=== PATIENT | male | born 1940 | race Caucasian/White ===

== ENCOUNTER 2019-10-11 22:56 | Inpatient (IN) | payer OTHER, BC ==
--- NOTE | 2019-10-11 23:15 | PDOC ---
History of Present Illness - General Chief Complaint: Shortness of Breath Stated Complaint: DIFFICULTY BREATHING Time Seen by Provider: 10/11/19 23:14 - History of Present Illness Initial Comments: 10/11/19 23:57 The patient is a 79 year old male with a history of HTN, HLD, Afib, CAD s/p cabg , COPD who presents for evaluation of shortness of breath. The patient reports a 5 day history of productive cough, SOB and intermittent fevers. He noted an acute worsening of shortness of breath with dyspnea on exertion today prompting his presentation to the ED for further evaluation. He otherwise denies headache , chest pain, nausea, vomiting, abdominal pain, or changes with urination or bowel movements. Past History - Past Medical History Allergies/Adverse Reactions: Allergies Allergy/AdvReac Type Severity Reaction Status Date / Time No Known Allergies Allergy Verified 10/11/19 23:54 Home Medications: Ambulatory Orders Amlodipine Besylate [Norvasc] 5 mg PO DAILY 11/07/11 Aspirin Coated [Ecotrin -] 81 mg PO DAILY 11/07/11 Atorvastatin Ca [Lipitor] 40 mg PO HS 11/07/11 Clopidogrel Bisulfate [Plavix -] 75 mg PO DAILY 11/07/11 Multivitamin [Multivitamins] 0.5 each PO BID 08/26/13 Salmeterol/Fluticasone [Advair 250Mcg/50Mcg -] 1 inh PO BID 08/26/13 Sotalol HCl [Sotalol] 40 mg PO BID 08/26/13 Anemia: No Asthma: No Cancer: No Cardiac Disorders: Yes (cabg 06/2005) CVA: No COPD: Yes (EMPHYSEMA) Dementia: No Diabetes: No GI Disorders: No Disorders: No HTN: Yes Hypercholesterolemia: Yes Liver Disease: No Seizures: No Thyroid Disease: No - Surgical History Abdominal Surgery: Yes Appendectomy: No Cardiac Surgery: Yes (cabg X 2004) Cholecystectomy: No Lung Surgery: No Neurologic Surgery: No Orthopedic Surgery: No - Psycho Social/Smoking Cessation Hx Smoking History: Former smoker Have you smoked in the past 12 months: No If you are a former smoker, when did you quit?: 17YRS AGO Hx Alcohol Use: Yes (wine daily) Drug/Substance Use Hx: No Substance Use Type: Alcohol Hx Substance Use Treatment: No Review of Systems - Review of Systems Comments:: 10/12/19 00:02 Constitutional: Fevers. No chills, fatigue, malaise HEENT: No Rhinorrhea, nasal congestion, visual changes Cardiovascular: No chest pain, syncope, palpitations, lightheadedness Respiratory: SOB, productive cough. No Hemoptysis, Gastrointestinal: No Abdominal pain, Nausea, Vomiting, Constipation, Diarrhea, Melena Genitourinary: No Dysuria, Frequency, Urgency, Hesitancy, Hematuria, Flank pain Musculoskeletal: No Myalgia, arthralgia Skin: No rashes, itching, bruising, pallor Neurologic: No Headache, Dizziness, Numbness, Weakness, or Tingling Psychiatric: No Hallucinations. No SI or HI *Physical Exam - Physical Exam 10/12/19 00:03 General Appearance: Nourished. No Apparent Distress HEENT: No Pharyngeal Erythema, Tonsillar Exudate, Tonsillar Erythema Neck: No Cervical Lymphadenopathy Respiratory/Chest: Poor air movement bilaterally with bibasilar rales and end expiratory wheezing. No Crackles, Rhonchi, Cardiovascular: Irregularly irregular rhythm, Tachycardic Rate. No Murmur, Gallops, Rubs Gastrointestinal/Abdominal: Normal Bowel Sounds, Soft. No Guarding, Rebound, Tenderness Musculoskeletal: No CVA Tenderness Extremity: Normal Capillary Refill Integumentary: Normal Color, Dry, Warm Neurologic: Fully Oriented, Alert, Normal Mood/Affect, Normal Response, Heart Score/ECG Review #1 ECG reviewed & interpreted by me at: 00:47 10/12/19 00:47 HR 127 QRS 116 QTc 444 Atrial Fibrillation with RVR No Acute ST changes ED Treatment Course - LABORATORY CBC & Chemistry Diagram: 10/11/19 23:22 10/11/19 23:22 Medical Decision Making - Medical Decision Making 10/12/19 00:05 The patient is a 79 year old male with a history of HTN, HLD, Afib, CAD s/p cabg , COPD who presents for evaluation of shortness of breath. Given the patient's history and physical exam, we will obtain a cbc, cmp, troponin, bnp, influenza swab, chest plain film, ekg to evaluate further. We will treat with iv fluids, duonebs, solumedrol and continue to monitor and reassess while here in the ED. 10/12/19 00:32 CBc, cmp, troponin, bnp were unremarkable. Chest plain film did not demonstrate any acute process. The patient reports some improvement in his symptoms with duonebs and solumedrol, however continues to remain symptomatic with wheezing on exam. He is in afib with RVR on ekg and we will treat with 30 po cardizem. The patient will require admission for further monitoring and management. Discharge - Discharge Information Problems reviewed: Yes Clinical Impression/Diagnosis: COPD exacerbation, Atrial fibrillation with RVR Condition: Guarded - Admission Yes - Follow up/Referral - Patient Discharge Instructions - Post Discharge Activity
[2019-10-11] MEDS ORDERED: ALBUTEROL SO4 2.5/IPRATROPIUM 0.5 INH SOL 3 ML VIAL.NEB. NEB ONE ×2 (23:25→23:35)
[2019-10-11] MEDS ORDERED: methylPREDNISolone NA SUCC 125 MG/2 ML VIAL IVPUSH ONE (23:25)
--- NOTE | 2019-10-11 23:31 | PDOC ---
Attending Attestation - Resident Resident Name: Miguel Sanchez - ED Attending Attestation I have performed the following: I have examined & evaluated the patient, The case was reviewed & discussed with the resident, I agree w/resident's findings & plan - HPI HPI: 10/11/19 23:33 5 days of SOB; cough productive of phlegm - Physicial Exam PE: 10/12/19 20:24 Agree with resident exam. Pt has a cold sweat; otherwise, skin normal color and temp and he has irregularly irreg heart rate. Lings clear bilat abd soft NT ND no flank pain No edema of legs - Medical Decision Making 10/12/19 00:07 COPD exacerbation; CXR looks normal Pt has normal WBC 10/12/19 20:24 Heart Score/ECG Review - ECG Intrepretation Rhythm: Irregularly Irregular Comment:: 10/12/19 00:13 rapid afib
[2019-10-11] MEDS ORDERED: methylPREDNISolone NA SUCC 125 MG/2 ML VIAL ONE (23:36)
[2019-10-11 23:37] LABS: BASO % 0.5 % (0-2.0); EOS % 0.4 % (0-4.5); HEMOGLOBIN 14.9 GM/dL (11.7-16.9); LYMPH % 8.9 % (8-40); MCH 32.1 pg (25.7-33.7); MCHC 33.9 g/dl (32.0-35.9); MEAN CELL VOLUME 94.7 fl (80-96); MEAN PLT VOLUME 8.6 fl (7.5-11.1); MONO % 8.4 % (3.8-10.2); NEUT % 81.8 % (42.8-82.8); PLATELET COUNT 199 K/MM3 (134-434); RBC 4.64 M/mm3 (4.00-5.60); RDW 12.9 % (11.9-15.9); WHITE BLOOD COUNT 11.6 K/mm3 (4.0-10.0)
[2019-10-11] MEDS: SODIUM CHLORIDE 0.9% 500 ML INFUS.BAG IV ONE (23:46)
[2019-10-12 00:06] LABS: ALBUMIN 3.2 g/dl (3.4-5.0); BILIRUBIN,TOTAL 1.6 mg/dL (0.2-1); CALCIUM 8.5 mg/dL (8.5-10.1); CREATININE 1.3 mg/dL (0.55-1.3); POTASSIUM 4.4 mmol/L (3.5-5.1); TOT PROT 7.2 g/dl (6.4-8.2)
[2019-10-12] MEDS ORDERED: dilTIAZem HCL 30 MG TABLET (FP) PO ONE (00:23)
[2019-10-12] MEDS ORDERED: dilTIAZem HCL 30 MG TABLET (FP) ONE (00:27)
[2019-10-12] MEDS ORDERED: SODIUM CHLORIDE 250 ML IV STA (00:29)
[2019-10-12] MEDS: SODIUM CHLORIDE 0.9% 500 ML INFUS.BAG IV ONE (00:34)
[2019-10-12 01:17] LABS: ARTERIAL BLD GAS O2 SATURATION 96.1 % (95-98); ARTERIAL BLOOD GAS BASE EXCESS 1.2 meq/l (-2-2); ARTERIAL BLOOD GAS PCO2 35.5 mmHg (35-45); ARTERIAL BLOOD GAS pH 7.45 (7.35-7.45); CARBOXYHEMOGLOBIN 1.5 % (0-2)
[2019-10-12] MEDS ORDERED: ALBUTEROL SO4 2.5/IPRATROPIUM 0.5 INH SOL 3 ML VIAL.NEB. NEB PRN (01:17)
[2019-10-12] MEDS ORDERED: ALBUTEROL SO4 0.083% IH SOL 2.5 MG/3 ML VIAL.NEB. NEB PRN (01:17)
[2019-10-12 01:19] LABS: ALLENS TEST POSITIVE
[2019-10-12] MEDS ORDERED: methylPREDNISolone NA SUCC 40 MG/1 ML VIAL IVPUSH SCH (01:30)
--- NOTE | 2019-10-12 01:50 | HP ---
CHIEF COMPLAINT: shortness of breath PCP: Dr. Garcia HISTORY OF PRESENT ILLNESS: Eleazar Pathak Jr is a 79 year old male with a past medical history of HTN, HLD, afib (on Xarelto), CAD (s/p CABG), COPD who presents with shortness of breath. Patient noted that 3 days prior he was walking down the stairs in the evening when he began to feel short of breath. He went to sit down in a recliner and did not move from the recliner until the next day. He endorsed a non-productive cough but noted that he felt like he needed to cough up phlegm. He stated that he felt feverish and a measured temperature greater than 101 was found at home. Additionally, endorsed diaphoresis and poor appetite. He stated that after 3 days his breathing was worsening and he was having great difficulty in taking breaths. He stated that his breathing was worse on exertion and endorsed wheezing. Denied recent sick contacts, travel, recent antibiotic use. Denied chest pain, palpitations, abdominal pain, nausea, vomiting, diarrhea, constipation, dysuria, hematuria, headaches, dizziness, lightheadedness, numbness, tingling. Patient is not on home O2, has never required O2 in the past. ER course was notable for: (1) HR 107, RR 22, 98 on 2L NC (2) WBC 11.6, T bili 1.6, BNP 3478 (3) Given Duoneb, NS 1L, Solumedrol 125 Recent Travel: denies PAST MEDICAL HISTORY: as above PAST SURGICAL HISTORY: 4x CABG in 2004 Social History: Smoking: former smoker, quit 25 years prior, previously smoked 2ppd for "many years" Alcohol: daily wine drinker, "several glasses" Drugs: denies Allergies No Known Allergies Allergy (Verified 10/11/19 23:54) HOME MEDICATIONS: Home Medications Medication Instructions Recorded Aspirin Coated [Ecotrin -] 81 mg PO DAILY 11/07/11 Atorvastatin Ca [Lipitor] 80 mg PO HS 11/07/11 Clopidogrel Bisulfate [Plavix -] 75 mg PO DAILY 11/07/11 Multivitamin [Multivitamins] 0.5 each PO BID 08/26/13 Sotalol HCl [Sotalol] 40 mg PO BID 08/26/13 Diltiazem HCl [Diltiazem 24Hr Cd] 180 mg PO DAILY 10/12/19 Fluticasone/Umeclidin/Vilanter 1 each IH DAILY 10/12/19 [Trelegy Ellipta 100-62.5-25] Rivaroxaban [Xarelto -] 20 mg PO HS 10/12/19 REVIEW OF SYSTEMS CONSTITUTIONAL: fever, diaphoresis Absent: chills, generalized weakness, malaise, loss of appetite, HEENT: Absent: rhinorrhea, nasal congestion, throat pain, throat swelling, difficulty swallowing, visual changes CARDIOVASCULAR: Absent: chest pain, syncope, palpitations, irregular heart rate, lightheadedness , peripheral edema RESPIRATORY: cough (dry), shortness of breath, dyspnea with exertion, wheezing Absent: orthopnea, stridor, GASTROINTESTINAL: Absent: abdominal pain, abdominal distension, nausea, vomiting, diarrhea, constipation GENITOURINARY: Absent: dysuria, frequency, urgency, hesitancy, MUSCULOSKELETAL: Absent: myalgia, arthralgia, joint swelling, back pain, neck pain SKIN: Absent: rash, itching, pallor NEUROLOGIC: Absent: headache, focal weakness or paresthesias, dizziness, unsteady gait, seizure, mental status changes, PSYCHIATRIC: Absent: anxiety, depression, suicidal or homicidal ideation, hallucinations. PHYSICAL EXAMINATION Vital Signs - 24 hr 10/11/19 10/12/19 10/12/19 23:46 00:05 00:22 Temperature 98.0 F Pulse Rate 107 H Respiratory 22 H Rate Blood Pressure 147/126 H Blood Pressure 127/74 [Right Arm] O2 Sat by Pulse 96 98 Oximetry (%) GENERAL: Awake, alert, and fully oriented, in no acute distress. HEAD: Normal with no signs of trauma. EYES: Pupils equal, round and reactive to light, extraocular movements intact, sclera anicteric, conjunctiva clear. EARS, NOSE, THROAT: Oropharynx clear without exudates. Dry mucous membranes. NECK: Normal range of motion, supple without lymphadenopathy, JVD. LUNGS: Breath sounds equal, with noted wheezes bilaterally. Scattered coarse breath sounds. HEART: Tachycardic rate and irregular rhythm, normal S1 and S2, unable to appreciate murmurs due to tachycardia. ABDOMEN: Soft, nontender, not distended, normoactive bowel sounds, no guarding, no rebound, no masses. MUSCULOSKELETAL: Normal range of motion at all joints. No bony deformities or tenderness. UPPER EXTREMITIES: 2+ pulses, warm, well-perfused. No cyanosis. No clubbing. No peripheral edema. LOWER EXTREMITIES: 2+ pulses, warm, well-perfused. No calf tenderness. No peripheral edema. NEUROLOGICAL: Cranial nerves II-XII intact. 5/5 muscle strength, bilaterally upper and lower extremities PSYCHIATRIC: Cooperative. Good eye contact. Appropriate mood and affect. SKIN: Warm, dry, normal turgor, no rashes or lesions noted, normal capillary refill. Laboratory Results - last 24 hr 10/11/19 10/11/19 10/11/19 23:22 23:22 23:22 WBC 11.6 H RBC 4.64 Hgb 14.9 Hct 44.0 MCV 94.7 MCH 32.1 MCHC 33.9 RDW 12.9 Plt Count 199 MPV 8.6 Absolute Neuts (auto) 9.5 H Neutrophils % 81.8 Lymphocytes % 8.9 Monocytes % 8.4 Eosinophils % 0.4 Basophils % 0.5 Nucleated RBC % 0 Anticoagulation Therapy Puncture Site ABG pH ABG pCO2 at Pt Temp ABG pO2 at Pt Temp ABG HCO3 ABG O2 Sat (Measured) ABG O2 Content ABG Base Excess Oli Test Carboxyhemoglobin Methemoglobin O2 Delivery Device Oxygen Flow Rate Vent Mode Vent Rate Mechanical Rate Pressure Support Vent Sodium 138 Potassium 4.4 Chloride 102 Carbon Dioxide 28 Anion Gap 7 L BUN 23.0 H Creatinine 1.3 Est GFR (CKD-EPI)AfAm 60.57 Est GFR (CKD-EPI)NonAf 52.26 Random Glucose 134 H Calcium 8.5 Total Bilirubin 1.6 H AST 28 ALT 22 Alkaline Phosphatase 90 Creatine Kinase 250 Creatine Kinase Index 0.7 CK-MB (CK-2) 1.9 Troponin I < 0.02 B-Natriuretic Peptide Total Protein 7.2 Albumin 3.2 L Influenza A (Rapid) Influenza B (Rapid) 10/11/19 10/12/19 10/12/19 23:22 00:02 00:50 WBC RBC Hgb Hct MCV MCH MCHC RDW Plt Count MPV Absolute Neuts (auto) Neutrophils % Lymphocytes % Monocytes % Eosinophils % Basophils % Nucleated RBC % Anticoagulation Therapy No Result Required. Puncture Site Left radial ABG pH 7.45 ABG pCO2 at Pt Temp 35.5 ABG pO2 at Pt Temp 78.0 L ABG HCO3 24.3 ABG O2 Sat (Measured) 96.1 ABG O2 Content 18.4 ABG Base Excess 1.2 Oli Test Positive Carboxyhemoglobin 1.5 Methemoglobin < 1.0 O2 Delivery Device Room air Oxygen Flow Rate 21% Vent Mode No Result Required. Vent Rate No Result Required. Mechanical Rate No Result Required. Pressure Support Vent No Result Required. Sodium Potassium Chloride Carbon Dioxide Anion Gap BUN Creatinine Est GFR (CKD-EPI)AfAm Est GFR (CKD-EPI)NonAf Random Glucose Calcium Total Bilirubin AST ALT Alkaline Phosphatase Creatine Kinase Creatine Kinase Index CK-MB (CK-2) Troponin I B-Natriuretic Peptide 3478.4 H Total Protein Albumin Influenza A (Rapid) Negative Influenza B (Rapid) Negative EKG--> afib with RVR, QTc 444 ASSESSMENT/PLAN: Eleazar Pathak Jr is a 79 year old male with a past medical history of HTN, HLD, afib (on Xarelto), CAD (s/p CABG), COPD admitted for COPD exacerbation. COPD Exacerbation - likely in the setting of an acute bronchitis episode - CXR with likely apparent flattened diaphragms, no noted infiltrates - ABG with no evidence of retention - Duoneb q6h scheduled - albuterol q1h prn - Solumedrol 60mg q8h - azithromycin 500mg daily - continue home Trelegy 1 puff daily - on 2L NC, can wean O2 as tolerated - Physical therapy Afib with RVR - likely in setting of administered Duonebs and missed home medications - given Cardizem in ED - continue home diltiazem 180mg daily - hold home sotalol in setting of COPD exacerbation, can restart once clinically improving and HR requires more control - on Xarelto Elevated Bilirubin - Total 1.6, direct 0.5 - LFTs WNL - can consider RUQ U/S, patient currently asymptomatic HTN - continue home diltiazem - hold home sotalol HLD - continue home atorvastatin Hx of CAD - continue home aspirin and Plavix DVT PPx - on Xarelto FEN - no standing fluids, encourage PO intake - continue to monitor electrolytes and replete as necessary - Sodium/Fat controlled diet Dispo - continue to monitor on telemetry - Medications have been reconciled Family Medical History Family Hx Respiratory Disorders: Mother (asthma) Visit type - Emergency Visit Emergency Visit: Yes ED Registration Date: 10/12/19 Care time: The patient presented to the Emergency Department on the above date and was hospitalized for further evaluation of their emergent condition. - New Patient This patient is new to me today: Yes Date on this admission: 10/12/19 - Critical Care Critical Care patient: No
[2019-10-12] MEDS ORDERED: morphine CARPU-JECT 2 MG/1 ML DISP.SYRIN IVPUSH ONE (03:08)
--- NOTE | 2019-10-12 03:12 | PN ---
Teaching Attending Note Name of Resident: Kalia Martinez ATTENDING PHYSICIAN STATEMENT I saw and evaluated the patient. I reviewed the resident's note and discussed the case with the resident. I agree with the resident's findings and plan as documented. SUBJECTIVE: This is a 79 year old man with a history of HTN, hyperlipidemia, atrial fib, CAD, CABG, COPD who comes to the ED complaining of SOB worsening over the last 3 days. He has had a non-productive cough, fever, diaphoresis, and poor appetite. Today he noted he was wheezing. OBJECTIVE: Vital Signs Period Temp Pulse Resp BP Sys/Michael Pulse Ox Last 24 Hr 98.0 F 107 22 127-147/74-126 96-98 HEART: Irregular, tachycardic LUNGS: Bilateral wheezes ABDOMEN: Soft, non-tender, non-distended, normal BS EXTREMITIES: No edema Laboratory Tests 10/11/19 10/11/19 10/11/19 23:22 23:22 23:22 WBC 11.6 H RBC 4.64 Hgb 14.9 Hct 44.0 MCV 94.7 MCH 32.1 MCHC 33.9 RDW 12.9 Plt Count 199 MPV 8.6 Absolute Neuts (auto) 9.5 H Neutrophils % 81.8 Lymphocytes % 8.9 Monocytes % 8.4 Eosinophils % 0.4 Basophils % 0.5 Nucleated RBC % 0 Anticoagulation Therapy Puncture Site ABG pH ABG pCO2 at Pt Temp ABG pO2 at Pt Temp ABG HCO3 ABG O2 Sat (Measured) ABG O2 Content ABG Base Excess Oli Test Carboxyhemoglobin Methemoglobin O2 Delivery Device Oxygen Flow Rate Vent Mode Vent Rate Mechanical Rate Pressure Support Vent Sodium 138 Potassium 4.4 Chloride 102 Carbon Dioxide 28 Anion Gap 7 L BUN 23.0 H Creatinine 1.3 Est GFR (CKD-EPI)AfAm 60.57 Est GFR (CKD-EPI)NonAf 52.26 Random Glucose 134 H Calcium 8.5 Total Bilirubin 1.6 H AST 28 ALT 22 Alkaline Phosphatase 90 Creatine Kinase 250 Creatine Kinase Index 0.7 CK-MB (CK-2) 1.9 Troponin I < 0.02 B-Natriuretic Peptide Total Protein 7.2 Albumin 3.2 L Influenza A (Rapid) Influenza B (Rapid) 10/11/19 10/12/19 10/12/19 23:22 00:02 00:50 WBC RBC Hgb Hct MCV MCH MCHC RDW Plt Count MPV Absolute Neuts (auto) Neutrophils % Lymphocytes % Monocytes % Eosinophils % Basophils % Nucleated RBC % Anticoagulation Therapy No Result Required. Puncture Site Left radial ABG pH 7.45 ABG pCO2 at Pt Temp 35.5 ABG pO2 at Pt Temp 78.0 L ABG HCO3 24.3 ABG O2 Sat (Measured) 96.1 ABG O2 Content 18.4 ABG Base Excess 1.2 Oli Test Positive Carboxyhemoglobin 1.5 Methemoglobin < 1.0 O2 Delivery Device Room air Oxygen Flow Rate 21% Vent Mode No Result Required. Vent Rate No Result Required. Mechanical Rate No Result Required. Pressure Support Vent No Result Required. Sodium Potassium Chloride Carbon Dioxide Anion Gap BUN Creatinine Est GFR (CKD-EPI)AfAm Est GFR (CKD-EPI)NonAf Random Glucose Calcium Total Bilirubin AST ALT Alkaline Phosphatase Creatine Kinase Creatine Kinase Index CK-MB (CK-2) Troponin I B-Natriuretic Peptide 3478.4 H Total Protein Albumin Influenza A (Rapid) Negative Influenza B (Rapid) Negative Home Medications Medication Instructions Recorded Aspirin Coated [Ecotrin -] 81 mg PO DAILY 11/07/11 Atorvastatin Ca [Lipitor] 80 mg PO HS 11/07/11 Clopidogrel Bisulfate [Plavix -] 75 mg PO DAILY 11/07/11 Multivitamin [Multivitamins] 0.5 each PO BID 08/26/13 Sotalol HCl [Sotalol] 40 mg PO BID 08/26/13 Diltiazem HCl [Diltiazem 24Hr Cd] 180 mg PO DAILY 10/12/19 Fluticasone/Umeclidin/Vilanter 1 each IH DAILY 10/12/19 [Trelegy Ellipta 100-62.5-25] Rivaroxaban [Xarelto -] 20 mg PO HS 10/12/19 ASSESSMENT AND PLAN: This is a 79 year old man with a history of HTN, hyperlipidemia, atrial fib, CAD , CABG, COPD who presented to the ED with a cough, fever, and worsening SOB. 1. Acute exacerbation of COPD secondary to acute bronchitis - SoluMedrol, DuoNeb given in ED with some improvement - SoluMedrol, DuoNeb, azithromycin, oxygen to maintain saturation >90% - Continue Trelegy 2. Atrial fibrillation, permanent, with RVR - Cardizem IV given in ED - Continue home dose of Cardizem CD - Hold Sotalol until COPD exacerbation improves - Continue Xarelto 3. CAD, history of CABG - Continue aspirin, Plavix, Lipitor - Hold Sotalol until COPD exacerbation improves 4. HTN - Continue Cardizem CD - Hold Sotalol until COPD exacerbation improves 5. Hyperlipidemia - Continue Lipitor
[2019-10-12] MEDS ORDERED: SODIUM CHLORIDE 0.9% 500 ML INFUS.BAG IV ONE (03:31)
[2019-10-12 04:52] LABS: BILIRUBIN,DIRECT 0.5 mg/dL (0.0-0.2)
[2019-10-12] MEDS ORDERED: methylPREDNISolone NA SUCC 40 MG/1 ML VIAL ONE (05:47)
[2019-10-12] MEDS: methylPREDNISolone NA SUCC 40 MG/1 ML VIAL IVPUSH SCH ×3 (05:54→21:25)
[2019-10-12 06:09] LABS: HEMOGLOBIN 14.7 GM/dL (11.7-16.9); MCH 32.2 pg (25.7-33.7); MCHC 34.1 g/dl (32.0-35.9); MEAN CELL VOLUME 94.3 fl (80-96); MEAN PLT VOLUME 8.6 fl (7.5-11.1); PLATELET COUNT 179 K/MM3 (134-434); RBC 4.55 M/mm3 (4.00-5.60); WHITE BLOOD COUNT 8.7 K/mm3 (4.0-10.0)
[2019-10-12 06:37] LABS: BILIRUBIN,TOTAL 1.3 mg/dL (0.2-1); BLOOD UREA NITROGEN 27.3 mg/dL (7-18); CALCIUM 8.5 mg/dL (8.5-10.1); CREATININE 1.1 mg/dL (0.55-1.3); MAGNESIUM 2.5 mg/dL (1.8-2.4); POTASSIUM 4.1 mmol/L (3.5-5.1)
[2019-10-12] MEDS ORDERED: dilTIAZem HCL 50 MG/10 ML - 10 ML VIAL IVPUSH ONE (08:22)
[2019-10-12] MEDS ORDERED: PT OWN MED DRAWER 7, Y5N ONE ×3 (08:22→10:54)
[2019-10-12] MEDS ORDERED: dilTIAZem HCL 50 MG/10 ML - 10 ML VIAL ONE (08:27)
[2019-10-12] MEDS: SOTALOL HCL 80 MG TABLET (FP) PO ONE ×2 (08:56→09:28)
[2019-10-12] MEDS: CLOPIDOGREL BISULFATE 75 MG TABLET (FP) PO SCH (09:07)
[2019-10-12] MEDS: MULTIVITAMINS (DAILY MVI) TABLET (FP) PO SCH (09:07)
[2019-10-12] MEDS ORDERED: AZITHROMYCIN IVPB 500 MG in DEXTROSE 5%-WATER - 250 ML IVPB SCH (10:00)
[2019-10-12] MEDS ORDERED: ASPIRIN COATED 81 MG TABLET.EC PO SCH (10:00)
[2019-10-12] MEDS ORDERED: MULTIVITAMIN PO SCH (10:00)
[2019-10-12] MEDS ORDERED: SOTALOL HCL 80 MG TABLET (FP) PO SCH (10:00)
--- NOTE | 2019-10-12 10:41 | PN ---
Physical Exam: SUBJECTIVE: Patient seen and examined, breathing improved, denies any chest pain , or palpitations, feels better. OBJECTIVE: Vital Signs Period Temp Pulse Resp BP Sys/Michael Pulse Ox Last 24 Hr 98.0 F-98.7 F 107-109 - 115-147/74-126 96-98 Intake & Output 10/09/19 10/10/19 10/11/19 10/12/19 23:59 23:59 23:59 23:59 Weight 180 lb GENERAL: sitting in bed, in no acute distress, able to talk in full sentences, no use of accessory muscles of respiration Neck: soft, supple, no JVD noted Chest; decreased air entry all over, no rales or wheezing appreciated Abdomen:Soft, obese, NT Extremities: no edema Psych; pleasant, co-operative Laboratory Results - last 24 hr 10/11/19 10/11/19 10/11/19 23:22 23:22 23:22 WBC 11.6 H RBC 4.64 Hgb 14.9 Hct 44.0 MCV 94.7 MCH 32.1 MCHC 33.9 RDW 12.9 Plt Count 199 MPV 8.6 Absolute Neuts (auto) 9.5 H Neutrophils % 81.8 Lymphocytes % 8.9 Monocytes % 8.4 Eosinophils % 0.4 Basophils % 0.5 Nucleated RBC % 0 Anticoagulation Therapy Puncture Site ABG pH ABG pCO2 at Pt Temp ABG pO2 at Pt Temp ABG HCO3 ABG O2 Sat (Measured) ABG O2 Content ABG Base Excess Oli Test Carboxyhemoglobin Methemoglobin O2 Delivery Device Oxygen Flow Rate Vent Mode Vent Rate Mechanical Rate Pressure Support Vent Sodium 138 Potassium 4.4 Chloride 102 Carbon Dioxide 28 Anion Gap 7 L BUN 23.0 H Creatinine 1.3 Est GFR (CKD-EPI)AfAm 60.57 Est GFR (CKD-EPI)NonAf 52.26 Random Glucose 134 H Calcium 8.5 Magnesium Total Bilirubin 1.6 H Direct Bilirubin 0.5 H AST 28 ALT 22 Alkaline Phosphatase 90 Creatine Kinase 250 Creatine Kinase Index 0.7 CK-MB (CK-2) 1.9 Troponin I < 0.02 B-Natriuretic Peptide Total Protein 7.2 Albumin 3.2 L TSH Influenza A (Rapid) Influenza B (Rapid) 10/11/19 10/12/19 10/12/19 23:22 00:02 00:50 WBC RBC Hgb Hct MCV MCH MCHC RDW Plt Count MPV Absolute Neuts (auto) Neutrophils % Lymphocytes % Monocytes % Eosinophils % Basophils % Nucleated RBC % Anticoagulation Therapy No Result Required. Puncture Site Left radial ABG pH 7.45 ABG pCO2 at Pt Temp 35.5 ABG pO2 at Pt Temp 78.0 L ABG HCO3 24.3 ABG O2 Sat (Measured) 96.1 ABG O2 Content 18.4 ABG Base Excess 1.2 Oli Test Positive Carboxyhemoglobin 1.5 Methemoglobin < 1.0 O2 Delivery Device Room air Oxygen Flow Rate 21% Vent Mode No Result Required. Vent Rate No Result Required. Mechanical Rate No Result Required. Pressure Support Vent No Result Required. Sodium Potassium Chloride Carbon Dioxide Anion Gap BUN Creatinine Est GFR (CKD-EPI)AfAm Est GFR (CKD-EPI)NonAf Random Glucose Calcium Magnesium Total Bilirubin Direct Bilirubin AST ALT Alkaline Phosphatase Creatine Kinase Creatine Kinase Index CK-MB (CK-2) Troponin I B-Natriuretic Peptide 3478.4 H Total Protein Albumin TSH Influenza A (Rapid) Negative Influenza B (Rapid) Negative 10/12/19 10/12/19 05:45 05:45 WBC 8.7 RBC 4.55 Hgb 14.7 Hct 43.0 MCV 94.3 MCH 32.2 MCHC 34.1 RDW 13.0 Plt Count 179 MPV 8.6 Absolute Neuts (auto) Neutrophils % Lymphocytes % Monocytes % Eosinophils % Basophils % Nucleated RBC % Anticoagulation Therapy Puncture Site ABG pH ABG pCO2 at Pt Temp ABG pO2 at Pt Temp ABG HCO3 ABG O2 Sat (Measured) ABG O2 Content ABG Base Excess Oli Test Carboxyhemoglobin Methemoglobin O2 Delivery Device Oxygen Flow Rate Vent Mode Vent Rate Mechanical Rate Pressure Support Vent Sodium 138 Potassium 4.1 Chloride 103 Carbon Dioxide 26 Anion Gap 10 BUN 27.3 H Creatinine 1.1 Est GFR (CKD-EPI)AfAm 74.13 Est GFR (CKD-EPI)NonAf 63.96 Random Glucose 157 H Calcium 8.5 Magnesium 2.5 H Total Bilirubin 1.3 H Direct Bilirubin AST 27 ALT 21 Alkaline Phosphatase 90 Creatine Kinase Creatine Kinase Index CK-MB (CK-2) Troponin I B-Natriuretic Peptide Total Protein 7.0 Albumin 3.0 L TSH 0.30 L Influenza A (Rapid) Influenza B (Rapid) Active Medications Generic Name Dose Route Start Last Admin Trade Name Freq PRN Reason Stop Dose Admin Albuterol/Ipratropium 1 amp 10/12/19 01:17 Duoneb - NEB Q6H PRN SHORTNESS OF BREATH Aspirin 81 mg 10/12/19 10:00 10/12/19 09:07 Ecotrin - PO 81 mg DAILY [facility] Administration Atorvastatin Calcium 80 mg 10/12/19 22:00 Lipitor - PO HS [facility] Budesonide/Formoterol Fumarate 2 puff 10/12/19 10:00 Symbicort 160/4.5mcg - IH BID [facility] Clopidogrel Bisulfate 75 mg 10/12/19 10:00 10/12/19 09:07 Plavix - PO 75 mg DAILY [facility] Administration Diltiazem HCl 180 mg 10/12/19 10:00 10/12/19 09:07 Cardizem Cd - PO 180 mg DAILY [facility] Administration Doxycycline Hyclate 100 mg 10/12/19 10:00 Vibramycin - PO BID@1000,1800 [facility] Levalbuterol HCl 0.63 mg 10/12/19 14:00 Xopenex IH RTID [facility] Methylprednisolone Sodium Succinate 60 mg 10/12/19 06:00 10/12/19 05:54 Solu-Medrol - IVPUSH 60 mg Q8H [facility] Administration Multivitamins/Minerals/Vitamin C 1 tab 10/12/19 10:00 10/12/19 09:07 Tab-A-Vit - PO 1 tab DAILY [facility] Administration Rivaroxaban 20 mg 10/12/19 22:00 Xarelto PO HS [facility] Sotalol HCl 40 mg 10/12/19 22:00 Betapace - PO BID [facility] Tiotropium [place] 2 puff 10/12/19 10:00 Spiriva Respimat IH DAILY [facility] Telemetry: Afib 100s-140s (non sustained) CXR results reviewed ASSESSMENT/PLAN: 79 year old male with a past medical history of HTN, HLD, afib (on Xarelto), CAD (s/p CABG) (Follows with Dr. Becker), COPD not on home oxygen (Follows with ) admitted with dsypnea, cough with thick white sputum, subjective fevers, also found in Afib with RVR -Acute COPD exacerbaton, suspect URI like illnes +/- Acute Bronchitis -Atrial fibrillation with RVR, likely from above/Nebs -CAD s/p CABG -HTN -HLD Plan: Respiratory status improved. Telemetry with HR 100s-140s Non sustained. Resume sotalol. Continue Cardizem/Xarelto. Cardiology input Dr. Becker. Continue ASA/Plavix/statin. Continue current dose of solumedrol today. Change to Xopenex nebs TID. Duoneb prn. Symbicort Change abx to doxycycline day 1 to avoid QTC prolongation (with sotalol) Influenza screen neg. Check RVP/Sputum cx. DVTPPX xarelto as above Will need PT eval and home oxygen needs assessment prior to dc Plan discussed with patient and nursing at bedside in detail, all questions answered. Visit type - Emergency Visit Emergency Visit: Yes ED Registration Date: 10/12/19 Care time: The patient presented to the Emergency Department on the above date and was hospitalized for further evaluation of their emergent condition. - New Patient This patient is new to me today: Yes Date on this admission: 10/12/19 - Critical Care Critical Care patient: No - Discharge Referral Referred to [facility] Med P.C.: No
[2019-10-12] MEDS: TIOTROPIUM BROMIDE 2.5 MCG (SPIRIVA) RESPIMAT INHALER IH SCH (10:42)
[2019-10-12] MEDS: DOXYCYCLINE HYCLATE 100 MG CAPSULE PO SCH ×2 (10:43→17:19)
[2019-10-12] MEDS ORDERED: dilTIAZem HCL 50 MG/10 ML - 10 ML VIAL IVPUSH PRN (12:43)
--- NOTE | 2019-10-12 12:43 | CON.CARD ---
Consult Consult Specialty:: Cardiology Referred by:: Medicine Reason for Consultation:: afib - History of Present Illness Chief Complaint: short of breath History of Present Illness: 79M h/o HTN, HLD, afib, CAD s/p CABG, COPD p/w dyspnea. Sees Dr. Becker for cardio. Symptoms started 3 days ago, felt short of breath after coming down the stairs, starting having productive cough. [place] hot, sweaty, reportedly temp 101 at home. Family member checked vitals, concerned with pulse 120s (usually 60s-90s per patient). Breathing continued to worsen, especially with exertion and felt weak so came to ER. Feels better now, no chest pain, palps, dizziness , sob improving. - Alcohol/Substance Use Hx Alcohol Use: Yes (wine daily) - Smoking History Smoking history: Former smoker Have you smoked in the past 12 months: No If you are a former smoker, when did you quit?: 17YRS AGO Home Medications - Allergies Allergies/Adverse Reactions: Allergies Allergy/AdvReac Type Severity Reaction Status Date / Time No Known Allergies Allergy Verified 10/11/19 23:54 - Home Medications Home Medications: Ambulatory Orders Aspirin Coated [Ecotrin -] 81 mg PO DAILY 11/07/11 Atorvastatin Ca [Lipitor] 80 mg PO HS 11/07/11 Clopidogrel Bisulfate [Plavix -] 75 mg PO DAILY 11/07/11 Multivitamin [Multivitamins] 0.5 each PO BID 08/26/13 Sotalol HCl [Sotalol] 40 mg PO BID 08/26/13 Diltiazem HCl [Diltiazem 24Hr Cd] 180 mg PO DAILY 10/12/19 Fluticasone/Umeclidin/Vilanter [Trelegy Ellipta 100-62.5-25] 1 each IH DAILY Rivaroxaban [Xarelto -] 20 mg PO HS 10/12/19 Family Medical History Family History: Unremarkable Review of Systems - Review of Systems Constitutional: reports: Weakness Eyes: reports: No Symptoms HENT: reports: No Symptoms Neck: reports: No Symptoms Cardiovascular: reports: No Symptoms Respiratory: reports: No Symptoms Gastrointestinal: reports: No Symptoms Musculoskeletal: reports: No Symptoms Integumentary: reports: No Symptoms Neurological: reports: No Symptoms Endocrine: reports: No Symptoms Hematology/Lymphatic: reports: No Symptoms Psychiatric: reports: No Symptoms Vital Signs: Vital Signs Temperature 98.7 F 10/12/19 07:30 Pulse Rate 109 H 10/12/19 07:30 Respiratory Rate 26 H 10/12/19 09:00 Blood Pressure 115/81 10/12/19 07:30 O2 Sat by Pulse Oximetry (%) 98 10/12/19 09:00 Constitutional: Yes: No Distress, Calm Eyes: Yes: Conjunctiva Clear, EOM Intact HENT: Yes: Atraumatic, Normocephalic Neck: Yes: Supple, Trachea Midline Respiratory: Yes: Regular, CTA Bilaterally Gastrointestinal: Yes: Normal Bowel Sounds, Soft Cardiovascular: Yes: Tachycardia, Pulse Irregular JVD: No Heart Sounds: Yes: S1, S2 Extremities: No: Cold Edema: No Integumentary: No: Jaundice Neurological: Yes: Alert, Oriented Psychiatric: No: Agitated - Other Data Labs, Other Data: CBC, BMP 10/12/19 05:45 10/12/19 05:45 Troponin, BNP 10/11/19 10/11/19 23:22 23:22 Troponin I < 0.02 B-Natriuretic Peptide 3478.4 H Troponin, BNP 10/11/19 10/11/19 23:22 23:22 Troponin I < 0.02 B-Natriuretic Peptide 3478.4 H Assessment/Plan EKG: afib with RVR no ischemic changes tele: afib 100s-110s, up to 130s-140s CXR: no congestion shortness of breath, copd exac, acute bronchitis - BNP 3458, however appears euvolemic, no congestion on cxr - less likely CHF - check echo - nebs, steroids per primary, pulm afib - RVR in setting of copd exac, missed home meds - restarted home sotalol, cardizem - cont xarelto - monitor on tele HTN - stable, cont home meds HLD - cont statin CAD s/p CABG - cont plavix, statin - dc aspirin, not taking at home (no recent PCI)
--- NOTE | 2019-10-12 13:32 | EKG ---
Test Reason : Blood Pressure : / mmHG Vent. Rate : 127 BPM Atrial Rate : 156 BPM P-R Int : 000 ms QRS Dur : 116 ms QT Int : 306 ms P-R-T Axes : 000 060 003 degrees QTc Int : 444 ms ATRIAL FIBRILLATION WITH RAPID VENTRICULAR RESPONSE WITH PREMATURE VENTRICULAR OR ABERRANTLY CONDUCTED COMPLEXES CANNOT RULE OUT INFERIOR INFARCT , AGE UNDETERMINED ABNORMAL ECG WHEN COMPARED WITH ECG OF 10-SEP-2010 08:09, ATRIAL FIBRILLATION HAS REPLACED SINUS RHYTHM VENT. RATE HAS INCREASED BY 68 BPM Confirmed by MD STEFANI, MARISELA ([id number]) on 10/12/2019 1:31:50 PM Referred By: Confirmed By:MARISELA KO MD
[2019-10-12] MEDS: BUDESONIDE/FORMETEROL FUMARATE 160/4.5 mcg INHALER IH SCH ×2 (13:40→23:13)
[2019-10-12] MEDS: LEVALBUTEROL HCL 0.63 MG/3 ML VIAL.NEB. IH SCH ×2 (14:14→21:00)
[2019-10-12 16:10] VITALS: BMI 29.8
[2019-10-12] MEDS: ATORVASTATIN CA 80 MG TABLET (FP) PO SCH (21:32)
[2019-10-12] MEDS: SOTALOL HCL 80 MG TABLET (FP) PO SCH (21:32)
[2019-10-13] MEDS: methylPREDNISolone NA SUCC 40 MG/1 ML VIAL IVPUSH SCH ×3 (06:09→17:26)
[2019-10-13 06:22] LABS: BASO % 0.1 % (0-2.0); HEMATOCRIT 41.4 % (35.4-49); LYMPH % 5.1 % (8-40); MCH 31.8 pg (25.7-33.7); MCHC 33.8 g/dl (32.0-35.9); MEAN CELL VOLUME 93.9 fl (80-96); MEAN PLT VOLUME 8.6 fl (7.5-11.1); MONO % 3.4 % (3.8-10.2); NEUT % 91.4 % (42.8-82.8); PLATELET COUNT 196 K/MM3 (134-434); RBC 4.41 M/mm3 (4.00-5.60); WHITE BLOOD COUNT 9.3 K/mm3 (4.0-10.0)
[2019-10-13 06:59] LABS: ALBUMIN 2.8 g/dl (3.4-5.0); BILIRUBIN,TOTAL 0.5 mg/dL (0.2-1); CALCIUM 8.3 mg/dL (8.5-10.1); CREATININE 1.2 mg/dL (0.55-1.3); MAGNESIUM 2.6 mg/dL (1.8-2.4); PHOSPHOROUS 3.5 mg/dL (2.5-4.9); POTASSIUM 4.8 mmol/L (3.5-5.1); TOT PROT 6.6 g/dl (6.4-8.2)
--- NOTE | 2019-10-13 07:47 | PN ---
Teaching Attending Note Name of Resident: Keara Connell ATTENDING PHYSICIAN STATEMENT I saw and evaluated the patient. I reviewed the resident's note and discussed the case with the resident. I agree with the resident's findings and plan as documented with exceptions below. SUBJECTIVE: Patient seen and examined. Breathing improved, no chest pain or palpitations, overall feels better. OBJECTIVE: Vital Signs Period Temp Pulse Resp BP Sys/Michael Pulse Ox Last 24 Hr 97.2 F-98.4 F 89-118 20-26 99-132/57-93 98-98 Intake & Output 10/10/19 10/11/19 10/12/19 10/13/19 23:59 23:59 23:59 23:59 Intake Total 350 Output Total 400 Balance 350 -400 Weight 180 lb 202 lb General: sitting in bed, no acute distress neck: soft, supple Chest: improved air entry, no rales or wheezing Abdomen:Soft, obese, NT CVS:S1s2 irregularly irregular, tachycardic Extremities: no edema Home Medications Medication Instructions Recorded Aspirin Coated [Ecotrin -] 81 mg PO DAILY 11/07/11 Atorvastatin Ca [Lipitor] 80 mg PO HS 11/07/11 Clopidogrel Bisulfate [Plavix -] 75 mg PO DAILY 11/07/11 Multivitamin [Multivitamins] 0.5 each PO BID 08/26/13 Sotalol HCl [Sotalol] 40 mg PO BID 08/26/13 Diltiazem HCl [Diltiazem 24Hr Cd] 180 mg PO DAILY 10/12/19 Fluticasone/Umeclidin/Vilanter 1 each IH DAILY 10/12/19 [Jj Ellipta 100-62.5-25] Rivaroxaban [Xarelto -] 20 mg PO HS 10/12/19 Active Medications Albuterol/Ipratropium (Duoneb -) 1 amp NEB Q6H PRN PRN Reason: SHORTNESS OF BREATH Atorvastatin Calcium (Lipitor -) 80 mg PO [facility] Last Admin: 10/12/19 21:32 Dose: 80 mg Budesonide/Formoterol Fumarate (Symbicort 160/4.5mcg -) 2 puff IH BID [facility] Last Admin: 10/12/19 23:13 Dose: Not Given Clopidogrel Bisulfate (Plavix -) 75 mg PO DAILY [facility] Last Admin: 10/12/19 09:07 Dose: 75 mg Diltiazem HCl (Cardizem Cd -) 180 mg PO DAILY [facility] Last Admin: 10/12/19 09:07 Dose: 180 mg Diltiazem HCl (Cardizem Injection -) 10 mg IVPUSH Q4H PRN PRN Reason: TACHYCARDIA Doxycycline Hyclate (Vibramycin -) 100 mg PO BID@1000,1800 [facility] Last Admin: 10/12/19 17:19 Dose: 100 mg Levalbuterol HCl (Xopenex) 0.63 mg IH RTID [facility] Last Admin: 10/12/19 21:00 Dose: 0.63 mg Methylprednisolone Sodium Succinate (Solu-Medrol -) 60 mg IVPUSH Q8H [facility] Last Admin: 10/13/19 06:09 Dose: 60 mg Multivitamins/Minerals/Vitamin C (Tab-A-Vit -) 1 tab PO DAILY [facility] Last Admin: 10/12/19 09:07 Dose: 1 tab Rivaroxaban (Xarelto) 20 mg PO HS [facility] Sotalol HCl (Betapace -) 40 mg PO BID [facility] Last Admin: 10/12/19 21:32 Dose: 40 mg Tiotropium [place] (Spiriva Respimat) 2 puff IH DAILY [facility] Last Admin: 10/12/19 10:42 Dose: Not Given Laboratory Results - last 24 hr 10/12/19 10/13/19 10/13/19 05:45 06:00 06:00 WBC 9.3 RBC 4.41 Hgb 14.0 Hct 41.4 MCV 93.9 MCH 31.8 MCHC 33.8 RDW 13.0 Plt Count 196 MPV 8.6 Absolute Neuts (auto) 8.5 H Neutrophils % 91.4 H Lymphocytes % 5.1 L D Monocytes % 3.4 L Eosinophils % 0.0 D Basophils % 0.1 Nucleated RBC % 0 Sodium 138 139 Potassium 4.1 4.8 Chloride 103 104 Carbon Dioxide 26 29 Anion Gap 10 5 L BUN 27.3 H 41.0 H Creatinine 1.1 1.2 Est GFR (CKD-EPI)AfAm 74.13 66.73 Est GFR (CKD-EPI)NonAf 63.96 57.57 Random Glucose 157 H 164 H Calcium 8.5 8.3 L Phosphorus 3.5 Magnesium 2.5 H 2.6 H Total Bilirubin 1.3 H 0.5 AST 27 30 ALT 21 30 Alkaline Phosphatase 90 84 Total Protein 7.0 6.6 Albumin 3.0 L 2.8 L TSH 0.30 L Free T4 1.44 H telemetry Afib 80-s90s overnight, noted 110s-130s around 6 AM, currently 100s ASSESSMENT AND PLAN: 79 year old male with a past medical history of HTN, HLD, afib (on Xarelto), CAD (s/p CABG) (Follows with Dr. Becker), COPD not on home oxygen (Follows with ) admitted with dsypnea, cough with thick white sputum, subjective fevers, also found in Afib with RVR -Acute COPD exacerbaton, suspect URI like illnes +/- Acute Bronchitis -Atrial fibrillation with RVR, likely from above/Nebs -Hyperthyroidism -CAD s/p CABG -HTN -HLD Plan: Respiratory status improved. Intermittent tachycardia, overall HR improved Cardiology input noted, Cardizem increased to 240 mg. Continue sotalol/xarelto. ASA dcd. Continue statin. taper steroids, doxycycline day 2 (avoid QTc prolonging agents with sotalol), xopenex TID. duoneb prn, symbicort Thyroid panel noted, Endocrine input noted. Follow repeat thyroid studies/TPO/TSI. Influenza screen neg. Check RVP/Sputum cx as able. DVTPPX xarelto as above Will need PT eval and home oxygen needs assessment prior to dc Dispo anticipate home +/- oxygen when improved. Plan discussed with patient and nursing at bedside in detail, all questions answered.
[2019-10-13] MEDS: LEVALBUTEROL HCL 0.63 MG/3 ML VIAL.NEB. IH SCH ×3 (08:12→21:33)
[2019-10-13] MEDS: DOXYCYCLINE HYCLATE 100 MG CAPSULE PO SCH ×2 (09:00→17:26)
[2019-10-13] MEDS: MULTIVITAMINS (DAILY MVI) TABLET (FP) PO SCH (09:01)
[2019-10-13] MEDS: SOTALOL HCL 80 MG TABLET (FP) PO SCH ×2 (09:01→22:04)
[2019-10-13] MEDS: CLOPIDOGREL BISULFATE 75 MG TABLET (FP) PO SCH (09:01)
--- NOTE | 2019-10-13 09:34 | CONSULT ---
Consult Consult Specialty:: Endocrinology Referred by:: Dr Julien Reason for Consultation:: Abnormal TFT - History of Present Illness Chief Complaint: SOB History of Present Illness: This is a 79 year old male with a past medical history of HTN, HLD, afib (on Xarelto), CAD (s/p CABG), COPD who presents with shortness of breath which started 3 days prior to admission when he was walking down the stairs in the evening . He went to sit down in a recliner and did not move from the recliner until the next day. Also c/o a non-productive cough feeling feverish and a measured temperature greater than 101 was found at home. Additionally, endorsed diaphoresis and poor appetite. Pt was treated with IV steroids, brochodilators with improvement in symptoms. Patient is not on home O2, has never required O2 in the past. Pt found to have low TSH and ?high FT4 and referred for evaluation. Pt denies and personal or family h/o thyroid disorder - History Source History Provided By: Patient, Medical Record - Alcohol/Substance Use Hx Alcohol Use: Yes (wine daily) - Smoking History Smoking history: Former smoker Have you smoked in the past 12 months: No If you are a former smoker, when did you quit?: 17YRS AGO Home Medications - Allergies Allergies/Adverse Reactions: Allergies Allergy/AdvReac Type Severity Reaction Status Date / Time No Known Allergies Allergy Verified 10/11/19 23:54 - Home Medications Home Medications: Ambulatory Orders Aspirin Coated [Ecotrin -] 81 mg PO DAILY 11/07/11 Atorvastatin Ca [Lipitor] 80 mg PO HS 11/07/11 Clopidogrel Bisulfate [Plavix -] 75 mg PO DAILY 11/07/11 Multivitamin [Multivitamins] 0.5 each PO BID 08/26/13 Sotalol HCl [Sotalol] 40 mg PO BID 08/26/13 Diltiazem HCl [Diltiazem 24Hr Cd] 180 mg PO DAILY 10/12/19 Fluticasone/Umeclidin/Vilanter [Trelegy Ellipta 100-62.5-25] 1 each IH DAILY Rivaroxaban [Xarelto -] 20 mg PO HS 10/12/19 Family Medical History Other Family History: No family h/o thyroid disorfer Review of Systems - Review of Systems Constitutional: reports: No Symptoms Eyes: reports: No Symptoms HENT: reports: No Symptoms Neck: reports: No Symptoms Cardiovascular: reports: Shortness of Breath Respiratory: reports: SOB Gastrointestinal: reports: No Symptoms Genitourinary: reports: No Symptoms Musculoskeletal: reports: No Symptoms Integumentary: reports: No Symptoms Neurological: reports: No Symptoms Endocrine: reports: No Symptoms Hematology/Lymphatic: reports: No Symptoms Physical Exam Vital Signs: Vital Signs Temperature 97.4 F L 10/13/19 02:00 Pulse Rate 118 H 10/13/19 06:00 Respiratory Rate 22 H 10/13/19 06:00 Blood Pressure 119/93 10/13/19 06:00 O2 Sat by Pulse Oximetry (%) 98 10/12/19 21:00 Constitutional: Yes: No Distress, Calm Eyes: Yes: Conjunctiva Clear, EOM Intact HENT: Yes: Atraumatic, Normocephalic Neck: Yes: Supple, Trachea Midline Cardiovascular: Yes: Regular Rate and Rhythm Respiratory: Yes: Diminished Gastrointestinal: Yes: Normal Bowel Sounds, Soft Extremities: Yes: WNL Edema: No Neurological: Yes: Alert, Oriented Labs: CBC, BMP 10/13/19 06:00 10/13/19 06:00 Problem List - Problems (1) Atrial fibrillation with RVR Code(s): I48.91 - UNSPECIFIED ATRIAL FIBRILLATION (2) COPD exacerbation Code(s): J44.1 - CHRONIC OBSTRUCTIVE PULMONARY DISEASE W (ACUTE) EXACERBATION Assessment/Plan AP: COPD exacerbation HTN CAD s/p CABG Abnromal TFT: Sick euthyroid vs steroid effect vs subclinical Hyperthyroidism A Fib HLD IV steroids Bronchodilators Monitor electrolytes Rpt TFT with TPO and TSI Will F/u
[2019-10-13 10:22] LABS: PLATELET ESTIMATE ADEQUATE
[2019-10-13] MEDS ORDERED: dilTIAZem HCL 60 MG TABLET (FP) PO ONE (11:23)
--- NOTE | 2019-10-13 11:25 | PN ---
Progress Note (short form) - Note Progress Note: s: no chest pain, palps, dizziness. feels tired, off balance Current Medications Albuterol/Ipratropium (Duoneb -) 1 amp NEB Q6H PRN PRN Reason: SHORTNESS OF BREATH Atorvastatin Calcium (Lipitor -) 80 mg PO HS [facility] Last Admin: 10/12/19 21:32 Dose: 80 mg Budesonide/Formoterol Fumarate (Symbicort 160/4.5mcg -) 2 puff IH BID [facility] Last Admin: 10/12/19 23:13 Dose: Not Given Clopidogrel Bisulfate (Plavix -) 75 mg PO DAILY [facility] Last Admin: 10/13/19 09:01 Dose: 75 mg Diltiazem HCl (Cardizem Injection -) 10 mg IVPUSH Q4H PRN PRN Reason: TACHYCARDIA Diltiazem HCl (Cardizem Cd -) 240 mg PO DAILY [facility] Diltiazem HCl (Cardizem -) 60 mg PO ONCE ONE Stop: 10/13/19 11:24 Doxycycline Hyclate (Vibramycin -) 100 mg PO BID@1000,1800 [facility] Last Admin: 10/13/19 09:00 Dose: 100 mg Levalbuterol HCl (Xopenex) 0.63 mg IH RTID [facility] Last Admin: 10/13/19 08:12 Dose: 0.63 mg Methylprednisolone Sodium Succinate (Solu-Medrol -) 60 mg IVPUSH Q8H [facility] Last Admin: 10/13/19 06:09 Dose: 60 mg Multivitamins/Minerals/Vitamin C (Tab-A-Vit -) 1 tab PO DAILY [facility] Last Admin: 10/13/19 09:01 Dose: 1 tab Rivaroxaban (Xarelto) 20 mg PO HS [facility] Sotalol HCl (Betapace -) 40 mg PO BID [facility] Last Admin: 10/13/19 09:01 Dose: 40 mg Tiotropium [place] (Spiriva Respimat) 2 puff IH DAILY [facility] Last Admin: 10/12/19 10:42 Dose: Not Given Vital Signs Period Temp Pulse Resp BP Sys/Michael Pulse Ox Last 24 Hr 97.2 F-98.4 F 89-118 20-22 99-132/57-93 98-98 Constitutional: Yes: No Distress, Calm Eyes: Yes: Conjunctiva Clear, EOM Intact HENT: Yes: Atraumatic, Normocephalic Neck: Yes: Supple, Trachea Midline Respiratory: Yes: Regular, CTA Bilaterally Gastrointestinal: Yes: Normal Bowel Sounds, Soft Cardiovascular: Yes: Tachycardia, Pulse Irregular JVD: No Heart Sounds: Yes: S1, S2 Extremities: No: Cold Edema: No Integumentary: No: Jaundice Neurological: Yes: Alert, Oriented Psychiatric: No: Agitated Assessment/Plan EKG: afib with RVR no ischemic changes tele: afib 100s-110s, episodes 130s-140s CXR: no congestion shortness of breath, copd exac, acute bronchitis - BNP 3458, however appears euvolemic, no congestion on cxr - less likely CHF - check echo - nebs, steroids per primary, pulm afib - RVR in setting of copd exac, missed home meds - restarted home sotalol, cardizem - inc cardizem to 240 mg daily - cont xarelto - monitor on tele HTN - stable, cont home meds HLD - cont statin CAD s/p CABG - cont plavix, statin - dc aspirin, not taking at home (no recent PCI)
[2019-10-13] MEDS: TIOTROPIUM BROMIDE 2.5 MCG (SPIRIVA) RESPIMAT INHALER IH SCH ×2 (11:26→11:51)
--- NOTE | 2019-10-13 11:38 | PN ---
Physical Exam: SUBJECTIVE: Patient seen and examined this AM. Breathing improved. No acute overngiht events. OBJECTIVE: Vital Signs Period Temp Pulse Resp BP Sys/Michael Pulse Ox Last 24 Hr 97.2 F-98.4 F 89-118 20-22 99-132/57-93 98-98 GENERAL: A&Ox3, NAD HEAD: NCAT EYES: PERRL, EOMI ENT: MMM NECK: No JVD. LUNGS: CTAB, No wheezing HEART: Tachycardic, Irregular, S1 S2 ABDOMEN: Soft, nontender, not distended, + bowel sounds, no guarding EXTREMITIES: No peripheral edema. NEUROLOGICAL: Cranial nerves II-XII intact. SKIN: Warm, dry Laboratory Results - last 24 hr 10/12/19 10/13/19 10/13/19 05:45 06:00 06:00 WBC 9.3 RBC 4.41 Hgb 14.0 Hct 41.4 MCV 93.9 MCH 31.8 MCHC 33.8 RDW 13.0 Plt Count 196 MPV 8.6 Absolute Neuts (auto) 8.5 H Total Counted 100 Neutrophils % 91.4 H Neutrophils % (Manual) 89.0 H Band Neutrophils % 2.0 Lymphocytes % 5.1 L D Lymphocytes % (Manual) 4.0 L Monocytes % 3.4 L Monocytes % (Manual) 5 Eosinophils % 0.0 D Basophils % 0.1 Nucleated RBC % 0 Platelet Estimate Adequate Platelet Comment Large platelets Sodium 138 139 Potassium 4.1 4.8 Chloride 103 104 Carbon Dioxide 26 29 Anion Gap 10 5 L BUN 27.3 H 41.0 H Creatinine 1.1 1.2 Est GFR (CKD-EPI)AfAm 74.13 66.73 Est GFR (CKD-EPI)NonAf 63.96 57.57 Random Glucose 157 H 164 H Calcium 8.5 8.3 L Phosphorus 3.5 Magnesium 2.5 H 2.6 H Total Bilirubin 1.3 H 0.5 AST 27 30 ALT 21 30 Alkaline Phosphatase 90 84 Total Protein 7.0 6.6 Albumin 3.0 L 2.8 L TSH 0.30 L Free T4 1.44 H Active Medications Albuterol/Ipratropium (Duoneb -) 1 amp NEB Q6H PRN PRN Reason: SHORTNESS OF BREATH Atorvastatin Calcium (Lipitor -) 80 mg PO HS [facility] Last Admin: 10/12/19 21:32 Dose: 80 mg Budesonide/Formoterol Fumarate (Symbicort 160/4.5mcg -) 2 puff IH BID [facility] Last Admin: 10/12/19 23:13 Dose: Not Given Clopidogrel Bisulfate (Plavix -) 75 mg PO DAILY [facility] Last Admin: 10/13/19 09:01 Dose: 75 mg Diltiazem HCl (Cardizem Injection -) 10 mg IVPUSH Q4H PRN PRN Reason: TACHYCARDIA Diltiazem HCl (Cardizem Cd -) 240 mg PO DAILY [facility] Diltiazem HCl (Cardizem -) 60 mg PO ONCE ONE Stop: 10/13/19 11:24 Doxycycline Hyclate (Vibramycin -) 100 mg PO BID@1000,1800 [facility] Last Admin: 10/13/19 09:00 Dose: 100 mg Levalbuterol HCl (Xopenex) 0.63 mg IH RTID [facility] Last Admin: 10/13/19 08:12 Dose: 0.63 mg Methylprednisolone Sodium Succinate (Solu-Medrol -) 60 mg IVPUSH Q8H [facility] Last Admin: 10/13/19 06:09 Dose: 60 mg Multivitamins/Minerals/Vitamin C (Tab-A-Vit -) 1 tab PO DAILY [facility] Last Admin: 10/13/19 09:01 Dose: 1 tab Rivaroxaban (Xarelto) 20 mg PO HS [facility] Sotalol HCl (Betapace -) 40 mg PO BID [facility] Last Admin: 10/13/19 09:01 Dose: 40 mg Tiotropium [place] (Spiriva Respimat) 2 puff IH DAILY [facility] Last Admin: 10/12/19 10:42 Dose: Not Given ASSESSMENT/PLAN: 79 y/o M with PMHx of HTN, HLD, afib (on Xarelto), CAD (s/p CABG), COPD admitted for COPD exacerbation. #COPD Exacerbation -Likely in the setting of an acute bronchitis episode -Bronchodilators: Duoneb, Xopenex, Symbicort, Spiriva -Decrease Solumedrol to 40mg q8h -Continue Doxycycline (ABx course started on 10/12) -Supplemental O2 PRN -Physical therapy #Afib with RVR -HR improved but remains above goal in the setting of Beta agonist use -Increase long acting diltiazem to 240mg -IV Diltiazem for Tachycardia -Continue home dose Sotalol, DOAC -Echo -Cardiology consulted, appreciate rec's -Endocrine consulted given Thyroid panel in the setting of AFib, appreciate rec' s #HTN -Continue Diltiazem, Sotalol #Hx of CAD -Clopidogrel, Statin #FEN -no standing fluids -Replete PRN -Sodium/Fat controlled diet #PPx -DVT: DOAC Dispo: Tele, Echo pending Visit type - Emergency Visit Emergency Visit: Yes ED Registration Date: 10/12/19 Care time: The patient presented to the Emergency Department on the above date and was hospitalized for further evaluation of their emergent condition. - New Patient This patient is new to me today: Yes Date on this admission: 10/13/19 - Critical Care Critical Care patient: No - Discharge Referral Referred to [facility] No ATTENDING PHYSICIAN STATEMENT I saw and evaluated the patient. I reviewed the resident's note and discussed the case with the resident. I agree with the resident's findings and plan as documented. SUBJECTIVE: OBJECTIVE: ASSESSMENT AND PLAN:
[2019-10-13] MEDS: BUDESONIDE/FORMETEROL FUMARATE 160/4.5 mcg INHALER IH SCH ×2 (11:48→22:05)
[2019-10-13] MEDS: ATORVASTATIN CA 80 MG TABLET (FP) PO SCH (22:04)
[2019-10-13] MEDS: RIVAROXABAN 20 MG TABLET PO SCH (22:05)
[2019-10-14] MEDS: methylPREDNISolone NA SUCC 40 MG/1 ML VIAL IVPUSH SCH ×5 (01:15→18:24)
[2019-10-14] MEDS: LEVALBUTEROL HCL 0.63 MG/3 ML VIAL.NEB. IH SCH ×3 (08:08→20:23)
[2019-10-14] MEDS: SOTALOL HCL 80 MG TABLET (FP) PO SCH ×2 (10:18→21:26)
[2019-10-14] MEDS: DOXYCYCLINE HYCLATE 100 MG CAPSULE PO SCH ×2 (10:19→18:24)
[2019-10-14] MEDS: BUDESONIDE/FORMETEROL FUMARATE 160/4.5 mcg INHALER IH SCH ×2 (10:19→21:27)
[2019-10-14] MEDS: CLOPIDOGREL BISULFATE 75 MG TABLET (FP) PO SCH (10:19)
[2019-10-14] MEDS: TIOTROPIUM BROMIDE 2.5 MCG (SPIRIVA) RESPIMAT INHALER IH SCH (10:19)
[2019-10-14] MEDS: MULTIVITAMINS (DAILY MVI) TABLET (FP) PO SCH (10:19)
[2019-10-14] MEDS ORDERED: methylPREDNISolone NA SUCC 125 MG/2 ML VIAL ONE (11:10)
--- NOTE | 2019-10-14 13:10 | PN ---
Progress Note (short form) - Note Progress Note: s: no chest pain, palps, dizziness. Current Medications Atorvastatin Calcium (Lipitor -) 80 mg PO HS [facility] Last Admin: 10/13/19 22:04 Dose: 80 mg Budesonide/Formoterol Fumarate (Symbicort 160/4.5mcg -) 2 puff IH BID [facility] Last Admin: 10/14/19 10:19 Dose: 2 inh Clopidogrel Bisulfate (Plavix -) 75 mg PO DAILY [facility] Last Admin: 10/14/19 10:19 Dose: 75 mg Diltiazem HCl (Cardizem Injection -) 10 mg IVPUSH Q4H PRN PRN Reason: TACHYCARDIA Diltiazem HCl (Cardizem Cd -) 240 mg PO DAILY [facility] Last Admin: 10/14/19 10:19 Dose: 240 mg Diltiazem HCl (Cardizem Cd -) 300 mg PO DAILY [facility] Doxycycline Hyclate (Vibramycin -) 100 mg PO BID@1000,1800 [facility] Last Admin: 10/14/19 10:19 Dose: 100 mg Levalbuterol HCl (Xopenex) 0.63 mg IH RTID [facility] Last Admin: 10/14/19 08:08 Dose: 0.63 mg Methylprednisolone Sodium Succinate (Solu-Medrol -) 40 mg IVPUSH Q8H-IV [facility] Last Admin: 10/14/19 12:05 Dose: 40 mg Multivitamins/Minerals/Vitamin C (Tab-A-Vit -) 1 tab PO DAILY [facility] Last Admin: 10/14/19 10:19 Dose: 1 tab Rivaroxaban (Xarelto) 20 mg PO HS [facility] Last Admin: 10/13/19 22:05 Dose: 20 mg Sotalol HCl (Betapace -) 40 mg PO BID [facility] Last Admin: 10/14/19 10:18 Dose: 40 mg Tiotropium [place] (Spiriva Respimat) 2 puff IH DAILY [facility] Last Admin: 10/14/19 10:19 Dose: 2 puff Vital Signs Period Temp Pulse Resp BP Sys/Michael Pulse Ox Last 24 Hr 95.9 F-98.0 F 76-105 20-22 106-150/55-80 97-98 Constitutional: Yes: No Distress, Calm Eyes: Yes: Conjunctiva Clear, EOM Intact HENT: Yes: Atraumatic, Normocephalic Neck: Yes: Supple, Trachea Midline Respiratory: Yes: Regular, CTA Bilaterally Gastrointestinal: Yes: Normal Bowel Sounds, Soft Cardiovascular: Yes: Tachycardia, Pulse Irregular JVD: No Heart Sounds: Yes: S1, S2 Extremities: No: Cold Edema: No Integumentary: No: Jaundice Neurological: Yes: Alert, Oriented Psychiatric: No: Agitated Assessment/Plan EKG: afib with RVR no ischemic changes tele: afib 100s-110s, episodes 130s-140s CXR: no congestion shortness of breath, copd exac, acute bronchitis - BNP 3458, however appears euvolemic, no congestion on cxr - less likely CHF - check echo - nebs, steroids per primary, pulm afib - RVR in setting of copd exac, missed home meds - restarted home sotalol, cardizem - inc cardizem to 300 mg daily - cont xarelto - monitor on tele HTN - stable, cont home meds HLD - cont statin CAD s/p CABG - cont plavix, statin - dc aspirin, not taking at home (no recent PCI)
--- NOTE | 2019-10-14 13:14 | PN ---
Teaching Attending Note Name of Resident: Kalia Martinez ATTENDING PHYSICIAN STATEMENT I saw and evaluated the patient. I reviewed the resident's note and discussed the case with the resident. I agree with the resident's findings and plan as documented with exceptions below. SUBJECTIVE: Patient seen and examined. breathing improved. Still dyspneic/dizzy with exertional. No chest pain or concerns. OBJECTIVE: Vital Signs Period Temp Pulse Resp BP Sys/Michael Pulse Ox Last 24 Hr 95.9 F-98.0 F 76-105 20-22 106-150/55-80 97-98 Intake & Output 10/11/19 10/12/19 10/13/19 10/14/19 23:59 23:59 23:59 23:59 Intake Total 350 350 250 Output Total 400 800 Balance 350 -50 -550 Weight 180 lb 202 lb General: sitting in bed, no use of accessory muscles of respiration Neck: soft, supple CVS:S1s2 irregularly irregular, tachycardic Chest: overall air entry unchanged from yesterday, improved from admission, no rales or wheezing Abdomen:Soft, NT Extremities: 1+ pitting edema Home Medications Medication Instructions Recorded Aspirin Coated [Ecotrin -] 81 mg PO DAILY 11/07/11 Atorvastatin Ca [Lipitor] 80 mg PO HS 11/07/11 Clopidogrel Bisulfate [Plavix -] 75 mg PO DAILY 11/07/11 Multivitamin [Multivitamins] 0.5 each PO BID 08/26/13 Sotalol HCl [Sotalol] 40 mg PO BID 08/26/13 Diltiazem HCl [Diltiazem 24Hr Cd] 180 mg PO DAILY 10/12/19 Fluticasone/Umeclidin/Vilanter 1 each IH DAILY 10/12/19 [Trelegy Ellipta 100-62.5-25] Rivaroxaban [Xarelto -] 20 mg PO HS 10/12/19 Active Medications Atorvastatin Calcium (Lipitor -) 80 mg PO [facility] Last Admin: 10/13/19 22:04 Dose: 80 mg Budesonide/Formoterol Fumarate (Symbicort 160/4.5mcg -) 2 puff IH BID [facility] Last Admin: 10/14/19 10:19 Dose: 2 inh Clopidogrel Bisulfate (Plavix -) 75 mg PO DAILY [facility] Last Admin: 10/14/19 10:19 Dose: 75 mg Diltiazem HCl (Cardizem Injection -) 10 mg IVPUSH Q4H PRN PRN Reason: TACHYCARDIA Diltiazem HCl (Cardizem Cd -) 240 mg PO DAILY [facility] Last Admin: 10/14/19 10:19 Dose: 240 mg Diltiazem HCl (Cardizem Cd -) 300 mg PO DAILY [facility] Doxycycline Hyclate (Vibramycin -) 100 mg PO BID@1000,1800 [facility] Last Admin: 10/14/19 10:19 Dose: 100 mg Levalbuterol HCl (Xopenex) 0.63 mg IH RTID [facility] Last Admin: 10/14/19 08:08 Dose: 0.63 mg Methylprednisolone Sodium Succinate (Solu-Medrol -) 40 mg IVPUSH Q8H-IV [facility] Last Admin: 10/14/19 12:05 Dose: 40 mg Multivitamins/Minerals/Vitamin C (Tab-A-Vit -) 1 tab PO DAILY [facility] Last Admin: 10/14/19 10:19 Dose: 1 tab Rivaroxaban (Xarelto) 20 mg PO HS [facility] Last Admin: 10/13/19 22:05 Dose: 20 mg Sotalol HCl (Betapace -) 40 mg PO BID [facility] Last Admin: 10/14/19 10:18 Dose: 40 mg Tiotropium [place] (Spiriva Respimat) 2 puff IH DAILY [facility] Last Admin: 10/14/19 10:19 Dose: 2 puff Laboratory Results - last 24 hr 10/14/19 06:30 TSH 0.14 L D Free T4 1.39 H telemetry Afib 90s, around 6 AM, HR increased to 110s-130s (suspect with activity) ASSESSMENT AND PLAN: 79 year old male with a past medical history of HTN, HLD, afib (on Xarelto), CAD (s/p CABG) (Follows with Dr. Becker), COPD not on home oxygen (Follows with ) admitted with dsypnea, cough with thick white sputum, subjective fevers, also found in Afib with RVR -Acute COPD exacerbaton, suspect URI like illnes +/- Acute Bronchitis -Atrial fibrillation with RVR, likely from above/Nebs -Hyperthyroidism -CAD s/p CABG -HTN -HLD Plan: Tachycardic with activity. Cardiology input noted, Cardizem increased to 300 mg. Continue sotalol/xarelto. ASA dcd. Continue statin. Breathing improved, current dose of solumedrol today, doxycycline day 3 (avoid QTc prolonging agents with sotalol), xopenex prn, symbicort Thyroid panel noted, Endocrine input noted. Follow up TPO/TSI. Influenza screen neg. Follow up RVP. Sputum cx as able. DVTPPX xarelto as above Will need PT eval and home oxygen needs assessment prior to dc Dispo anticipate home +/- oxygen when improved. Plan discussed with patient in detail, all questions answered.
--- NOTE | 2019-10-14 13:39 | ECHO ---
Name: TERRANCEFADI Nithya, JR Exam:Adult Echocardiogram Study Date: 10/14/2019 09:22 AM Age: 79 yrs Height: 65 in Weight: 180 lb BSA: 1.9 m2 MMode/2D Measurements & Calculations IVSd: 0.96 cm Ao root diam: 2.6 cm LVIDd: 3.7 cm LA dimension: 2.0 cm LVIDs: 2.7 cm LVPWd: 1.2 cm EDV(Teich): 57.0 ml LVOT diam: 1.9 cm ESV(Teich): 26.1 ml RV S Lance: 14.2 cm/sec Doppler Measurements & Calculations MV V2 max: 87.8 cm/sec MV E max lance: 91.2 cm/sec MV max P.1 mmHg MV A max lance: 76.8 cm/sec MV V2 mean: 56.0 cm/sec MV E/A: 1.2 MV mean P.4 mmHg MV dec time: 0.14 sec MV V2 VTI: 16.2 cm Ao V2 max: 156.1 cm/sec LV V1 max P.9 mmHg Ao max P.7 mmHg LV V1 max: 84.5 cm/sec Ao V2 mean: 114.4 cm/sec Ao mean P.0 mmHg Ao V2 VTI: 29.8 cm BEN(V,D): 1.5 cm2 MR max lance: 490.3 cm/sec TR max lance: 219.9 cm/sec MR max P.4 mmHg TR max P.3 mmHg Med Peak E' Lance: 8.4 cm/sec Med E/e': 10.9 Lat Peak E' Lance: 13.5 cm/sec Lat E/e': 6.8 Procedure A complete two-dimensional transthoracic echocardiogram was performed (2D, M-mode, Doppler and color flow Doppler). Technically limited study. Left Ventricle The left ventricle is normal in size. Left ventricular systolic function is normal. Ejection Fraction = 55- 60%. No regional wall motion abnormalities noted. Right Ventricle The right ventricle is normal size. The right ventricular systolic function is normal. Atria The left atrial size is normal. Right atrial size is normal. Mitral Valve The mitral valve is normal in structure and function. There is mild mitral regurgitation. Tricuspid Valve The tricuspid valve is normal in structure and function. There is mild to moderate tricuspid regurgit ation. Right ventricular systolic pressure is normal. Aortic Valve The aortic valve is normal in structure and function. No aortic regurgitation is present. Pulmonic Valve The pulmonic valve is not well visualized. Great Vessels The aortic root is normal size. Pericardium/Pleura There is no pericardial effusion. Interpretation Summary Technically limited study The left ventricle is normal in size. Left ventricular systolic function is normal. No regional wall motion abnormalities noted. Ejection Fraction = 55-60%. The right ventricular systolic function is normal. The left atrial size is normal. Right atrial size is normal. There is mild mitral regurgitation. There is mild to moderate tricuspid regurgitation. Right ventricular systolic pressure is normal. There is no pericardial effusion. Chris Shepard MD 10/14/2019 01:39 PM
--- NOTE | 2019-10-14 13:53 | PN ---
Progress Note (short form) - Note Progress Note: Feels better on O2 +[facility] Vital Signs Period Temp Pulse Resp BP Sys/Michael Pulse Ox Last 24 Hr 95.9 F-98.0 F 76-105 20-22 106-150/55-80 97-98 PE: Aox3 Neck: Supple, No JVD HEENT: EOMI Lungs: CTA CVS: s1S2 Abd: Benign Ext: Trace edema of legs Neuro: No focal deficit CMP Sodium 139 mmol/L (136-145) 10/13/19 06:00 Potassium 4.8 mmol/L (3.5-5.1) 10/13/19 06:00 Chloride 104 mmol/L (98-107) 10/13/19 06:00 Carbon Dioxide 29 mmol/L (21-32) 10/13/19 06:00 Anion Gap 5 MMOL/L (8-16) L 10/13/19 06:00 BUN 41.0 mg/dL (7-18) H 10/13/19 06:00 Creatinine 1.2 mg/dL (0.55-1.3) 10/13/19 06:00 Est GFR (CKD-EPI)AfAm 66.73 10/13/19 06:00 Est GFR (CKD-EPI)NonAf 57.57 10/13/19 06:00 Random Glucose 164 mg/dL (74-106) H 10/13/19 06:00 Calcium 8.3 mg/dL (8.5-10.1) L 10/13/19 06:00 Phosphorus 3.5 mg/dL (2.5-4.9) 10/13/19 06:00 Magnesium 2.6 mg/dL (1.8-2.4) H 10/13/19 06:00 Total Bilirubin 0.5 mg/dL (0.2-1) 10/13/19 06:00 Direct Bilirubin 0.5 mg/dL (0.0-0.2) H 10/11/19 23:22 AST 30 U/L (15-37) 10/13/19 06:00 ALT 30 U/L (13-61) 10/13/19 06:00 Alkaline Phosphatase 84 U/L (45-117) 10/13/19 06:00 Creatine Kinase 250 U/L (26-308) 10/11/19 23:22 Creatine Kinase Index 0.7 % (0.0-5.0) 10/11/19 23:22 CK-MB (CK-2) 1.9 ng/mL (0.5-3.6) 10/11/19 23:22 Troponin I < 0.02 ng/ml (0.00-0.05) 10/11/19 23:22 B-Natriuretic Peptide 3478.4 pg/ml (5-450) H 10/11/19 23:22 Total Protein 6.6 g/dl (6.4-8.2) 10/13/19 06:00 Albumin 2.8 g/dl (3.4-5.0) L 10/13/19 06:00 TSH 0.14 uIU/ml (0.358-3.74) L D 10/14/19 06:30 Free T4 1.39 ng/dl (0.76-1.16) H 10/14/19 06:30 Current Medications Generic Name Dose Route Start Last Admin Trade Name Freq PRN Reason Stop Dose Admin Atorvastatin Calcium 80 mg 10/12/19 22:00 10/13/19 22:04 Lipitor - PO 80 mg HS [facility] Administration Budesonide/Formoterol Fumarate 2 puff 10/12/19 10:00 10/14/19 10:19 Symbicort 160/4.5mcg - IH 2 inh BID [facility] Administration Clopidogrel Bisulfate 75 mg 10/12/19 10:00 10/14/19 10:19 Plavix - PO 75 mg DAILY [facility] Administration Diltiazem HCl 10 mg 10/12/19 12:43 Cardizem Injection - IVPUSH Q4H PRN TACHYCARDIA Diltiazem HCl 240 mg 10/13/19 11:23 10/14/19 10:19 Cardizem Cd - PO 240 mg DAILY [facility] Administration Diltiazem HCl 300 mg 10/15/19 10:00 Cardizem Cd - PO DAILY [facility] Doxycycline Hyclate 100 mg 10/12/19 10:00 10/14/19 10:19 Vibramycin - PO 100 mg BID@1000,1800 [facility] Administration Levalbuterol HCl 0.63 mg 10/12/19 14:00 10/14/19 08:08 Xopenex IH 0.63 mg RTID [facility] Administration Methylprednisolone Sodium Succinate 40 mg 10/14/19 11:15 10/14/19 12:05 Solu-Medrol - IVPUSH 40 mg Q8H-IV [facility] Administration Multivitamins/Minerals/Vitamin C 1 tab 10/12/19 10:00 10/14/19 10:19 Tab-A-Vit - PO 1 tab DAILY [facility] Administration Rivaroxaban 20 mg 10/12/19 22:00 10/13/19 22:05 Xarelto PO 20 mg HS [facility] Administration Sotalol HCl 40 mg 10/12/19 22:00 10/14/19 10:18 Betapace - PO 40 mg BID [facility] Administration Tiotropium [place] 2 puff 10/12/19 10:00 10/14/19 10:19 Spiriva Respimat IH 2 puff DAILY [facility] Administration AP: COPD exacerbation HTN CAD s/p CABG Abnromal TFT: Sick euthyroid vs steroid effect vs subclinical Hyperthyroidism A Fib HLD Rpt TSH 0.14 FT4 1.39 FT3, TSI, TPO pending Start low dose Methmazole in view of abnormal TFT, tachycardia, A Fib Methmazole 2.5mg QD IV steroids Bronchodilators Monitor electrolytes Rpt TFT with TPO and TSI Will F/u Problem List - Problems (1) Atrial fibrillation with RVR Code(s): I48.91 - UNSPECIFIED ATRIAL FIBRILLATION (2) COPD exacerbation Code(s): J44.1 - CHRONIC OBSTRUCTIVE PULMONARY DISEASE W (ACUTE) EXACERBATION
--- NOTE | 2019-10-14 15:02 | PN ---
Physical Exam: SUBJECTIVE: Patient seen and examined at the bedside. Patient states that his breathing has improved and that he feels overall better. Endorses a productive cough of clear to yellowish sputum. Denies cp, abd pain, n/v/c/d, fever, chills , headaches, dizziness, lightheadedness, numbness, tingling. OBJECTIVE: Vital Signs Period Temp Pulse Resp BP Sys/Michael Pulse Ox Last 24 Hr 95.9 F-98.0 F 76-105 20-22 107-150/55-80 97-98 GENERAL: The patient is awake, alert, and fully oriented, in no acute distress. EYES: PERRL, extraocular movements intact, sclera anicteric, conjunctiva clear. ENT: Oropharynx clear without exudates, moist mucous membranes. LUNGS: Breath sounds diminished bilaterally and throughout, no auscultated wheezes, no accessory muscle use. HEART: Tachycardic rate and irregular rhythm, S1, S2 without murmur, rub. ABDOMEN: Soft, nontender, nondistended, normoactive bowel sounds, no guarding, no rebound, no masses. EXTREMITIES: 2+ pulses, warm, well-perfused, 1+ edema. NEUROLOGICAL: Cranial nerves II through XII grossly intact. 5/5 muscle strength , bilaterally upper and lower extremities. PSYCH: Normal mood, normal affect. SKIN: Warm, dry, normal turgor, no rashes or lesions noted. Laboratory Results - last 24 hr 10/14/19 06:30 TSH 0.14 L D Free T4 1.39 H Active Medications Generic Name Dose Route Start Last Admin Trade Name Freq PRN Reason Stop Dose Admin Atorvastatin Calcium 80 mg 10/12/19 22:00 10/13/19 22:04 Lipitor - PO 80 mg HS [facility] Administration Budesonide/Formoterol Fumarate 2 puff 10/12/19 10:00 10/14/19 10:19 Symbicort 160/4.5mcg - IH 2 inh BID [facility] Administration Clopidogrel Bisulfate 75 mg 10/12/19 10:00 10/14/19 10:19 Plavix - PO 75 mg DAILY [facility] Administration Diltiazem HCl 10 mg 10/12/19 12:43 Cardizem Injection - IVPUSH Q4H PRN TACHYCARDIA Diltiazem HCl 240 mg 10/13/19 11:23 10/14/19 10:19 Cardizem Cd - PO 240 mg DAILY [facility] Administration Diltiazem HCl 300 mg 10/15/19 10:00 Cardizem Cd - PO DAILY [facility] Doxycycline Hyclate 100 mg 10/12/19 10:00 10/14/19 10:19 Vibramycin - PO 100 mg BID@1000,1800 [facility] Administration Levalbuterol HCl 0.63 mg 10/12/19 14:00 10/14/19 14:47 Xopenex IH 0.63 mg RTID [facility] Administration Methimazole 2.5 mg 10/14/19 14:00 Tapazole - PO DAILY [facility] Methylprednisolone Sodium Succinate 40 mg 10/14/19 11:15 10/14/19 12:05 Solu-Medrol - IVPUSH 40 mg Q8H-IV [facility] Administration Multivitamins/Minerals/Vitamin C 1 tab 10/12/19 10:00 10/14/19 10:19 Tab-A-Vit - PO 1 tab DAILY [facility] Administration Rivaroxaban 20 mg 10/12/19 22:00 10/13/19 22:05 Xarelto PO 20 mg HS [facility] Administration Sotalol HCl 40 mg 10/12/19 22:00 10/14/19 10:18 Betapace - PO 40 mg BID [facility] Administration Tiotropium [place] 2 puff 10/12/19 10:00 10/14/19 10:19 Spiriva Respimat IH 2 puff DAILY [facility] Administration ASSESSMENT/PLAN: Eleazar Pathak Jr is a 79 year old male with a past medical history of HTN, HLD, afib (on Xarelto), CAD (s/p CABG), COPD admitted for COPD exacerbation. COPD Exacerbation - Likely in the setting of an acute bronchitis episode - Bronchodilators: Xopenex, Symbicort, Spiriva - Solumedrol 40mg q8h, can likely transition to oral tomorrow - Continue Doxycycline, course started on 10/12 - Supplemental O2 PRN, may need O2 at home - Physical therapy - Flu negative, f/u viral studies Afib with RVR - HR improved but with continued elevations into the 130-150 range on monitor - Increase long acting diltiazem to 300mg as per cardiology - IV Diltiazem for Tachycardia - Continue home dose Sotalol and Xarelto - Echo showing normal LV size, function, thickness, EF 55-60%, mild mitral regurg, mild to moderate tricuspid regurg - Cardiology consulted, recs appreciated Low TSH, Elevated T4 - Endocrine consulted, recs appreciated - TSH 0.14, Free T4 1.39 - start methimazole 2.5 daily - f/u thyroid peroxide and thyroid stimulating immunoglobulin HTN - continue home Diltiazem, Sotalol Hx of CAD - continue home clopidogrel, Statin FEN - no standing fluids, encourage oral intake - continue to monitor electrolytes and replete as necessary - Sodium/Fat controlled diet DVT PPx - on Xarelto Dispo - continue to monitor on telemetry Visit type - Emergency Visit Emergency Visit: Yes ED Registration Date: 10/12/19 Care time: The patient presented to the Emergency Department on the above date and was hospitalized for further evaluation of their emergent condition. - New Patient This patient is new to me today: No - Critical Care Critical Care patient: No
[2019-10-14] MEDS: METHIMAZOLE 5 MG TABLET (FP) PO SCH (16:11)
[2019-10-14] MEDS: RIVAROXABAN 20 MG TABLET PO SCH (21:26)
[2019-10-14] MEDS: ATORVASTATIN CA 80 MG TABLET (FP) PO SCH (21:27)
[2019-10-14] MEDS ORDERED: methylPREDNISolone NA SUCC 40 MG/1 ML VIAL IVPUSH SCH (22:00)
[2019-10-15] MEDS: methylPREDNISolone NA SUCC 40 MG/1 ML VIAL IVPUSH SCH ×3 (03:04→22:09)
[2019-10-15 06:41] LABS: BLOOD UREA NITROGEN 31.4 mg/dL (7-18); CREATININE 0.8 mg/dL (0.55-1.3); MAGNESIUM 2.7 mg/dL (1.8-2.4); POTASSIUM 4.7 mmol/L (3.5-5.1)
[2019-10-15 06:45] LABS: BASO % 0.1 % (0-2.0); HEMOGLOBIN 14.5 GM/dL (11.7-16.9); LYMPH % 3.3 % (8-40); MCH 32.3 pg (25.7-33.7); MCHC 34.4 g/dl (32.0-35.9); MEAN CELL VOLUME 93.9 fl (80-96); MEAN PLT VOLUME 8.9 fl (7.5-11.1); MONO % 8.2 % (3.8-10.2); NEUT % 88.4 % (42.8-82.8); PLATELET COUNT 237 K/MM3 (134-434); RBC 4.48 M/mm3 (4.00-5.60); RDW 13.1 % (11.9-15.9); WHITE BLOOD COUNT 9.2 K/mm3 (4.0-10.0)
[2019-10-15] MEDS: LEVALBUTEROL HCL 0.63 MG/3 ML VIAL.NEB. IH SCH ×3 (07:25→20:30)
[2019-10-15] MEDS ORDERED: PT OWN MED DRAWER 7, Y5N ONE (09:12)
[2019-10-15] MEDS: MULTIVITAMINS (DAILY MVI) TABLET (FP) PO SCH (09:19)
[2019-10-15] MEDS: DOXYCYCLINE HYCLATE 100 MG CAPSULE PO SCH ×2 (09:19→17:14)
[2019-10-15] MEDS: CLOPIDOGREL BISULFATE 75 MG TABLET (FP) PO SCH (09:19)
[2019-10-15] MEDS: SOTALOL HCL 80 MG TABLET (FP) PO SCH ×2 (09:20→22:08)
[2019-10-15] MEDS: BUDESONIDE/FORMETEROL FUMARATE 160/4.5 mcg INHALER IH SCH ×2 (09:22→22:08)
[2019-10-15] MEDS: TIOTROPIUM BROMIDE 2.5 MCG (SPIRIVA) RESPIMAT INHALER IH SCH (09:22)
[2019-10-15] MEDS: METHIMAZOLE 5 MG TABLET (FP) PO SCH (10:14)
--- NOTE | 2019-10-15 10:56 | PN ---
Progress Note (short form) - Note Progress Note: s: no chest pain, palps, dizziness. Current Medications Generic Name Dose Route Start Last Admin Trade Name Freq PRN Reason Stop Dose Admin Atorvastatin Calcium 80 mg 10/12/19 22:00 10/14/19 21:27 Lipitor - PO 80 mg HS LEMUEL Administration Budesonide/Formoterol Fumarate 2 puff 10/12/19 10:00 10/15/19 09:22 Symbicort 160/4.5mcg - IH 2 inh BID LEMUEL Administration Clopidogrel Bisulfate 75 mg 10/12/19 10:00 10/15/19 09:19 Plavix - PO 75 mg DAILY LEMUEL Administration Diltiazem HCl 10 mg 10/12/19 12:43 Cardizem Injection - IVPUSH Q4H PRN TACHYCARDIA Diltiazem HCl 300 mg 10/15/19 10:00 Cardizem Cd - PO DAILY LEMUEL Diltiazem HCl 60 mg 10/15/19 10:51 Cardizem - PO 10/15/19 10:52 ONCE ONE Doxycycline Hyclate 100 mg 10/12/19 10:00 10/15/19 09:19 Vibramycin - PO 100 mg BID@1000,1800 LEMUEL Administration Levalbuterol HCl 0.63 mg 10/12/19 14:00 10/15/19 07:25 Xopenex IH 0.63 mg RTID LEMUEL Administration Methimazole 2.5 mg 10/14/19 14:00 10/14/19 16:11 Tapazole - PO 2.5 mg DAILY LEMUEL Administration Methylprednisolone Sodium Succinate 40 mg 10/15/19 22:00 Solu-Medrol - IVPUSH BID LEMUEL Multivitamins/Minerals/Vitamin C 1 tab 10/12/19 10:00 10/15/19 09:19 Tab-A-Vit - PO 1 tab DAILY LEMUEL Administration Rivaroxaban 20 mg 10/12/19 22:00 10/14/19 21:26 Xarelto PO 20 mg HS LEMUEL Administration Sotalol HCl 40 mg 10/12/19 22:00 10/15/19 09:20 Betapace - PO 40 mg BID LEMUEL Administration Tiotropium [place] 2 puff 10/12/19 10:00 10/15/19 09:22 Spiriva Respimat IH 2 puff DAILY LEMUEL Administration Vital Signs Period Temp Pulse Resp BP Sys/Michael Pulse Ox Last 24 Hr 97.5 F-98.2 F 92-110 18-20 116-137/63-88 97-98 Constitutional: Yes: No Distress, Calm Eyes: Yes: Conjunctiva Clear Neck: Yes: Supple, Trachea Midline Respiratory: Yes: Regular, CTA Bilaterally Gastrointestinal: Yes: Normal Bowel Sounds, Soft Cardiovascular: Yes: Tachycardia, Pulse Irregular JVD: No Heart Sounds: Yes: S1, S2 Extremities: No: Cold Edema: No Integumentary: No: Jaundice Neurological: Yes: Alert, Oriented Psychiatric: No: Agitated CBC, BMP 10/15/19 05:25 10/15/19 05:25 Assessment/Plan EKG: afib with RVR no ischemic changes tele: afib 90s, occ rvr episodes CXR: no congestion shortness of breath, copd exac, acute bronchitis - BNP 3458, however appears euvolemic, no congestion on cxr - less likely CHF - echo here unremarkable - nebs, steroids per primary, pulm afib - RVR in setting of copd exac, missed home meds - restarted home sotalol, cardizem - inc cardizem to 300 mg daily (will start today) - cont xarelto - monitor on tele HTN - stable, cont home meds HLD - cont statin CAD s/p CABG - cont plavix, statin, ac
[2019-10-15] MEDS ORDERED: dilTIAZem HCL 60 MG TABLET (FP) PO ONE (11:15)
--- NOTE | 2019-10-15 11:28 | PN ---
Physical Exam: SUBJECTIVE: Patient seen and examined at the bedside. Patient noted that he was feeling better. He endorsed that his breathing was improved and his cough was diminished since yesterday. Endorsed good appetite and working well with physical therapy. Denied cp, palpitations, abd pain, n/v/c/d, fever, chills, dizziness, lightheadedness, headaches, weakness, numbness, tingling. OBJECTIVE: Vital Signs Period Temp Pulse Resp BP Sys/Michael Pulse Ox Last 24 Hr 97.5 F-98.2 F 92-110 18-20 116-137/63-88 98-98 GENERAL: The patient is awake, alert, and fully oriented, in no acute distress. EYES: PERRL, extraocular movements intact, sclera anicteric, conjunctiva clear. ENT: Oropharynx clear without exudates, moist mucous membranes. LUNGS: Breath sounds diminished bilaterally and throughout, no auscultated wheezes, no accessory muscle use. HEART: Tachycardic rate and irregular rhythm, S1, S2 without murmur, rub. ABDOMEN: Soft, nontender, nondistended, normoactive bowel sounds, no guarding, no rebound, no masses. EXTREMITIES: 2+ pulses, warm, well-perfused, 1+ edema. NEUROLOGICAL: Cranial nerves II through XII grossly intact. 5/5 muscle strength , bilaterally upper and lower extremities. PSYCH: Normal mood, normal affect. SKIN: Warm, dry, normal turgor, no rashes or lesions noted. Noted tachycardic events overnight on the monitor in the 130s and one in 160s. Laboratory Results - last 24 hr 10/14/19 10/15/19 10/15/19 06:30 05:25 05:25 WBC 9.2 RBC 4.48 Hgb 14.5 Hct 42.0 MCV 93.9 MCH 32.3 MCHC 34.4 RDW 13.1 Plt Count 237 D MPV 8.9 Absolute Neuts (auto) 8.2 H Neutrophils % 88.4 H Lymphocytes % 3.3 L D Monocytes % 8.2 D Eosinophils % 0.0 Basophils % 0.1 Nucleated RBC % 0 Sodium 141 Potassium 4.7 Chloride 106 Carbon Dioxide 30 Anion Gap 5 L BUN 31.4 H Creatinine 0.8 Est GFR (CKD-EPI)AfAm 99.17 Est GFR (CKD-EPI)NonAf 85.56 Random Glucose 142 H Calcium 8.0 L Magnesium 2.7 H Free T3 1.8 L Thyroid Peroxidase Ab 13 Active Medications Generic Name Dose Route Start Last Admin Trade Name Freq PRN Reason Stop Dose Admin Atorvastatin Calcium 80 mg 10/12/19 22:00 10/14/19 21:27 Lipitor - PO 80 mg HS LEMUEL Administration Budesonide/Formoterol Fumarate 2 puff 10/12/19 10:00 10/15/19 09:22 Symbicort 160/4.5mcg - IH 2 inh BID LEMUEL Administration Clopidogrel Bisulfate 75 mg 10/12/19 10:00 10/15/19 09:19 Plavix - PO 75 mg DAILY LEMUEL Administration Diltiazem HCl 10 mg 10/12/19 12:43 Cardizem Injection - IVPUSH Q4H PRN TACHYCARDIA Diltiazem HCl 300 mg 10/15/19 10:00 Cardizem Cd - PO DAILY LEMUEL Doxycycline Hyclate 100 mg 10/12/19 10:00 10/15/19 09:19 Vibramycin - PO 100 mg BID@1000,1800 LEMUEL Administration Levalbuterol HCl 0.63 mg 10/12/19 14:00 10/15/19 07:25 Xopenex IH 0.63 mg RTID LEMUEL Administration Methimazole 2.5 mg 10/14/19 14:00 10/14/19 16:11 Tapazole - PO 2.5 mg DAILY LEMUEL Administration Methylprednisolone Sodium Succinate 40 mg 10/15/19 22:00 Solu-Medrol - IVPUSH BID LEMUEL Multivitamins/Minerals/Vitamin C 1 tab 10/12/19 10:00 10/15/19 09:19 Tab-A-Vit - PO 1 tab DAILY LEMUEL Administration Rivaroxaban 20 mg 10/12/19 22:00 10/14/19 21:26 Xarelto PO 20 mg HS LEMUEL Administration Sotalol HCl 40 mg 10/12/19 22:00 10/15/19 09:20 Betapace - PO 40 mg BID LEMUEL Administration Tiotropium [place] 2 puff 10/12/19 10:00 10/15/19 09:22 Spiriva Respimat IH 2 puff DAILY LEMUEL Administration ASSESSMENT/PLAN: Eleazar Pathak Jr is a 79 year old male with a past medical history of HTN, HLD, afib (on Xarelto), CAD (s/p CABG), COPD admitted for COPD exacerbation. COPD Exacerbation - Likely in the setting of an acute bronchitis episode - Bronchodilators: Xopenex, Symbicort, Spiriva - Decrease Solumedrol 40mg q12h - Continue Doxycycline, course started on 10/12 - Supplemental O2 PRN, will require O2 at home and has been set up - Physical therapy, walked well without assistive device - Flu negative, f/u viral studies Afib with RVR - HR improved but with continued elevations into the 130-160 range on monitor - long acting diltiazem 300mg as per cardiology - IV Diltiazem for Tachycardia as needed - Continue home dose Sotalol and Xarelto - Echo showing normal LV size, function, thickness, EF 55-60%, mild mitral regurg, mild to moderate tricuspid regurg - Cardiology consulted, recs appreciated Low TSH, Elevated T4 - Endocrine consulted, recs appreciated - TSH 0.14, Free T4 1.39 - start methimazole 2.5 daily - f/u thyroid stimulating immunoglobulin - thyroid peroxide within normal limits - will need to get outpatient thyroid function tests 3-4 days after discharge HTN - continue home Diltiazem, Sotalol Hx of CAD - continue home clopidogrel, Statin FEN - no standing fluids, encourage oral intake - continue to monitor electrolytes and replete as necessary - Sodium/Fat controlled diet DVT PPx - on Xarelto Dispo - continue to monitor on telemetry Visit type - Emergency Visit Emergency Visit: Yes ED Registration Date: 10/12/19 Care time: The patient presented to the Emergency Department on the above date and was hospitalized for further evaluation of their emergent condition. - New Patient This patient is new to me today: No - Critical Care Critical Care patient: No
--- NOTE | 2019-10-15 11:42 | PN ---
Progress Note (short form) - Note Progress Note: Feels better on O2 +HANSON No palpiations or tremors Vital Signs Period Temp Pulse Resp BP Sys/Michael Pulse Ox Last 24 Hr 97.5 F-98.2 F 92-110 18-20 116-137/63-88 98-98 PE: Aox3 Neck: Supple, No JVD HEENT: EOMI Lungs: CTA CVS: s1S2 Abd: Benign Ext: Trace edema of legs Neuro: No focal deficit CMP Sodium 141 mmol/L (136-145) 10/15/19 05:25 Potassium 4.7 mmol/L (3.5-5.1) 10/15/19 05:25 Chloride 106 mmol/L (98-107) 10/15/19 05:25 Carbon Dioxide 30 mmol/L (21-32) 10/15/19 05:25 Anion Gap 5 MMOL/L (8-16) L 10/15/19 05:25 BUN 31.4 mg/dL (7-18) H 10/15/19 05:25 Creatinine 0.8 mg/dL (0.55-1.3) 10/15/19 05:25 Est GFR (CKD-EPI)AfAm 99.17 10/15/19 05:25 Est GFR (CKD-EPI)NonAf 85.56 10/15/19 05:25 Random Glucose 142 mg/dL (74-106) H 10/15/19 05:25 Calcium 8.0 mg/dL (8.5-10.1) L 10/15/19 05:25 Phosphorus 3.5 mg/dL (2.5-4.9) 10/13/19 06:00 Magnesium 2.7 mg/dL (1.8-2.4) H 10/15/19 05:25 Total Bilirubin 0.5 mg/dL (0.2-1) 10/13/19 06:00 Direct Bilirubin 0.5 mg/dL (0.0-0.2) H 10/11/19 23:22 AST 30 U/L (15-37) 10/13/19 06:00 ALT 30 U/L (13-61) 10/13/19 06:00 Alkaline Phosphatase 84 U/L (45-117) 10/13/19 06:00 Creatine Kinase 250 U/L (26-308) 10/11/19 23:22 Creatine Kinase Index 0.7 % (0.0-5.0) 10/11/19 23:22 CK-MB (CK-2) 1.9 ng/mL (0.5-3.6) 10/11/19 23:22 Troponin I < 0.02 ng/ml (0.00-0.05) 10/11/19 23:22 B-Natriuretic Peptide 3478.4 pg/ml (5-450) H 10/11/19 23:22 Total Protein 6.6 g/dl (6.4-8.2) 10/13/19 06:00 Albumin 2.8 g/dl (3.4-5.0) L 10/13/19 06:00 TSH 0.14 uIU/ml (0.358-3.74) L D 10/14/19 06:30 Free T4 1.39 ng/dl (0.76-1.16) H 10/14/19 06:30 Free T3 1.8 pg/ml (2.0-4.4) L 10/14/19 06:30 Current Medications Generic Name Dose Route Start Last Admin Trade Name Freq PRN Reason Stop Dose Admin Atorvastatin Calcium 80 mg 10/12/19 22:00 10/14/19 21:27 Lipitor - PO 80 mg HS LEMUEL Administration Budesonide/Formoterol Fumarate 2 puff 10/12/19 10:00 10/15/19 09:22 Symbicort 160/4.5mcg - IH 2 inh BID LEMUEL Administration Clopidogrel Bisulfate 75 mg 10/12/19 10:00 10/15/19 09:19 Plavix - PO 75 mg DAILY LEMUEL Administration Diltiazem HCl 10 mg 10/12/19 12:43 Cardizem Injection - IVPUSH Q4H PRN TACHYCARDIA Diltiazem HCl 300 mg 10/15/19 10:00 Cardizem Cd - PO DAILY LEMUEL Doxycycline Hyclate 100 mg 10/12/19 10:00 10/15/19 09:19 Vibramycin - PO 100 mg BID@1000,1800 LEMUEL Administration Levalbuterol HCl 0.63 mg 10/12/19 14:00 10/15/19 07:25 Xopenex IH 0.63 mg RTID LEMUEL Administration Methimazole 2.5 mg 10/14/19 14:00 10/14/19 16:11 Tapazole - PO 2.5 mg DAILY LEMUEL Administration Methylprednisolone Sodium Succinate 40 mg 10/15/19 22:00 Solu-Medrol - IVPUSH BID LEMUEL Multivitamins/Minerals/Vitamin C 1 tab 10/12/19 10:00 10/15/19 09:19 Tab-A-Vit - PO 1 tab DAILY LEMUEL Administration Rivaroxaban 20 mg 10/12/19 22:00 10/14/19 21:26 Xarelto PO 20 mg HS LEMUEL Administration Sotalol HCl 40 mg 10/12/19 22:00 10/15/19 09:20 Betapace - PO 40 mg BID LEMUEL Administration Tiotropium [place] 2 puff 10/12/19 10:00 10/15/19 09:22 Spiriva Respimat IH 2 puff DAILY LEMUEL Administration AP: COPD exacerbation HTN CAD s/p CABG Abnromal TFT: Sick euthyroid vs steroid effect vs subclinical Hyperthyroidism A Fib HLD Rpt TSH 0.14 FT4 1.39 FT3, TSI, TPO pending Continue Methmazole in view of abnormal TFT, tachycardia, A Fib Methmazole 2.5mg QD, side effects including hepatitis and Neutropenia discussed with pt. To report any symptoms. To stop medication if he develops high fever, sore throat. IV steroids Bronchodilators Monitor electrolytes Rpt TFT in 3 to 4 days as outpt with PCP or call [phone] for appointment. Will F/u Problem List - Problems (1) Atrial fibrillation with RVR Code(s): I48.91 - UNSPECIFIED ATRIAL FIBRILLATION (2) COPD exacerbation Code(s): J44.1 - CHRONIC OBSTRUCTIVE PULMONARY DISEASE W (ACUTE) EXACERBATION
--- NOTE | 2019-10-15 11:42 | PN ---
Teaching Attending Note Name of Resident: Kalia Martinez ATTENDING PHYSICIAN STATEMENT I saw and evaluated the patient. I reviewed the resident's note and discussed the case with the resident. I agree with the resident's findings and plan as documented. SUBJECTIVE: Patient feels better and wants to go home. OBJECTIVE: Vital Signs Period Temp Pulse Resp BP Sys/Michael Pulse Ox Last 24 Hr 97.5 F-98.2 F 92-110 18-20 116-137/63-88 98-98 HEART: Irregular LUNGS: Clear with decreased BS ABDOMEN: Soft, non-tender, non-distended, normal BS EXTREMITIES: No edema Laboratory Results - last 24 hr 10/14/19 10/15/19 10/15/19 06:30 05:25 05:25 WBC 9.2 RBC 4.48 Hgb 14.5 Hct 42.0 MCV 93.9 MCH 32.3 MCHC 34.4 RDW 13.1 Plt Count 237 D MPV 8.9 Absolute Neuts (auto) 8.2 H Neutrophils % 88.4 H Lymphocytes % 3.3 L D Monocytes % 8.2 D Eosinophils % 0.0 Basophils % 0.1 Nucleated RBC % 0 Sodium 141 Potassium 4.7 Chloride 106 Carbon Dioxide 30 Anion Gap 5 L BUN 31.4 H Creatinine 0.8 Est GFR (CKD-EPI)AfAm 99.17 Est GFR (CKD-EPI)NonAf 85.56 Random Glucose 142 H Calcium 8.0 L Magnesium 2.7 H Free T3 1.8 L Thyroid Peroxidase Ab 13 Current Medications Generic Name Dose Route Start Last Admin Trade Name Freq PRN Reason Stop Dose Admin Atorvastatin Calcium 80 mg 10/12/19 22:00 10/14/19 21:27 Lipitor - PO 80 mg HS LEMUEL Administration Budesonide/Formoterol Fumarate 2 puff 10/12/19 10:00 10/15/19 09:22 Symbicort 160/4.5mcg - IH 2 inh BID LEMUEL Administration Clopidogrel Bisulfate 75 mg 10/12/19 10:00 10/15/19 09:19 Plavix - PO 75 mg DAILY LEMUEL Administration Diltiazem HCl 10 mg 10/12/19 12:43 Cardizem Injection - IVPUSH Q4H PRN TACHYCARDIA Diltiazem HCl 300 mg 10/15/19 10:00 Cardizem Cd - PO DAILY LEMUEL Doxycycline Hyclate 100 mg 10/12/19 10:00 10/15/19 09:19 Vibramycin - PO 100 mg BID@1000,1800 LEMUEL Administration Levalbuterol HCl 0.63 mg 10/12/19 14:00 10/15/19 07:25 Xopenex IH 0.63 mg RTID LEMUEL Administration Methimazole 2.5 mg 10/14/19 14:00 10/14/19 16:11 Tapazole - PO 2.5 mg DAILY LEMUEL Administration Methylprednisolone Sodium Succinate 40 mg 10/15/19 22:00 Solu-Medrol - IVPUSH BID LEMUEL Multivitamins/Minerals/Vitamin C 1 tab 10/12/19 10:00 10/15/19 09:19 Tab-A-Vit - PO 1 tab DAILY LEMUEL Administration Rivaroxaban 20 mg 10/12/19 22:00 10/14/19 21:26 Xarelto PO 20 mg HS LEMUEL Administration Sotalol HCl 40 mg 10/12/19 22:00 10/15/19 09:20 Betapace - PO 40 mg BID LEMUEL Administration Tiotropium [place] 2 puff 10/12/19 10:00 10/15/19 09:22 Spiriva Respimat IH 2 puff DAILY LEMUEL Administration ASSESSMENT AND PLAN: This is a 79 year old man with a history of HTN, hyperlipidemia, atrial fib, CAD , CABG, COPD who presented to the ED with a cough, fever, and worsening SOB. 1. Acute exacerbation of COPD secondary to acute bronchitis - Continue SoluMedrol taper, Symbicort, Spiriva, Xopenex 2. Atrial fibrillation, permanent, with RVR - Cardizem CD increased for better rate control - Continue Sotalol, Xarelto 3. CAD, history of CABG - Continue Sotalol, Plavix, Lipitor 4. HTN - Continue Cardizem CD, Sotalol 5. Hyperlipidemia - Continue Lipitor 6. Possible hyperthyroidism - TSH is low, FT4 high, FT3 low - Thyroid peroxidase Ab normal - Thyroid stimulating immunoglobulin pending - Tapazole started yesterday
[2019-10-15 15:09] LABS: THYROID STIM IMMUNOGLOBULIN <0.10 IU/L (0.00-0.55)
[2019-10-15] MEDS: ATORVASTATIN CA 80 MG TABLET (FP) PO SCH (22:09)
[2019-10-15] MEDS: RIVAROXABAN 20 MG TABLET PO SCH (22:09)
[2019-10-16] MEDS: LEVALBUTEROL HCL 0.63 MG/3 ML VIAL.NEB. IH SCH ×2 (07:38→13:19)
[2019-10-16] MEDS ORDERED: PT OWN MED DRAWER 7, Y5N ONE (09:11)
--- NOTE | 2019-10-16 09:16 | PN ---
Progress Note, Physician Chief Complaint: sob History of Present Illness: sob resolved no cp, palp, presyncope no active cigs - Current Medication List Current Medications: Active Medications Atorvastatin Calcium (Lipitor -) 80 mg PO HS [facility] Last Admin: 10/15/19 22:09 Dose: 80 mg Budesonide/Formoterol Fumarate (Symbicort 160/4.5mcg -) 2 puff IH BID [facility] Last Admin: 10/15/19 22:08 Dose: 2 inh Clopidogrel Bisulfate (Plavix -) 75 mg PO DAILY [facility] Last Admin: 10/15/19 09:19 Dose: 75 mg Diltiazem HCl (Cardizem Injection -) 10 mg IVPUSH Q4H PRN PRN Reason: TACHYCARDIA Diltiazem HCl (Cardizem Cd -) 300 mg PO DAILY [facility] Last Admin: 10/15/19 17:13 Dose: Not Given Doxycycline Hyclate (Vibramycin -) 100 mg PO BID@1000,1800 [facility] Last Admin: 10/15/19 17:14 Dose: 100 mg Levalbuterol HCl (Xopenex) 0.63 mg IH RTID [facility] Last Admin: 10/16/19 07:38 Dose: 0.63 mg Methimazole (Tapazole -) 2.5 mg PO DAILY [facility] Last Admin: 10/15/19 10:14 Dose: 2.5 mg Methylprednisolone Sodium Succinate (Solu-Medrol -) 40 mg IVPUSH BID [facility] Last Admin: 10/15/19 22:09 Dose: 40 mg Multivitamins/Minerals/Vitamin C (Tab-A-Vit -) 1 tab PO DAILY [facility] Last Admin: 10/15/19 09:19 Dose: 1 tab Rivaroxaban (Xarelto) 20 mg PO HS [facility] Last Admin: 10/15/19 22:09 Dose: 20 mg Sotalol HCl (Betapace -) 40 mg PO BID [facility] Last Admin: 10/15/19 22:08 Dose: 40 mg Tiotropium [place] (Spiriva Respimat) 2 puff IH DAILY [facility] Last Admin: 10/15/19 09:22 Dose: 2 puff - Objective Vital Signs: Vital Signs Temperature 97.8 F 10/16/19 05:28 Pulse Rate 88 10/16/19 05:28 Respiratory Rate 20 10/16/19 05:28 Blood Pressure 134/74 10/16/19 05:28 O2 Sat by Pulse Oximetry (%) 100 10/15/19 20:58 Constitutional: Yes: No Distress, Calm Eyes: No: Sclera Icterus HENT: No: Nasal Congestion Cardiovascular: Yes: Regular Rate and Rhythm (decr intensity), Pulse Irregular ( decr intensity), S1, S2, Other (PMI non diplaced). No: Gallop, Murmur Respiratory: Yes: CTA Bilaterally, Wheezes (faint upper). No: Accessory Muscle Use, Rales Gastrointestinal: Yes: Normal Bowel Sounds, Soft. No: Tenderness Musculoskeletal: Yes: Other (No kyphosis) Extremities: No: Cold, Cyanosis Edema: Yes (1+ ankles) Integumentary: No: Jaundice Neurological: Yes: Alert, Oriented (x3) Psychiatric: No: Agitated Labs: CBC, BMP 10/15/19 05:25 10/15/19 05:25 Assessment/Plan EKG: afib with RVR no ischemic changes CXR: no congestion Echo 10/03: nl LV/RV. mild-mod TR tele: AF mostly 80s-110s, at times to 130s a.e. copd, acute bronchitis - BNP 3458, however appears euvolemic, no congestion on cxr - less likely CHF. not diuresing - echo here unremarkable, clinically euvolemic (mild pedal edema sec to steroids ) - nebs, steroids per primary, pulm paroxysmal afib, h/o remote AFL ablation - incidental modestly rapid AF noted at PMD early 10/03--CCB added, sotalol continued - f/u holter pt was in sinus rhythm - here RVR in setting of copd exac, missed home meds - imperfect rate control here, likely sec to hyperthyroid/copd sx's/steroids-- cardizem incr'd to 300 mg daily first dose 10/16 - he tolerated similar degree of tachycardia well as outpt (actually more rapid) , tolerating current tachy burden well with normal LVEF--ok for discharge on current regimen with outpt f/u in office this week for repeat holter. - observe HR once euthyroid--will consider EP eval for ? increase sotalol vs PVI ablation if remains with rapid AF - cont xarelto - monitor on tele HTN - stable, cont home meds HLD - cont statin CAD s/p CABG - cont plavix (was maintained on this long time, since revasc), statin, ac - will review office notes re: rationale for continuing plavix now that he is on NOAC hyperthyroidism: - TSH low - on methimazole - per primary
[2019-10-16] MEDS: CLOPIDOGREL BISULFATE 75 MG TABLET (FP) PO SCH (09:19)
[2019-10-16] MEDS: SOTALOL HCL 80 MG TABLET (FP) PO SCH (09:19)
[2019-10-16] MEDS: methylPREDNISolone NA SUCC 40 MG/1 ML VIAL IVPUSH SCH (09:19)
[2019-10-16] MEDS: DOXYCYCLINE HYCLATE 100 MG CAPSULE PO SCH (09:20)
[2019-10-16] MEDS: MULTIVITAMINS (DAILY MVI) TABLET (FP) PO SCH (09:20)
[2019-10-16] MEDS: METHIMAZOLE 5 MG TABLET (FP) PO SCH (09:20)
[2019-10-16 13:56] VITALS: BP 94/65; PULSE 71; TEMP 98.1
--- NOTE | 2019-10-16 14:03 | PN ---
Physical Exam: SUBJECTIVE: Patient seen and examined. He denies SOB. OBJECTIVE: Vital Signs Period Temp Pulse Resp BP Sys/Michael Pulse Ox Last 24 Hr 97.8 F-98.1 F 71-98 20-20 94-141/65-82 100-100 GENERAL: The patient is awake, alert, and fully oriented, in no acute distress. LUNGS: Breath sounds equal, clear to auscultation bilaterally, decreased breath sounds bilaterally, no wheezes, no crackles, no accessory muscle use. HEART: Irregularly irregular. ABDOMEN: Soft, nontender, nondistended, normoactive bowel sounds, no guarding, no rebound, no hepatosplenomegaly, no masses. EXTREMITIES: 2+ pulses, warm, well-perfused, trace edema. Laboratory Results - last 24 hr 10/13/19 10/14/19 08:30 06:30 Thyroid Stim Immunoglob <0.10 Adenovirus (PCR) Cancelled Human Metapneumovir PCR Cancelled Influenza A (H1) PCR Cancelled Influenza B (RT-PCR) Cancelled Parainfluenza 1 (PCR) Cancelled Parainfluenza 2 (PCR) Cancelled Parainfluenza 3 (PCR) Cancelled RSV Type A (PCR) Cancelled RSV Type B (PCR) Cancelled Rhinovirus (PCR) Cancelled Active Medications Generic Name Dose Route Start Last Admin Trade Name Freq PRN Reason Stop Dose Admin Atorvastatin Calcium 80 mg 10/12/19 22:00 10/15/19 22:09 Lipitor - PO 80 mg HS LEMUEL Administration Budesonide/Formoterol Fumarate 2 puff 10/12/19 10:00 10/15/19 22:08 Symbicort 160/4.5mcg - IH 2 inh BID LEMUEL Administration Clopidogrel Bisulfate 75 mg 10/12/19 10:00 10/16/19 09:19 Plavix - PO 75 mg DAILY LEMUEL Administration Diltiazem HCl 10 mg 10/12/19 12:43 Cardizem Injection - IVPUSH Q4H PRN TACHYCARDIA Diltiazem HCl 300 mg 10/15/19 10:00 10/16/19 09:20 Cardizem Cd - PO 300 mg DAILY LEMUEL Administration Doxycycline Hyclate 100 mg 10/12/19 10:00 10/16/19 09:20 Vibramycin - PO 100 mg BID@1000,1800 LEMUEL Administration Levalbuterol HCl 0.63 mg 10/12/19 14:00 10/16/19 13:19 Xopenex IH 0.63 mg RTID LEMUEL Administration Methimazole 2.5 mg 10/14/19 14:00 10/16/19 09:20 Tapazole - PO 2.5 mg DAILY LEMUEL Administration Methylprednisolone Sodium Succinate 40 mg 10/15/19 22:00 10/16/19 09:19 Solu-Medrol - IVPUSH 40 mg BID LEMUEL Administration Multivitamins/Minerals/Vitamin C 1 tab 10/12/19 10:00 10/16/19 09:20 Tab-A-Vit - PO 1 tab DAILY LEMUEL Administration Rivaroxaban 20 mg 10/12/19 22:00 10/15/19 22:09 Xarelto PO 20 mg HS LEMUEL Administration Sotalol HCl 40 mg 10/12/19 22:00 10/16/19 09:19 Betapace - PO 40 mg BID LEMUEL Administration Tiotropium [place] 2 puff 10/12/19 10:00 10/15/19 09:22 Spiriva Respimat IH 2 puff DAILY LEMUEL Administration ASSESSMENT/PLAN: This is a 79 year old man with a history of HTN, hyperlipidemia, atrial fib, CAD , CABG, COPD who presented to the ED with a cough, fever, and worsening SOB. 1. Acute exacerbation of COPD secondary to acute bronchitis - Change SoluMedrol to Prednisone - Continue Symbicort, Spiriva, Xopenex - resume Trelegy at discharge 2. Atrial fibrillation, permanent, with RVR - Rate better with increased Cardizem - Continue Sotalol, Xarelto 3. CAD, history of CABG - Continue Sotalol, Plavix, Lipitor 4. HTN - Continue Cardizem CD, Sotalol 5. Hyperlipidemia - Continue Lipitor 6. Possible hyperthyroidism - TSH is low, FT4 high, FT3 low - Thyroid peroxidase Ab normal - Thyroid stimulating immunoglobulin normal - Continue Tapazole - Follow up with Dr. Corey as outpatient Visit type - Emergency Visit Emergency Visit: Yes ED Registration Date: 10/12/19 Care time: The patient presented to the Emergency Department on the above date and was hospitalized for further evaluation of their emergent condition. - New Patient This patient is new to me today: No - Critical Care Critical Care patient: No - Discharge Referral Referred to [facility] No
--- NOTE | 2019-10-16 17:43 | EKG ---
Test Reason : Blood Pressure : / mmHG Vent. Rate : 124 BPM Atrial Rate : 136 BPM P-R Int : 000 ms QRS Dur : 116 ms QT Int : 356 ms P-R-T Axes : 000 048 050 degrees QTc Int : 511 ms ATRIAL FIBRILLATION WITH RAPID VENTRICULAR RESPONSE POSSIBLE INFERIOR INFARCT (CITED ON OR BEFORE 11-OCT-2019) ABNORMAL ECG WHEN COMPARED WITH ECG OF 11-OCT-2019 23:39, NO SIGNIFICANT CHANGE WAS FOUND BASELINE ARTIFACT Confirmed by KAMINI CASTELLON, JESSICA ([id number]) on 10/16/2019 5:42:41 PM Referred By: Confirmed By:JESSICA SUÁREZ MD
--- NOTE | 2019-10-17 09:15 | DS ---
Physical Exam: SUBJECTIVE: Patient was discharged yesterday. Subjective exam was not performed. OBJECTIVE: Vital Signs Period Temp Pulse Resp BP Sys/Michael Pulse Ox Last 24 Hr 97.8 F-98.1 F 71-98 20 94-133/65-73 PHYSICAL EXAM Patient was discharged yesterday. Objective exam was not performed. HOSPITAL COURSE: Eleazar Pathak Jr is a 79 year old male with a past medical history of HTN, HLD, afib (on Xarelto), CAD (s/p CABG), COPD admitted for COPD exacerbation. Patient was started on bronchodilators, steroid medications, antibiotics, and oxygen to control acute episode. Steroid medications were tapered and patient will complete outpatient taper. Patient will require home O2 and left the hospital with home oxygen services. Patient to continue taking home inhalers. Flu studies were negative. Patient had episodes of rapid ventricular rate due to his atrial fibrillation. Patient was seen by cardiology and had his Cardizem doses adjusted and was discharged on Cardizem 300mg daily and to continue taking sotalol and to follow up with his outpatient psychology fellow. Echo was performed which showed normal LV size, function, thickness, EF 55-60%, mild mitral regurg, mild to moderate tricuspid regurg. Patient had thyroid studies which showed low TSH and elevated free T4. Was seen by endocrinology and was started on methimazole 2.5mg daily and to have repeat thyroid function tests 3-4 days after discharged and to follow up with endocrinology outpatient. Patient to start taking prednisone on a tapered schedule, cardizem at 300mg, and methimazole and to follow up outpatient with his PCP, psychology fellow, and neurology nurse. Patient was discharged in stable medical condition. Date of Admission:10/12/19 Date of Discharge: 10/16/19 Minutes to complete discharge: 35 Discharge Summary Problems reviewed: Yes Reason For Visit: ACUTE EXACERBATION OF CHRONIC OBSTRUCTIVE Condition: Guarded - Instructions Diet, Activity, Other Instructions: You were admitted for worsening of your COPD. You were given steroid medications , inhalers, and antibiotics in order to improve your breathing status. You are to complete a course of steroid medications at home. You are to start having home oxygen which has been set up for you. You had an elevated heart rate for which you were given medications in order to control your rate. You had an echocardiogram (ultrasound of the heart) which showed normal size, function, and thickness of your heart and some valvular dysfunctions. MEDICATIONS START to take methimazole 2.5 mg (half of 5 mg tablet) every day. Diltiazem CD (Cardizem CD) was changed to 300 mg every day. Prednisone (10 mg tabs) taper: 1/2 and 13 - take 6 tabs /4 and 5 - take 5 tabs 6 and 7 - take 4 tabs 10/23 and 10/24 - take 3 tabs 10/25 and 10/26 - take 2 tabs 10/27 and 10/28 - take 1 tab Prescriptions for Methimazole, Prednisone, and Diltiazem were sent to [facility] on [facility]. Please continue to take all of your other home medications as prescribed. REFERRALS Please follow up with your primary care doctor, Dr. Garcia, within 1 week. Please follow up with the psychology fellow, Dr. eBcker, within 1 week. Please follow up with the neurology nurse, Dr. Imelda Corey, within 1 week. SPECIAL INSTRUCTIONS You will need to get repeat thyroid function tests in 3-4 days. Please go to your primary care physician to obtain that bloodwork. If you have any symptoms of chest pain, palpitations, shortness of breath, fevers, weakness, dizziness, lightheadedness, or any other general feelings of unwellness, please call 911 or go to your nearest emergency room. Referrals: David Garcia MD [Primary Care Provider] - 1 Week Miguel A Becker MD [Staff Physician] - 1 Week Imelda Corey MD [Staff Physician] - 1 Week Disposition: HOME - Home Medications Comprehensive Discharge Medication List: Ambulatory Orders Aspirin Coated [Ecotrin -] 81 mg PO DAILY 11/07/11 Atorvastatin Ca [Lipitor] 80 mg PO HS 11/07/11 Clopidogrel Bisulfate [Plavix -] 75 mg PO DAILY 11/07/11 Multivitamin [Multivitamins] 0.5 each PO BID 08/26/13 Sotalol HCl [Sotalol] 40 mg PO BID 08/26/13 Fluticasone/Umeclidin/Vilanter [Trelegy Ellipta 100-62.5-25] 1 each IH DAILY Rivaroxaban [Xarelto -] 20 mg PO HS 10/12/19 Diltiazem Cd [Cardizem Cd -] 300 mg PO DAILY #30 cap.cd.24h 10/16/19 Methimazole [Tapazole -] 0.5 tab PO DAILY #15 tablet 10/16/19 Prednisone See Taper PO ASDIR #42 tablet 10/16/19 Problem List - Problems (1) Atrial fibrillation with RVR Code(s): I48.91 - UNSPECIFIED ATRIAL FIBRILLATION (2) COPD exacerbation Code(s): J44.1 - CHRONIC OBSTRUCTIVE PULMONARY DISEASE W (ACUTE) EXACERBATION This patient is new to me today: No Emergency Visit: Yes ED Registration Date: 10/12/19 Care time: The patient presented to the Emergency Department on the above date and was hospitalized for further evaluation of their emergent condition. Critical Care patient: No - Discharge Referral Referred to [facility] No
== END 2019-10-16 15:00 | disposition home or self-care (01) | DRG 191 ==
LOC: JER 22:56 → JERBED 10-12 00:30 → J4W 10-12 13:45
PROVIDERS: ADMIT Internal Medicine; ATTEND Internal Medicine
DX: J44.1 Chronic obstructive pulmonary disease with (acute) exacerbation (principal); I48.21 Permanent atrial fibrillation; J44.0 Chronic obstructive pulmonary disease with (acute) lower respiratory infection; I10 Essential (primary) hypertension; E78.5 Hyperlipidemia, unspecified; I25.10 Atherosclerotic heart disease of native coronary artery without angina pectoris; J20.9 Acute bronchitis, unspecified; E05.90 Thyrotoxicosis, unspecified without thyrotoxic crisis or storm; Z95.1 Presence of aortocoronary bypass graft
CPT/HCPCS: 36415; 36600; 71045-TC-FY; 80048; 80053; 82248; 82375; 82550; 82553; 82803; 83050; 83735; 83880; 84100; 84439; 84443; 84445; 84481; 84484; 85025; 85027; 86376; 87804; 93005; 93010; 93306-TC; 94761; 97116-GP; 99283-25

== ENCOUNTER 2019-10-28 12:21 | Inpatient (IN) | payer OTHER, BC ==
[2019-10-28 12:27] VITALS: BMI 29.5
[2019-10-28] MEDS ORDERED: OXYMETAZOLINE 0.05% NASAL SOLUTION 15 ML BOTTLE NS ONE (12:50)
--- NOTE | 2019-10-28 13:12 | PDOC ---
History of Present Illness - General Chief Complaint: Nasal Bleeding Stated Complaint: NOSE BLEED/DIFF BREATHING Time Seen by Provider: 10/28/19 12:49 History Source: Patient Exam Limitations: No Limitations - History of Present Illness Initial Comments: 10/28/19 13:08 79YOM with h/o HTN, HLD, A-Fib (on Xarelto and Cardizem), CAD (s/p CABG), and COPD, who p/w 1 week of worsening SOB, cough, and leg swelling. The patient and his family note his legs have never been this swollen before and he does not normally take Lasix. He was sent by Dr. Garcia for admission to the hospital for COPD exacerbation and leg swelling (patient presents with Rx paper from Dr. Garcia). He denies f/c/n/v/d/c, chest pain, headache, lightheadedness, dizziness , abdominal pain, back pain, LOC, or other symptoms. Was recently discharged from [facility] to home for a COPD exacerbation. He was found to be hyperthyroid at that time and started on methimazole Past History - Past Medical History Allergies/Adverse Reactions: Allergies Allergy/AdvReac Type Severity Reaction Status Date / Time No Known Allergies Allergy Verified 10/28/19 12:27 Home Medications: Ambulatory Orders Aspirin Coated [Ecotrin -] 81 mg PO DAILY 11/07/11 Atorvastatin Ca [Lipitor] 80 mg PO HS 11/07/11 Multivitamin [Multivitamins] 0.5 each PO BID 08/26/13 Sotalol HCl [Sotalol] 40 mg PO BID 08/26/13 Rivaroxaban [Xarelto -] 20 mg PO HS 10/12/19 Methimazole [Tapazole -] 0.5 tab PO DAILY #15 tablet 10/16/19 Bacitracin - [Bacitracin Topical Ointment -] 1 applic TP BID tube 11/02/19 Budesonide/Formeterol Fumarate [SYMBICORT 160/4.5mcg -] 2 puff IH BID #1 inhaler 11/02/19 Diltiazem Cd [Cardizem Cd -] 360 mg PO DAILY #30 cap.cd.24h 11/02/19 Docusate Sodium [Colace -] 100 mg PO TID capsule 11/02/19 Furosemide [Lasix -] 40 mg PO DAILY #30 tablet 11/02/19 Methimazole [Tapazole -] 5 mg PO DAILY tablet 11/02/19 Pantoprazole Sodium [Protonix -] 40 mg PO DAILY #30 tablet.ec 11/02/19 Polyethylene Glycol 3350 [Miralax 119 gm Btl -] 17 gm PO DAILY bottle 11/02/19 Tiotropium [place] [Spiriva Respimat] 2 puff IH DAILY #1 inhaler 11/02/19 predniSONE [Deltasone -] See Taper PO DAILY #58 tablet 11/02/19 Anemia: No Asthma: No Cancer: No Cardiac Disorders: Yes (cabg 06/2005) CVA: No COPD: Yes (EMPHYSEMA) Dementia: No Diabetes: No GI Disorders: No Disorders: No HTN: Yes Hypercholesterolemia: Yes Liver Disease: No Seizures: No Thyroid Disease: No - Surgical History Abdominal Surgery: Yes Appendectomy: No Cardiac Surgery: Yes (cabg X 2004) Cholecystectomy: No Lung Surgery: No Neurologic Surgery: No Orthopedic Surgery: No - Psycho Social/Smoking Cessation Hx Smoking History: Never smoked Have you smoked in the past 12 months: No If you are a former smoker, when did you quit?: 17YRS AGO Hx Alcohol Use: Yes (wine daily) Drug/Substance Use Hx: No Substance Use Type: None Hx Substance Use Treatment: No Review of Systems - Review of Systems Able to Perform ROS?: Yes Comments:: 10/28/19 13:22 GEN: generalized weakness, no fever, chills, malaise, or weight change HEENT: no ear pain, sore throat, vision change, or eye pain CV: edema, no chest pain, palpitations, lightheadedness, or syncope RESP: cough, wheezing, SOB GI: no abdominal pain, nausea, vomiting, diarrhea, constipation, or white/black/ bloody stool : no dysuria, hematuria, incontinence, retention, bleeding, or discharge MSK: no neck/back pain, muscle weakness/pain, or joint swelling/pain NEURO: no headache, seizure, vertigo, numbness, tingling, or focal weakness PSYCH: no substance use, no behavior change SKIN: no jaundice, no rash ROS otherwise negative except as noted in HPI *Physical Exam - Vital Signs Last Vital Signs Temp Pulse Resp BP Pulse Ox 98 F 111 H 18 112/56 L 95 10/28/19 12:23 10/28/19 12:23 10/28/19 12:23 10/28/19 12:23 10/28/19 12:23 - Physical Exam 10/28/19 13:54 GENERAL: well-appearing, A/Ox4, no distress, answers questions appropriately, accompanied by family HEENT: PERRLA, EOMI, moist mucous membranes NECK/BACK: no midline ttp, no spinal stepoff or deformity, no hematoma, full ROM , neck supple CARDIOVASCULAR: irregularly irregular and tachycardic, strong peripheral pulses , capillary refill <2 seconds, extremities wwp, 1+ pitting edema BLE to upper calf LUNGS/RESPIRATORY: tachypneic, pursed lip breathing, decreased breath sounds diffusely, speaking 5 word sentences GI/ABDOMEN: symmetric [id number], normoactive BS, soft, no ttp, no midline pulsatile masses : no CVA tenderness EXTREMITIES: no muscle atrophy, no acute deformity, edema noted SKIN: warm and dry, no pallor, no jaundice, no rash, no bruising, no skin breakdown, no cuts, no lesions NEUROLOGICAL: GCS 15, CN II-XII grossly intact, 5/5 strength proximally and distally, no facial droop Heart Score/ECG Review #1 A-fib with RVR, rate 123, normal axis, no acute ischemic ST-T changes ED Treatment Course - LABORATORY CBC & Chemistry Diagram: 11/02/19 06:50 11/02/19 06:50 - RADIOLOGY Radiology Studies Ordered: Category Date Time Status CHEST X-RAY PORTABLE* [RAD] Stat Radiology 10/28/19 12:58 Ordered Medical Decision Making - Medical Decision Making 10/28/19 13:56 79YOM patient with h/o COPD and A-fib p/w SOB, cough, and BLE pitting edema worsening x1 week. Initial Vital Signs Temp Pulse Resp BP Pulse Ox 98 F 111 H 18 112/56 L 95 10/28/19 12:23 10/28/19 12:23 10/28/19 12:23 10/28/19 12:23 10/28/19 12:23 Exam: As noted in Physical Exam section. DDX IBNLT: most likley COPD exacerbation also with effects of A-fib with RVR, possible ACS likely demand ischemia, less likely bronchitis, asthma, viral URI, influenza, PNA, PTX, PE, pericarditis, pneumonitis, etc. W/U ordered: Labs EKG CXR TX ordered: Cardizem IV push and PO, DuoNebs EKG: Reviewed; results as noted in ECG Review section. CXR: Nothing acute Laboratory Tests 10/28/19 10/28/19 10/28/19 13:49 13:49 13:49 WBC 13.8 H RBC 4.42 Hgb 14.0 Hct 41.5 MCV 93.9 MCH 31.7 MCHC 33.8 RDW 13.9 Plt Count 207 MPV 8.4 Absolute Neuts (auto) 12.5 H Neutrophils % 90.7 H Lymphocytes % 4.5 L D Monocytes % 4.4 Eosinophils % 0.0 Basophils % 0.4 D Nucleated RBC % 0 PT with INR 18.50 H INR 1.56 H VBG pH POC VBG pCO2 POC VBG pO2 VBG HCO3 VBG O2 Sat (Antolin) VBG Base Excess Sodium 135 L Potassium 4.8 Chloride 96 L Carbon Dioxide 33 H Anion Gap 6 L BUN 16.3 Creatinine 1.1 Est GFR (CKD-EPI)AfAm 74.13 Est GFR (CKD-EPI)NonAf 63.96 Random Glucose 101 Calcium 8.8 Phosphorus 4.0 Magnesium 2.1 Total Bilirubin 1.2 H AST 25 ALT 36 Alkaline Phosphatase 90 Creatine Kinase 70 Troponin I 0.02 B-Natriuretic Peptide 1942.7 H Total Protein 6.7 Albumin 3.0 L TSH 0.23 L D Free T4 1.36 H Resin T3 Uptake 37.2 10/28/19 13:49 WBC RBC Hgb Hct MCV MCH MCHC RDW Plt Count MPV Absolute Neuts (auto) Neutrophils % Lymphocytes % Monocytes % Eosinophils % Basophils % Nucleated RBC % PT with INR INR VBG pH 7.38 POC VBG pCO2 58.1 H POC VBG pO2 < 49 H VBG HCO3 33.5 H VBG O2 Sat (Antolin) 13.7 L VBG Base Excess 5.8 H Sodium Potassium Chloride Carbon Dioxide Anion Gap BUN Creatinine Est GFR (CKD-EPI)AfAm Est GFR (CKD-EPI)NonAf Random Glucose Calcium Phosphorus Magnesium Total Bilirubin AST ALT Alkaline Phosphatase Creatine Kinase Troponin I B-Natriuretic Peptide Total Protein Albumin TSH Free T4 Resin T3 Uptake Vital Signs Temperature 98 F 10/28/19 12:23 Pulse Rate 111 H 10/28/19 12:23 Respiratory Rate 18 10/28/19 12:23 Blood Pressure 112/56 L 10/28/19 12:23 O2 Sat by Pulse Oximetry (%) 95 10/28/19 12:23 10/28/19 15:09 The Pts symptoms persist despite ED treatments. They are not safe for discharge from the ED at this time. They require further hospital observation, workup, and treatment. Microblog sent to [facility] for admission. Blank Decision to Admit order is placed per ED protocol. 10/28/19 15:33 Spoke with admitting team environmental marketing representative, in agreement Pt to be admitted. Decision to Admit order corrected with admitting team covering attendings name. Discharge - Discharge Information Problems reviewed: Yes Clinical Impression/Diagnosis: Atrial fibrillation with RVR, COPD exacerbation Condition: Guarded - Admission Yes - Follow up/Referral - Patient Discharge Instructions - Post Discharge Activity
[2019-10-28] MEDS ORDERED: dilTIAZem HCL 50 MG/10 ML - 10 ML VIAL IVPUSH ONE (13:19)
[2019-10-28] MEDS ORDERED: dilTIAZem HCL 50 MG/10 ML - 10 ML VIAL ONE (13:40)
--- NOTE | 2019-10-28 14:00 | PDOC ---
Attending Attestation - Resident Resident Name: MatthewRox - ED Attending Attestation I have performed the following: I have examined & evaluated the patient, The case was reviewed & discussed with the resident, I agree w/resident's findings & plan - HPI HPI: 10/28/19 13:54 79-year-old male with history of COPD and recent admission for COPD exacerbation discharged home on oxygen for the first time, completed his steroid taper this morning, presents now with acutely worsening shortness of breath. Patient never returned to baseline after discharge, felt suddenly more short of breath this morning without chest pain or pressure. Positive cough, no fevers or chills, positive leg swelling bilaterally. - Physicial Exam PE: 10/28/19 13:55 Tachypneic, afebrile, O2 sat within normal limits on room air Alert, conversant and joking, but tachypneic with pursed lip breathing, speaks about 5-6 words at a time No JVD Heart is irregular tachycardia Lungs without audible wheezing on my examination, slightly decreased breath sounds at the right base, otherwise good air entry that is symmetric Abdomen benign 1+ pitting edema bilaterally - Critical Care Time Total Critical Care Time: 30 Critical Care Statement: The care of this patient involved high complexity decision making to prevent further life threatening deterioration of the patient 's condition and/or to evaluate & treat vital organ system(s) failure or risk of failure. - Medical Decision Making 10/28/19 13:56 79-year-old male with history of COPD and recent admission for exacerbation, notably with normal echo during previous admission, presents now with progressively worsening shortness of breath, tachypneic on examination. Question exacerbation of COPD in the setting of steroid taper, rule out superimposed infectious process. Patient does present here in rapid atrial fibrillation, which occurred during the hospitalization as well. Possible/ probable that the rapid ventricular response is another cause of his acute increase in dyspnea today, and that the COPD is otherwise controlled, especially in the absence of wheezing. PE less likely given a/c for afib. Hemodynamically stable otherwise. Rate control with iv diltiazem Nebulizers, chest x-ray, labs Reassess, discussed disposition with primary care team, Dr. Garcia his PCP, Dr. Becker his earth science laboratory technician, Dr. Glass his crew attendant. Heart Score/ECG Review #1 ECG reviewed & interpreted by me at: 12:33 10/28/19 14:00 Atrial fibrillation with rapid ventricular response at rate of 123, no acute ST or T wave changes.
[2019-10-28] MEDS ORDERED: dilTIAZem HCL 30 MG TABLET (FP) PO ONE (14:05)
[2019-10-28] MEDS ORDERED: dilTIAZem HCL 30 MG TABLET (FP) ONE (14:10)
[2019-10-28 14:28] LABS: BASO % 0.4 % (0-2.0); HEMATOCRIT 41.5 % (35.4-49); LYMPH % 4.5 % (8-40); MCH 31.7 pg (25.7-33.7); MCHC 33.8 g/dl (32.0-35.9); MEAN CELL VOLUME 93.9 fl (80-96); MEAN PLT VOLUME 8.4 fl (7.5-11.1); MONO % 4.4 % (3.8-10.2); NEUT % 90.7 % (42.8-82.8); PLATELET COUNT 207 K/MM3 (134-434); RBC 4.42 M/mm3 (4.00-5.60); RDW 13.9 % (11.9-15.9); WHITE BLOOD COUNT 13.8 K/mm3 (4.0-10.0)
[2019-10-28 14:30] LABS: VENOUS PC02 58.1 mmHg (38-52); VENOUS PH 7.38 (7.31-7.41)
[2019-10-28 14:32] LABS: VENOUS PO2 < 49 mmHg (28-48)
[2019-10-28 14:41] LABS: INR 1.56 (0.83-1.09); PROTHROMBIN TIME (PATIENT) 18.5 SEC (9.7-13.0)
[2019-10-28] MEDS ORDERED: ALBUTEROL SO4 2.5/IPRATROPIUM 0.5 INH SOL 3 ML VIAL.NEB. NEB ONE ×5 (14:57→19:54)
[2019-10-28 15:00] LABS: BILIRUBIN,TOTAL 1.2 mg/dL (0.2-1); BLOOD UREA NITROGEN 16.3 mg/dL (7-18); CALCIUM 8.8 mg/dL (8.5-10.1); CREATININE 1.1 mg/dL (0.55-1.3); MAGNESIUM 2.1 mg/dL (1.8-2.4); N-TERMINAL BNP 1942.7 pg/ml (5-450); POTASSIUM 4.8 mmol/L (3.5-5.1); TOT PROT 6.7 g/dl (6.4-8.2)
[2019-10-28] MEDS ORDERED: FUROSEMIDE 40 MG/4 ML INJECTABLE VIAL IVPUSH ONE ×2 (16:50)
--- NOTE | 2019-10-28 16:50 | HP ---
CHIEF COMPLAINT: difficulty breathing despite home oxygen/acute nose bleed today PCP: Dr. Garcia, PCP Dr. Becker, Yard Conductor Dr. Glass, pulmonlogist HISTORY OF PRESENT ILLNESS: Patient is a 79 year old male with a significant past medical history of atril fibrillation (on xarelto), hypertension, hyperlipidemia, CAD (s/pCABG), COPD. Mr Pathak recently admitted to [facility] from 10/12/2019-10/16/19 for acute exacerbation of COPD. He was treated with bronchodilators, steroid taper, antibiotics and oxygen. Patient sent home on 10/16/2019 to complete steriod taper and was also sent home on home oxygen at 2 liters. His afib was controlled with an increase of cardizem and is also on sotalol. He was instructed to follow up with his home electrical integrator but has not yet done so. He went to see his primary care doctor today and was found to have worsening shortness of breath with pursed lipped breathing and leg edema and his PCP sent him to [facility] ED. Echo performed on 10/14/19 shows normal lv, ef 55-60%, mild mitral regurg, mild to moderate tricuspid regurg. He was also started on Methmazole 2.55mg on last admission after he had low tsh/and elevated free t4. Patient reports since discharge he initially felt well and was taking the Prednisone taper as directed. He began to feel short of breath last night and was unable to sleep, spent the entire night awake and went to the bathroom about 5 times to urinate. He also reports he felt uncomfortable laying flat. This morning he began to feel short of breath despite his home medications and oxygen and noticed that his legs were more swollen. He denies chest pain, headache, lightheadedness, dizziness, abdominal pain, back pain. He reports compliance of all his home medications. On exam he was noted to have a mild left lip droop that he has not noticed before, he denies any visual defect, headaches, no arm or leg weakness. ER course was notable for: (1) + expiratory wheezing with pursed lipped breathing. chest xray negative for acute pathology (2) duonebs (3) lower ext edema +2 bilaterally, lasix 20mg iv push x 1 (4) left lip droop, for head ct now (5) wbc 13.8 (6) no acute findings on chest xray, will order chest ct to rule out pneumonia (7) afib with rvr 120s, negative trop x 1 (8) bnp 1900s Recent Travel: denies PAST MEDICAL HISTORY: PAST SURGICAL HISTORY: Social History: Smoking: Alcohol: Drugs: Allergies No Known Allergies Allergy (Verified 10/28/19 12:27) HOME MEDICATIONS: Home Medications Medication Instructions Recorded Aspirin Coated [Ecotrin -] 81 mg PO DAILY 11/07/11 Atorvastatin Ca [Lipitor] 80 mg PO HS 11/07/11 Clopidogrel Bisulfate [Plavix -] 75 mg PO DAILY 11/07/11 Multivitamin [Multivitamins] 0.5 each PO BID 08/26/13 Sotalol HCl [Sotalol] 40 mg PO BID 08/26/13 Fluticasone/Umeclidin/Vilanter 1 each IH DAILY 10/12/19 [Trelegy Ellipta 100-62.5-25] Rivaroxaban [Xarelto -] 20 mg PO HS 10/12/19 Diltiazem Cd [Cardizem Cd -] 300 mg PO DAILY #30 cap.cd.24h 10/16/19 Methimazole [Tapazole -] 0.5 tab PO DAILY #15 tablet 10/16/19 Prednisone See Taper PO ASDIR #42 tablet 10/16/19 CONSTITUTIONAL: Absent: chills, generalized weakness, malaise, loss of appetite, HEENT: Absent: rhinorrhea, nasal congestion, throat pain, throat swelling, difficulty swallowing, visual changes CARDIOVASCULAR: Absent: chest pain, syncope, palpitations, irregular heart rate, lightheadedness , peripheral edema RESPIRATORY: cough (non productive), shortness of breath, dyspnea with exertion , wheezing Absent: orthopnea, stridor, GASTROINTESTINAL: Absent: abdominal pain, abdominal distension, nausea, vomiting, diarrhea, constipation GENITOURINARY: Absent: dysuria, frequency, urgency, hesitancy, MUSCULOSKELETAL: Absent: myalgia, arthralgia, joint swelling, back pain, neck pain SKIN: Absent: rash, itching, pallor NEUROLOGIC: Absent: headache, focal weakness or paresthesias, dizziness, unsteady gait, seizure, mental status changes, PSYCHIATRIC: Absent: anxiety, depression, suicidal or homicidal ideation, hallucinations. PHYSICAL EXAMINATION Vital Signs - 24 hr 10/28/19 10/28/19 12:23 16:00 Temperature 98 F 98.5 F Pulse Rate 111 H Pulse Rate [ 100 H Left Radial] Respiratory 18 19 Rate Blood Pressure 112/56 L Blood Pressure 120/55 L [Right Arm] O2 Sat by Pulse 95 99 Oximetry (%) GENERAL: Awake, alert, and fully oriented, in no acute distress. HEAD: Normal with no signs of trauma. EYES: Pupils equal, round and reactive to light, extraocular movements intact, sclera anicteric, conjunctiva clear. No lid lag. EARS, NOSE, THROAT: Ears normal, nares patent, oropharynx clear without exudates. Moist mucous membranes. NECK: Normal range of motion, supple without lymphadenopathy, JVD, or masses. LUNGS: Breath sounds equal, clear to auscultation bilaterally. No wheezes, and no crackles. No accessory muscle use. HEART: Regular rate and rhythm, normal S1 and S2 without murmur, rub or gallop. ABDOMEN: Soft, nontender, not distended, normoactive bowel sounds, no guarding, no rebound, no masses. No hepatomegaly or splenomegaly. MUSCULOSKELETAL: Normal range of motion at all joints. No bony deformities or tenderness. No CVA tenderness. UPPER EXTREMITIES: 2+ pulses, warm, well-perfused. No cyanosis. No clubbing. No peripheral edema. LOWER EXTREMITIES: 2+ pulses, warm, well-perfused. No calf tenderness. No peripheral edema. NEUROLOGICAL: Cranial nerves II-XII intact. Normal speech. Normal gait. PSYCHIATRIC: Cooperative. Good eye contact. Appropriate mood and affect. SKIN: Warm, dry, normal turgor, no rashes or lesions noted, normal capillary refill. skin breakdown of ears Laboratory Results - last 24 hr 10/28/19 10/28/19 10/28/19 13:49 13:49 13:49 WBC 13.8 H RBC 4.42 Hgb 14.0 Hct 41.5 MCV 93.9 MCH 31.7 MCHC 33.8 RDW 13.9 Plt Count 207 MPV 8.4 Absolute Neuts (auto) 12.5 H Neutrophils % 90.7 H Lymphocytes % 4.5 L D Monocytes % 4.4 Eosinophils % 0.0 Basophils % 0.4 D Nucleated RBC % 0 PT with INR 18.50 H INR 1.56 H VBG pH POC VBG pCO2 POC VBG pO2 VBG HCO3 VBG O2 Sat (Antolin) VBG Base Excess Sodium 135 L Potassium 4.8 Chloride 96 L Carbon Dioxide 33 H Anion Gap 6 L BUN 16.3 Creatinine 1.1 Est GFR (CKD-EPI)AfAm 74.13 Est GFR (CKD-EPI)NonAf 63.96 Random Glucose 101 Calcium 8.8 Phosphorus 4.0 Magnesium 2.1 Total Bilirubin 1.2 H AST 25 ALT 36 Alkaline Phosphatase 90 Creatine Kinase 70 Troponin I 0.02 B-Natriuretic Peptide 1942.7 H Total Protein 6.7 Albumin 3.0 L TSH 0.23 L D Free T4 1.36 H Resin T3 Uptake 37.2 10/28/19 13:49 WBC RBC Hgb Hct MCV MCH MCHC RDW Plt Count MPV Absolute Neuts (auto) Neutrophils % Lymphocytes % Monocytes % Eosinophils % Basophils % Nucleated RBC % PT with INR INR VBG pH 7.38 POC VBG pCO2 58.1 H POC VBG pO2 < 49 H VBG HCO3 33.5 H VBG O2 Sat (Antolin) 13.7 L VBG Base Excess 5.8 H Sodium Potassium Chloride Carbon Dioxide Anion Gap BUN Creatinine Est GFR (CKD-EPI)AfAm Est GFR (CKD-EPI)NonAf Random Glucose Calcium Phosphorus Magnesium Total Bilirubin AST ALT Alkaline Phosphatase Creatine Kinase Troponin I B-Natriuretic Peptide Total Protein Albumin TSH Free T4 Resin T3 Uptake ASSESSMENT/PLAN: Problem List - Problem (1) Shortness of breath Assessment/Plan: Acute shortness of breath likely to uncontrolled copd exacerbation vs cardiac component initially did well with steriod taper, but became short of breath after last dose of prednisone start on short course of solumedrol pending pulmonary recommendations Patient reports compliance with home xarelo for a chest CT to further evaluate chest xray shows no acute process on 2 liters nasal cannula Code(s): R06.02 - SHORTNESS OF BREATH (2) COPD exacerbation Assessment/Plan: Recently treated for acute exacerbation of COPD seconday to acute bronchitis and treated with solumedrol. He reports compliance with prednisone taper and oxygen therapy. will continue Symbicort, Spiriva, Xopenex. on 2 liters of nasal cannula to maintain oxygen sats above 92% Code(s): J44.1 - CHRONIC OBSTRUCTIVE PULMONARY DISEASE W (ACUTE) EXACERBATION (3) Atrial fibrillation with RVR Assessment/Plan: on cardizem, sotalol and xarelto ekg shows afb with rvr 120s Code(s): I48.91 - UNSPECIFIED ATRIAL FIBRILLATION (4) Facial droop Assessment/Plan: very mild left lip droop, for head ct no other neuro deficits noted Code(s): R29.810 - FACIAL WEAKNESS (5) Hypertension Assessment/Plan: monitor BP q 4 continue cardizem, sotalol Code(s): I10 - ESSENTIAL (PRIMARY) HYPERTENSION (6) HLD (hyperlipidemia) Assessment/Plan: on lipitor Code(s): E78.5 - HYPERLIPIDEMIA, UNSPECIFIED (7) Hyperthyroidism Assessment/Plan: continue home medications Code(s): E05.90 - THYROTOXICOSIS, UNSP WITHOUT THYROTOXIC CRISIS OR STORM (8) Increased frequency of urination Assessment/Plan: for a UA/UC to further assess Code(s): R35.0 - FREQUENCY OF MICTURITION (9) Lower leg edema Assessment/Plan: for vascular ultrasound to rule out dvt Code(s): R60.0 - LOCALIZED EDEMA (10) Prophylactic measure Assessment/Plan: fen on xarelto low salt diet Code(s): Z29.9 - ENCOUNTER FOR PROPHYLACTIC MEASURES, UNSPECIFIED Visit type - Emergency Visit Emergency Visit: Yes ED Registration Date: 10/28/19 Care time: The patient presented to the Emergency Department on the above date and was hospitalized for further evaluation of their emergent condition. - New Patient This patient is new to me today: Yes Date on this admission: 10/28/19 - Critical Care Critical Care patient: No
[2019-10-28] MEDS ORDERED: FUROSEMIDE 40 MG/4 ML INJECTABLE VIAL ONE (18:11)
[2019-10-28] MEDS ORDERED: methylPREDNISolone NA SUCC 40 MG/1 ML VIAL ONE (19:54)
[2019-10-28] MEDS: ALBUTEROL SO4 2.5/IPRATROPIUM 0.5 INH SOL 3 ML VIAL.NEB. NEB SCH (20:13)
[2019-10-28] MEDS: methylPREDNISolone NA SUCC 40 MG/1 ML VIAL IVPUSH SCH (20:13)
[2019-10-28] MEDS: RIVAROXABAN 20 MG TABLET PO SCH (20:13)
[2019-10-28] MEDS ORDERED: ATORVASTATIN CA 80 MG TABLET (FP) ONE (23:14)
[2019-10-28] MEDS ORDERED: BACITRACIN 0.9 GM PACKET ONE (23:15)
[2019-10-28] MEDS: BUDESONIDE/FORMETEROL FUMARATE 160/4.5 mcg INHALER IH SCH (23:27)
[2019-10-28] MEDS: ATORVASTATIN CA 80 MG TABLET (FP) PO SCH (23:27)
[2019-10-28] MEDS: BACITRACIN 15 GM TUBE TOPICAL OINTMENT TP SCH (23:27)
[2019-10-28] MEDS: SOTALOL HCL 80 MG TABLET (FP) PO SCH (23:46)
[2019-10-29] MEDS: ALBUTEROL SO4 2.5/IPRATROPIUM 0.5 INH SOL 3 ML VIAL.NEB. NEB SCH ×4 (01:24→19:47)
[2019-10-29] MEDS: methylPREDNISolone NA SUCC 40 MG/1 ML VIAL IVPUSH SCH ×3 (04:02→18:11)
[2019-10-29 07:49] LABS: BASO % 0.1 % (0-2.0); HEMATOCRIT 40.8 % (35.4-49); HEMOGLOBIN 14.2 GM/dL (11.7-16.9); LYMPH % 7.8 % (8-40); MCH 32.2 pg (25.7-33.7); MCHC 34.7 g/dl (32.0-35.9); MEAN CELL VOLUME 92.7 fl (80-96); MEAN PLT VOLUME 8.2 fl (7.5-11.1); MONO % 1.5 % (3.8-10.2); NEUT % 90.6 % (42.8-82.8); PLATELET COUNT 186 K/MM3 (134-434); RDW 13.6 % (11.9-15.9); WHITE BLOOD COUNT 6.8 K/mm3 (4.0-10.0)
[2019-10-29 08:16] LABS: ALBUMIN 2.9 g/dl (3.4-5.0); BILIRUBIN,TOTAL 0.7 mg/dL (0.2-1); CALCIUM 8.4 mg/dL (8.5-10.1); CREATININE 0.9 mg/dL (0.55-1.3); MAGNESIUM 2.4 mg/dL (1.8-2.4); POTASSIUM 4.2 mmol/L (3.5-5.1); TOT PROT 6.7 g/dl (6.4-8.2)
[2019-10-29] MEDS ORDERED: ALBUTEROL SO4 2.5/IPRATROPIUM 0.5 INH SOL 3 ML VIAL.NEB. NEB ONE ×2 (08:21→19:28)
[2019-10-29] MEDS: SOTALOL HCL 80 MG TABLET (FP) PO SCH ×2 (10:00→22:24)
[2019-10-29] MEDS: PANTOPRAZOLE 40 MG TABLET PO SCH (10:00)
[2019-10-29] MEDS: ASPIRIN COATED 81 MG TABLET.EC PO SCH (10:00)
[2019-10-29] MEDS: BUDESONIDE/FORMETEROL FUMARATE 160/4.5 mcg INHALER IH SCH (10:00)
[2019-10-29] MEDS ORDERED: METHIMAZOLE 5 MG TABLET (FP) PO SCH (10:00)
[2019-10-29] MEDS: TIOTROPIUM BROMIDE 2.5 MCG (SPIRIVA) RESPIMAT INHALER IH SCH (10:00)
[2019-10-29] MEDS: BACITRACIN 15 GM TUBE TOPICAL OINTMENT TP SCH ×2 (10:00→22:24)
[2019-10-29] MEDS: CLOPIDOGREL BISULFATE 75 MG TABLET (FP) PO SCH (11:19)
--- NOTE | 2019-10-29 11:19 | CON.CARD ---
Cardiology Consult (text) - Consultation Consultation Note: Consult Specialty:: Cardiology Referred by:: Medicine Reason for Consultation:: short of breath - History of Present Illness Chief Complaint: short of breath History of Present Illness: 79M h/o HTN, HLD, afib, CAD s/p CABG, COPD p/w dyspnea, edema. Sees Dr. Becker for cardio. Recently admitted for COPD exac and afib with RVR, treated with steroids, BDs and cardizem increased, dc'ed 10/16. Now with dyspnea, edema gradually worse over last few days, went to PCP and sent to ER for sob and edema. No chest pain, palps, dizziness. Received two doses of lasix IV in ER, edema improved. - Alcohol/Substance Use Hx Alcohol Use: Yes (wine daily) - Smoking History Smoking history: Former smoker Have you smoked in the past 12 months: No If you are a former smoker, when did you quit?: 17YRS AGO Home Medications - Allergies Allergies/Adverse Reactions: Allergies Allergy/AdvReac Type Severity Reaction Status Date / Time No Known Allergies Allergy Verified 10/28/19 12:27 Home Medications Medication Instructions Recorded Aspirin Coated [Ecotrin -] 81 mg PO DAILY 11/07/11 Atorvastatin Ca [Lipitor] 80 mg PO HS 11/07/11 Clopidogrel Bisulfate [Plavix -] 75 mg PO DAILY 11/07/11 Multivitamin [Multivitamins] 0.5 each PO BID 08/26/13 Sotalol HCl [Sotalol] 40 mg PO BID 08/26/13 Fluticasone/Umeclidin/Vilanter 1 each IH DAILY 10/12/19 [Trelegy Ellipta 100-62.5-25] Rivaroxaban [Xarelto -] 20 mg PO HS 10/12/19 Diltiazem Cd [Cardizem Cd -] 300 mg PO DAILY #30 cap.cd.24h 10/16/19 Methimazole [Tapazole -] 0.5 tab PO DAILY #15 tablet 10/16/19 Prednisone See Taper PO ASDIR #42 tablet 10/16/19 Family Medical History Family History: Unremarkable Review of Systems - Review of Systems Constitutional: reports: Weakness Eyes: reports: No Symptoms HENT: reports: No Symptoms Neck: reports: No Symptoms Cardiovascular: reports: No Symptoms Respiratory: reports: No Symptoms Gastrointestinal: reports: No Symptoms Musculoskeletal: reports: No Symptoms Integumentary: reports: No Symptoms Neurological: reports: No Symptoms Endocrine: reports: No Symptoms Hematology/Lymphatic: reports: No Symptoms Psychiatric: reports: No Symptoms Vital Signs: Vital Signs Period Temp Pulse Resp BP Sys/Michael Pulse Ox Last 24 Hr 97.7 F-98.5 F 87-114 18-22 104-177/55-74 95-99 Constitutional: Yes: No Distress, Calm Eyes: Yes: Conjunctiva Clear, EOM Intact HENT: Yes: Atraumatic, Normocephalic Neck: Yes: Supple, Trachea Midline Respiratory: Yes: Regular, CTA Bilaterally Gastrointestinal: Yes: Normal Bowel Sounds, Soft Cardiovascular: Yes: Tachycardia, Pulse Irregular JVD: No Heart Sounds: Yes: S1, S2 Extremities: No: Cold Edema: 1+ alexander lower ext Integumentary: No: Jaundice Neurological: Yes: Alert, Oriented Psychiatric: No: Agitated Laboratory Last Values WBC 6.8 K/mm3 (4.0-10.0) 10/29/19 07:00 RBC 4.40 M/mm3 (4.00-5.60) 10/29/19 07:00 Hgb 14.2 GM/dL (11.7-16.9) 10/29/19 07:00 Hct 40.8 % (35.4-49) 10/29/19 07:00 MCV 92.7 fl (80-96) 10/29/19 07:00 MCH 32.2 pg (25.7-33.7) 10/29/19 07:00 MCHC 34.7 g/dl (32.0-35.9) 10/29/19 07:00 RDW 13.6 % (11.9-15.9) 10/29/19 07:00 Plt Count 186 K/MM3 (134-434) 10/29/19 07:00 MPV 8.2 fl (7.5-11.1) 10/29/19 07:00 Absolute Neuts (auto) 6.1 K/mm3 (1.5-8.0) 10/29/19 07:00 Neutrophils % 90.6 % (42.8-82.8) H 10/29/19 07:00 Lymphocytes % 7.8 % (8-40) L D 10/29/19 07:00 Monocytes % 1.5 % (3.8-10.2) L 10/29/19 07:00 Eosinophils % 0.0 % (0-4.5) 10/29/19 07:00 Basophils % 0.1 % (0-2.0) 10/29/19 07:00 Nucleated RBC % 0 % (0-0) 10/29/19 07:00 PT with INR 18.50 SEC (9.7-13.0) H 10/28/19 13:49 INR 1.56 (0.83-1.09) H 10/28/19 13:49 VBG pH 7.38 (7.31-7.41) 10/28/19 13:49 POC VBG pCO2 58.1 mmHg (38-52) H 10/28/19 13:49 POC VBG pO2 < 49 mmHg (28-48) H 10/28/19 13:49 VBG HCO3 33.5 mmol/L (23-29) H 10/28/19 13:49 VBG O2 Sat (Antolin) 13.7 % (70-80) L 10/28/19 13:49 VBG Base Excess 5.8 meq/l (-2-2) H 10/28/19 13:49 Sodium 136 mmol/L (136-145) 10/29/19 07:00 Potassium 4.2 mmol/L (3.5-5.1) 10/29/19 07:00 Chloride 98 mmol/L (98-107) 10/29/19 07:00 Carbon Dioxide 33 mmol/L (21-32) H 10/29/19 07:00 Anion Gap 5 MMOL/L (8-16) L 10/29/19 07:00 BUN 20.0 mg/dL (7-18) H 10/29/19 07:00 Creatinine 0.9 mg/dL (0.55-1.3) 10/29/19 07:00 Est GFR (CKD-EPI)AfAm 94.48 10/29/19 07:00 Est GFR (CKD-EPI)NonAf 81.52 10/29/19 07:00 Random Glucose 166 mg/dL (74-106) H 10/29/19 07:00 Hemoglobin A1c % 6.0 % (4.2-6.3) 10/29/19 07:00 Calcium 8.4 mg/dL (8.5-10.1) L 10/29/19 07:00 Phosphorus 4.0 mg/dL (2.5-4.9) 10/28/19 13:49 Magnesium 2.4 mg/dL (1.8-2.4) 10/29/19 07:00 Total Bilirubin 0.7 mg/dL (0.2-1) 10/29/19 07:00 AST 21 U/L (15-37) 10/29/19 07:00 ALT 34 U/L (13-61) 10/29/19 07:00 Alkaline Phosphatase 87 U/L (45-117) 10/29/19 07:00 Creatine Kinase 70 U/L (26-308) 10/28/19 13:49 Troponin I 0.17 ng/ml (0.00-0.05) H 10/29/19 07:00 B-Natriuretic Peptide 1942.7 pg/ml (5-450) H 10/28/19 13:49 Total Protein 6.7 g/dl (6.4-8.2) 10/29/19 07:00 Albumin 2.9 g/dl (3.4-5.0) L 10/29/19 07:00 Triglycerides 57 mg/dL (0-150) 10/29/19 07:00 Cholesterol 147 mg/dL (50-200) 10/29/19 07:00 Total LDL Cholesterol 81 mg/dL (5-100) 10/29/19 07:00 HDL Cholesterol 59 mg/dL (40-60) 10/29/19 07:00 TSH 0.23 uIU/ml (0.358-3.74) L D 10/28/19 13:49 Free T4 1.36 ng/dl (0.76-1.16) H 10/28/19 13:49 Resin T3 Uptake 37.2 % (33-40) 10/28/19 13:49 Influenza A (Rapid) Negative (Negative) 10/28/19 20:03 Influenza B (Rapid) Negative (Negative) 10/28/19 20:03 Blood Type O POSITIVE 10/29/19 07:00 Antibody Screen Negative 10/28/19 20:40 Assessment/Plan EKG: afib with RVR no ischemic changes CT chest: mod COPD changes, atelectasis vs infiltrates in RML, atelectasis in L lung base laterally with 1 cm nodular like density tele: afib RVR initially ->rate controlled Echo 10/03: nl LV/RV. mild-mod TR shortness of breath, copd exac, acute bronchitis, acute diastolic CHF - trop indeterminate range, flat trend with EKG no ischemic changes - unlikely ACS - BNP 1900 (was 3400 at prior admission), edema improved with IV lasix - nl EF on echo 09/2019 - most likely COPD exac with component of pulmonary edema - edema improved after two doses of IV lasix, per pt appears to be at baseline - nebs, steroids per primary, pulm paroxysmal afib, h/o remote AFL ablation - incidental modestly rapid AF noted at PMD early 10/03--CCB added, sotalol continued - f/u holter pt was in sinus rhythm - RVR likely sec to hyperthyroid/copd sx's/steroids - he tolerated similar degree of tachycardia well as outpt (actually more rapid) , tolerating current tachy burden well with normal LVEF--ok for discharge on current regimen with outpt f/u in office this week for repeat holter. - observe HR once euthyroid--will consider outpatient EP eval for ? increase sotalol vs PVI ablation if remains with rapid AF - cont xarelto, cardizem, sotalol - monitor on tele HTN -initially elevated BP, now stable, cont home meds HLD - cont statin CAD s/p CABG - cont plavix, statin hyperthyroidism -manage per primary
[2019-10-29] MEDS: MULTIVITAMINS (DAILY MVI) TABLET (FP) PO SCH (11:21)
--- NOTE | 2019-10-29 11:59 | CON.PULM ---
Consult Consult Specialty:: PULMONARY Referred by:: MANDY Martinez Reason for Consultation:: shortness of breath - History of Present Illness Chief Complaint: shortness of breath History of Present Illness: 79yo male with h/o HTN, hyperlipidemia, COPD on home O2 from last admission, atrial fibrillation, CAD s/p CABG, recent admission for COPD exacerbation discharged on 10/16 who was admitted with worsening shortness of breath x 1 day. He had just completed his steroid taper when he felt more short of breath, chest tightness with cough productive of yellow sputum and wheezing. No fevers, chills or sweats. No sick contacts. - History Source History Provided By: Patient, Medical Record Limitations to Obtaining History: No Limitations - Past Medical History Cardio/Vascular: Yes: AFIB, CAD, HTN, Hyperlipdemia Pulmonary: Yes: COPD - Alcohol/Substance Use Hx Alcohol Use: Yes (wine daily) - Smoking History Smoking history: Never smoked Have you smoked in the past 12 months: No If you are a former smoker, when did you quit?: 17YRS AGO Home Medications - Allergies Allergies/Adverse Reactions: Allergies Allergy/AdvReac Type Severity Reaction Status Date / Time No Known Allergies Allergy Verified 10/28/19 12:27 - Home Medications Home Medications: Ambulatory Orders Aspirin Coated [Ecotrin -] 81 mg PO DAILY 11/07/11 Atorvastatin Ca [Lipitor] 80 mg PO HS 11/07/11 Clopidogrel Bisulfate [Plavix -] 75 mg PO DAILY 11/07/11 Multivitamin [Multivitamins] 0.5 each PO BID 08/26/13 Sotalol HCl [Sotalol] 40 mg PO BID 08/26/13 Fluticasone/Umeclidin/Vilanter [Trelegy Ellipta 100-62.5-25] 1 each IH DAILY Rivaroxaban [Xarelto -] 20 mg PO HS 10/12/19 Diltiazem Cd [Cardizem Cd -] 300 mg PO DAILY #30 cap.cd.24h 10/16/19 Methimazole [Tapazole -] 0.5 tab PO DAILY #15 tablet 10/16/19 Prednisone See Taper PO ASDIR #42 tablet 10/16/19 Review of Systems - Review of Systems Constitutional: reports: Weakness. denies: Chills, Fever Eyes: denies: Recent Change in Vision HENT: denies: Nasal Congestion, Throat Pain Neck: denies: Stiffness, Tenderness Cardiovascular: reports: Edema, Shortness of Breath. denies: Chest Pain, Palpitations Respiratory: reports: Cough, Exercise Intolerance, SOB on Exertion, Wheezing. denies: Hemoptysis Gastrointestinal: denies: Abdominal Pain, Nausea, Vomiting Genitourinary: denies: Dysuria, Hematuria Neurological: denies: Dizziness, Headache Endocrine: denies: Unexplained Weight Loss Physical Exam Vital Sings: Vital Signs Temperature 97.9 F 10/29/19 09:19 Pulse Rate 87 10/29/19 09:19 Respiratory Rate 18 10/29/19 09:19 Blood Pressure 104/62 10/29/19 09:19 O2 Sat by Pulse Oximetry (%) 96 10/29/19 09:19 Constitutional: Yes: Mild Distress Eyes: Yes: Conjunctiva Clear, EOM Intact HENT: Yes: Atraumatic, Normocephalic Neck: Yes: Supple, Trachea Midline Cardiovascular: Yes: Pulse Irregular Respiratory: Yes: Poor Air Entry ...Clubbing: No Gastrointestinal: Yes: Normal Bowel Sounds, Soft. No: Tenderness Edema: Yes Neurological: Yes: Alert, Oriented Labs: CBC, BMP 10/29/19 07:00 10/29/19 07:00 Imaging - Results Chest X-ray: Report Reviewed, Image Reviewed Cat Scan: Report Reviewed, Image Reviewed (scattered areas of atelectasis) Problem List - Problems (1) COPD exacerbation Code(s): J44.1 - CHRONIC OBSTRUCTIVE PULMONARY DISEASE W (ACUTE) EXACERBATION Assessment/Plan Acute COPD Exacerbation Acute Bronchitis Chronic Hypoxic Respiratory Failure Acute on Chronic Diastolic Heart Failure CAD s/p CABG +Troponins likely Demand Ischemia Paroxysmal Atrial Fibrillation with RVR HTN Hyperlipidemia Hyperthyroidism - IV medrol - inhaled bronchodilators standing and PRN - azithromycin, pt was on doxycycline last admission - O2 to keep SpO2 >90% - lasix as needed - monitor urine output, creatinine - rate control - continue anticoagulation - will likely need slower taper as outpt when improved Thank you for this consult Jameel Glass MD
--- NOTE | 2019-10-29 12:44 | EKG ---
Test Reason : Blood Pressure : / mmHG Vent. Rate : 123 BPM Atrial Rate : 089 BPM P-R Int : 000 ms QRS Dur : 114 ms QT Int : 324 ms P-R-T Axes : 000 018 069 degrees QTc Int : 463 ms ATRIAL FIBRILLATION WITH RAPID VENTRICULAR RESPONSE POSSIBLE INFERIOR INFARCT (CITED ON OR BEFORE 11-OCT-2019) ABNORMAL ECG WHEN COMPARED WITH ECG OF 12-OCT-2019 08:12, NO SIGNIFICANT CHANGE WAS FOUND Confirmed by MD Nhan, Miguel ([id number]) on 10/29/2019 12:43:48 PM Referred By: Confirmed By:Migule Justin MD
[2019-10-29] MEDS: AZITHROMYCIN IVPB 500 MG/250 ML BAG IVPB SCH (12:47)
[2019-10-29] MEDS ORDERED: AZITHROMYCIN IVPB 500 MG/250 ML BAG IVPB ONE (12:51)
--- NOTE | 2019-10-29 13:32 | PN ---
Physical Exam: SUBJECTIVE: Patient seen and examined at the bedside. In the ED awaiting bed assignment. OBJECTIVE: Patient is a 79 year old male with a significant past medical history of atril fibrillation (on xarelto), hypertension, hyperlipidemia, CAD (s/pCABG), COPD. Mr Pathak recently admitted to [facility] from 10/12/2019-10/16/19 for acute exacerbation of COPD. He was treated with bronchodilators, steroid taper, antibiotics and oxygen. Patient sent home on 10/16/2019 to complete steriod taper and was also sent home on home oxygen at 2 liters. His afib was controlled with an increase of cardizem and is also on sotalol. 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 He went to see his primary care doctor and was sent to [facility] for alexander leg edema and shortness of breath. imaging: chest ct: moderate copd, infiltrates with nodularity in right mid lobe, 1cm nodular like density o n the axial images that appears elongated. emphysema of upper lobes, nodule 10mm left lung. moderate copd. head ct: negative for acute process vascular study: negative for dvt. moderate atrophy, cortical atrophy and suggestive of encephalomalacia inthe right posterior temporal and frontal lobe. Vital Signs Period Temp Pulse Resp BP Sys/Michael Pulse Ox Last 24 Hr 97.7 F-98.5 F 87-114 18-22 104-177/55-74 96-99 GENERAL: Awake, alert, and fully oriented, in mild respiratory distress, + conversational dyspnea with pursed lipped breathing. HEAD: Normal with no signs of trauma. EYES: Pupils equal, round and reactive to light, extraocular movements intact, sclera anicteric, conjunctiva clear. No lid lag. EARS, NOSE, THROAT: small abrasions of bilateral ears NECK: Normal range of motion, supple without lymphadenopathy, JVD, or masses. LUNGS: accessory muscle use + diminished breath sound bilaterally. HEART: irregular afib ABDOMEN: Soft, nontender, not distended MUSCULOSKELETAL: Normal range of motion at all joints. UPPER EXTREMITIES: No peripheral edema. LOWER EXTREMITIES: 2 edema bilaterally NEUROLOGICAL: . Normal speech. Normal gait. Laboratory Results - last 24 hr 10/28/19 10/28/19 10/28/19 13:49 13:49 13:49 WBC 13.8 H RBC 4.42 Hgb 14.0 Hct 41.5 MCV 93.9 MCH 31.7 MCHC 33.8 RDW 13.9 Plt Count 207 MPV 8.4 Absolute Neuts (auto) 12.5 H Neutrophils % 90.7 H Lymphocytes % 4.5 L D Monocytes % 4.4 Eosinophils % 0.0 Basophils % 0.4 D Nucleated RBC % 0 PT with INR 18.50 H INR 1.56 H VBG pH POC VBG pCO2 POC VBG pO2 VBG HCO3 VBG O2 Sat (Antolin) VBG Base Excess Sodium 135 L Potassium 4.8 Chloride 96 L Carbon Dioxide 33 H Anion Gap 6 L BUN 16.3 Creatinine 1.1 Est GFR (CKD-EPI)AfAm 74.13 Est GFR (CKD-EPI)NonAf 63.96 Random Glucose 101 Hemoglobin A1c % Calcium 8.8 Phosphorus 4.0 Magnesium 2.1 Total Bilirubin 1.2 H AST 25 ALT 36 Alkaline Phosphatase 90 Creatine Kinase 70 Troponin I 0.02 B-Natriuretic Peptide 1942.7 H Total Protein 6.7 Albumin 3.0 L Triglycerides Cholesterol Total LDL Cholesterol HDL Cholesterol TSH 0.23 L D Free T4 1.36 H Resin T3 Uptake 37.2 Influenza A (Rapid) Influenza B (Rapid) Blood Type Antibody Screen 10/28/19 10/28/19 10/28/19 13:49 20:03 20:40 WBC RBC Hgb Hct MCV MCH MCHC RDW Plt Count MPV Absolute Neuts (auto) Neutrophils % Lymphocytes % Monocytes % Eosinophils % Basophils % Nucleated RBC % PT with INR INR VBG pH 7.38 POC VBG pCO2 58.1 H POC VBG pO2 < 49 H VBG HCO3 33.5 H VBG O2 Sat (Antolin) 13.7 L VBG Base Excess 5.8 H Sodium Potassium Chloride Carbon Dioxide Anion Gap BUN Creatinine Est GFR (CKD-EPI)AfAm Est GFR (CKD-EPI)NonAf Random Glucose Hemoglobin A1c % Calcium Phosphorus Magnesium Total Bilirubin AST ALT Alkaline Phosphatase Creatine Kinase Troponin I B-Natriuretic Peptide Total Protein Albumin Triglycerides Cholesterol Total LDL Cholesterol HDL Cholesterol TSH Free T4 Resin T3 Uptake Influenza A (Rapid) Negative Influenza B (Rapid) Negative Blood Type O POSITIVE Antibody Screen Negative 10/28/19 10/29/19 10/29/19 20:47 07:00 07:00 WBC 6.8 RBC 4.40 Hgb 14.2 Hct 40.8 MCV 92.7 MCH 32.2 MCHC 34.7 RDW 13.6 Plt Count 186 MPV 8.2 Absolute Neuts (auto) 6.1 Neutrophils % 90.6 H Lymphocytes % 7.8 L D Monocytes % 1.5 L Eosinophils % 0.0 Basophils % 0.1 Nucleated RBC % 0 PT with INR INR VBG pH POC VBG pCO2 POC VBG pO2 VBG HCO3 VBG O2 Sat (Antolin) VBG Base Excess Sodium Potassium Chloride Carbon Dioxide Anion Gap BUN Creatinine Est GFR (CKD-EPI)AfAm Est GFR (CKD-EPI)NonAf Random Glucose Hemoglobin A1c % Calcium Phosphorus Magnesium Total Bilirubin AST ALT Alkaline Phosphatase Creatine Kinase Troponin I 0.17 H B-Natriuretic Peptide Total Protein Albumin Triglycerides Cholesterol Total LDL Cholesterol HDL Cholesterol TSH Free T4 Resin T3 Uptake Influenza A (Rapid) Influenza B (Rapid) Blood Type O POSITIVE Antibody Screen 10/29/19 10/29/19 07:00 07:00 WBC RBC Hgb Hct MCV MCH MCHC RDW Plt Count MPV Absolute Neuts (auto) Neutrophils % Lymphocytes % Monocytes % Eosinophils % Basophils % Nucleated RBC % PT with INR INR VBG pH POC VBG pCO2 POC VBG pO2 VBG HCO3 VBG O2 Sat (Antolin) VBG Base Excess Sodium 136 Potassium 4.2 Chloride 98 Carbon Dioxide 33 H Anion Gap 5 L BUN 20.0 H Creatinine 0.9 Est GFR (CKD-EPI)AfAm 94.48 Est GFR (CKD-EPI)NonAf 81.52 Random Glucose 166 H Hemoglobin A1c % 6.0 Calcium 8.4 L Phosphorus Magnesium 2.4 Total Bilirubin 0.7 AST 21 ALT 34 Alkaline Phosphatase 87 Creatine Kinase Troponin I 0.17 H B-Natriuretic Peptide Total Protein 6.7 Albumin 2.9 L Triglycerides 57 Cholesterol 147 Total LDL Cholesterol 81 HDL Cholesterol 59 TSH Free T4 Resin T3 Uptake Influenza A (Rapid) Influenza B (Rapid) Blood Type Antibody Screen Active Medications Generic Name Dose Route Start Last Admin Trade Name Freq PRN Reason Stop Dose Admin Albuterol/Ipratropium 1 amp 10/28/19 19:00 10/29/19 13:04 Duoneb - NEB 1 amp Q6H LEMUEL Administration Aspirin 81 mg 10/29/19 10:00 10/29/19 10:00 Ecotrin - PO Not Given DAILY LEMUEL Atorvastatin Calcium 80 mg 10/28/19 22:00 10/28/19 23:27 Lipitor - PO 80 mg HS LEMUEL Administration Bacitracin 1 applic 10/28/19 22:00 10/29/19 10:00 Bacitracin - TP 1 applic BID LEMUEL Administration Budesonide/Formoterol Fumarate 2 puff 10/28/19 22:00 10/29/19 10:00 Symbicort 160/4.5mcg - IH 2 puff BID LEMUEL Administration Clopidogrel Bisulfate 75 mg 10/29/19 10:00 10/29/19 11:19 Plavix - PO Not Given DAILY LEMUEL Diltiazem HCl 300 mg 10/29/19 10:00 10/29/19 10:00 Cardizem Cd - PO 300 mg DAILY LEMUEL Administration Azithromycin 500 mg in 250 mls @ 250 mls/hr 10/29/19 12:45 10/29/19 12:47 Zithromax 500mg Ivpb (Pre-Docked) IVPB 250 mls/hr DAILY LEMUEL Administration Methimazole 2.5 mg 10/29/19 10:00 10/29/19 11:21 Tapazole - PO Not Given DAILY LEMUEL Methylprednisolone Sodium Succinate 40 mg 10/28/19 19:00 10/29/19 11:20 Solu-Medrol - IVPUSH 40 mg Q8H-IV LEMUEL Administration Multivitamins/Minerals/Vitamin C 1 tab 10/29/19 10:00 10/29/19 11:21 Tab-A-Vit - PO 1 tab DAILY LEMUEL Administration Pantoprazole Sodium 40 mg 10/29/19 10:00 10/29/19 10:00 Protonix - PO 40 mg DAILY LEMUEL Administration Rivaroxaban 20 mg 10/28/19 18:00 10/28/19 20:13 Xarelto PO 20 mg DAILY@1800 LEMUEL Administration Sotalol HCl 40 mg 10/28/19 22:00 10/29/19 10:00 Betapace - PO 40 mg BID LEMUEL Administration Tiotropium Al[place] 2 puff 10/29/19 10:00 10/29/19 10:00 Spiriva Respimat IH 2 puff DAILY LEMUEL Administration ASSESSMENT/PLAN: Problem List - Problems (1) Shortness of breath Assessment/Plan: Acute shortness of breath likely to uncontrolled copd exacerbation vs acute diastolic chf on solumedrol taper as tolerated, having less wheezing today. on 2 liters of nasal cannula chest ct: moderate copd, infiltrates with nodularity in right mid lobe, 1cm nodular like density o n the axial images that appears elongated. emphysema of upper lobes, nodule 10mm left lung. moderate copd. Code(s): R06.02 - SHORTNESS OF BREATH (2) COPD exacerbation Assessment/Plan: solumedrol taper will continue Symbicort, Spiriva, Xopenex. on 2 liters of nasal cannula to maintain oxygen sats above 92% Problems reviewed: Yes (3) Atrial fibrillation with RVR Assessment/Plan: on cardizem, sotalol and xarelto ekg shows afb with rvr 120s Code(s): I48.91 - UNSPECIFIED ATRIAL FIBRILLATION (4) Facial droop Assessment/Plan: head ct negative Code(s): R29.810 - FACIAL WEAKNESS (5) Hypertension Assessment/Plan: monitor BP q 4 continue cardizem, sotalol Code(s): I10 - ESSENTIAL (PRIMARY) HYPERTENSION (6) HLD (hyperlipidemia) Assessment/Plan: on lipitor Code(s): E78.5 - HYPERLIPIDEMIA, UNSPECIFIED (7) Hyperthyroidism Assessment/Plan: on tapazole endocrinology consulted Code(s): E05.90 - THYROTOXICOSIS, UNSP WITHOUT THYROTOXIC CRISIS OR STORM (8) Increased frequency of urination Assessment/Plan: for a UA/UC to further assess Code(s): R35.0 - FREQUENCY OF MICTURITION (9) Lower leg edema Assessment/Plan: negative for dvt. leg edema again noted. Code(s): R60.0 - LOCALIZED EDEMA (10) Prophylactic measure Assessment/Plan: fen on xarelto low salt diet full code Code(s): Z29.9 - ENCOUNTER FOR PROPHYLACTIC MEASURES, UNSPECIFIED Visit type - Emergency Visit Emergency Visit: Yes ED Registration Date: 10/28/19 Care time: The patient presented to the Emergency Department on the above date and was hospitalized for further evaluation of their emergent condition. - New Patient This patient is new to me today: No - Critical Care Critical Care patient: No - Discharge Referral Referred to [facility] No
[2019-10-29] MEDS ORDERED: FUROSEMIDE 40 MG/4 ML INJECTABLE VIAL IVPUSH ONE (14:11)
[2019-10-29] MEDS ORDERED: SODIUM CHLORIDE NASAL SPRAY 44 ML BOTTLE NS PRN (14:12)
[2019-10-29] MEDS ORDERED: FUROSEMIDE 40 MG/4 ML INJECTABLE VIAL ONE (15:20)
[2019-10-29] MEDS: RIVAROXABAN 20 MG TABLET PO SCH ×2 (18:11→19:32)
[2019-10-29] MEDS ORDERED: methylPREDNISolone NA SUCC 40 MG/1 ML VIAL ONE ×2 (18:15→18:19)
[2019-10-29] MEDS: ATORVASTATIN CA 80 MG TABLET (FP) PO SCH (22:23)
[2019-10-30] MEDS: ALBUTEROL SO4 2.5/IPRATROPIUM 0.5 INH SOL 3 ML VIAL.NEB. NEB SCH ×3 (01:33→12:46)
[2019-10-30] MEDS: methylPREDNISolone NA SUCC 40 MG/1 ML VIAL IVPUSH SCH ×3 (02:00→17:53)
[2019-10-30] MEDS: BUDESONIDE/FORMETEROL FUMARATE 160/4.5 mcg INHALER IH SCH ×3 (04:42→23:28)
[2019-10-30 07:29] LABS: BASO % 0.1 % (0-2.0); HEMATOCRIT 38.2 % (35.4-49); HEMOGLOBIN 13.1 GM/dL (11.7-16.9); LYMPH % 5.2 % (8-40); MCHC 34.3 g/dl (32.0-35.9); MEAN CELL VOLUME 93.2 fl (80-96); MEAN PLT VOLUME 8.1 fl (7.5-11.1); MONO % 2.6 % (3.8-10.2); NEUT % 92.1 % (42.8-82.8); PLATELET COUNT 182 K/MM3 (134-434); RDW 13.2 % (11.9-15.9); WHITE BLOOD COUNT 11.1 K/mm3 (4.0-10.0)
[2019-10-30 08:05] LABS: ALBUMIN 2.7 g/dl (3.4-5.0); BILIRUBIN,TOTAL 0.6 mg/dL (0.2-1); BLOOD UREA NITROGEN 26.9 mg/dL (7-18); CALCIUM 8.6 mg/dL (8.5-10.1); CREATININE 0.9 mg/dL (0.55-1.3); MAGNESIUM 2.4 mg/dL (1.8-2.4); POTASSIUM 4.3 mmol/L (3.5-5.1); TOT PROT 6.2 g/dl (6.4-8.2)
--- NOTE | 2019-10-30 09:04 | CONSULT ---
Consult Consult Specialty:: Endocrinology Referred by:: Gucci Malagon Reason for Consultation:: Hyperthyroidism - History of Present Illness Chief Complaint: SOB History of Present Illness: This is a 79 y/o male with h/o HTN, hyperlipidemia, COPD, on home O2 from last admission, atrial fibrillation, CAD s/p CABG, hyperthyroidism recent admission for COPD exacerbation discharged on 10/16 who was admitted with worsening shortness of breath x 1 day. He had just completed his steroid taper when he felt more short of breath, chest tightness with cough productive of yellow sputum and wheezing. Pt denies any tremors, anxiety or palpitations. Has been taking Methimazole 5mg half tab daily. No fevers, chills or sweats. No sick contacts. - History Source History Provided By: Patient, Medical Record - Past Medical History Cardio/Vascular: Yes: AFIB, CAD, HTN, Hyperlipdemia Pulmonary: Yes: COPD - Alcohol/Substance Use Hx Alcohol Use: Yes (wine daily) - Smoking History Smoking history: Former smoker Have you smoked in the past 12 months: No If you are a former smoker, when did you quit?: 17YRS AGO Home Medications - Allergies Allergies/Adverse Reactions: Allergies Allergy/AdvReac Type Severity Reaction Status Date / Time No Known Allergies Allergy Verified 10/28/19 12:27 - Home Medications Home Medications: Ambulatory Orders Aspirin Coated [Ecotrin -] 81 mg PO DAILY 11/07/11 Atorvastatin Ca [Lipitor] 80 mg PO HS 11/07/11 Clopidogrel Bisulfate [Plavix -] 75 mg PO DAILY 11/07/11 Multivitamin [Multivitamins] 0.5 each PO BID 08/26/13 Sotalol HCl [Sotalol] 40 mg PO BID 08/26/13 Fluticasone/Umeclidin/Vilanter [Trelegy Ellipta 100-62.5-25] 1 each IH DAILY Rivaroxaban [Xarelto -] 20 mg PO HS 10/12/19 Diltiazem Cd [Cardizem Cd -] 300 mg PO DAILY #30 cap.cd.24h 10/16/19 Methimazole [Tapazole -] 0.5 tab PO DAILY #15 tablet 10/16/19 Prednisone See Taper PO ASDIR #42 tablet 10/16/19 Family Medical History Other Family History: No family h/o thyroid disorder Review of Systems - Review of Systems Constitutional: reports: Weakness Eyes: reports: No Symptoms HENT: reports: No Symptoms Neck: reports: No Symptoms Cardiovascular: reports: Shortness of Breath Respiratory: reports: SOB Gastrointestinal: reports: No Symptoms Genitourinary: reports: No Symptoms Musculoskeletal: reports: No Symptoms Physical Exam Vital Signs: Vital Signs Temperature 97.4 F L 10/30/19 06:00 Pulse Rate 75 10/30/19 06:00 Respiratory Rate 20 10/30/19 06:00 Blood Pressure 116/70 10/30/19 06:00 O2 Sat by Pulse Oximetry (%) 98 10/30/19 05:13 Constitutional: Yes: Mild Distress Eyes: Yes: Conjunctiva Clear, EOM Intact HENT: Yes: Atraumatic, Normocephalic Neck: Yes: Supple, Trachea Midline Cardiovascular: Yes: Pulse Irregular Respiratory: Yes: Regular, CTA Bilaterally Gastrointestinal: Yes: Normal Bowel Sounds, Soft Musculoskeletal: Yes: WNL Extremities: Yes: WNL Edema: No Neurological: Yes: Alert, Oriented Labs: CBC, BMP 10/30/19 06:25 10/30/19 06:25 Assessment/Plan AP COPD Exacerbation A Fib CAD Hyperthyroidism Chemically still hyperthyroid on Methimazole 2.5mg Increase Methimazole to 5mg QD Rpt TFT in 3 to 4 days and adjust dose as necessary On Medrol Bronchodilators O2 as necessary Abx Will f/u
[2019-10-30 09:47] LABS: ANISOCYTOSIS 0; MACROCYTOSIS 0; PLATELET ESTIMATE NORMAL
[2019-10-30] MEDS ORDERED: PT OWN MED DRAWER 7, Y5N ONE ×2 (10:00→12:25)
--- NOTE | 2019-10-30 10:06 | PN ---
Physical Exam: SUBJECTIVE: Patient seen and examined at the bedside with his present. Patient reports that his breathing is improving. OBJECTIVE: Patient is a 79 year old male with a significant past medical history of atril fibrillation (on xarelto), hypertension, hyperlipidemia, CAD (s/pCABG), COPD ( on home oxygen at 2 liters). Mr Pathak recently admitted to [facility] from 10/12-10/16/19 for acute exacerbation of COPD. He was treated with bronchodilators, steroid taper, antibiotics and oxygen. Patient sent home on 10/16/2019 to complete steriod taper and was also sent home on home oxygen at 2 liters. On 10/28/2019 he went to see his primary care doctor and was sent to [facility] for bilateral leg edema and worsening shortness of breath. imaging: chest ct: moderate copd, infiltrates with nodularity in right mid lobe, 1cm nodular like density on the axial images that appears elongated. emphysema of upper lobes, nodule 10mm left lung. moderate copd. head ct: negative for acute process vascular study: negative for dvt. moderate atrophy, cortical atrophy and suggestive of encephalomalacia in the right posterior temporal and frontal lobe. Vital Signs Period Temp Pulse Resp BP Sys/Michael Pulse Ox Last 24 Hr 97.4 F-98.2 F 60-87 18-22 101-133/59-96 95-99 GENERAL: Awake, alert, and fully oriented, in no acute distress, sitting up speaking in full sentences. HEAD: Normal with no signs of trauma. EYES: Pupils equal, round and reactive to light, extraocular movements intact, sclera anicteric, conjunctiva clear. No lid lag. EARS, NOSE, THROAT: small abrasions of bilateral ears, bacitracin applied NECK: Normal range of motion, supple without lymphadenopathy, JVD, or masses. LUNGS: + diminished breath sound bilaterally, no wheezing. HEART: irregular afib ABDOMEN: Soft, nontender, not distended MUSCULOSKELETAL: Normal range of motion at all joints. UPPER EXTREMITIES: No peripheral edema. LOWER EXTREMITIES: +2 edema bilaterally NEUROLOGICAL: . Normal speech. Laboratory Results - last 24 hr 10/28/19 10/30/19 10/30/19 13:49 06:25 06:25 WBC 11.1 H RBC 4.10 Hgb 13.1 Hct 38.2 MCV 93.2 MCH 32.0 MCHC 34.3 RDW 13.2 Plt Count 182 MPV 8.1 Absolute Neuts (auto) 10.2 H Neutrophils % 92.1 H Neutrophils % (Manual) 90.2 H Band Neutrophils % 0.0 Lymphocytes % 5.2 L D Lymphocytes % (Manual) 4.9 L D Monocytes % 2.6 L Monocytes % (Manual) 4 Eosinophils % 0.0 Eosinophils % (Manual) 0.0 Basophils % 0.1 Basophils % (Manual) 0.0 Myelocytes % (Man) 0 Promyelocytes % (Man) 0 Blast Cells % (Manual) 0 Nucleated RBC % 0 Metamyelocytes 0 Hypochromia 0 Platelet Estimate Normal Polychromasia 0 Poikilocytosis 0 Anisocytosis 0 Microcytosis 0 Macrocytosis 0 Sodium 138 Potassium 4.3 Chloride 100 Carbon Dioxide 34 H Anion Gap 4 L BUN 26.9 H Creatinine 0.9 Est GFR (CKD-EPI)AfAm 94.48 Est GFR (CKD-EPI)NonAf 81.52 Random Glucose 157 H Calcium 8.6 Magnesium 2.4 Total Bilirubin 0.6 AST 20 ALT 32 Alkaline Phosphatase 73 Total Protein 6.2 L Albumin 2.7 L Free T3 2.4 Active Medications Generic Name Dose Route Start Last Admin Trade Name Freq PRN Reason Stop Dose Admin Albuterol/Ipratropium 1 amp 10/28/19 19:00 10/30/19 01:33 Duoneb - NEB 1 amp Q6H LEMUEL Administration Aspirin 81 mg 10/29/19 10:00 10/29/19 10:00 Ecotrin - PO Not Given DAILY LEMUEL Atorvastatin Calcium 80 mg 10/28/19 22:00 10/29/19 22:23 Lipitor - PO 80 mg HS LEMUEL Administration Bacitracin 1 applic 10/28/19 22:00 10/29/19 22:24 Bacitracin - TP 1 applic BID LEMUEL Administration Budesonide/Formoterol Fumarate 2 puff 10/28/19 22:00 10/30/19 04:42 Symbicort 160/4.5mcg - IH Not Given BID LEMUEL Clopidogrel Bisulfate 75 mg 10/29/19 10:00 10/29/19 11:19 Plavix - PO Not Given DAILY LEMUEL Diltiazem HCl 300 mg 10/29/19 10:00 10/29/19 10:00 Cardizem Cd - PO 300 mg DAILY LEMUEL Administration Azithromycin 500 mg in 250 mls @ 250 mls/hr 10/29/19 12:45 10/29/19 12:47 Zithromax 500mg Ivpb (Pre-Docked) IVPB 250 mls/hr DAILY LEMUEL Administration Methimazole 5 mg 10/30/19 09:05 Tapazole - PO DAILY LEMUEL Methylprednisolone Sodium Succinate 40 mg 10/28/19 19:00 10/30/19 02:00 Solu-Medrol - IVPUSH 40 mg Q8H-IV LEMUEL Administration Multivitamins/Minerals/Vitamin C 1 tab 10/29/19 10:00 10/29/19 11:21 Tab-A-Vit - PO 1 tab DAILY LEMUEL Administration Pantoprazole Sodium 40 mg 10/29/19 10:00 10/29/19 10:00 Protonix - PO 40 mg DAILY LEMUEL Administration Rivaroxaban 20 mg 10/28/19 18:00 10/29/19 19:32 Xarelto PO 20 mg DAILY@1800 LEMUEL Administration Sodium Chloride 2 spray 10/29/19 14:12 [place] Nasal [place] - NS BID PRN NASAL CONGESTION Sotalol HCl 40 mg 10/28/19 22:00 10/29/19 22:24 Betapace - PO 40 mg BID LEMUEL Administration Tiotropium [place]ows 2 puff 10/29/19 10:00 10/29/19 10:00 Spiriva Respimat IH 2 puff DAILY LEMUEL Administration ASSESSMENT/PLAN: Problem List - Problems (1) Shortness of breath Assessment/Plan: chest ct: moderate copd, infiltrates with nodularity in right mid lobe, 1cm nodular like density on the axial images that appears elongated. emphysema of upper lobes, nodule 10mm left lung. moderate copd. Acute shortness of breath likely to uncontrolled copd exacerbation vs acute diastolic chf on solumedrol taper as tolerated, no further wheezing, lungs are now diminished but improved. taught and encouraged how to use the incentive spirometer. on 2 liters of nasal cannula (home baseline) Code(s): R06.02 - SHORTNESS OF BREATH (2) COPD exacerbation Assessment/Plan: solumedrol taper will continue Symbicort, Spiriva, Xopenex. on 2 liters of nasal cannula to maintain oxygen sats above 92% pulmonary following (3) Acute bronchitis Assessment/Plan: on azithromycin Code(s): J20.9 - ACUTE BRONCHITIS, UNSPECIFIED (4) Atrial fibrillation with RVR Assessment/Plan: on cardizem, sotalol and xarelto Code(s): I48.91 - UNSPECIFIED ATRIAL FIBRILLATION (5) Facial droop Assessment/Plan: mild left lip droop. head ct negative, no other neuro deficits noted Code(s): R29.810 - FACIAL WEAKNESS (6) Hypertension Assessment/Plan: monitor BP q 4 continue cardizem, sotalol Code(s): I10 - ESSENTIAL (PRIMARY) HYPERTENSION (7) HLD (hyperlipidemia) Assessment/Plan: on lipitor Code(s): E78.5 - HYPERLIPIDEMIA, UNSPECIFIED (8) Hyperthyroidism Assessment/Plan: on tapazole. increased today by endocrinology from 2.5 to 5mg. endocrinology consulted Code(s): E05.90 - THYROTOXICOSIS, UNSP WITHOUT THYROTOXIC CRISIS OR STORM (9) Increased frequency of urination Assessment/Plan: for a UA/UC to further assess Code(s): R35.0 - FREQUENCY OF MICTURITION (10) Lower leg edema Assessment/Plan: negative for dvt. leg edema again noted. will give lasix 20mg IV x 1 now encourage elevation of lower extremity above heart level Code(s): R60.0 - LOCALIZED EDEMA (11) Prophylactic measure Assessment/Plan: fen on xarelto low salt diet bowel regimen full code Code(s): Z29.9 - ENCOUNTER FOR PROPHYLACTIC MEASURES, UNSPECIFIED Visit type - Emergency Visit Emergency Visit: Yes ED Registration Date: 10/28/19 Care time: The patient presented to the Emergency Department on the above date and was hospitalized for further evaluation of their emergent condition. - New Patient This patient is new to me today: No - Critical Care Critical Care patient: No - Discharge Referral Referred to [facility] No
[2019-10-30] MEDS: SOTALOL HCL 80 MG TABLET (FP) PO SCH ×2 (10:08→23:28)
[2019-10-30] MEDS: MULTIVITAMINS (DAILY MVI) TABLET (FP) PO SCH (10:08)
[2019-10-30] MEDS: PANTOPRAZOLE 40 MG TABLET PO SCH (10:08)
[2019-10-30 10:09] LABS: EPI CELLS 0.4 /HPF (0-5/HPF); HYALINE CASTS 1 /lpf (0-8); PH,URINE 5.5 (5.0-8.0); URINE APPEARANCE CLEAR; URINE BACTERIA 1.2 /hpf (NEGATIVE); URINE BILIRUBIN NEGATIVE (NEGATIVE); URINE COLOR YELLOW; URINE GLUCOSE (UA) NEGATIVE (NEGATIVE); URINE KETONE NEGATIVE (NEGATIVE); URINE LEUK ESTERASE NEGATIVE (NEGATIVE); URINE NITRITE NEGATIVE (NEGATIVE); URINE PROTEIN 1+ (NEGATIVE); URINE RBC 1 /hpf (0-4); URINE UROBILINOGEN 0.2 mg/dL (0.2-1.0); URINE WBC 0 /hpf (0-5)
[2019-10-30] MEDS: ASPIRIN COATED 81 MG TABLET.EC PO SCH (10:09)
[2019-10-30] MEDS: BACITRACIN 15 GM TUBE TOPICAL OINTMENT TP SCH ×2 (10:09→23:28)
[2019-10-30] MEDS: CLOPIDOGREL BISULFATE 75 MG TABLET (FP) PO SCH (10:09)
[2019-10-30] MEDS: METHIMAZOLE 5 MG TABLET (FP) PO SCH (10:10)
--- NOTE | 2019-10-30 11:49 | PN ---
Progress Note (short form) - Note Progress Note: s: sob improving, no chest pain, palps, dizziness Allergies No Known Allergies Allergy (Verified 10/28/19 12:27) Ambulatory Orders Aspirin Coated [Ecotrin -] 81 mg PO DAILY 11/07/11 Atorvastatin Ca [Lipitor] 80 mg PO HS 11/07/11 Clopidogrel Bisulfate [Plavix -] 75 mg PO DAILY 11/07/11 Multivitamin [Multivitamins] 0.5 each PO BID 08/26/13 Sotalol HCl [Sotalol] 40 mg PO BID 08/26/13 Fluticasone/Umeclidin/Vilanter [Trelegy Ellipta 100-62.5-25] 1 each IH DAILY Rivaroxaban [Xarelto -] 20 mg PO HS 10/12/19 Diltiazem Cd [Cardizem Cd -] 300 mg PO DAILY #30 cap.cd.24h 10/16/19 Methimazole [Tapazole -] 0.5 tab PO DAILY #15 tablet 10/16/19 Prednisone See Taper PO ASDIR #42 tablet 10/16/19 Intake & Output 10/28/19 10/29/19 10/30/19 23:59 23:59 23:59 Intake Total 100 Output Total 400 Balance 100 -400 Weight 200 lb 200 lb Medications Albuterol/Ipratropium (Duoneb -) 1 amp NEB Q6H [facility] Last Admin: 10/30/19 01:33 Dose: 1 amp Aspirin (Ecotrin -) 81 mg PO DAILY [facility] Last Admin: 10/30/19 10:09 Dose: Not Given Atorvastatin Calcium (Lipitor -) 80 mg PO [facility] Last Admin: 10/29/19 22:23 Dose: 80 mg Bacitracin (Bacitracin -) 1 applic TP BID [facility] Last Admin: 10/30/19 10:09 Dose: 1 applic Budesonide/Formoterol Fumarate (Symbicort 160/4.5mcg -) 2 puff IH BID [facility] Last Admin: 10/30/19 04:42 Dose: Not Given Clopidogrel Bisulfate (Plavix -) 75 mg PO DAILY [facility] Last Admin: 10/30/19 10:09 Dose: Not Given Diltiazem HCl (Cardizem Cd -) 300 mg PO DAILY [facility] Last Admin: 10/30/19 10:08 Dose: 300 mg Azithromycin (Zithromax 500mg Ivpb (Pre-Docked)) 500 mg in 250 mls @ 250 mls/ hr IVPB DAILY [facility] Last Admin: 10/29/19 12:47 Dose: 250 mls/hr Methimazole (Tapazole -) 5 mg PO DAILY [facility] Last Admin: 10/30/19 10:10 Dose: 5 mg Methylprednisolone Sodium Succinate (Solu-Medrol -) 40 mg IVPUSH Q8H-IV [facility] Last Admin: 10/30/19 10:09 Dose: 40 mg Multivitamins/Minerals/Vitamin C (Tab-A-Vit -) 1 tab PO DAILY [facility] Last Admin: 10/30/19 10:08 Dose: 1 tab Pantoprazole Sodium (Protonix -) 40 mg PO DAILY [facility] Last Admin: 10/30/19 10:08 Dose: 40 mg Rivaroxaban (Xarelto) 20 mg PO DAILY@1800 [facility] Last Admin: 10/29/19 19:32 Dose: 20 mg Sodium Chloride ([place] Nasal Cody -) 2 spray NS BID PRN PRN Reason: NASAL CONGESTION Sotalol HCl (Betapace -) 40 mg PO BID [facility] Last Admin: 10/30/19 10:08 Dose: 40 mg Tiotropium [place] (Spiriva Respimat) 2 puff IH DAILY [facility] Last Admin: 10/29/19 10:00 Dose: 2 puff Orders 10/30/19 09:05 Methimazole [Tapazole -] 5 mg PO DAILY 10/31/19 06:00 CBC WITH DIFFERENTIAL SERIES COMP METABOLIC PANEL SERIES MAGNESIUM SERIES 11/01/19 06:00 CBC WITH DIFFERENTIAL SERIES COMP METABOLIC PANEL SERIES MAGNESIUM SERIES 11/02/19 06:00 CBC WITH DIFFERENTIAL SERIES COMP METABOLIC PANEL SERIES MAGNESIUM SERIES 11/03/19 06:00 CBC WITH DIFFERENTIAL SERIES COMP METABOLIC PANEL SERIES MAGNESIUM SERIES Problems Atrial fibrillation with RVR (Acute) COPD exacerbation (Acute) Facial droop (Acute) HLD (hyperlipidemia) (Acute) Hypertension (Acute) Hyperthyroidism (Acute) Increased frequency of urination (Acute) Lower leg edema (Acute) Prophylactic measure (Acute) Shortness of breath (Acute) Vital Signs 10/29/19 10/29/19 10/29/19 15:05 16:27 20:02 Temperature 98.2 F 97.5 F L Pulse Rate Pulse Rate [ 64 60 71 Left Radial] Respiratory 18 22 H 18 Rate Blood Pressure Blood Pressure 110/78 101/59 L 126/67 [Right Arm] O2 Sat by Pulse 99 96 95 Oximetry (%) 10/29/19 10/30/19 10/30/19 21:00 00:00 02:00 Temperature 97.8 F Pulse Rate 87 Pulse Rate [ Left Radial] Respiratory 18 18 18 Rate Blood Pressure 133/96 Blood Pressure [Right Arm] O2 Sat by Pulse 98 98 Oximetry (%) 10/30/19 10/30/19 10/30/19 05:13 06:00 09:00 Temperature 97.4 F L Pulse Rate 75 Pulse Rate [ Left Radial] Respiratory 18 20 20 Rate Blood Pressure 116/70 Blood Pressure [Right Arm] O2 Sat by Pulse 98 98 Oximetry (%) Current Medications Albuterol/Ipratropium (Duoneb -) 1 amp NEB Q6H [facility] Last Admin: 10/30/19 01:33 Dose: 1 amp Aspirin (Ecotrin -) 81 mg PO DAILY [facility] Last Admin: 10/30/19 10:09 Dose: Not Given Atorvastatin Calcium (Lipitor -) 80 mg PO HS [facility] Last Admin: 10/29/19 22:23 Dose: 80 mg Bacitracin (Bacitracin -) 1 applic TP BID [facility] Last Admin: 10/30/19 10:09 Dose: 1 applic Budesonide/Formoterol Fumarate (Symbicort 160/4.5mcg -) 2 puff IH BID [facility] Last Admin: 10/30/19 04:42 Dose: Not Given Clopidogrel Bisulfate (Plavix -) 75 mg PO DAILY [facility] Last Admin: 10/30/19 10:09 Dose: Not Given Diltiazem HCl (Cardizem Cd -) 300 mg PO DAILY [facility] Last Admin: 10/30/19 10:08 Dose: 300 mg Azithromycin (Zithromax 500mg Ivpb (Pre-Docked)) 500 mg in 250 mls @ 250 mls/ hr IVPB DAILY [facility] Last Admin: 10/29/19 12:47 Dose: 250 mls/hr Methimazole (Tapazole -) 5 mg PO DAILY [facility] Last Admin: 10/30/19 10:10 Dose: 5 mg Methylprednisolone Sodium Succinate (Solu-Medrol -) 40 mg IVPUSH Q8H-IV [facility] Last Admin: 10/30/19 10:09 Dose: 40 mg Multivitamins/Minerals/Vitamin C (Tab-A-Vit -) 1 tab PO DAILY [facility] Last Admin: 10/30/19 10:08 Dose: 1 tab Pantoprazole Sodium (Protonix -) 40 mg PO DAILY [facility] Last Admin: 10/30/19 10:08 Dose: 40 mg Rivaroxaban (Xarelto) 20 mg PO DAILY@1800 [facility] Last Admin: 10/29/19 19:32 Dose: 20 mg Sodium Chloride ([place] Nasal [place] -) 2 spray NS BID PRN PRN Reason: NASAL CONGESTION Sotalol HCl (Betapace -) 40 mg PO BID [facility] Last Admin: 10/30/19 10:08 Dose: 40 mg Tiotropium [place] (Spiriva Respimat) 2 puff IH DAILY [facility] Last Admin: 10/29/19 10:00 Dose: 2 puff Vital Signs Period Temp Pulse Resp BP Sys/Michael Pulse Ox Last 24 Hr 97.4 F-98.2 F 60-87 18-22 101-133/59-96 95-99 Constitutional: Yes: No Distress, Calm Eyes: Yes: Conjunctiva Clear, EOM Intact HENT: Yes: Atraumatic, Normocephalic Neck: Yes: Supple, Trachea Midline Respiratory: Yes: Regular, CTA Bilaterally Gastrointestinal: Yes: Normal Bowel Sounds, Soft Cardiovascular: Yes: Tachycardia, Pulse Irregular JVD: No Heart Sounds: Yes: S1, S2 Extremities: No: Cold Edema: 1+ alexander lower ext Integumentary: No: Jaundice Neurological: Yes: Alert, Oriented Psychiatric: No: Agitated EKG: afib with RVR no ischemic changes CT chest: mod COPD changes, atelectasis vs infiltrates in RML, atelectasis in L lung base laterally with 1 cm nodular like density tele: afib RVR initially ->rate controlled Echo 10/03: nl LV/RV. mild-mod TR shortness of breath, copd exac, acute bronchitis, acute diastolic CHF - trop indeterminate range, flat trend with EKG no ischemic changes - unlikely ACS - BNP 1900 (was 3400 at prior admission), edema improved with IV lasix - nl EF on echo 09/2019 - most likely COPD exac with component of pulmonary edema - edema improved after two doses of IV lasix, per pt appears to be at baseline - nebs, steroids per primary, pulm paroxysmal afib, h/o remote AFL ablation - incidental modestly rapid AF noted at PMD early 10/03--CCB added, sotalol continued - f/u holter pt was in sinus rhythm - RVR likely sec to hyperthyroid/copd sx's/steroids - he tolerated similar degree of tachycardia well as outpt (actually more rapid) , tolerating current tachy burden well with normal LVEF - observe HR once euthyroid--will consider outpatient EP eval for ? increase sotalol vs PVI ablation if remains with rapid AF - cont xarelto, cardizem, sotalol - monitor on tele HTN -initially elevated BP, now stable, cont home meds HLD - cont statin CAD s/p CABG - cont plavix, statin hyperthyroidism -manage per endocrine - methimazole increased
[2019-10-30] MEDS: AZITHROMYCIN IVPB 500 MG/250 ML BAG IVPB SCH (13:00)
--- NOTE | 2019-10-30 13:03 | PN ---
Progress Note (short form) - Note Progress Note: PULMONARY Breathing better but still with shortness of breath, cough and wheezing. Vital Signs Period Temp Pulse Resp BP Sys/Michael Pulse Ox Last 24 Hr 97.4 F-98.2 F 60-87 18-22 101-133/59-96 95-99 Gen: NAD at rest Heart: RRR Lung: scattered rhonchi, wheezes Abd: soft, nontender Ext: no edema CBC, BMP 10/30/19 06:25 10/30/19 06:25 Active Medications Albuterol/Ipratropium (Duoneb -) 1 amp NEB Q6H [facility] Last Admin: 10/30/19 12:46 Dose: 1 amp Aspirin (Ecotrin -) 81 mg PO DAILY [facility] Last Admin: 10/30/19 10:09 Dose: Not Given Atorvastatin Calcium (Lipitor -) 80 mg PO HS [facility] Last Admin: 10/29/19 22:23 Dose: 80 mg Bacitracin (Bacitracin -) 1 applic TP BID [facility] Last Admin: 10/30/19 10:09 Dose: 1 applic Budesonide/Formoterol Fumarate (Symbicort 160/4.5mcg -) 2 puff IH BID [facility] Last Admin: 10/30/19 04:42 Dose: Not Given Clopidogrel Bisulfate (Plavix -) 75 mg PO DAILY [facility] Last Admin: 10/30/19 10:09 Dose: Not Given Diltiazem HCl (Cardizem Cd -) 300 mg PO DAILY [facility] Last Admin: 10/30/19 10:08 Dose: 300 mg Azithromycin (Zithromax 500mg Ivpb (Pre-Docked)) 500 mg in 250 mls @ 250 mls/ hr IVPB DAILY [facility] Last Admin: 10/29/19 12:47 Dose: 250 mls/hr Methimazole (Tapazole -) 5 mg PO DAILY [facility] Last Admin: 10/30/19 10:10 Dose: 5 mg Methylprednisolone Sodium Succinate (Solu-Medrol -) 40 mg IVPUSH Q8H-IV [facility] Last Admin: 10/30/19 10:09 Dose: 40 mg Multivitamins/Minerals/Vitamin C (Tab-A-Vit -) 1 tab PO DAILY [facility] Last Admin: 10/30/19 10:08 Dose: 1 tab Pantoprazole Sodium (Protonix -) 40 mg PO DAILY [facility] Last Admin: 10/30/19 10:08 Dose: 40 mg Rivaroxaban (Xarelto) 20 mg PO DAILY@1800 [facility] Last Admin: 10/29/19 19:32 Dose: 20 mg Sodium Chloride ([place] Nasal [place] -) 2 spray NS BID PRN PRN Reason: NASAL CONGESTION Sotalol HCl (Betapace -) 40 mg PO BID [facility] Last Admin: 10/30/19 10:08 Dose: 40 mg Tiotropium [place] (Spiriva Respimat) 2 puff IH DAILY [facility] Last Admin: 10/29/19 10:00 Dose: 2 puff A/P Acute COPD Exacerbation Acute Bronchitis Chronic Hypoxic Respiratory Failure Acute on Chronic Diastolic Heart Failure CAD s/p CABG +Troponins likely Demand Ischemia Paroxysmal Atrial Fibrillation with RVR HTN Hyperlipidemia Hyperthyroidism - continue medrol at current dose - inhaled bronchodilators standing and PRN - azithromycin - O2 to keep SpO2 >90% - lasix as needed - monitor urine output, creatinine - rate control - continue anticoagulation - will likely need slower taper as outpt when improved Problem List - Problems (1) COPD exacerbation Code(s): J44.1 - CHRONIC OBSTRUCTIVE PULMONARY DISEASE W (ACUTE) EXACERBATION
[2019-10-30] MEDS ORDERED: FUROSEMIDE 40 MG/4 ML INJECTABLE VIAL IVPUSH ONE (14:41)
[2019-10-30] MEDS: DOCUSATE SODIUM 100 MG CAPSULE (FP) PO SCH ×2 (16:04→23:28)
[2019-10-30] MEDS: TIOTROPIUM BROMIDE 2.5 MCG (SPIRIVA) RESPIMAT INHALER IH SCH (16:04)
[2019-10-30] MEDS: LEVALBUTEROL HCL 0.63 MG/3 ML VIAL.NEB. IH SCH ×2 (17:29→21:05)
[2019-10-30] MEDS ORDERED: ALBUTEROL SO4 2.5/IPRATROPIUM 0.5 INH SOL 3 ML VIAL.NEB. NEB PRN (17:43)
[2019-10-30] MEDS: RIVAROXABAN 20 MG TABLET PO SCH (17:53)
[2019-10-30] MEDS: ATORVASTATIN CA 80 MG TABLET (FP) PO SCH (23:29)
[2019-10-31] MEDS: methylPREDNISolone NA SUCC 40 MG/1 ML VIAL IVPUSH SCH ×3 (03:00→17:53)
[2019-10-31 06:51] LABS: BASO % 0.2 % (0-2.0); HEMATOCRIT 37.5 % (35.4-49); HEMOGLOBIN 12.9 GM/dL (11.7-16.9); LYMPH % 4.9 % (8-40); MCH 32.2 pg (25.7-33.7); MCHC 34.5 g/dl (32.0-35.9); MEAN CELL VOLUME 93.4 fl (80-96); MEAN PLT VOLUME 8.3 fl (7.5-11.1); MONO % 2.8 % (3.8-10.2); NEUT % 92.1 % (42.8-82.8); PLATELET COUNT 162 K/MM3 (134-434); RBC 4.01 M/mm3 (4.00-5.60); RDW 13.4 % (11.9-15.9); WHITE BLOOD COUNT 9.8 K/mm3 (4.0-10.0)
[2019-10-31] MEDS: DOCUSATE SODIUM 100 MG CAPSULE (FP) PO SCH ×3 (06:56→22:07)
[2019-10-31 07:19] LABS: ALBUMIN 2.5 g/dl (3.4-5.0); BILIRUBIN,TOTAL 0.4 mg/dL (0.2-1); BLOOD UREA NITROGEN 27.3 mg/dL (7-18); CALCIUM 8.4 mg/dL (8.5-10.1); CREATININE 0.8 mg/dL (0.55-1.3); MAGNESIUM 2.4 mg/dL (1.8-2.4)
[2019-10-31] MEDS: LEVALBUTEROL HCL 0.63 MG/3 ML VIAL.NEB. IH SCH ×3 (07:25→20:11)
--- NOTE | 2019-10-31 07:46 | PN ---
Progress Note, Physician Chief Complaint: Pt upset that he was in ED for prolonged period awaiting a med surg bed. Cough less and feels breathing is better today History of Present Illness: Patient is a 79 year old male with a significant past medical history of atril fibrillation (on xarelto), hypertension, hyperlipidemia, CAD (s/pCABG), COPD ( on home oxygen at 2 liters). Mr Pathak recently admitted to [facility] from 10/12-10/16/19 for acute exacerbation of COPD. He was treated with bronchodilators, steroid taper, antibiotics and oxygen. Patient sent home on 10/16/2019 to complete steriod taper and was also sent home on home oxygen at 2 liters. On 10/28/2019 he went to see his primary care doctor and was sent to [facility] for bilateral leg edema and worsening shortness of breath. - Current Medication List Current Medications: Active Medications Albuterol/Ipratropium (Duoneb -) 1 amp NEB Q6H PRN PRN Reason: WHEEZING Aspirin (Ecotrin -) 81 mg PO DAILY [facility] Last Admin: 10/30/19 10:09 Dose: Not Given Atorvastatin Calcium (Lipitor -) 80 mg PO HS [facility] Last Admin: 10/30/19 23:29 Dose: 80 mg Bacitracin (Bacitracin -) 1 applic TP BID [facility] Last Admin: 10/30/19 23:28 Dose: 1 applic Budesonide/Formoterol Fumarate (Symbicort 160/4.5mcg -) 2 puff IH BID [facility] Last Admin: 10/30/19 23:28 Dose: 2 puff Clopidogrel Bisulfate (Plavix -) 75 mg PO DAILY [facility] Last Admin: 10/30/19 10:09 Dose: Not Given Diltiazem HCl (Cardizem Cd -) 300 mg PO DAILY [facility] Last Admin: 10/30/19 10:08 Dose: 300 mg Docusate Sodium (Colace -) 100 mg PO TID [facility] Last Admin: 10/31/19 06:56 Dose: 100 mg Azithromycin (Zithromax 500mg Ivpb (Pre-Docked)) 500 mg in 250 mls @ 250 mls/ hr IVPB DAILY [facility] Last Admin: 10/30/19 13:00 Dose: 250 mls/hr Levalbuterol HCl (Xopenex) 0.63 mg IH RTID [facility] Last Admin: 10/30/19 21:05 Dose: 0.63 mg Methimazole (Tapazole -) 5 mg PO DAILY [facility] Last Admin: 10/30/19 10:10 Dose: 5 mg Methylprednisolone Sodium Succinate (Solu-Medrol -) 40 mg IVPUSH Q8H-IV [facility] Last Admin: 10/31/19 03:00 Dose: 40 mg Multivitamins/Minerals/Vitamin C (Tab-A-Vit -) 1 tab PO DAILY [facility] Last Admin: 10/30/19 10:08 Dose: 1 tab Pantoprazole Sodium (Protonix -) 40 mg PO DAILY [facility] Last Admin: 10/30/19 10:08 Dose: 40 mg Polyethylene Glycol (Miralax (For Daily Use) -) 17 gm PO DAILY [facility] Rivaroxaban (Xarelto) 20 mg PO DAILY@1800 [facility] Last Admin: 10/30/19 17:53 Dose: 20 mg Sodium Chloride ([place] Nasal Moran -) 2 spray NS BID PRN PRN Reason: NASAL CONGESTION Sotalol HCl (Betapace -) 40 mg PO BID [facility] Last Admin: 10/30/19 23:28 Dose: 40 mg Tiotropium [place] (Spiriva Respimat) 2 puff IH DAILY [facility] Last Admin: 10/30/19 16:04 Dose: 2 puff - Objective Vital Signs: Vital Signs Temperature 97.8 F 10/31/19 06:00 Pulse Rate 85 10/31/19 06:00 Respiratory Rate 20 10/31/19 06:00 Blood Pressure 117/65 10/31/19 06:00 O2 Sat by Pulse Oximetry (%) 99 10/30/19 21:00 Constitutional: Yes: Well Nourished, No Distress, Calm Eyes: Yes: WNL, Conjunctiva Clear HENT: Yes: Atraumatic, Normocephalic, Other (small abrasions of bilateral ears, bacitracin applied) Neck: Yes: WNL, Supple, Trachea Midline Cardiovascular: Yes: WNL, Pulse Irregular Respiratory: Yes: Regular, CTA Bilaterally, Diminished Gastrointestinal: Yes: WNL, Normal Bowel Sounds ...Rectal Exam: Yes: Deferred Genitourinary: Yes: WNL Breast(s): Yes: WNL Musculoskeletal: Yes: WNL Edema: No Peripheral Pulses WNL: Yes Peripheral Pulses: Left Radial: 2+, Right Radial: 2+, Left Doralis Pedis: 2+, Right Dorsalis Pedis: 2+, Left Femoral: 2+, Right Femoral: 2+ Integumentary: Yes: WNL Neurological: Yes: WNL, Alert, Oriented ...Motor Strength: WNL Psychiatric: Yes: WNL Labs: CBC, BMP 10/31/19 05:52 10/31/19 05:52 INR, PTT INR 1.56 (0.83-1.09) H 10/28/19 13:49 - ....Imaging Cat Scan: Report Reviewed (chest ct: moderate copd, infiltrates with nodularity in right mid lobe, 1cm nodular like density on the axial images that appears elongated. emphysema of upper lobes, nodule 10mm left lung. moderate copd. head ct: negative for acute process) Ultrasound: Report Reviewed (vascular study: negative for dvt. moderate atrophy , cortical atrophy and suggestive of encephalomalacia in the right posterior temporal and frontal lobe.) Problem List - Problems (1) A-fib Assessment/Plan: rate controlled c/w diltiazem, sotolol, xarelto Code(s): I48.91 - UNSPECIFIED ATRIAL FIBRILLATION (2) Facial droop Assessment/Plan: HCT negative mild left facial assymetry cont to monitor Code(s): R29.810 - FACIAL WEAKNESS (3) Hypertension Assessment/Plan: normotensive c/w BB, CCB Code(s): I10 - ESSENTIAL (PRIMARY) HYPERTENSION (4) Hyperthyroidism Assessment/Plan: c/w increased dose of tapazole appreciate endocrin consultation Code(s): E05.90 - THYROTOXICOSIS, UNSP WITHOUT THYROTOXIC CRISIS OR STORM (5) Lower leg edema Assessment/Plan: dopplers negative LE edema improved encourage elevation of lower extremity Code(s): R60.0 - LOCALIZED EDEMA (6) Prophylactic measure Assessment/Plan: FEN Fluids: adequate PO intake Electrolytes: monitor & replete as needed Nutrition: cardiac diet DVT moderate risk c/w xarelto Dispo Maintain as inpatient full code discharge planning Code(s): Z29.9 - ENCOUNTER FOR PROPHYLACTIC MEASURES, UNSPECIFIED (7) Shortness of breath Assessment/Plan: improved on supplemental O2 c/w solumedrol with slow taper appreciate Pulm consultation Code(s): R06.02 - SHORTNESS OF BREATH (8) COPD exacerbation Assessment/Plan: slow solumedrol taper, decreased to q 12H c/w Symbicort, Spiriva, Xopenex. supplemental O2 Pulm following Code(s): J44.1 - CHRONIC OBSTRUCTIVE PULMONARY DISEASE W (ACUTE) EXACERBATION Visit type - Emergency Visit Emergency Visit: Yes ED Registration Date: 10/28/19 Care time: The patient presented to the Emergency Department on the above date and was hospitalized for further evaluation of their emergent condition. - New Patient This patient is new to me today: Yes Date on this admission: 10/31/19 - Critical Care Critical Care patient: No - Discharge Referral Referred to [facility] Med P.C.: No
[2019-10-31 08:56] LABS: ANISOCYTOSIS 1+; MACROCYTOSIS 0; PLATELET ESTIMATE NORMAL
[2019-10-31] MEDS ORDERED: PT OWN MED DRAWER 7, Y5N ONE (09:39)
[2019-10-31] MEDS: PANTOPRAZOLE 40 MG TABLET PO SCH (09:48)
[2019-10-31] MEDS: MULTIVITAMINS (DAILY MVI) TABLET (FP) PO SCH (09:48)
[2019-10-31] MEDS: CLOPIDOGREL BISULFATE 75 MG TABLET (FP) PO SCH (09:48)
[2019-10-31] MEDS: AZITHROMYCIN IVPB 500 MG/250 ML BAG IVPB SCH (09:48)
[2019-10-31] MEDS: BACITRACIN 15 GM TUBE TOPICAL OINTMENT TP SCH ×2 (09:48→22:10)
[2019-10-31] MEDS: SOTALOL HCL 80 MG TABLET (FP) PO SCH ×2 (09:49→22:07)
[2019-10-31] MEDS: BUDESONIDE/FORMETEROL FUMARATE 160/4.5 mcg INHALER IH SCH ×2 (09:50→22:10)
[2019-10-31] MEDS: TIOTROPIUM BROMIDE 2.5 MCG (SPIRIVA) RESPIMAT INHALER IH SCH (09:50)
[2019-10-31] MEDS: METHIMAZOLE 5 MG TABLET (FP) PO SCH (09:51)
--- NOTE | 2019-10-31 11:07 | PN ---
Progress Note (short form) - Note Progress Note: s: sob improving, no chest pain, palps, dizziness Current Medications Generic Name Dose Route Start Last Admin Trade Name Freq PRN Reason Stop Dose Admin Albuterol/Ipratropium 1 amp 10/30/19 17:43 Duoneb - NEB Q6H PRN WHEEZING Aspirin 81 mg 10/29/19 10:00 10/30/19 10:09 Ecotrin - PO Not Given DAILY [facility] Atorvastatin Calcium 80 mg 10/28/19 22:00 10/30/19 23:29 Lipitor - PO 80 mg HS [facility] Administration Bacitracin 1 applic 10/28/19 22:00 10/31/19 09:48 Bacitracin - TP 1 applic BID [facility] Administration Budesonide/Formoterol Fumarate 2 puff 10/28/19 22:00 10/31/19 09:50 Symbicort 160/4.5mcg - IH 2 puff BID [facility] Administration Clopidogrel Bisulfate 75 mg 10/29/19 10:00 10/31/19 09:48 Plavix - PO Not Given DAILY [facility] Diltiazem HCl 300 mg 10/29/19 10:00 10/31/19 09:48 Cardizem Cd - PO 300 mg DAILY [facility] Administration Docusate Sodium 100 mg 10/30/19 15:00 10/31/19 06:56 Colace - PO 100 mg TID [facility] Administration Azithromycin 500 mg in 250 mls @ 250 mls/hr 10/29/19 12:45 10/31/19 09:48 Zithromax 500mg Ivpb (Pre-Docked) IVPB 250 mls/hr DAILY [facility] Administration Levalbuterol HCl 0.63 mg 10/30/19 14:00 10/31/19 07:25 Xopenex IH 0.63 mg RTID [facility] Administration Methimazole 5 mg 10/30/19 09:05 10/31/19 09:51 Tapazole - PO 5 mg DAILY [facility] Administration Methylprednisolone Sodium Succinate 40 mg 10/28/19 19:00 10/31/19 09:49 Solu-Medrol - IVPUSH 40 mg Q8H-IV [facility] Administration Multivitamins/Minerals/Vitamin C 1 tab 10/29/19 10:00 10/31/19 09:48 Tab-A-Vit - PO 1 tab DAILY [facility] Administration Pantoprazole Sodium 40 mg 10/29/19 10:00 10/31/19 09:48 Protonix - PO 40 mg DAILY [facility] Administration Polyethylene Glycol 17 gm 10/31/19 10:00 Miralax (For Daily Use) - PO DAILY [facility] Rivaroxaban 20 mg 10/28/19 18:00 10/30/19 17:53 Xarelto PO 20 mg DAILY@1800 [facility] Administration Sodium Chloride 2 spray 10/29/19 14:12 [place] Blessing Nasal Blessing - NS BID PRN NASAL CONGESTION Sotalol HCl 40 mg 10/28/19 22:00 10/31/19 09:49 Betapace - PO 40 mg BID [facility] Administration Tiotropium [place] 2 puff 10/29/19 10:00 10/31/19 09:50 Spiriva Respimat IH 2 puff DAILY [facility] Administration Vital Signs Period Temp Pulse Resp BP Sys/Michael Pulse Ox Last 24 Hr 97 F-97.8 F 79-85 20-20 117-131/54-68 99 Constitutional: Yes: No Distress, Calm Eyes: Yes: Conjunctiva Clear, EOM Intact HENT: Yes: Atraumatic, Normocephalic Neck: Yes: Supple, Trachea Midline Respiratory: Yes: bl wheeze, nl eff Gastrointestinal: Yes: Normal Bowel Sounds, Soft Cardiovascular: Yes: Tachycardia, Pulse Irregular JVD: No Heart Sounds: Yes: S1, S2 Extremities: No: Cold Edema: 1+ alexander lower ext Integumentary: No: Jaundice Neurological: Yes: Alert, Oriented Psychiatric: No: Agitated CBC, BMP 10/31/19 05:52 10/31/19 05:52 EKG: afib with RVR no ischemic changes CT chest: mod COPD changes, atelectasis vs infiltrates in RML, atelectasis in L lung base laterally with 1 cm nodular like density tele: afib->rate controlled Echo 10/03: nl LV/RV. mild-mod TR shortness of breath, copd exac, acute bronchitis, acute diastolic CHF - trop indeterminate range, flat trend with EKG no ischemic changes - unlikely ACS - BNP 1900 (was 3400 at prior admission), edema improved with IV lasix - nl EF on echo 09/2019 - most likely COPD exac with component of pulmonary edema - edema improved after two doses of IV lasix, per pt appears to be at baseline - nebs, steroids per primary, pulm paroxysmal afib, h/o remote AFL ablation - incidental modestly rapid AF noted at PMD early 10/03--CCB added, sotalol continued - f/u holter pt was in sinus rhythm - RVR likely sec to hyperthyroid/copd sx's/steroids - he tolerated similar degree of tachycardia well as outpt (actually more rapid) , tolerating current tachy burden well with normal LVEF - observe HR once euthyroid--will consider outpatient EP eval for ? increase sotalol vs PVI ablation if remains with rapid AF - cont xarelto, cardizem, sotalol - monitor on tele HTN -cont home meds HLD - cont statin CAD s/p CABG - cont xarelto, statin. pt reports he is not taking plavix at home, will dc given he is on xarelto hyperthyroidism -manage per endocrine
--- NOTE | 2019-10-31 11:29 | PN ---
Progress Note (short form) - Note Progress Note: PULMONARY Breathing better today, less cough and wheezing. Ambulating hallways. Vital Signs Period Temp Pulse Resp BP Sys/Michael Pulse Ox Last 24 Hr 97 F-97.8 F 79-85 20-20 117-131/54-68 99 Gen: NAD at rest Heart: RRR Lung: scattered rhonchi, wheezes Abd: soft, nontender Ext: no edema CBC, BMP 10/31/19 05:52 10/31/19 05:52 Active Medications Albuterol/Ipratropium (Duoneb -) 1 amp NEB Q6H PRN PRN Reason: WHEEZING Atorvastatin Calcium (Lipitor -) 80 mg PO HS [facility] Last Admin: 10/30/19 23:29 Dose: 80 mg Bacitracin (Bacitracin -) 1 applic TP BID [facility] Last Admin: 10/31/19 09:48 Dose: 1 applic Budesonide/Formoterol Fumarate (Symbicort 160/4.5mcg -) 2 puff IH BID [facility] Last Admin: 10/31/19 09:50 Dose: 2 puff Diltiazem HCl (Cardizem Cd -) 300 mg PO DAILY [facility] Last Admin: 10/31/19 09:48 Dose: 300 mg Docusate Sodium (Colace -) 100 mg PO TID [facility] Last Admin: 10/31/19 06:56 Dose: 100 mg Azithromycin (Zithromax 500mg Ivpb (Pre-Docked)) 500 mg in 250 mls @ 250 mls/ hr IVPB DAILY [facility] Last Admin: 10/31/19 09:48 Dose: 250 mls/hr Levalbuterol HCl (Xopenex) 0.63 mg IH RTID [facility] Last Admin: 10/31/19 07:25 Dose: 0.63 mg Methimazole (Tapazole -) 5 mg PO DAILY [facility] Last Admin: 10/31/19 09:51 Dose: 5 mg Methylprednisolone Sodium Succinate (Solu-Medrol -) 40 mg IVPUSH Q8H-IV [facility] Last Admin: 10/31/19 09:49 Dose: 40 mg Multivitamins/Minerals/Vitamin C (Tab-A-Vit -) 1 tab PO DAILY [facility] Last Admin: 10/31/19 09:48 Dose: 1 tab Pantoprazole Sodium (Protonix -) 40 mg PO DAILY [facility] Last Admin: 10/31/19 09:48 Dose: 40 mg Polyethylene Glycol (Miralax (For Daily Use) -) 17 gm PO DAILY [facility] Rivaroxaban (Xarelto) 20 mg PO DAILY@1800 [facility] Last Admin: 10/30/19 17:53 Dose: 20 mg Sodium Chloride ([place] Nasal [place] -) 2 spray NS BID PRN PRN Reason: NASAL CONGESTION Sotalol HCl (Betapace -) 40 mg PO BID [facility] Last Admin: 10/31/19 09:49 Dose: 40 mg Tiotropium [place] (Spiriva Respimat) 2 puff IH DAILY [facility] Last Admin: 10/31/19 09:50 Dose: 2 puff A/P Acute COPD Exacerbation Acute Bronchitis Chronic Hypoxic Respiratory Failure Lung Nodule Acute on Chronic Diastolic Heart Failure CAD s/p CABG +Troponins likely Demand Ischemia Paroxysmal Atrial Fibrillation with RVR HTN Hyperlipidemia Hyperthyroidism - will decrease medrol to q12h - can likely change steroids to PO prednisone 40mg daily in AM - inhaled bronchodilators standing and PRN - azithromycin - O2 to keep SpO2 >90% - lasix as needed - monitor urine output, creatinine - rate control - continue anticoagulation - will likely need slower taper as outpt i.e. decrease by 10mg q5 days - outpt f/u of lung nodule Problem List - Problems (1) COPD exacerbation Code(s): J44.1 - CHRONIC OBSTRUCTIVE PULMONARY DISEASE W (ACUTE) EXACERBATION
[2019-10-31] MEDS: POLYETHYLENE GLYCOL 3350 119 GM BTL PO SCH (12:01)
[2019-10-31] MEDS: RIVAROXABAN 20 MG TABLET PO SCH (17:53)
[2019-10-31] MEDS: ATORVASTATIN CA 80 MG TABLET (FP) PO SCH (22:07)
[2019-11-01] MEDS: methylPREDNISolone NA SUCC 40 MG/1 ML VIAL IVPUSH SCH (03:15)
[2019-11-01] MEDS: DOCUSATE SODIUM 100 MG CAPSULE (FP) PO SCH ×3 (05:49→22:00)
[2019-11-01 06:45] LABS: BASO % 0.1 % (0-2.0); HEMATOCRIT 37.5 % (35.4-49); LYMPH % 7.4 % (8-40); MCH 32.2 pg (25.7-33.7); MCHC 34.7 g/dl (32.0-35.9); MEAN CELL VOLUME 92.8 fl (80-96); MEAN PLT VOLUME 8.1 fl (7.5-11.1); MONO % 3.5 % (3.8-10.2); PLATELET COUNT 157 K/MM3 (134-434); RBC 4.04 M/mm3 (4.00-5.60); RDW 12.9 % (11.9-15.9); WHITE BLOOD COUNT 6.3 K/mm3 (4.0-10.0)
[2019-11-01 07:08] LABS: ALBUMIN 2.6 g/dl (3.4-5.0); BILIRUBIN,TOTAL 0.5 mg/dL (0.2-1); BLOOD UREA NITROGEN 19.8 mg/dL (7-18); CALCIUM 8.4 mg/dL (8.5-10.1); CREATININE 0.8 mg/dL (0.55-1.3); MAGNESIUM 2.4 mg/dL (1.8-2.4); POTASSIUM 4.4 mmol/L (3.5-5.1)
--- NOTE | 2019-11-01 07:50 | PN ---
Progress Note, Physician Chief Complaint: Feels breathing is much improved today. Requesting portable O2 concentrator on discharge History of Present Illness: Patient is a 79 year old male with a significant past medical history of atril fibrillation (on xarelto), hypertension, hyperlipidemia, CAD (s/pCABG), COPD ( on home oxygen at 2 liters). Mr Pathak recently admitted to [facility] from 10/12-10/16/19 for acute exacerbation of COPD. He was treated with bronchodilators, steroid taper, antibiotics and oxygen. Patient sent home on 10/16/2019 to complete steriod taper and was also sent home on home oxygen at 2 liters. On 10/28/2019 he went to see his primary care doctor and was sent to [facility] for bilateral leg edema and worsening shortness of breath. - Current Medication List Current Medications: Active Medications Albuterol/Ipratropium (Duoneb -) 1 amp NEB Q6H PRN PRN Reason: WHEEZING Atorvastatin Calcium (Lipitor -) 80 mg PO HS [facility] Last Admin: 10/31/19 22:07 Dose: 80 mg Bacitracin (Bacitracin -) 1 applic TP BID [facility] Last Admin: 10/31/19 22:10 Dose: Not Given Budesonide/Formoterol Fumarate (Symbicort 160/4.5mcg -) 2 puff IH BID [facility] Last Admin: 10/31/19 22:10 Dose: 2 puff Diltiazem HCl (Cardizem Cd -) 300 mg PO DAILY [facility] Last Admin: 10/31/19 09:48 Dose: 300 mg Docusate Sodium (Colace -) 100 mg PO TID [facility] Last Admin: 11/01/19 05:49 Dose: 100 mg Azithromycin (Zithromax 500mg Ivpb (Pre-Docked)) 500 mg in 250 mls @ 250 mls/ hr IVPB DAILY [facility] Last Admin: 10/31/19 09:48 Dose: 250 mls/hr Levalbuterol HCl (Xopenex) 0.63 mg IH RTID [facility] Last Admin: 10/31/19 20:11 Dose: 0.63 mg Methimazole (Tapazole -) 5 mg PO DAILY [facility] Last Admin: 10/31/19 09:51 Dose: 5 mg Methylprednisolone Sodium Succinate (Solu-Medrol -) 40 mg IVPUSH Q8H-IV [facility] Last Admin: 11/01/19 03:15 Dose: 40 mg Multivitamins/Minerals/Vitamin C (Tab-A-Vit -) 1 tab PO DAILY [facility] Last Admin: 10/31/19 09:48 Dose: 1 tab Pantoprazole Sodium (Protonix -) 40 mg PO DAILY [facility] Last Admin: 10/31/19 09:48 Dose: 40 mg Polyethylene Glycol (Miralax (For Daily Use) -) 17 gm PO DAILY [facility] Last Admin: 10/31/19 12:01 Dose: Not Given Rivaroxaban (Xarelto) 20 mg PO DAILY@1800 [facility] Last Admin: 10/31/19 17:53 Dose: 20 mg Sodium Chloride ([place] Nasal [place] -) 2 spray NS BID PRN PRN Reason: NASAL CONGESTION Sotalol HCl (Betapace -) 40 mg PO BID [facility] Last Admin: 10/31/19 22:07 Dose: 40 mg Tiotropium [place] (Spiriva Respimat) 2 puff IH DAILY [facility] Last Admin: 10/31/19 09:50 Dose: 2 puff - Objective Vital Signs: Vital Signs Temperature 97.0 F L 11/01/19 05:44 Pulse Rate 87 11/01/19 05:44 Respiratory Rate 20 11/01/19 05:44 Blood Pressure 131/77 11/01/19 05:44 O2 Sat by Pulse Oximetry (%) 98 10/31/19 21:00 Additional Findings/Remarks: Constitutional: Yes: Well Nourished, No Distress, Calm Eyes: Yes: WNL, Conjunctiva Clear HENT: Yes: Atraumatic, Normocephalic, Other (small abrasions of bilateral ears, bacitracin applied) Neck: Yes: WNL, Supple, Trachea Midline Cardiovascular: Yes: WNL, Pulse Irregular Respiratory: Yes: Regular, CTA Bilaterally, Diminished Gastrointestinal: Yes: WNL, Normal Bowel Sounds ...Rectal Exam: Yes: Deferred Genitourinary: Yes: WNL Breast(s): Yes: WNL Musculoskeletal: Yes: WNL Edema: No Peripheral Pulses WNL: Yes Peripheral Pulses: Left Radial: 2+, Right Radial: 2+, Left Doralis Pedis: 2+, Right Dorsalis Pedis: 2+, Left Femoral: 2+, Right Femoral: 2+ Integumentary: Yes: WNL Neurological: Yes: WNL, Alert, Oriented ...Motor Strength: WNL Psychiatric: Yes: WNL Labs: CBC, BMP 11/01/19 05:55 11/01/19 05:55 INR, PTT INR 1.56 (0.83-1.09) H 10/28/19 13:49 - ....Imaging Cat Scan: Report Reviewed (Cat Scan: Report Reviewed (chest ct: moderate copd, infiltrates with nodularity in right mid lobe, 1cm nodular like density on the axial images that appears elongated. emphysema of upper lobes, nodule 10mm left lung. moderate copd. head ct: negative for acute process)) Ultrasound: Report Reviewed (Ultrasound: Report Reviewed (vascular study: negative for dvt. moderate atrophy, cortical atrophy and suggestive of encephalomalacia in the right posterior temporal and frontal lobe.)) Problem List - Problems (1) A-fib Assessment/Plan: rate controlled for most part can tirate up diltiazem if HR remains elevated c/w diltiazem, sotolol, xarelto Code(s): I48.91 - UNSPECIFIED ATRIAL FIBRILLATION (2) Facial droop Assessment/Plan: HCT negative mild left facial assymetry cont to monitor Code(s): R29.810 - FACIAL WEAKNESS (3) Hypertension Assessment/Plan: normotensive c/w BB, CCB Code(s): I10 - ESSENTIAL (PRIMARY) HYPERTENSION (4) Hyperthyroidism Assessment/Plan: c/w increased dose of tapazole appreciate endocrine consultation Code(s): E05.90 - THYROTOXICOSIS, UNSP WITHOUT THYROTOXIC CRISIS OR STORM (5) Lower leg edema Assessment/Plan: dopplers negative LE edema improved encourage elevation of lower extremity c/w lasix Code(s): R60.0 - LOCALIZED EDEMA (6) Prophylactic measure Assessment/Plan: FEN Fluids: adequate PO intake Electrolytes: monitor & replete as needed Nutrition: cardiac diet DVT moderate risk c/w xarelto Dispo Maintain as inpatient full code discharge planning Code(s): Z29.9 - ENCOUNTER FOR PROPHYLACTIC MEASURES, UNSPECIFIED (7) Shortness of breath Assessment/Plan: improved on supplemental O2 c/w solumedrol with slow taper appreciate Pulm consultation Code(s): R06.02 - SHORTNESS OF BREATH (8) COPD exacerbation Assessment/Plan: sSteroids changed to prednisone 40mg daily with slow taper, 10 mg every 5 days c/w Symbicort, Spiriva, Xopenex. supplemental O2 Pulm following Code(s): J44.1 - CHRONIC OBSTRUCTIVE PULMONARY DISEASE W (ACUTE) EXACERBATION Visit type - Emergency Visit Emergency Visit: Yes ED Registration Date: 10/28/19 Care time: The patient presented to the Emergency Department on the above date and was hospitalized for further evaluation of their emergent condition. - New Patient This patient is new to me today: No - Critical Care Critical Care patient: No - Discharge Referral Referred to [facility] Med P.C.: No
[2019-11-01] MEDS: LEVALBUTEROL HCL 0.63 MG/3 ML VIAL.NEB. IH SCH ×3 (08:37→20:30)
[2019-11-01] MEDS ORDERED: methylPREDNISolone NA SUCC 40 MG/1 ML VIAL IVPUSH SCH (09:30)
[2019-11-01] MEDS ORDERED: PT OWN MED DRAWER 7, Y5N ONE (10:01)
[2019-11-01] MEDS: PANTOPRAZOLE 40 MG TABLET PO SCH (10:15)
[2019-11-01] MEDS: MULTIVITAMINS (DAILY MVI) TABLET (FP) PO SCH (10:15)
[2019-11-01] MEDS: SOTALOL HCL 80 MG TABLET (FP) PO SCH ×2 (10:15→22:00)
[2019-11-01] MEDS: TIOTROPIUM BROMIDE 2.5 MCG (SPIRIVA) RESPIMAT INHALER IH SCH (10:16)
[2019-11-01] MEDS: METHIMAZOLE 5 MG TABLET (FP) PO SCH (10:16)
[2019-11-01] MEDS: AZITHROMYCIN IVPB 500 MG/250 ML BAG IVPB SCH (10:16)
[2019-11-01] MEDS: BUDESONIDE/FORMETEROL FUMARATE 160/4.5 mcg INHALER IH SCH ×2 (10:16→22:02)
--- NOTE | 2019-11-01 10:24 | PN ---
Progress Note, Physician Chief Complaint: sitting up feeling better Less SOB TELE: AF occasionally 140s - Current Medication List Current Medications: Active Medications Albuterol/Ipratropium (Duoneb -) 1 amp NEB Q6H PRN PRN Reason: WHEEZING Atorvastatin Calcium (Lipitor -) 80 mg PO HS [facility] Last Admin: 10/31/19 22:07 Dose: 80 mg Bacitracin (Bacitracin -) 1 applic TP BID [facility] Last Admin: 10/31/19 22:10 Dose: Not Given Budesonide/Formoterol Fumarate (Symbicort 160/4.5mcg -) 2 puff IH BID [facility] Last Admin: 11/01/19 10:16 Dose: 2 puff Diltiazem HCl (Cardizem Cd -) 300 mg PO DAILY [facility] Last Admin: 11/01/19 10:16 Dose: 300 mg Docusate Sodium (Colace -) 100 mg PO TID [facility] Last Admin: 11/01/19 05:49 Dose: 100 mg Azithromycin (Zithromax 500mg Ivpb (Pre-Docked)) 500 mg in 250 mls @ 250 mls/ hr IVPB DAILY [facility] Last Admin: 11/01/19 10:16 Dose: 250 mls/hr Levalbuterol HCl (Xopenex) 0.63 mg IH RTID [facility] Last Admin: 11/01/19 08:37 Dose: 0.63 mg Methimazole (Tapazole -) 5 mg PO DAILY [facility] Last Admin: 11/01/19 10:16 Dose: 5 mg Multivitamins/Minerals/Vitamin C (Tab-A-Vit -) 1 tab PO DAILY [facility] Last Admin: 11/01/19 10:15 Dose: 1 tab Pantoprazole Sodium (Protonix -) 40 mg PO DAILY [facility] Last Admin: 11/01/19 10:15 Dose: 40 mg Polyethylene Glycol (Miralax (For Daily Use) -) 17 gm PO DAILY [facility] Last Admin: 10/31/19 12:01 Dose: Not Given Prednisone (Deltasone -) 40 mg PO DAILY [facility] Rivaroxaban (Xarelto) 20 mg PO DAILY@1800 [facility] Last Admin: 10/31/19 17:53 Dose: 20 mg Sodium Chloride ([place] Nasal [place] -) 2 spray NS BID PRN PRN Reason: NASAL CONGESTION Sotalol HCl (Betapace -) 40 mg PO BID [facility] Last Admin: 11/01/19 10:15 Dose: 40 mg Tiotropium [place] (Spiriva Respimat) 2 puff IH DAILY [facility] Last Admin: 11/01/19 10:16 Dose: 2 puff - Objective Vital Signs: Vital Signs Temperature 97.0 F L 11/01/19 05:44 Pulse Rate 87 11/01/19 05:44 Respiratory Rate 20 11/01/19 09:00 Blood Pressure 131/77 11/01/19 05:44 O2 Sat by Pulse Oximetry (%) 98 11/01/19 09:00 Constitutional: Yes: Calm Cardiovascular: Yes: Pulse Irregular Respiratory: Yes: CTA Bilaterally Gastrointestinal: Yes: Soft Edema: Yes Edema: LLE: 2+, RLE: 2+ Neurological: Yes: Alert, Oriented Labs: CBC, BMP 11/01/19 05:55 11/01/19 05:55 INR, PTT INR 1.56 (0.83-1.09) H 10/28/19 13:49 - ....Imaging EKG: Image Reviewed Assessment/Plan EKG: afib with RVR no ischemic changes CT chest: mod COPD changes, atelectasis vs infiltrates in RML, atelectasis in L lung base laterally with 1 cm nodular like density tele: afib->rate controlled Echo 10/03: nl LV/RV. mild-mod TR shortness of breath, copd exac, acute bronchitis, acute diastolic CHF: - trop indeterminate range, flat trend with EKG no ischemic changes - unlikely ACS - BNP 1900 (was 3400 at prior admission), edema improved with IV lasix - nl EF on echo 09/2019 - most likely COPD exac with component of pulmonary edema - edema improved after two doses of IV lasix, still with edema. Can start PO Lasix - nebs, steroids per primary, pulm paroxysmal afib, h/o remote AFL ablation: - RVR likely sec to hyperthyroid/copd sx's/steroids, titrate Cardizem - he tolerated similar degree of tachycardia well as outpt (actually more rapid) , tolerating current tachy burden well with normal LVEF - observe HR once euthyroid--will consider outpatient EP eval for ? increase sotalol vs PVI ablation if remains with rapid AF - cont xarelto, cardizem, sotalol - monitor on tele HTN -cont home meds HLD - cont statin CAD s/p CABG - cont xarelto, statin. pt reports he is not taking plavix at home, will dc given he is on xarelto hyperthyroidism -manage per endocrine
--- NOTE | 2019-11-01 10:31 | PN ---
Progress Note (short form) - Note Progress Note: Breathing better today. Feels close to baseline. No acute events overnight. Intake & Output 10/29/19 10/30/19 10/31/19 11/01/19 23:59 23:59 23:59 23:59 Intake Total 965 632 0943 100 Output Total 1350 2900 Balance 100 -960 -1830 100 Weight 200 lb 199 lb 199 lb 3.2 oz Last Vital Signs Temp Pulse Resp BP Pulse Ox 97.0 F L 87 20 131/77 98 11/01/19 05:44 11/01/19 05:44 11/01/19 09:00 11/01/19 05:44 11/01/19 09:00 Active Medications Albuterol/Ipratropium (Duoneb -) 1 amp NEB Q6H PRN PRN Reason: WHEEZING Atorvastatin Calcium (Lipitor -) 80 mg PO HS [facility] Last Admin: 10/31/19 22:07 Dose: 80 mg Bacitracin (Bacitracin -) 1 applic TP BID [facility] Last Admin: 10/31/19 22:10 Dose: Not Given Budesonide/Formoterol Fumarate (Symbicort 160/4.5mcg -) 2 puff IH BID [facility] Last Admin: 11/01/19 10:16 Dose: 2 puff Docusate Sodium (Colace -) 100 mg PO TID [facility] Last Admin: 11/01/19 05:49 Dose: 100 mg Furosemide (Lasix -) 40 mg PO DAILY [facility] Azithromycin (Zithromax 500mg Ivpb (Pre-Docked)) 500 mg in 250 mls @ 250 mls/ hr IVPB DAILY [facility] Last Admin: 11/01/19 10:16 Dose: 250 mls/hr Levalbuterol HCl (Xopenex) 0.63 mg IH RTID [facility] Last Admin: 11/01/19 08:37 Dose: 0.63 mg Methimazole (Tapazole -) 5 mg PO DAILY [facility] Last Admin: 11/01/19 10:16 Dose: 5 mg Multivitamins/Minerals/Vitamin C (Tab-A-Vit -) 1 tab PO DAILY [facility] Last Admin: 11/01/19 10:15 Dose: 1 tab Pantoprazole Sodium (Protonix -) 40 mg PO DAILY [facility] Last Admin: 11/01/19 10:15 Dose: 40 mg Polyethylene Glycol (Miralax (For Daily Use) -) 17 gm PO DAILY [facility] Last Admin: 10/31/19 12:01 Dose: Not Given Prednisone (Deltasone -) 40 mg PO DAILY [facility] Rivaroxaban (Xarelto) 20 mg PO DAILY@1800 [facility] Last Admin: 10/31/19 17:53 Dose: 20 mg Sodium Chloride ([place] Nasal [place] -) 2 spray NS BID PRN PRN Reason: NASAL CONGESTION Sotalol HCl (Betapace -) 40 mg PO BID [facility] Last Admin: 11/01/19 10:15 Dose: 40 mg Tiotropium [place] (Spiriva Respimat) 2 puff IH DAILY [facility] Last Admin: 11/01/19 10:16 Dose: 2 puff Gen: NAD at rest Heart: RRR Lung: scattered rhonchi, No wheezes Abd: soft, nontender Ext: no edema Laboratory Results - last 24 hr 11/01/19 11/01/19 05:55 05:55 WBC 6.3 RBC 4.04 Hgb 13.0 Hct 37.5 MCV 92.8 MCH 32.2 MCHC 34.7 RDW 12.9 Plt Count 157 MPV 8.1 Absolute Neuts (auto) 5.6 Neutrophils % 89.0 H Lymphocytes % 7.4 L D Monocytes % 3.5 L Eosinophils % 0.0 Basophils % 0.1 Nucleated RBC % 0 Sodium 138 Potassium 4.4 Chloride 98 Carbon Dioxide 37 H Anion Gap 3 L BUN 19.8 H Creatinine 0.8 Est GFR (CKD-EPI)AfAm 99.17 Est GFR (CKD-EPI)NonAf 85.56 Random Glucose 124 H Calcium 8.4 L Magnesium 2.4 Total Bilirubin 0.5 AST 33 ALT 57 Alkaline Phosphatase 71 Total Protein 6.0 L Albumin 2.6 L Problem List - Problems (1) COPD exacerbation Code(s): J44.1 - CHRONIC OBSTRUCTIVE PULMONARY DISEASE W (ACUTE) EXACERBATION A/P Acute COPD Exacerbation Acute Bronchitis Chronic Hypoxic Respiratory Failure Lung Nodule Acute on Chronic Diastolic Heart Failure CAD s/p CABG +Troponins likely [place] Ischemia Paroxysmal Atrial Fibrillation with RVR HTN Hyperlipidemia Hyperthyroidism - can change steroids to PO prednisone 40mg daily: would taper by 10mg every 5 days - inhaled bronchodilators standing and PRN - azithromycin - O2 to keep SpO2 >90% - continue anticoagulation - outpt f/u of lung nodule - No smoking - Patient already has home O2 DC planning to home Dr Fisher
[2019-11-01] MEDS: BACITRACIN 15 GM TUBE TOPICAL OINTMENT TP SCH ×2 (11:06→22:01)
[2019-11-01] MEDS: FUROSEMIDE 40 MG TABLET (FP) PO SCH (11:06)
[2019-11-01] MEDS: POLYETHYLENE GLYCOL 3350 119 GM BTL PO SCH (14:07)
[2019-11-01] MEDS: RIVAROXABAN 20 MG TABLET PO SCH (17:35)
[2019-11-01] MEDS: ATORVASTATIN CA 80 MG TABLET (FP) PO SCH (22:02)
[2019-11-02] MEDS: DOCUSATE SODIUM 100 MG CAPSULE (FP) PO SCH ×2 (06:17→15:49)
[2019-11-02 06:54] VITALS: BP 130/60; PULSE 87; TEMP 97.7
[2019-11-02] MEDS: LEVALBUTEROL HCL 0.63 MG/3 ML VIAL.NEB. IH SCH ×2 (07:40→14:20)
[2019-11-02 07:47] LABS: BASO % 0.3 % (0-2.0); HEMATOCRIT 38.9 % (35.4-49); HEMOGLOBIN 13.3 GM/dL (11.7-16.9); LYMPH % 8.7 % (8-40); MCH 31.7 pg (25.7-33.7); MCHC 34.1 g/dl (32.0-35.9); MEAN PLT VOLUME 8.1 fl (7.5-11.1); MONO % 6.3 % (3.8-10.2); NEUT % 84.7 % (42.8-82.8); PLATELET COUNT 147 K/MM3 (134-434); RBC 4.19 M/mm3 (4.00-5.60); RDW 12.9 % (11.9-15.9); WHITE BLOOD COUNT 7.2 K/mm3 (4.0-10.0)
--- NOTE | 2019-11-02 07:54 | DS ---
Physical Exam: SUBJECTIVE: Patient seen and examined Medcially cleared for dc to home with oxygen therapy OBJECTIVE: Vital Signs Period Temp Pulse Resp BP Sys/Michael Pulse Ox Last 24 Hr 97.7 F-98.2 F 79-92 16-20 112-142/60-83 98-98 PHYSICAL EXAM Constitutional: Yes: Well Nourished, No Distress, Calm Eyes: Yes: WNL, Conjunctiva Clear HENT: Yes: Atraumatic, Normocephalic, Other (small abrasions of bilateral ears, bacitracin applied) Neck: Yes: WNL, Supple, Trachea Midline Cardiovascular: Yes: WNL, Pulse Irregular Respiratory: Yes: Regular, CTA Bilaterally, Diminished Gastrointestinal: Yes: WNL, Normal Bowel Sounds ...Rectal Exam: Yes: Deferred Genitourinary: Yes: WNL Breast(s): Yes: WNL Musculoskeletal: Yes: WNL Edema: No Peripheral Pulses WNL: Yes Peripheral Pulses: Left Radial: 2+, Right Radial: 2+, Left Doralis Pedis: 2+, Right Dorsalis Pedis: 2+, Left Femoral: 2+, Right Femoral: 2+ Integumentary: Yes: WNL Neurological: Yes: WNL, Alert, Oriented ...Motor Strength: WNL Psychiatric: Yes: WNL LABS Laboratory Results - last 24 hr 11/02/19 06:50 WBC 7.2 RBC 4.19 Hgb 13.3 Hct 38.9 MCV 93.0 MCH 31.7 MCHC 34.1 RDW 12.9 Plt Count 147 MPV 8.1 Absolute Neuts (auto) 6.1 Neutrophils % 84.7 H Lymphocytes % 8.7 Monocytes % 6.3 Eosinophils % 0.0 Basophils % 0.3 Nucleated RBC % 0 HOSPITAL COURSE: Date of Admission:10/28/19 Date of Discharge: 11/02/19 - ....Imaging Cat Scan: Report Reviewed (Cat Scan: Report Reviewed (chest ct: moderate copd, infiltrates with nodularity in right mid lobe, 1cm nodular like density on the axial images that appears elongated. emphysema of upper lobes, nodule 10mm left lung. moderate copd. head ct: negative for acute process)) Ultrasound: Report Reviewed (Ultrasound: Report Reviewed (vascular study: negative for dvt. moderate atrophy, cortical atrophy and suggestive of encephalomalacia in the right posterior temporal and frontal lobe.)) Problem List - Problems (1) A-fib Assessment/Plan: rate controlled c/w diltiazem, sotolol, xarelto Code(s): I48.91 - UNSPECIFIED ATRIAL FIBRILLATION (2) Facial droop Assessment/Plan: HCT negative mild left facial assymetry Code(s): R29.810 - FACIAL WEAKNESS (3) Hypertension Assessment/Plan: normotensive c/w BB, CCB Code(s): I10 - ESSENTIAL (PRIMARY) HYPERTENSION (4) Hyperthyroidism Assessment/Plan: c/w increased dose of tapazole appreciate endocrine consultation follow as outpatient Code(s): E05.90 - THYROTOXICOSIS, UNSP WITHOUT THYROTOXIC CRISIS OR STORM (5) Lower leg edema Assessment/Plan: dopplers negative LE edema improved encourage elevation of lower extremity c/w lasix Code(s): R60.0 - LOCALIZED EDEMA (6) Prophylactic measure Assessment/Plan: FEN Fluids: adequate PO intake Electrolytes: monitor & replete as needed Nutrition: cardiac diet DVT moderate risk c/w xarelto, off plavix Dispo cleared for dc Code(s): Z29.9 - ENCOUNTER FOR PROPHYLACTIC MEASURES, UNSPECIFIED (7) Shortness of breath Assessment/Plan: improved on supplemental O2 c/w solumedrol with slow taper over next 2 weeks appreciate Pulm consultation Code(s): R06.02 - SHORTNESS OF BREATH (8) COPD exacerbation Assessment/Plan: Steroids changed to prednisone 40mg daily with slow taper, 10 mg every 5 days c/w Symbicort, Spiriva, Xopenex. supplemental O2 outpatient follow up with putmonary Code(s): J44.1 - CHRONIC OBSTRUCTIVE PULMONARY DISEASE W (ACUTE) EXACERBATION Medically cleared for discharge home Minutes to complete discharge: 45 Discharge Summary Problems reviewed: Yes Reason For Visit: CHF Current Active Problems A-fib (Acute) Acute bronchitis (Acute) Atrial fibrillation with RVR (Acute) COPD exacerbation (Acute) Facial droop (Acute) HLD (hyperlipidemia) (Acute) Hypertension (Acute) Hyperthyroidism (Acute) Increased frequency of urination (Acute) Lower leg edema (Acute) Prophylactic measure (Acute) Shortness of breath (Acute) Hospital Course: HOSPITAL COURSE: Date of Admission:10/28/19 Date of Discharge: 11/02/19 - ....Imaging Cat Scan: Report Reviewed (Cat Scan: Report Reviewed (chest ct: moderate copd, infiltrates with nodularity in right mid lobe, 1cm nodular like density on the axial images that appears elongated. emphysema of upper lobes, nodule 10mm left lung. moderate copd. head ct: negative for acute process)) Ultrasound: Report Reviewed (Ultrasound: Report Reviewed (vascular study: negative for dvt. moderate atrophy, cortical atrophy and suggestive of encephalomalacia in the right posterior temporal and frontal lobe.)) Problem List - Problems (1) A-fib Assessment/Plan: rate controlled c/w diltiazem, sotolol, xarelto Code(s): I48.91 - UNSPECIFIED ATRIAL FIBRILLATION (2) Facial droop Assessment/Plan: HCT negative mild left facial assymetry Code(s): R29.810 - FACIAL WEAKNESS (3) Hypertension Assessment/Plan: normotensive c/w BB, CCB Code(s): I10 - ESSENTIAL (PRIMARY) HYPERTENSION (4) Hyperthyroidism Assessment/Plan: c/w increased dose of tapazole appreciate endocrine consultation follow as outpatient Code(s): E05.90 - THYROTOXICOSIS, UNSP WITHOUT THYROTOXIC CRISIS OR STORM (5) Lower leg edema Assessment/Plan: dopplers negative LE edema improved encourage elevation of lower extremity c/w lasix Code(s): R60.0 - LOCALIZED EDEMA (6) Prophylactic measure Assessment/Plan: FEN Fluids: adequate PO intake Electrolytes: monitor & replete as needed Nutrition: cardiac diet DVT moderate risk c/w xarelto, off plavix Dispo cleared for dc Code(s): Z29.9 - ENCOUNTER FOR PROPHYLACTIC MEASURES, UNSPECIFIED (7) Shortness of breath Assessment/Plan: improved on supplemental O2 c/w solumedrol with slow taper over next 2 weeks appreciate Pulm consultation Code(s): R06.02 - SHORTNESS OF BREATH (8) COPD exacerbation Assessment/Plan: Steroids changed to prednisone 40mg daily with slow taper, 10 mg every 5 days c/w Symbicort, Spiriva, Xopenex. supplemental O2 outpatient follow up with putmonary Code(s): J44.1 - CHRONIC OBSTRUCTIVE PULMONARY DISEASE W (ACUTE) EXACERBATION Medically cleared for discharge home Condition: Improved - Instructions Diet, Activity, Other Instructions: DISCHARGE YOUR VISIT You came to the hospital because MEDICATIONS Please continue to take your home medications as prescribed. There was XXXXX changes Prednisone 40mg x 5 days-->11/02,19,20,21,22 30mg x 5 days-->11/07,24,25,26,27 20mg x 5 days-->11/12,29,30,31,2/1 10mg x 5 days-->2/2,3,4,5,6 5mg x5days-->/,8,9,10,11 Continue Methimazole 5mg QD Follow with PCP and repeat thyroid function tests next week adjust dose as necessary we need to monitor closely to prevent hypothyroidism or continued hyperthyroidism. You can follow with Dr. Corey for an appointment call [phone] with any questions or to call for appt. DIET Continue your home diet ADDITIONAL CARE Please make an appointment to see your primary care provider, Dr Garcia or your primary provider 1 week from today. ADDITIONAL INFORMATION Please call 911 or come directly to the emergency department if you experience unusual headache, vision change, shortness of breath, chest pain, numbness, tingling, loss of alertness/awareness, loss of function, unusual bleeding or any alarming symptoms. Thank you for allowing me to care for you. Rafi Stephen, [facility], [facility] [phone] Referrals: David Garcia MD [Primary Care Provider] - Imelda Corey MD [Staff Physician] - (call for appointment) Jameel Glass MD, MD [Staff Physician] - (call for appointment) Disposition: HOME - Home Medications Comprehensive Discharge Medication List: Ambulatory Orders Aspirin Coated [Ecotrin -] 81 mg PO DAILY 11/07/11 Atorvastatin Ca [Lipitor] 80 mg PO HS 11/07/11 Clopidogrel Bisulfate [Plavix -] 75 mg PO DAILY 11/07/11 Multivitamin [Multivitamins] 0.5 each PO BID 08/26/13 Sotalol HCl [Sotalol] 40 mg PO BID 08/26/13 Fluticasone/Umeclidin/Vilanter [Trelegy Ellipta 100-62.5-25] 1 each IH DAILY Rivaroxaban [Xarelto -] 20 mg PO HS 10/12/19 Diltiazem Cd [Cardizem Cd -] 300 mg PO DAILY #30 cap.cd.24h 10/16/19 Methimazole [Tapazole -] 0.5 tab PO DAILY #15 tablet 10/16/19 Prednisone See Taper PO ASDIR #42 tablet 10/16/19 Prescription Drug Monitoring Program (I-STOP) results: I-STOP not reviewed Problem List - Problems (1) A-fib Code(s): I48.91 - UNSPECIFIED ATRIAL FIBRILLATION (2) Facial droop Code(s): R29.810 - FACIAL WEAKNESS (3) Hypertension Code(s): I10 - ESSENTIAL (PRIMARY) HYPERTENSION (4) Hyperthyroidism Code(s): E05.90 - THYROTOXICOSIS, UNSP WITHOUT THYROTOXIC CRISIS OR STORM (5) Lower leg edema Code(s): R60.0 - LOCALIZED EDEMA (6) Prophylactic measure Code(s): Z29.9 - ENCOUNTER FOR PROPHYLACTIC MEASURES, UNSPECIFIED (7) Shortness of breath Code(s): R06.02 - SHORTNESS OF BREATH (8) COPD exacerbation Code(s): J44.1 - CHRONIC OBSTRUCTIVE PULMONARY DISEASE W (ACUTE) EXACERBATION This patient is new to me today: No Emergency Visit: Yes ED Registration Date: 10/28/19 Care time: The patient presented to the Emergency Department on the above date and was hospitalized for further evaluation of their emergent condition. Critical Care patient: No - Discharge Referral Referred to [facility] Med P.C.: No
[2019-11-02 08:32] LABS: ALBUMIN 2.6 g/dl (3.4-5.0); BILIRUBIN,TOTAL 0.5 mg/dL (0.2-1); CREATININE 0.7 mg/dL (0.55-1.3); MAGNESIUM 2.2 mg/dL (1.8-2.4); POTASSIUM 3.9 mmol/L (3.5-5.1); TOT PROT 5.8 g/dl (6.4-8.2)
[2019-11-02] MEDS ORDERED: predniSONE 20 MG TABLET (UD) PO SCH (10:00)
--- NOTE | 2019-11-02 10:07 | PN ---
Progress Note (short form) - Note Progress Note: Feels good No palpitations or tremors of hands Vital Signs Period Temp Pulse Resp BP Sys/Michael Pulse Ox Last 24 Hr 97.7 F-98.2 F 79-92 16-20 112-142/60-83 98 PE: AOc3 Neck: Supple, No JVD Lungs: CTA CVS: S1S2 Abd: Benign Ext: No edema, No tremors Neuro: No focal deficit CMP Sodium 140 mmol/L (136-145) 11/02/19 06:50 Potassium 3.9 mmol/L (3.5-5.1) 11/02/19 06:50 Chloride 101 mmol/L (98-107) 11/02/19 06:50 Carbon Dioxide 36 mmol/L (21-32) H 11/02/19 06:50 Anion Gap 3 MMOL/L (8-16) L 11/02/19 06:50 BUN 21.0 mg/dL (7-18) H 11/02/19 06:50 Creatinine 0.7 mg/dL (0.55-1.3) 11/02/19 06:50 Est GFR (CKD-EPI)AfAm 104.76 11/02/19 06:50 Est GFR (CKD-EPI)NonAf 90.39 11/02/19 06:50 Random Glucose 99 mg/dL (74-106) 11/02/19 06:50 Hemoglobin A1c % 6.0 % (4.2-6.3) 10/29/19 07:00 Calcium 8.0 mg/dL (8.5-10.1) L 11/02/19 06:50 Phosphorus 4.0 mg/dL (2.5-4.9) 10/28/19 13:49 Magnesium 2.2 mg/dL (1.8-2.4) 11/02/19 06:50 Total Bilirubin 0.5 mg/dL (0.2-1) 11/02/19 06:50 AST 29 U/L (15-37) 11/02/19 06:50 ALT 58 U/L (13-61) 11/02/19 06:50 Alkaline Phosphatase 66 U/L (45-117) 11/02/19 06:50 Creatine Kinase 70 U/L (26-308) 10/28/19 13:49 Troponin I 0.17 ng/ml (0.00-0.05) H 10/29/19 07:00 B-Natriuretic Peptide 1942.7 pg/ml (5-450) H 10/28/19 13:49 Total Protein 5.8 g/dl (6.4-8.2) L 11/02/19 06:50 Albumin 2.6 g/dl (3.4-5.0) L 11/02/19 06:50 Triglycerides 57 mg/dL (0-150) 10/29/19 07:00 Cholesterol 147 mg/dL (50-200) 10/29/19 07:00 Total LDL Cholesterol 81 mg/dL (5-100) 10/29/19 07:00 HDL Cholesterol 59 mg/dL (40-60) 10/29/19 07:00 TSH 0.23 uIU/ml (0.358-3.74) L D 10/28/19 13:49 Free T4 1.36 ng/dl (0.76-1.16) H 10/28/19 13:49 Free T3 2.4 pg/ml (2.0-4.4) 10/28/19 13:49 Resin T3 Uptake 37.2 % (33-40) 10/28/19 13:49 Current Medications Generic Name Dose Route Start Last Admin Trade Name Freq PRN Reason Stop Dose Admin Albuterol/Ipratropium 1 amp 10/30/19 17:43 Duoneb - NEB Q6H PRN WHEEZING Atorvastatin Calcium 80 mg 10/28/19 22:00 11/01/19 22:02 Lipitor - PO 80 mg HS LEMUEL Administration Bacitracin 1 applic 10/28/19 22:00 11/01/19 22:01 Bacitracin - TP 1 applic BID LEMUEL Administration Budesonide/Formoterol Fumarate 2 puff 10/28/19 22:00 11/01/19 22:02 Symbicort 160/4.5mcg - IH 2 puff BID LEMUEL Administration Diltiazem HCl 360 mg 11/02/19 10:00 Cardizem Cd - PO DAILY LEMUEL Docusate Sodium 100 mg 10/30/19 15:00 11/02/19 06:17 Colace - PO 100 mg TID LEMUEL Administration Furosemide 40 mg 11/01/19 10:30 11/01/19 11:06 Lasix - PO 40 mg DAILY LEMUEL Administration Azithromycin 500 mg in 250 mls @ 250 mls/hr 10/29/19 12:45 11/01/19 10:16 Zithromax 500mg Ivpb (Pre-Docked) IVPB 250 mls/hr DAILY LEMUEL Administration Levalbuterol HCl 0.63 mg 10/30/19 14:00 11/02/19 07:40 Xopenex IH 0.63 mg RTID LEMUEL Administration Methimazole 5 mg 10/30/19 09:05 11/01/19 10:16 Tapazole - PO 5 mg DAILY LEMUEL Administration Multivitamins/Minerals/Vitamin C 1 tab 10/29/19 10:00 11/01/19 10:15 Tab-A-Vit - PO 1 tab DAILY LEMUEL Administration Pantoprazole Sodium 40 mg 10/29/19 10:00 11/01/19 10:15 Protonix - PO 40 mg DAILY LEMUEL Administration Polyethylene Glycol 17 gm 10/31/19 10:00 11/01/19 14:07 Miralax (For Daily Use) - PO 17 grams DAILY LEMUEL Administration Prednisone 40 mg 11/02/19 10:00 Deltasone - PO 11/06/19 10:01 DAILY LEMUEL Rivaroxaban 20 mg 10/28/19 18:00 11/01/19 17:35 Xarelto PO 20 mg DAILY@1800 LEMUEL Administration Sodium Chloride 2 spray 10/29/19 14:12 [place] Nasal [place] - NS BID PRN NASAL CONGESTION Sotalol HCl 40 mg 10/28/19 22:00 11/01/19 22:00 Betapace - PO 40 mg BID LEMUEL Administration Tiotropium [place] 2 puff 10/29/19 10:00 11/01/19 10:16 Spiriva Respimat IH 2 puff DAILY LEMUEL Administration AP COPD Exacerbation A Fib CAD Hyperthyroidism Continue Methimazole to 5mg QD F/u with PCP and repeat TFT in the next few days to adjust dose as necessary Explained need to monitor TFT closely to prevent hypothyroidism or continued hyperthyroidism. To call [phone] with any questions or to call for appt.
[2019-11-02] MEDS: MULTIVITAMINS (DAILY MVI) TABLET (FP) PO SCH (10:30)
[2019-11-02] MEDS: BACITRACIN 15 GM TUBE TOPICAL OINTMENT TP SCH (10:30)
[2019-11-02] MEDS: FUROSEMIDE 40 MG TABLET (FP) PO SCH (10:30)
[2019-11-02] MEDS: SOTALOL HCL 80 MG TABLET (FP) PO SCH (10:30)
[2019-11-02] MEDS: PANTOPRAZOLE 40 MG TABLET PO SCH (10:30)
[2019-11-02] MEDS: AZITHROMYCIN IVPB 500 MG/250 ML BAG IVPB SCH (10:31)
[2019-11-02] MEDS: POLYETHYLENE GLYCOL 3350 119 GM BTL PO SCH (10:31)
[2019-11-02] MEDS: BUDESONIDE/FORMETEROL FUMARATE 160/4.5 mcg INHALER IH SCH (10:31)
[2019-11-02] MEDS: TIOTROPIUM BROMIDE 2.5 MCG (SPIRIVA) RESPIMAT INHALER IH SCH (10:31)
[2019-11-02] MEDS: METHIMAZOLE 5 MG TABLET (FP) PO SCH (10:31)
--- NOTE | 2019-11-02 11:57 | PN ---
Progress Note (short form) - Note Progress Note: s: sob improving, no chest pain, palps, dizziness Current Medications Generic Name Dose Route Start Last Admin Trade Name Freq PRN Reason Stop Dose Admin Albuterol/Ipratropium 1 amp 10/30/19 17:43 Duoneb - NEB Q6H PRN WHEEZING Atorvastatin Calcium 80 mg 10/28/19 22:00 11/01/19 22:02 Lipitor - PO 80 mg HS LEMUEL Administration Bacitracin 1 applic 10/28/19 22:00 11/02/19 10:30 Bacitracin - TP 1 applic BID LEMUEL Administration Budesonide/Formoterol Fumarate 2 puff 10/28/19 22:00 11/02/19 10:31 Symbicort 160/4.5mcg - IH 2 puff BID LEMUEL Administration Diltiazem HCl 360 mg 11/02/19 10:00 11/02/19 10:30 Cardizem Cd - PO 360 mg DAILY LEMUEL Administration Docusate Sodium 100 mg 10/30/19 15:00 11/02/19 06:17 Colace - PO 100 mg TID LEMUEL Administration Furosemide 40 mg 11/01/19 10:30 11/02/19 10:30 Lasix - PO 40 mg DAILY LEMUEL Administration Azithromycin 500 mg in 250 mls @ 250 mls/hr 10/29/19 12:45 11/02/19 10:31 Zithromax 500mg Ivpb (Pre-Docked) IVPB 250 mls/hr DAILY LEMUEL Administration Levalbuterol HCl 0.63 mg 10/30/19 14:00 11/02/19 07:40 Xopenex IH 0.63 mg RTID LEMUEL Administration Methimazole 5 mg 10/30/19 09:05 11/02/19 10:31 Tapazole - PO 5 mg DAILY LEMUEL Administration Multivitamins/Minerals/Vitamin C 1 tab 10/29/19 10:00 11/02/19 10:30 Tab-A-Vit - PO 1 tab DAILY LEMUEL Administration Pantoprazole Sodium 40 mg 10/29/19 10:00 11/02/19 10:30 Protonix - PO 40 mg DAILY LEMUEL Administration Polyethylene Glycol 17 gm 10/31/19 10:00 11/02/19 10:31 Miralax (For Daily Use) - PO Not Given DAILY LEMUEL Prednisone 40 mg 11/02/19 10:00 11/02/19 10:30 Deltasone - PO 11/06/19 10:01 40 mg DAILY LEMUEL Administration Rivaroxaban 20 mg 10/28/19 18:00 11/01/19 17:35 Xarelto PO 20 mg DAILY@1800 LEMUEL Administration Sodium Chloride 2 spray 10/29/19 14:12 [place] Nasal [place] - NS BID PRN NASAL CONGESTION Sotalol HCl 40 mg 10/28/19 22:00 11/02/19 10:30 Betapace - PO 40 mg BID LEMUEL Administration Tiotropium [place] 2 puff 10/29/19 10:00 11/02/19 10:31 Spiriva Respimat IH 2 puff DAILY LEMUEL Administration Vital Signs Period Temp Pulse Resp BP Sys/Michael Pulse Ox Last 24 Hr 97.7 F-98.2 F 79-92 16-20 112-142/60-83 98 Constitutional: Yes: No Distress, Calm Eyes: Yes: Conjunctiva Clear, EOM Intact HENT: Yes: Atraumatic, Normocephalic Neck: Yes: Supple, Trachea Midline Respiratory: Yes: bl wheeze, nl eff Gastrointestinal: Yes: Normal Bowel Sounds, Soft Cardiovascular: Yes: Tachycardia, Pulse Irregular JVD: No Heart Sounds: Yes: S1, S2 Extremities: No: Cold Edema: trace le edema bl Integumentary: No: Jaundice Neurological: Yes: Alert, Oriented Psychiatric: No: Agitated CBC, BMP 11/02/19 06:50 11/02/19 06:50 EKG: afib with RVR no ischemic changes CT chest: mod COPD changes, atelectasis vs infiltrates in RML, atelectasis in L lung base laterally with 1 cm nodular like density tele: afib->rate overall controlled Echo 10/03: nl LV/RV. mild-mod TR shortness of breath, copd exac, acute bronchitis, acute diastolic CHF: - trop indeterminate range, flat trend with EKG no ischemic changes - unlikely ACS - BNP 1900 (was 3400 at prior admission), edema improved with IV lasix - nl EF on echo 09/2019 - most likely COPD exac with component of pulmonary edema - edema improved after two doses of IV lasix, still with edema, likely 2/2 steroids. Cont po lasix for now. - nebs, steroids per primary, pulm paroxysmal afib, h/o remote AFL ablation: - RVR likely sec to hyperthyroid/copd sx's/steroids - he tolerated similar degree of tachycardia well as outpt (actually more rapid) , tolerating current tachy burden well with normal LVEF - observe HR once euthyroid--will consider outpatient EP eval for ? increase sotalol vs PVI ablation if remains with rapid AF - cont xarelto, cardizem, sotalol HTN -cont home meds HLD - cont statin CAD s/p CABG - cont xarelto, statin. pt reports he is not taking plavix at home, will dc given he is on xarelto hyperthyroidism -manage per endocrine cardiac cooper ok for dc
== END 2019-11-02 17:40 | disposition home or self-care (01) | DRG 190 ==
LOC: JER 12:21 → JERBED 15:14 → J4W 10-29 21:37
PROVIDERS: ADMIT Internal Medicine; ATTEND Nurse Practitioner Acute Care
DX: J44.1 Chronic obstructive pulmonary disease with (acute) exacerbation (principal); I50.33 Acute on chronic diastolic (congestive) heart failure; I24.8 Other forms of acute ischemic heart disease; J96.11 Chronic respiratory failure with hypoxia; J98.11 Atelectasis; I11.0 Hypertensive heart disease with heart failure; I10 Essential (primary) hypertension; E78.5 Hyperlipidemia, unspecified; I25.10 Atherosclerotic heart disease of native coronary artery without angina pectoris; R29.810 Facial weakness; R35.0 Frequency of micturition; R60.0 Localized edema; J20.9 Acute bronchitis, unspecified; J44.0 Chronic obstructive pulmonary disease with (acute) lower respiratory infection; I48.0 Paroxysmal atrial fibrillation; E05.90 Thyrotoxicosis, unspecified without thyrotoxic crisis or storm; Z99.81 Dependence on supplemental oxygen; Z95.1 Presence of aortocoronary bypass graft
CPT/HCPCS: 36415; 70450-TC; 71045-TC-FY; 71250-TC; 80053; 80061; 81003; 82550; 82803; 83036; 83721; 83735; 83880; 84100; 84439; 84443; 84479; 84481; 84484; 85025; 85610; 86850; 86900; 86901; 87040; 87086; 87804; 93005; 93010; 93970-TC; 94640; 97116-GP; 97161-GP; 99285-25

== ENCOUNTER 2019-11-13 16:08 | Emergency (ER) | payer OTHER, BC ==
--- NOTE | 2019-11-13 16:37 | PDOC ---
Rapid Medical Evaluation Time Seen by Provider: 11/13/19 16:29 Medical Evaluation: Allergies Allergy/AdvReac Type Severity Reaction Status Date / Time No Known Allergies Allergy Verified 10/28/19 12:27 11/13/19 16:35 CC: sent by PMD for head trauma. Takes Xarelto for A-fib PE: No findings Orders: CTH, cervical spine CT Patient will proceed to the ED for further evaluation. Discharge Disposition - Diagnosis Head trauma - Referrals - Patient Instructions - Post Discharge Activity
[2019-11-13 16:40] VITALS: BP 139/76; PULSE 76; BMI 29.5
--- NOTE | 2019-11-13 18:01 | PDOC ---
Attending Attestation - Resident Resident Name: Hortencia Cagle - ED Attending Attestation I have performed the following: I have examined & evaluated the patient, The case was reviewed & discussed with the resident, I agree w/resident's findings & plan - HPI HPI: 11/13/19 19:05 79yo man with a PMH of [place], HLD, A-Fib (on Xarelto and Cardizem), CAD (s/p CABG) , and COPD presenting after mechanical fall on the stairs. He states that his feet slipped out from underneath him, and he fell onto his left side. He had an abrasion to the left arm and "lightly bumped his head" on the steps. He denies any head pain, LOC, focal weakness, numbness/tingling, difficulty speaking, AMS , sleepiness or other neurological symtpoms.. He additinoally denies any nausea or vomiting. He has been walking normally, and he has no complaints currently. He states that he would not have come to the ED exacept that he saw his PMD today and was directed to come for imaging due to his Xarelto use. 11/13/19 19:05 11/15/19 07:33 - Physicial Exam PE: 11/13/19 19:04 General: GCS 15 NAD, well appearing HEENT: NCAT, PERRL, EOMI. Airway intact. No battles sign or raccoon eyes. No e/ o ocular. Dentition intact. No e/o septal hematoma, nasal bridge stable. Neck: neck supple, no midline C spine tenderness or deformity, ROM intact. No anterior mass or crepitus, trachea midline. Resp: Lungs clear bilaterally Chest: no clavicle or chest wall tenderness or crepitus CVS: +holosystolic murmur, 2+ pulses throughout. Abdomen: Abdomen soft, nontender, nondistended. Back: Back nontender, no midline spinal tenderness along cervical/thoracic/ lumbar spine, FROM, no stepoffs. MSK: Pelvis stable, Extremities symmetric, no focal areas of tenderness or deformities, proximal and distally; no pain on axial loading. FROM in all extrem. Neuro: Alert, oriented appropriately. CN II-XII grossly symmetric and intact. no focal neuro deficits. Sensation and strength intact throughout. Gait normal/ stable. Skin: intact, normal color and well perfused. No seatbelt signs at neck, chest or abdomen. 11/13/19 19:05 - Medical Decision Making 11/13/19 18:01 Vital Signs Temp Pulse Resp BP Pulse Ox 76 18 139/76 98 11/13/19 16:36 11/13/19 16:36 11/13/19 16:36 11/13/19 16:36 Trauma ddx: ICH, SDH/ EDH, C spine injury/strain, extremity sprain/fracture, pelvis fracture. MSK contusion, msk spasms. Rib fractures. Clinically doubt Intra abdominal and thoracic injuries/bleed no cp or sob abdomen soft and nontender. VS reviewed, wnl. GCS 15, neuro intact. 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 Instructed on headache/dizziness/vomiting, altered mental status, lethargy, neurologic changes. Patient and family amenable to the impression and plan verbalized understanding. 11/13/19 19:03 11/13/19 19:06
--- NOTE | 2019-11-13 18:31 | PDOC ---
History of Present Illness - General Chief Complaint: Injury Stated Complaint: EVALUATION Time Seen by Provider: 11/13/19 16:29 - History of Present Illness Initial Comments: Eleazar Pathak Jr is a 79yo man with a PMH of [place], HLD, A-Fib (on Xarelto and Cardizem), CAD (s/p CABG), and COPD who presents following a mechanical fall on the stairs. He states that his feet slipped out from underneath him, and he fell onto his left side. He had an abrasion to the left arm and "lightly bumped his head" on the steps. He denies any head pain, LOC, focal weakness, numbness/ tingling, difficulty speaking, AMS, sleepiness or other neurological symptoms.. He additionally denies any nausea or vomiting. He has been walking normally, and he has no complaints currently. He states that he would not have come to the ED except that he saw his PMD today and was directed to come for imaging due to his Xarelto use. Past History - Past Medical History Allergies/Adverse Reactions: Allergies Allergy/AdvReac Type Severity Reaction Status Date / Time No Known Allergies Allergy Verified 11/13/19 16:36 Home Medications: Ambulatory Orders Aspirin Coated [Ecotrin -] 81 mg PO DAILY 11/07/11 Atorvastatin Ca [Lipitor] 80 mg PO HS 11/07/11 Multivitamin [Multivitamins] 0.5 each PO BID 08/26/13 Sotalol HCl [Sotalol] 40 mg PO BID 08/26/13 Rivaroxaban [Xarelto -] 20 mg PO HS 10/12/19 Methimazole [Tapazole -] 0.5 tab PO DAILY #15 tablet 10/16/19 Bacitracin - [Bacitracin Topical Ointment -] 1 applic TP BID tube 11/02/19 Budesonide/Formeterol Fumarate [SYMBICORT 160/4.5mcg -] 2 puff IH BID #1 inhaler 11/02/19 Diltiazem Cd [Cardizem Cd -] 360 mg PO DAILY #30 cap.cd.24h 11/02/19 Docusate Sodium [Colace -] 100 mg PO TID capsule 11/02/19 Furosemide [Lasix -] 40 mg PO DAILY #30 tablet 11/02/19 Methimazole [Tapazole -] 5 mg PO DAILY tablet 11/02/19 Pantoprazole Sodium [Protonix -] 40 mg PO DAILY #30 tablet.ec 11/02/19 Polyethylene Glycol 3350 [Miralax 119 gm Btl -] 17 gm PO DAILY bottle 11/02/19 Tiotropium [place] [Spiriva Respimat] 2 puff IH DAILY #1 inhaler 11/02/19 predniSONE [Deltasone -] See Taper PO DAILY #58 tablet 11/02/19 Anemia: No Asthma: No Cancer: No Cardiac Disorders: Yes (cabg 06/2005) CVA: No COPD: Yes (EMPHYSEMA) CHF: Yes Dementia: No Diabetes: No GI Disorders: No Disorders: No HTN: Yes Hypercholesterolemia: Yes Liver Disease: No Seizures: No Thyroid Disease: No - Surgical History Abdominal Surgery: Yes Appendectomy: No Cardiac Surgery: Yes (cabg X 2004) Cholecystectomy: No Lung Surgery: No Neurologic Surgery: No Orthopedic Surgery: No - Psycho Social/Smoking Cessation Hx Smoking History: Former smoker Have you smoked in the past 12 months: No If you are a former smoker, when did you quit?: 17YRS AGO Information on smoking cessation initiated: No Hx Alcohol Use: Yes Drug/Substance Use Hx: No Substance Use Type: None Hx Substance Use Treatment: No Review of Systems - Review of Systems Comments:: General: No fevers, no chills, no weight or appetite change, no malaise HEENT: No changes in vision, no changes in hearing, no congestion, no sore throat CV: No chest pain, no palpitations, no LE edema Pulm: No SOB, no cough, no wheezing GI: No nausea or vomiting, no change in bowel habits, no melena : No frequency, no urgency, no dysuria Musc: No back pain, no joint swelling, no recent injury Skin: No rash, no lesions, no erythema Endo: No excessive thirst, no heat/cold intolerance Heme: No unusual bruising or bleeding, no swollen glands Neuro: No syncope, no numbness/tingling, no focal weakness Vasc: No claudication Psych: No recent change in mood, no SI or HI *Physical Exam - Vital Signs Last Vital Signs Temp Pulse Resp BP Pulse Ox 76 18 139/76 98 11/13/19 16:36 11/13/19 16:36 11/13/19 16:36 11/13/19 16:36 - Physical Exam General: Comfortable, no acute distress HEENT: Atraumatic, PERRL, EOMI, MMM, voice normal, normal neck ROM, no posterior neck tenderness Cards: RRR, no murmur appreciated Pulm: Comfortable on room air, clear to auscultation bilaterally Abd: Soft, nontender, nondistended Back: Nontender, no abrasion, no ecchymosis, no sign of injury Ext: Small, healing superficial abrasion on left forearm, otherwise atraumatic. No LE edema. ROM intact. WWP. Ambulates w/ steady gait Skin: Normal color, no rashes or lesions Neuro: A&Ox3, CN grossly intact, normal speech, motor/sensory grossly intact and symmetric Psych: Mood appropriate to situation Medical Decision Making - Medical Decision Making 11/13/19 18:28 Eleazar Pathak Jr is a 79yo man with a PMH of [place], HLD, A-Fib (on Xarelto and Cardizem), CAD (s/p CABG), and COPD who presents with a minor head injury following a mechanical fall on the stairs several days ago. - Fell several days ago. No neurological deficits, no visible trauma - CT head, c-spine completed prior to assessment. No acute pathology noted. No bleed - Plan to d/c home. Discussed return precautions at length with the patient and his . Both state understanding and agreement, will return if symptoms change. Discussed with Dr Alexandrea Cagle PGY2 Discharge - Discharge Information Problems reviewed: Yes Clinical Impression/Diagnosis: Head trauma Qualifiers: Encounter type: initial encounter Qualified Code(s): S09.90XA - Unspecified injury of head, initial encounter Condition: Stable Disposition: HOME - Admission No - Follow up/Referral Referrals: Augie Garcia MD [Primary Care Provider] - - Patient Discharge Instructions Patient Printed Discharge Instructions: DI for Closed Head Injury Additional Instructions: Discharge Instructions: You were seen in the emergency department following a fall at home. Your head CT was negative for any injury. Follow up with your regular doctor as needed. Seek immediate medical care for any worsening symptoms, severe pain, one-sided weakness or numbness, changes in your speech, sleepiness, multiple episodes of vomiting per hour for several hours, or any other medical emergency. - Post Discharge Activity
== END 2019-11-13 19:42 | disposition home or self-care (01) ==
LOC: JER 16:08
DX: S09.90XA Unspecified injury of head, initial encounter (principal); W10.9XXA Fall (on) (from) unspecified stairs and steps, initial encounter; Y93.89 Activity, other specified; Y92.410 Unspecified street and highway as the place of occurrence of the external cause; E78.5 Hyperlipidemia, unspecified; I48.91 Unspecified atrial fibrillation; Z79.01 Long term (current) use of anticoagulants; J44.9 Chronic obstructive pulmonary disease, unspecified; I25.10 Atherosclerotic heart disease of native coronary artery without angina pectoris
CPT/HCPCS: 70450-TC; 72125-TC; 99281-25

== ENCOUNTER 2019-12-05 08:59 | Inpatient (IN) | payer OTHER, BC ==
[2019-12-05] MEDS ORDERED: dilTIAZem HCL 50 MG/10 ML - 10 ML VIAL IVPUSH ONE (09:05)
--- NOTE | 2019-12-05 09:23 | PDOC ---
History of Present Illness - General Chief Complaint: Palpitations Stated Complaint: PALPITATIONS Time Seen by Provider: 12/05/19 09:04 History Source: Patient Exam Limitations: No Limitations - History of Present Illness Initial Comments: 12/05/19 09:18 79y M with PMH of CAD (s/p CABG 2004), Afib (Xarelto, Cardizem), Hyperthyroidism , HTN, HLD, COPD presenting to ED for palpitations and SOB that started this AM. Pt states he woke up and was not feeling right. He placed a pulse ox on and it showed his HR in the 130s. Per , patient looked very pale at that time. Pt states that right now he feels ok. He states that recently he has been getting short of breath with exertion. Denies chest pain, syncope, orthopnea, swelling, sob at rest, syncope, headache, fevers, chills, recent illnesses. 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 PMD: Radha Cards: Eugenio PMH: see hpi PSH: see hpi Meds: see med rec Allergies: nkda Social: denies Past History - Past Medical History Allergies/Adverse Reactions: Allergies Allergy/AdvReac Type Severity Reaction Status Date / Time No Known Allergies Allergy Verified 11/13/19 16:36 Home Medications: Ambulatory Orders Atorvastatin Ca [Lipitor] 80 mg PO HS 11/07/11 Multivitamin [Multivitamins] 1 each PO DAILY 08/26/13 Sotalol HCl [Sotalol] 40 mg PO BID 08/26/13 Rivaroxaban [Xarelto -] 20 mg PO HS 10/12/19 Diltiazem Cd [Cardizem Cd -] 360 mg PO DAILY #30 cap.cd.24h 11/02/19 Furosemide [Lasix -] 40 mg PO DAILY #30 tablet 11/02/19 Methimazole [Tapazole -] 5 mg PO DAILY tablet 11/02/19 Pantoprazole Sodium [Protonix -] 40 mg PO DAILY #30 tablet.ec 11/02/19 Amlodipine Besylate 10 mg PO DAILY 12/05/19 Docusate Sodium [Colace -] 100 mg PO DAILY 12/05/19 Fluticasone/Umeclidin/Vilanter [Trelegy Ellipta 100-62.5-25] 1 each IH DAILY Anemia: No Asthma: No Cancer: No Cardiac Disorders: Yes (cabg 06/2005) CVA: No COPD: Yes (EMPHYSEMA) CHF: Yes Dementia: No Diabetes: No GI Disorders: No Disorders: No HTN: Yes Hypercholesterolemia: Yes Liver Disease: No Seizures: No Thyroid Disease: No - Surgical History Abdominal Surgery: Yes Appendectomy: No Cardiac Surgery: Yes (cabg X 2004) Cholecystectomy: No Lung Surgery: No Neurologic Surgery: No Orthopedic Surgery: No - Psycho Social/Smoking Cessation Hx Smoking History: Former smoker Have you smoked in the past 12 months: No If you are a former smoker, when did you quit?: 25 yr s ago Information on smoking cessation initiated: No Hx Alcohol Use: Yes Drug/Substance Use Hx: No Substance Use Type: None Hx Substance Use Treatment: No Review of Systems - Review of Systems Constitutional: Yes: See HPI HEENTM: No: Symptoms Reported Respiratory: Yes: See HPI Cardiac (ROS): Yes: See HPI ABD/GI: No: Symptoms Reported : No: Symptoms Reported Musculoskeletal: No: Symptoms Reported Integumentary: No: Symptoms Reported Neurological: No: Symptoms reported *Physical Exam - Vital Signs Last Vital Signs Temp Pulse Resp BP Pulse Ox 98.1 F 130 H 20 114/80 95 12/05/19 08:59 12/05/19 08:59 12/05/19 08:59 12/05/19 08:59 12/05/19 08:59 - Physical Exam General Appearance: Yes: Nourished, Appropriately Dressed, Obese. No: Apparent Distress HEENT: positive: EOMI, KAYA, Normal ENT Inspection Neck: positive: Trachea midline, Supple. negative: Lymphadenopathy (R), Lymphadenopathy (L) Respiratory/Chest: positive: Lungs Clear, Normal Breath Sounds. negative: Crackles, Rales, Rhonchi, Stridor, Wheezing Cardiovascular: positive: S1, S2, Irregularly Irregular. negative: Edema, JVD, Murmur Gastrointestinal/Abdominal: positive: Normal Bowel Sounds, Soft. negative: Tender Musculoskeletal: negative: CVA Tenderness Extremity: positive: Normal Capillary Refill. negative: Swelling, Calf Tenderness Integumentary: positive: Normal Color, Dry, Warm Neurologic: positive: meter tester II-XII NML intact, Fully Oriented, Alert, Normal Mood/ Affect, Normal Response, Motor Strength 5/5 ED Treatment Course - LABORATORY CBC & Chemistry Diagram: 12/06/19 06:55 12/06/19 06:55 Medical Decision Making - Medical Decision Making 12/05/19 09:27 79y M prsenting for palpitations and sob afib rvr, copd v. chf for sob. or could be due to rvr. -diltiazem. 10/14/19 echo: normal EF. 12/05/19 09:27 cxr shows infiltrate in RUL, will treat as CAP. 12/05/19 11:[address] Pan, does not require ASA at this time. likely 2/2 demand will admit to tele 12/06/19 20:21 Discharge - Discharge Information Problems reviewed: Yes Clinical Impression/Diagnosis: A-fib Qualifiers: Atrial fibrillation type: unspecified Qualified Code(s): I48.91 - Unspecified atrial fibrillation PNA (pneumonia) Qualifiers: Pneumonia type: due to unspecified organism Laterality: right Lung location: upper lobe of lung Qualified Code(s): J18.9 - Pneumonia, unspecified organism - Admission Yes - Follow up/Referral - Patient Discharge Instructions - Post Discharge Activity
[2019-12-05] MEDS ORDERED: dilTIAZem HCL 50 MG/10 ML - 10 ML VIAL ONE (09:24)
--- NOTE | 2019-12-05 09:31 | PDOC ---
Attending Attestation - Resident Resident Name: YanaNaida - ED Attending Attestation I have performed the following: I have examined & evaluated the patient, The case was reviewed & discussed with the resident, I agree w/resident's findings & plan, Exceptions are as noted - HPI HPI: 12/05/19 09:27 Awoke this morning, noted rapid heartbeat and shortness of breath. No chest pain, nausea, diaphoresis. History of A. fib maintained on Cardizem and sotalol. Coronary artery disease with bypass. No recent fever/chills, URI symptoms, sore throat, cough, abdominal pain, dysuria, or other sign of infection. - Physicial Exam PE: 12/05/19 09:28 PE reveals that the patient is afebrile, has an irregularly irregular heart rate of between 130 and 140, with normal blood pressure, respiratory rate, and O2 saturation HEENT normal Neck supple without bruit mass or nodes Distant breath sounds bilaterally, increased AP diameter, no dullness at the bases, no wheezes rales or rhonchi, symmetric. CV with irregularly irregular rapid rate consistent with uncontrolled A. fib. No murmurs rubs or gallops. Pulses full and symmetric. Trace pedal edema. No JVD Abdomen benign - Medical Decision Making 12/05/19 09:30 Assessment: Rapid A. fib, resultant shortness of breath, no obvious precipitating factor. Rule out acute cardiac event. Plan: EKG and enzymes, rate control, further evaluation and treatment depending on results and response to therapy. 12/05/19 09:52 EKG reveals rapid atrial flutter, 2-1 conduction, rate 142/min. Small Q waves in 3 and F, possible old inferior wall TN. No acute ST-T wave changes. Chest x-ray reveals a right upper lobe infiltrate, probable community-acquired pneumonia. Although the patient is asymptomatic. 12/05/19 11:35 Rate in the 80s to 90s after intravenous Cardizem. Remains asymptomatic, clinically and hemodynamically stable Dr. Cisneros contacted by phone. He is contracting support specialist for Dr. Becker. The case was discussed. He recommended supplemental IV Cardizem as needed. He will evaluate the patient later today. Aware of elevated troponin, which he feels is not related to acute coronary syndrome. Repeat EKG and enzymes will be performed. Antibiotics for presumed pneumonia have been administered. Patient transferred to the [facility] unit with monitoring.
[2019-12-05] MEDS ORDERED: dilTIAZem HCL 60 MG TABLET (FP) PO ONE (09:40)
[2019-12-05] MEDS ORDERED: AZITHROMYCIN IVPB 500 MG in DEXTROSE 5%-WATER - 250 ML IVPB ONE (09:45)
[2019-12-05] MEDS ORDERED: CEFTRIAXONE 1 GM in DEXTROSE 5%-WATER - 100 ML IVPB ONE (09:45)
[2019-12-05] MEDS ORDERED: cefTRIAXone SODIUM 1 GM VIAL ONE (10:03)
[2019-12-05] MEDS ORDERED: AZITHROMYCIN 500 MG VIAL IVPB ONE (10:03)
[2019-12-05 10:08] LABS: BASO % 0.1 % (0-2.0); HEMATOCRIT 38.1 % (35.4-49); HEMOGLOBIN 13.1 GM/dl (11.7-16.9); LYMPH % 11.2 % (8-40); MCH 32.4 pg (25.7-33.7); MCHC 34.4 g/dl (32.0-35.9); MEAN CELL VOLUME 94.1 fl (80-96); MEAN PLT VOLUME 7.8 fl (7.5-11.1); MONO % 11.3 % (3.8-10.2); NEUT % 75.4 % (42.8-82.8); PLATELET COUNT 328 K/MM3 (134-434); RBC 4.05 M/mm3 (4.00-5.60); RDW 13.6 % (11.9-15.9)
[2019-12-05 10:12] LABS: INR 2.45 (0.82-1.09)
[2019-12-05 10:16] LABS: ALBUMIN 3.2 g/dl (3.4-5.0); BILIRUBIN,TOTAL 1.4 mg/dl (0.2-1); CALCIUM 8.6 mg/dl (8.5-10); POTASSIUM 4.5 mmol/L (3.5-5.1); TOT PROT 6.7 g/dl (6.4-8.2)
--- NOTE | 2019-12-05 11:01 | HP ---
Admitting History and Physical - Primary Care Physician PCP: David Garcia - Admission Chief Complaint: palpitations History of Present Illness: Patient is a 79 year old male with a significant past medical history of atril fibrillation (on xarelto), hypertension, hyperlipidemia, CAD (s/pCABG), COPD ( on home oxygen at 2 liters). Multiple recent admissions to [facility] ( 10/12/2019 -10/16/19 for acute exacerbation of COPD & again 10/28-, fall at home 11/13 & discharged home). He was treated with bronchodilators, steroid taper, antibiotics and oxygen. Patient sent home on 11/02/2019 to with slow steriod taper over 2 weeks & continued O2. Was feeling well until this morning where he "didn't feel right" put the pulse oximeter on and HR was in 130s. Denies and chest pain, dyspnea, nausea/vomiting. Did not miss any home medications History Source: Patient Limitations to Obtaining History: No Limitations - Past Medical History Cardiovascular: Yes: AFIB, CAD, HTN, Hyperlipdemia Pulmonary: Yes: COPD, O2 Dependent (2L at home) - Past Surgical History Past Surgical History: Yes: CABG (2004) - Smoking History Smoking history: Former smoker Have you smoked in the past 12 months: No If you are a former smoker, when did you quit?: 25 yr s ago - Alcohol/Substance Use Hx Alcohol Use: Yes Number of Drinks Daily: 3 (daily wine (several glasses)) History of Substance Use: reports: None Date of Last Use: 12/04/19 - Social History Usual Living Arrangement: Yes: With Spouse Do you think of yourself as: Straight/Heterosexual ADL: Independent Occupation: retired History of Recent Travel: No Home Medications - Allergies Allergies/Adverse Reactions: Allergies Allergy/AdvReac Type Severity Reaction Status Date / Time No Known Allergies Allergy Verified 11/13/19 16:36 - Home Medications Home Medications: Ambulatory Orders Atorvastatin Ca [Lipitor] 80 mg PO HS 11/07/11 Multivitamin [Multivitamins] 1 each PO DAILY 08/26/13 Sotalol HCl [Sotalol] 40 mg PO BID 08/26/13 Rivaroxaban [Xarelto -] 20 mg PO HS 10/12/19 Diltiazem Cd [Cardizem Cd -] 360 mg PO DAILY #30 cap.cd.24h 11/02/19 Furosemide [Lasix -] 40 mg PO DAILY #30 tablet 11/02/19 Methimazole [Tapazole -] 5 mg PO DAILY tablet 11/02/19 Pantoprazole Sodium [Protonix -] 40 mg PO DAILY #30 tablet.ec 11/02/19 Amlodipine Besylate 10 mg PO DAILY 12/05/19 Docusate Sodium [Colace -] 100 mg PO DAILY 12/05/19 Fluticasone/Umeclidin/Vilanter [Trelegy Ellipta 100-62.5-25] 1 each IH DAILY Family Medical History Family History: Unremarkable Review of Systems - Review of Systems Constitutional: reports: No Symptoms Eyes: reports: No Symptoms HENT: reports: No Symptoms Neck: reports: No Symptoms Cardiovascular: reports: Palpitations Respiratory: reports: No Symptoms Gastrointestinal: reports: No Symptoms Genitourinary: reports: No Symptoms Breasts: reports: No Symptoms Reported Musculoskeletal: reports: No Symptoms Integumentary: reports: No Symptoms Neurological: reports: No Symptoms Endocrine: reports: No Symptoms Hematology/Lymphatic: reports: No Symptoms Psychiatric: reports: No Symptoms Physical Examination Vital Signs: Vital Signs Temperature 98.1 F 12/05/19 08:59 Pulse Rate 98 H 12/05/19 10:30 Respiratory Rate 28 H 12/05/19 10:30 Blood Pressure 121/78 12/05/19 10:30 O2 Sat by Pulse Oximetry (%) 95 12/05/19 10:30 Constitutional: Yes: Well Nourished, No Distress, Calm Eyes: Yes: WNL, Conjunctiva Clear, EOM Intact HENT: Yes: WNL, Atraumatic, Normocephalic Neck: Yes: WNL, Supple, Trachea Midline Cardiovascular: Yes: Tachycardia, Pulse Irregular Respiratory: Yes: Diminished (right>left bases), On Nasal O2 (2L at home-none here) Gastrointestinal: Yes: WNL, Normal Bowel Sounds ...Rectal Exam: Yes: Deferred Renal/: Yes: WNL Breast(s): Yes: WNL Musculoskeletal: Yes: WNL Extremities: Yes: WNL Edema: Yes Edema: LLE: Trace, RLE: Trace Peripheral Pulses WNL: Yes Peripheral Pulses: Left Radial: 2+, Right Radial: 2+, Left Doralis Pedis: 2+, Right Dorsalis Pedis: 2+, Left Femoral: 2+, Right Femoral: 2+ Integumentary: Yes: Other (dry flaking skin to LE) Neurological: Yes: WNL, Alert, Oriented, Other (gait not observed) ...Motor Strength: WNL Psychiatric: Yes: WNL Labs: CBC, BMP 12/05/19 09:30 12/05/19 09:30 Imaging - Results Chest X-ray: Image Reviewed (RUL infiltrate) EKG: Image Reviewed (AR with RVR) Other: Report Reviewed (TTE 10/28 EF 50-60%, LV fx nml, mild MR, mod TR Dopplers 10/28 :no eveidence of DVTs) Problem List - Problems (1) S/P CABG x 4 Assessment/Plan: hx of in 2004 Code(s): Z95.1 - PRESENCE OF AORTOCORONARY BYPASS GRAFT (2) COPD (chronic obstructive pulmonary disease) Assessment/Plan: stable presently supplemental O2 as needed to maintain SPO2 >88% c/w Fluticasone combo ( will bring in) Code(s): J44.9 - CHRONIC OBSTRUCTIVE PULMONARY DISEASE, UNSPECIFIED (3) Atrial fibrillation with RVR Assessment/Plan: HR noted to ne 130s in ED Given Diltiazem and HR came down to 90s discussed with Dr Pan continue with diltiazem with extra doses prn c/w soltolol Code(s): I48.91 - UNSPECIFIED ATRIAL FIBRILLATION (4) Facial droop Assessment/Plan: very mild left lip droop,baseline as per patient/ recent HCT with no acute findings no other neuro deficits Code(s): R29.810 - FACIAL WEAKNESS (5) HLD (hyperlipidemia) Assessment/Plan: c/w atorvastatin Code(s): E78.5 - HYPERLIPIDEMIA, UNSPECIFIED (6) Hypertension Assessment/Plan: normotensive c/w nirvasc,sotolol,diltiazem Code(s): I10 - ESSENTIAL (PRIMARY) HYPERTENSION (7) Hyperthyroidism Assessment/Plan: TSH .6 T3/4 pending c/w tapazole Code(s): E05.90 - THYROTOXICOSIS, UNSP WITHOUT THYROTOXIC CRISIS OR STORM (8) Prophylactic measure Assessment/Plan: FEN Fluids: adequate PO intake Electrolytes: monitor & replete as needed Nutrition: cardiac diet DVT c/w xarelto Dispo admitt to tele full code discharge planning to home Code(s): Z29.9 - ENCOUNTER FOR PROPHYLACTIC MEASURES, UNSPECIFIED (9) Pneumonia Assessment/Plan: RUL infiltrate on CXR asymptomatic ceftriaxone/azithro given in ED will continue and continue to monitor Code(s): J18.9 - PNEUMONIA, UNSPECIFIED ORGANISM (10) Troponin I above reference range Assessment/Plan: Trop .27 low suspicion for ACS, most likely demand ischemia c/w diltizem for rate control trend trop until within normal ramge discussed with Dr Pan and he will follow Code(s): R79.89 - OTHER SPECIFIED ABNORMAL FINDINGS OF BLOOD CHEMISTRY Visit type - Emergency Visit Emergency Visit: Yes ED Registration Date: 12/05/19 Care time: The patient presented to the Emergency Department on the above date and was hospitalized for further evaluation of their emergent condition. - New Patient This patient is new to me today: Yes Date on this admission: 12/05/19 - Critical Care Critical Care patient: No
[2019-12-05 13:17] VITALS: BMI 28.0
[2019-12-05] MEDS ORDERED: dilTIAZem HCL 50 MG/10 ML - 10 ML VIAL IVPUSH PRN (13:53)
--- NOTE | 2019-12-05 13:53 | CON.CARD ---
Cardiology Consult (text) - Consultation Consultation Note: Chief Complaint: short of breath, rapid heart rate History of Present Illness: 79M h/o HTN, HLD, afib, CAD s/p CABG, COPD p/w dyspnea. Woke up overnight unable to breathe, had been feeling okay prior to this. Wasn't improving so checked his O2 sat at home, 81% with HR 150s so came to ER. Sees Dr. Becker for cardio. Recently admitted for CHF exac and afib with RVR, had seen Dr. Becker recently, outpatient holter showed controlled rate and meds were unchanged, saw endocrine as well and hyperthyroidism improving on methimazole. SOB improving, no chest pain, palps, dizziness, currently. - Alcohol/Substance Use Hx Alcohol Use: Yes (wine daily) - Smoking History Smoking history: Former smoker Have you smoked in the past 12 months: No If you are a former smoker, when did you quit?: 17YRS AGO Home Medications - Allergies Allergies/Adverse Reactions: Allergies Allergy/AdvReac Type Severity Reaction Status Date / Time No Known Allergies Allergy Verified 11/13/19 16:36 Ambulatory Orders Atorvastatin Ca [Lipitor] 80 mg PO HS 11/07/11 Multivitamin [Multivitamins] 1 each PO DAILY 08/26/13 Sotalol HCl [Sotalol] 40 mg PO BID 08/26/13 Rivaroxaban [Xarelto -] 20 mg PO HS 10/12/19 Diltiazem Cd [Cardizem Cd -] 360 mg PO DAILY #30 cap.cd.24h 11/02/19 Furosemide [Lasix -] 40 mg PO DAILY #30 tablet 11/02/19 Methimazole [Tapazole -] 5 mg PO DAILY tablet 11/02/19 Pantoprazole Sodium [Protonix -] 40 mg PO DAILY #30 tablet.ec 11/02/19 Amlodipine Besylate 10 mg PO DAILY 12/05/19 Docusate Sodium [Colace -] 100 mg PO DAILY 12/05/19 Fluticasone/Umeclidin/Vilanter [Trelegy Ellipta 100-62.5-25] 1 each IH DAILY Family Medical History Family History: Unremarkable Review of Systems - Review of Systems Constitutional: reports: Weakness Eyes: reports: No Symptoms HENT: reports: No Symptoms Neck: reports: No Symptoms Cardiovascular: reports: No Symptoms Respiratory: reports: No Symptoms Gastrointestinal: reports: No Symptoms Musculoskeletal: reports: No Symptoms Integumentary: reports: No Symptoms Neurological: reports: No Symptoms Endocrine: reports: No Symptoms Hematology/Lymphatic: reports: No Symptoms Psychiatric: reports: No Symptoms Vital Signs: Vital Signs Period Temp Pulse Resp BP Sys/Michael Pulse Ox Last 24 Hr 98.1 F-98.1 F 88-130 20-28 110-129/70-94 95-96 Constitutional: Yes: No Distress, Calm Eyes: Yes: Conjunctiva Clear, EOM Intact HENT: Yes: Atraumatic, Normocephalic Neck: Yes: Supple, Trachea Midline Respiratory: Yes: difffuse expiratory wheezes Gastrointestinal: Yes: Normal Bowel Sounds, Soft Cardiovascular: Yes: Tachycardia, Pulse Irregular JVD: No Heart Sounds: Yes: S1, S2 Extremities: No: Cold Edema: no Integumentary: No: Jaundice Neurological: Yes: Alert, Oriented Psychiatric: No: Agitated Laboratory Last Values WBC 8.0 K/mm3 (4.0-10.8) 12/05/19 09:30 RBC 4.05 M/mm3 (4.00-5.60) 12/05/19 09:30 Hgb 13.1 GM/dl (11.7-16.9) 12/05/19 09:30 Hct 38.1 % (35.4-49) 12/05/19 09:30 MCV 94.1 fl (80-96) 12/05/19 09:30 MCH 32.4 pg (25.7-33.7) 12/05/19 09:30 MCHC 34.4 g/dl (32.0-35.9) 12/05/19 09:30 RDW 13.6 % (11.9-15.9) 12/05/19 09:30 Plt Count 328 K/MM3 (134-434) 12/05/19 09:30 MPV 7.8 fl (7.5-11.1) 12/05/19 09:30 Absolute Neuts (auto) 6.0 K/mm3 12/05/19 09:30 Neutrophils % 75.4 % (42.8-82.8) 12/05/19 09:30 Lymphocytes % 11.2 % (8-40) 12/05/19 09:30 Monocytes % 11.3 % (3.8-10.2) H 12/05/19 09:30 Eosinophils % 2.0 % (0-4.5) 12/05/19 09:30 Basophils % 0.1 % (0-2.0) 12/05/19 09:30 PT with INR 27.0 SEC (10.2-13.0) H 12/05/19 09:30 INR 2.45 (0.82-1.09) H 12/05/19 09:30 Sodium 137 mmol/L (136-145) 12/05/19 09:30 Potassium 4.5 mmol/L (3.5-5.1) 12/05/19 09:30 Chloride 95 mmol/L (98-107) L 12/05/19 09:30 Carbon Dioxide 33 mmol/L (21-32) H 12/05/19 09:30 Anion Gap 9 MMOL/L (8-16) 12/05/19 09:30 BUN 12.0 mg/dl (7-18) 12/05/19 09:30 Creatinine 1.0 mg/dl (0.55-1.3) 12/05/19 09:30 Est GFR (CKD-EPI)AfAm 83.18 12/05/19 09:30 Est GFR (CKD-EPI)NonAf 71.77 12/05/19 09:30 Random Glucose 124 mg/dl (74-106) H 12/05/19 09:30 Lactic Acid 1.8 mmol/L (0.4-2.0) 12/05/19 09:50 Calcium 8.6 mg/dl (8.5-10) 12/05/19 09:30 Magnesium 2.0 mg/dL (1.8-2.4) 12/05/19 09:30 Total Bilirubin 1.4 mg/dl (0.2-1) H 12/05/19 09:30 AST 24 U/L (15-37) 12/05/19 09:30 ALT 15 U/L (13-61) 12/05/19 09:30 Alkaline Phosphatase 74 U/L (45-117) 12/05/19 09:30 Creatine Kinase 34 U/L (26-308) 12/05/19 09:30 Troponin I 0.27 ng/ml (0.00-0.05) H 12/05/19 09:30 Total Protein 6.7 g/dl (6.4-8.2) 12/05/19 09:30 Albumin 3.2 g/dl (3.4-5.0) L 12/05/19 09:30 TSH 0.60 uIU/ml (0.358-3.74) D 12/05/19 09:30 Free T4 1.36 ng/dl (0.76-1.16) H 12/05/19 09:30 Urine Color Yellow 12/05/19 10:00 Urine Appearance Clear 12/05/19 10:00 Urine pH 7.0 (4.5-8) 12/05/19 10:00 Urine Protein Negative (NEGATIVE) 12/05/19 10:00 Urine Glucose (UA) Negative (NEGATIVE) 12/05/19 10:00 Urine Ketones Negative (NEGATIVE) 12/05/19 10:00 Urine Blood Negative (NEGATIVE) 12/05/19 10:00 Urine Nitrite Negative (NEGATIVE) 12/05/19 10:00 Urine Bilirubin Negative (NEGATIVE) 12/05/19 10:00 Urine Urobilinogen 1.0 (0.2-1.0) 12/05/19 10:00 Ur Leukocyte Esterase Negative (NEGATIVE) 12/05/19 10:00 Influenza A (Rapid) Negative (Negative) 12/05/19 09:50 Influenza B (Rapid) Negative (Negative) 12/05/19 09:50 Assessment/Plan EKG: aflutter 2:1, no ischemic changes CXR: new RUL infiltrate tele: afib rate controlled, initially episodes RVR 130s-150s Echo 10/03: nl LV/RV. mild-mod TR shortness of breath, copd exac, acute bronchitis, PNA - trop indeterminate range, flat trend with EKG no ischemic changes - unlikely ACS - new infiltrate on CXR - manage per pulm, primary elevated trop - likely demand in setting of PNA, COPD exac. EKG no ischemic changes - trend trop to peak - echo as above paroxysmal afib, h/o remote AFL ablation - incidental modestly rapid AF noted at PMD early 10/03--CCB added, sotalol continued at that time - RVR likely sec to hyperthyroid/copd sx's/steroids - recent holter 11/2019 showed rate controlled - repeat echo ordered - per Dr. Becker: observe HR once euthyroid--will consider EP eval for ?PVI ablation if remains with rapid AF - cont xarelto, cardizem, sotalol - monitor on tele HTN - dc amlodipine as he is on diltiazem for afib- was reportedly discontinued as outpatient however patient was receiving auto refills from pharmacy - otherwise continue current meds HLD - cont statin CAD s/p CABG - cont plavix, statin hyperthyroidism -manage per primary
--- NOTE | 2019-12-05 14:21 | EKG ---
Test Reason : Blood Pressure : / mmHG Vent. Rate : 142 BPM Atrial Rate : 284 BPM P-R Int : 000 ms QRS Dur : 116 ms QT Int : 322 ms P-R-T Axes : 000 057 064 degrees QTc Int : 495 ms ATRIAL FLUTTER WITH 2:1 A-V CONDUCTION POSSIBLE INFERIOR INFARCT (CITED ON OR BEFORE 11-OCT-2019) ABNORMAL ECG WHEN COMPARED WITH ECG OF 28-OCT-2019 12:33, ATRIAL FLUTTER HAS REPLACED ATRIAL FIBRILLATION ST ELEVATION NOW PRESENT IN INFERIOR LEADS Confirmed by LOUISE DURON MD ([id number]) on 12/05/2019 2:20:32 PM Referred By: GEOFF MCLEAN Confirmed By:LOUISE DURON MD
--- NOTE | 2019-12-05 14:34 | CON.PULM ---
Consult Consult Specialty:: PULMONARY Referred by:: MANDY Archibald Reason for Consultation:: shortness of breath - History of Present Illness Chief Complaint: shortness of breath History of Present Illness: 79yo male with h/o HTN, hyperlipidemia, CAD s/p CABG, atrial fibrillation, COPD , recent admissions for COPD exacerbation and rapid atrial fibrillation who was admitted after waking up with shortness of breath. He had just completed his prednisone taper last week, was doing well, compliant with medications until this morning when he "didn't feel right." He checked his pulse oximeter and his SpO2 was in the 80s and his heart rate was in the 130s. Denies fevers, chills or sweats. No sick contacts. Reports a chronic cough which is unchanged without wheezing. - History Source History Provided By: Patient, Medical Record Limitations to Obtaining History: No Limitations - Past Medical History Cardio/Vascular: Yes: AFIB, CAD, HTN, Hyperlipdemia Pulmonary: Yes: COPD, O2 Dependent (2L at home) - Past Surgical History Past Surgical History: Yes: CABG (2004) - Alcohol/Substance Use Hx Alcohol Use: Yes Number of Drinks Daily: 3 (daily wine (several glasses)) History of Substance Use: reports: None Date of Last Use: 12/04/19 - Smoking History Smoking history: Former smoker Have you smoked in the past 12 months: No If you are a former smoker, when did you quit?: 25 yr s ago - Social History ADL: Independent Occupation: retired History of Recent Travel: No Home Medications - Allergies Allergies/Adverse Reactions: Allergies Allergy/AdvReac Type Severity Reaction Status Date / Time No Known Allergies Allergy Verified 11/13/19 16:36 - Home Medications Home Medications: Ambulatory Orders Atorvastatin Ca [Lipitor] 80 mg PO HS 11/07/11 Multivitamin [Multivitamins] 1 each PO DAILY 08/26/13 Sotalol HCl [Sotalol] 40 mg PO BID 08/26/13 Rivaroxaban [Xarelto -] 20 mg PO HS 10/12/19 Diltiazem Cd [Cardizem Cd -] 360 mg PO DAILY #30 cap.cd.24h 11/02/19 Furosemide [Lasix -] 40 mg PO DAILY #30 tablet 11/02/19 Methimazole [Tapazole -] 5 mg PO DAILY tablet 11/02/19 Pantoprazole Sodium [Protonix -] 40 mg PO DAILY #30 tablet.ec 11/02/19 Amlodipine Besylate 10 mg PO DAILY 12/05/19 Docusate Sodium [Colace -] 100 mg PO DAILY 12/05/19 Fluticasone/Umeclidin/Vilanter [Trelegy Ellipta 100-62.5-25] 1 each IH DAILY Review of Systems - Review of Systems Constitutional: reports: Weakness. denies: Chills, Fever Eyes: denies: Recent Change in Vision HENT: denies: Nasal Congestion, Throat Pain Neck: denies: Stiffness, Tenderness Cardiovascular: reports: Shortness of Breath. denies: Chest Pain, Edema, Palpitations Respiratory: reports: Cough, SOB, SOB on Exertion. denies: Hemoptysis, Wheezing Gastrointestinal: denies: Abdominal Pain, Nausea, Vomiting Genitourinary: denies: Dysuria, Hematuria Neurological: denies: Dizziness, Headache Endocrine: denies: Unexplained Weight Loss Physical Exam Vital Sings: Vital Signs Temperature 99.9 F H 12/05/19 14:19 Pulse Rate 138 H 12/05/19 14:19 Respiratory Rate 12/05/19 14:19 Blood Pressure 112/50 L 12/05/19 14:19 O2 Sat by Pulse Oximetry (%) 94 L 12/05/19 14:19 Constitutional: Yes: Calm Eyes: Yes: Conjunctiva Clear, EOM Intact HENT: Yes: Atraumatic, Normocephalic Neck: Yes: Supple, Trachea Midline Cardiovascular: Yes: Tachycardia Respiratory: Yes: Diminished (distant breath sounds). No: Wheezes ...Clubbing: No Gastrointestinal: Yes: Normal Bowel Sounds, Soft. No: Tenderness Edema: No Neurological: Yes: Alert, Oriented Labs: CBC, BMP 12/05/19 09:30 12/05/19 09:30 Imaging - Results Chest X-ray: Report Reviewed, Image Reviewed (RUL infiltrate) Problem List - Problems (1) COPD exacerbation Code(s): J44.1 - CHRONIC OBSTRUCTIVE PULMONARY DISEASE W (ACUTE) EXACERBATION (2) Atrial fibrillation with RVR Code(s): I48.91 - UNSPECIFIED ATRIAL FIBRILLATION Assessment/Plan Acute COPD Exacerbation Atrial Fibrillation with RVR Acute Diastolic Heart Failure CAD s/p CABG +Troponins likely Demand Ischemia HTN Hyperlipidemia - shortness of breath likely multifactorial, unclear if this is an acute COPD exacerbation which precipitated rapid atrial fibrillation or if this is acute diastolic heart failure from rapid afib in a patient with advanced COPD and poor pulmonary reserve - CXR showing increased markings in RUL but pt otherwise without symptoms of pneumonia as he is afebrile with a normal WBC and does not appear toxic - agree with empiric antibiotics - f/u cultures - rate control - continue anticoagulation - short course of medrol - inhaled bronchodilators - repeat CXR when heart rates controlled
[2019-12-05] MEDS ORDERED: ALBUTEROL SO4 0.083% IH SOL 2.5 MG/3 ML VIAL.NEB. NEB ONE (15:17)
[2019-12-05] MEDS: RIVAROXABAN 20 MG TABLET PO SCH (17:56)
[2019-12-05] MEDS: methylPREDNISolone NA SUCC 40 MG/1 ML VIAL IVPUSH SCH (17:56)
[2019-12-05] MEDS ORDERED: dilTIAZem HCL 30 MG TABLET (FP) PO ONE (18:30)
[2019-12-05] MEDS: IPRATROPIUM BR 0.02% 0.5 MG/2.5 ML VIAL.NEB. NEB SCH (20:58)
[2019-12-05] MEDS: ALBUTEROL SO4 0.042% IH SOL 1.25 MG/3 ML VIAL.NEB NEB SCH (20:59)
[2019-12-05] MEDS: SOTALOL HCL 80 MG TABLET (FP) PO SCH (21:00)
[2019-12-05] MEDS ORDERED: DIGOXIN 0.5 MG/2 ML AMPUL IVPUSH ONE (21:45)
[2019-12-05] MEDS: ATORVASTATIN CA 40 MG TABLET (FP) PO SCH (21:48)
[2019-12-06] MEDS: methylPREDNISolone NA SUCC 40 MG/1 ML VIAL IVPUSH SCH ×3 (03:10→18:40)
[2019-12-06 07:53] LABS: BASO % 0.1 % (0-2.0); HEMATOCRIT 39.9 % (35.4-49); HEMOGLOBIN 13.6 GM/dl (11.7-16.9); LYMPH % 15.7 % (8-40); MCH 31.9 pg (25.7-33.7); MCHC 34.1 g/dl (32.0-35.9); MEAN CELL VOLUME 93.5 fl (80-96); MEAN PLT VOLUME 7.9 fl (7.5-11.1); MONO % 1.7 % (3.8-10.2); NEUT % 82.5 % (42.8-82.8); PLATELET COUNT 325 K/MM3 (134-434); RBC 4.27 M/mm3 (4.00-5.60); RDW 13.1 % (11.9-15.9); WHITE BLOOD COUNT 4.5 K/mm3 (4.0-10.8)
[2019-12-06] MEDS: IPRATROPIUM BR 0.02% 0.5 MG/2.5 ML VIAL.NEB. NEB SCH ×3 (08:10→22:13)
[2019-12-06] MEDS: ALBUTEROL SO4 0.042% IH SOL 1.25 MG/3 ML VIAL.NEB NEB SCH ×3 (08:15→22:13)
[2019-12-06 08:18] LABS: BILIRUBIN,TOTAL 0.9 mg/dl (0.2-1); CALCIUM 8.9 mg/dl (8.5-10); POTASSIUM 5.5 mmol/L (3.5-5.1); TOT PROT 6.7 g/dl (6.4-8.2)
[2019-12-06] MEDS: CEFTRIAXONE 1 G/50 ML PREMIX 50 ML IVPB SCH (09:05)
[2019-12-06] MEDS ORDERED: amLODIPine BESYLATE 10 MG TABLET (FP) PO SCH (10:00)
[2019-12-06] MEDS: SOTALOL HCL 80 MG TABLET (FP) PO SCH ×2 (10:05→22:13)
[2019-12-06] MEDS: AZITHROMYCIN IVPB 500 MG/250 ML BAG IVPB SCH (10:15)
[2019-12-06] MEDS: FUROSEMIDE 40 MG TABLET (FP) PO SCH (10:21)
[2019-12-06] MEDS: PANTOPRAZOLE 40 MG TABLET PO SCH (10:21)
[2019-12-06] MEDS: MULTIVITAMINS (DAILY MVI) TABLET (FP) PO SCH (10:21)
[2019-12-06] MEDS: DOCUSATE SODIUM 100 MG CAPSULE (FP) PO SCH (10:21)
[2019-12-06] MEDS: METHIMAZOLE 5 MG TABLET (FP) PO SCH (10:22)
--- NOTE | 2019-12-06 10:31 | PN ---
Physical Exam: SUBJECTIVE: Patient seen and examined at bedside, endorses some improvement with SOB, palpitations. Now HR improved after adding CCB with BB. OBJECTIVE: Vital Signs Period Temp Pulse Resp BP Sys/Michael Pulse Ox Last 24 Hr 97.4 F-99.9 F 66-160 16-28 105-126/50-78 92-100 GENERAL: The patient is awake, alert, and fully oriented, in no acute distress. HEAD: Normal with no signs of trauma. EYES: PERRL, extraocular movements intact, sclera anicteric, conjunctiva clear. mild R ptosis (chronic) ENT: Ears normal, nares patent, oropharynx clear without exudates, dry MM NECK: Trachea midline, full range of motion, supple, thyroid not palpable, non- tender LUNGS: decreased air entry b/l, faint wheezing, fine crackles at bases HEART: irregularly irregular, normal rate ABDOMEN: Soft, nontender, nondistended, normoactive bowel sounds, no guarding, no rebound, no hepatosplenomegaly, no masses. EXTREMITIES: 2+ pulses, warm, well-perfused, no edema. NEUROLOGICAL: Cranial nerves II through XII grossly intact. Normal speech, gait not observed. PSYCH: Normal mood, normal affect. SKIN: Warm, dry, normal turgor, no rashes or lesions noted Laboratory Results - last 24 hr 12/05/19 12/05/19 12/05/19 09:30 09:30 09:30 WBC RBC Hgb Hct MCV MCH MCHC RDW Plt Count MPV Absolute Neuts (auto) Neutrophils % Lymphocytes % Monocytes % Eosinophils % Basophils % Sodium 137 Potassium 4.5 Chloride 95 L Carbon Dioxide 33 H Anion Gap 9 BUN 12.0 Creatinine 1.0 Est GFR (CKD-EPI)AfAm 83.18 Est GFR (CKD-EPI)NonAf 71.77 Random Glucose 124 H Lactic Acid Calcium 8.6 Magnesium Total Bilirubin 1.4 H AST 24 ALT 15 Alkaline Phosphatase 74 Creatine Kinase 34 Troponin I 0.27 H Total Protein 6.7 Albumin 3.2 L TSH Free T4 Free T3 2.8 Urine Color Urine Appearance Urine pH Urine Protein Urine Glucose (UA) Urine Ketones Urine Blood Urine Nitrite Urine Bilirubin Urine Urobilinogen Ur Leukocyte Esterase Influenza A (Rapid) Influenza B (Rapid) 12/05/19 12/05/19 12/05/19 09:30 09:30 09:50 WBC RBC Hgb Hct MCV MCH MCHC RDW Plt Count MPV Absolute Neuts (auto) Neutrophils % Lymphocytes % Monocytes % Eosinophils % Basophils % Sodium Potassium Chloride Carbon Dioxide Anion Gap BUN Creatinine Est GFR (CKD-EPI)AfAm Est GFR (CKD-EPI)NonAf Random Glucose Lactic Acid Calcium Magnesium 2.0 Total Bilirubin AST ALT Alkaline Phosphatase Creatine Kinase Troponin I Total Protein Albumin TSH 0.60 D Free T4 1.36 H Free T3 Urine Color Urine Appearance Urine pH Urine Protein Urine Glucose (UA) Urine Ketones Urine Blood Urine Nitrite Urine Bilirubin Urine Urobilinogen Ur Leukocyte Esterase Influenza A (Rapid) Negative Influenza B (Rapid) Negative 12/05/19 12/05/19 12/05/19 09:50 10:00 17:30 WBC RBC Hgb Hct MCV MCH MCHC RDW Plt Count MPV Absolute Neuts (auto) Neutrophils % Lymphocytes % Monocytes % Eosinophils % Basophils % Sodium Potassium Chloride Carbon Dioxide Anion Gap BUN Creatinine Est GFR (CKD-EPI)AfAm Est GFR (CKD-EPI)NonAf Random Glucose Lactic Acid 1.8 Calcium Magnesium Total Bilirubin AST ALT Alkaline Phosphatase Creatine Kinase Troponin I 0.57 H Total Protein Albumin TSH Free T4 Free T3 Urine Color Yellow Urine Appearance Clear Urine pH 7.0 Urine Protein Negative Urine Glucose (UA) Negative Urine Ketones Negative Urine Blood Negative Urine Nitrite Negative Urine Bilirubin Negative Urine Urobilinogen 1.0 Ur Leukocyte Esterase Negative Influenza A (Rapid) Influenza B (Rapid) 12/05/19 12/06/19 12/06/19 22:30 04:00 06:55 WBC 4.5 RBC 4.27 Hgb 13.6 Hct 39.9 MCV 93.5 MCH 31.9 MCHC 34.1 RDW 13.1 Plt Count 325 MPV 7.9 Absolute Neuts (auto) 3.7 Neutrophils % 82.5 Lymphocytes % 15.7 D Monocytes % 1.7 L D Eosinophils % 0.0 D Basophils % 0.1 Sodium Potassium Chloride Carbon Dioxide Anion Gap BUN Creatinine Est GFR (CKD-EPI)AfAm Est GFR (CKD-EPI)NonAf Random Glucose Lactic Acid Calcium Magnesium Total Bilirubin AST ALT Alkaline Phosphatase Creatine Kinase Troponin I < 0.03 < 0.02 Total Protein Albumin TSH Free T4 Free T3 Urine Color Urine Appearance Urine pH Urine Protein Urine Glucose (UA) Urine Ketones Urine Blood Urine Nitrite Urine Bilirubin Urine Urobilinogen Ur Leukocyte Esterase Influenza A (Rapid) Influenza B (Rapid) 12/06/19 06:55 WBC RBC Hgb Hct MCV MCH MCHC RDW Plt Count MPV Absolute Neuts (auto) Neutrophils % Lymphocytes % Monocytes % Eosinophils % Basophils % Sodium 137 Potassium 5.5 H Chloride 97 L Carbon Dioxide 30 Anion Gap 10 BUN 13.0 Creatinine 1.0 Est GFR (CKD-EPI)AfAm 83.18 Est GFR (CKD-EPI)NonAf 71.77 Random Glucose 161 H Lactic Acid Calcium 8.9 Magnesium 2.0 Total Bilirubin 0.9 AST 19 ALT 16 Alkaline Phosphatase 74 Creatine Kinase Troponin I Total Protein 6.7 Albumin 3.0 L TSH Free T4 Free T3 Urine Color Urine Appearance Urine pH Urine Protein Urine Glucose (UA) Urine Ketones Urine Blood Urine Nitrite Urine Bilirubin Urine Urobilinogen Ur Leukocyte Esterase Influenza A (Rapid) Influenza B (Rapid) Active Medications Generic Name Dose Route Start Last Admin Trade Name Freq PRN Reason Stop Dose Admin Albuterol Sulfate 1 amp 12/05/19 20:00 12/05/19 20:59 Ventolin 0.042trength) - NEB 1 amp RTID LEMUEL Administration Atorvastatin Calcium 80 mg 12/05/19 22:00 12/05/19 21:48 Lipitor - PO 80 mg HS LEMUEL Administration Diltiazem HCl 360 mg 12/06/19 10:00 Cardizem Cd - PO DAILY LEMUEL Diltiazem HCl 10 mg 12/05/19 13:53 12/05/19 17:22 Cardizem Injection - IVPUSH 10 mg Q4H PRN Administration TACHYCARDIA Docusate Sodium 100 mg 12/06/19 10:00 Colace - PO DAILY LEMUEL Furosemide 40 mg 12/06/19 10:00 Lasix - PO DAILY LEMUEL Azithromycin 500 mg in 250 mls @ 250 mls/hr 12/06/19 10:00 Zithromax 500mg Ivpb (Pre-Docked) IVPB DAILY LEMUEL Ceftriaxone Sodium 50 mls @ 100 mls/hr 12/06/19 10:00 Ceftriaxone 1 Gm-D5w Bag IVPB DAILY ON LICENSE OF [facility] Protocol Ipratropium [place] 1 amp 12/05/19 20:00 12/05/19 20:58 Atrovent 0.02% Nebulizer - NEB 1 amp RTID LEMUEL Administration Methimazole 5 mg 12/06/19 10:00 Tapazole - PO DAILY LEMUEL Methylprednisolone Sodium Succinate 40 mg 12/05/19 18:00 12/06/19 03:10 Solu-Medrol - IVPUSH 40 mg Q8H-IV LEMUEL Administration Multivitamins/Minerals/Vitamin C 1 tab 12/06/19 10:00 Tab-A-Vit - PO DAILY LEMUEL Non-Formulary Medication 1 each 12/06/19 10:00 Fluticasone/Umeclidin/Vilanter [Trelegy Ellipta 100-62.5-25] IH DAILY LEMUEL Pantoprazole Sodium 40 mg 12/06/19 10:00 Protonix - PO DAILY LEMUEL Rivaroxaban 20 mg 12/05/19 18:00 12/05/19 17:56 Xarelto PO 20 mg DAILY@1800 LEMUEL Administration Sotalol HCl 40 mg 12/05/19 22:00 12/05/19 21:00 Betapace - PO 40 mg BID LEMUEL Administration ASSESSMENT/PLAN: 79 M h/o COPD Group D, Afib on AC, HTN, CAD s/p CABG, HLD, hyperthyroidism, admitted for COPD and CHFE 2/2 Afib w/ RVR. COPD exacerbation improved from admission, cont. IV medrol, duonebs, chest physiotherapy may benefit from pulmonary rehab as outpatient RUL infiltrate appreciated on repeat CXR will treat for CAP PNA with Ceftriaxone /Azithromycin, RSV/FLU (negative), follow blood cx, send Legionella/strep Ag Pulmonary consult : Dr Glass Afib with RVR now rate improved after adding CCB with BB ?2/2 uncontrolled hyperthyroidism, FT4 elevated, TSH suppressed cont. CCB, BB, Xarelto, cont. tele monitoring Cardiology consult: Dr. Ochoa Hyperthyroidism not controlled, TSH suppressed with slightly elevated FT4, may be the ?cause of Afib w/ RVR cont. Methimazole Endo consult: Dr Jay Jay Telles CAD s/p CABG no signs of ACS< trop elevation likely demand cont. BB, statin, ASA, AC Echo pending (more accurate when rate controlled) HTN cont. BP meds HLD cont. statin DVT ppx: Xarelto Tele monitoring FULL CODE Visit type - Emergency Visit Emergency Visit: Yes ED Registration Date: 12/05/19 Care time: The patient presented to the Emergency Department on the above date and was hospitalized for further evaluation of their emergent condition. - New Patient This patient is new to me today: Yes Date on this admission: 12/06/19 - Critical Care Critical Care patient: No - Discharge Referral Referred to [facility] Med P.C.: No
--- NOTE | 2019-12-06 11:35 | ECHO ---
Name: TERRANCE FADI Barriga, JR Exam:Adult Echocardiogram Study Date: 12/06/2019 09:05 AM Age: 79 yrs Reason For Study: A=FIB Height: 69 in Weight: 190 lb BSA: 2.0 m2 MMode/2D Measurements & Calculations IVSd: 1.0 cm Ao root diam: 2.9 cm LVIDd: 4.6 cm LA dimension: 3.8 cm LVIDs: 3.7 cm LVPWd: 1.0 cm EDV(Teich): 97.5 ml LVOT diam: 2.0 cm ESV(Teich): 57.1 ml EDV(MOD-sp4): 77.5 ml Doppler Measurements & Calculations MV E max doroteo: 94.2 cm/sec MV dec slope: 443.4 cm/sec2 Ao V2 max: 157.5 cm/sec LV V1 max P.9 mmHg Ao max P.0 mmHg LV V1 mean P.7 mmHg Ao V2 mean: 101.9 cm/sec LV V1 max: 85.8 cm/sec Ao mean P.8 mmHg LV V1 mean: 62.2 cm/sec Ao V2 VTI: 29.4 cm LV V1 VTI: 17.6 cm BEN(I,D): 2.0 cm2 BEN(V,D): 1.8 cm2 MR max doroteo: 488.1 cm/sec SV(LVOT): 58.2 ml MR max P.3 mmHg TR max doroteo: 238.7 cm/sec PA V2 max: 75.9 cm/sec TR max P.8 mmHg PA max P.3 mmHg Tech Comments TDS. Suboptimal PLAX, SAX views. Patient states s/p quadruple bypass in 2004. Procedure The study was technically difficult with many images being suboptimal in quality. Left Ventricle Ejection Fraction = 40-45%. Septal motion is consistent with conduction abnormality. Right Ventricle The right ventricle is grossly normal size. The right ventricular systolic function is grossly normal . Atria The left atrium is mildly dilated. Mitral Valve There is mild mitral valve thickening. There is no mitral valve stenosis. There is mild to moderate m itral regurgitation. Tricuspid Valve The tricuspid valve is normal in structure and function. There is mild tricuspid regurgitation. Aortic Valve There is moderate aortic sclerosis.;. No aortic regurgitation is present. Pulmonic Valve The pulmonic valve is not well seen, but is grossly normal. There is no pulmonic valvular stenosis. Great Vessels The aortic root is normal size. Moderately dilated inferior vena cava. Pericardium/Pleura There is no pericardial effusion. Interpretation Summary The study was technically difficult with many images being suboptimal in quality. Moderately dilated inferior vena cava Septal motion is consistent with conduction abnormality. Ejection Fraction = 40-45%. The left atrium is mildly dilated. There is mild mitral valve thickening. There is mild to moderate mitral regurgitation. There is mild tricuspid regurgitation. There is moderate aortic sclerosis.; There is no pericardial effusion. MD Bailey *Lindy 12/06/2019 11:34 AM
--- NOTE | 2019-12-06 15:57 | PN ---
Progress Note (short form) - Note Progress Note: s: no cp sob palps dizzy Current Medications Generic Name Dose Route Start Last Admin Trade Name Freq PRN Reason Stop Dose Admin Albuterol Sulfate 1 amp 12/05/19 20:00 12/06/19 08:15 Ventolin 0.042trength) - NEB 1 amp RTID LEMUEL Administration Atorvastatin Calcium 80 mg 12/05/19 22:00 12/05/19 21:48 Lipitor - PO 80 mg HS LEMUEL Administration Diltiazem HCl 360 mg 12/06/19 10:00 12/06/19 10:10 Cardizem Cd - PO 360 mg DAILY [facility] Administration Diltiazem HCl 10 mg 12/05/19 13:53 12/05/19 17:22 Cardizem Injection - IVPUSH 10 mg Q4H PRN Administration TACHYCARDIA Docusate Sodium 100 mg 12/06/19 10:00 12/06/19 10:21 Colace - PO 100 mg DAILY L[facility]UEL Administration Furosemide 40 mg 12/06/19 10:00 12/06/19 10:21 Lasix - PO 40 mg DAILY [facility] Administration Azithromycin 500 mg in 250 mls @ 250 mls/hr 12/06/19 10:00 12/06/19 10:15 Zithromax 500mg Ivpb (Pre-Docked) IVPB 250 mls/hr DAILY [facility] Administration Ceftriaxone Sodium 50 mls @ 100 mls/hr 12/06/19 10:00 12/06/19 09:05 Ceftriaxone 1 Gm-D5w Bag IVPB 100 mls/hr DAILY L[facility]UEL Administration Protocol Ipratropium [place] 1 amp 12/05/19 20:00 12/06/19 08:10 Atrovent 0.02% Nebulizer - NEB 1 amp RTID [facility]UEL Administration Methimazole 5 mg 12/06/19 10:00 12/06/19 10:22 Tapazole - PO 5 mg DAILY L[facility]UEL Administration Methylprednisolone Sodium Succinate 40 mg 12/05/19 18:00 12/06/19 10:15 Solu-Medrol - IVPUSH 40 mg Q8H-IV [facility]UEL Administration Multivitamins/Minerals/Vitamin C 1 tab 12/06/19 10:00 12/06/19 10:21 Tab-A-Vit - PO 1 tab DAILY L[facility]UEL Administration Non-Formulary Medication 1 each 12/06/19 10:00 Fluticasone/Umeclidin/Vilanter [Trelegy Ellipta 100-62.5-25] IH DAILY [facility] Pantoprazole Sodium 40 mg 12/06/19 10:00 12/06/19 10:21 Protonix - PO 40 mg DAILY [facility] Administration Rivaroxaban 20 mg 12/05/19 18:00 12/05/19 17:56 Xarelto PO 20 mg DAILY@1800 [facility] Administration Sotalol HCl 40 mg 12/05/19 22:00 12/06/19 10:05 Betapace - PO 40 mg BID LEMUEL Administration Vital Signs Period Temp Pulse Resp BP Sys/Michael Pulse Ox Last 24 Hr 97.4 F-99.3 F 66-160 16-20 105-135/54-81 92-100 Constitutional: Yes: No Distress, Calm Eyes: Yes: Conjunctiva Clear Neck: Yes: Supple, Trachea Midline Respiratory: Yes: difffuse expiratory wheezes Gastrointestinal: Yes: Normal Bowel Sounds, Soft Cardiovascular: Yes: Pulse Irregular JVD: No Heart Sounds: Yes: S1, S2 Extremities: No: Cold Edema: no Integumentary: No: Jaundice Neurological: Yes: Alert, Oriented Psychiatric: No: Agitated CBC, BMP 12/06/19 06:55 12/06/19 06:55 Assessment/Plan EKG: aflutter 2:1, no ischemic changes CXR: new RUL infiltrate tele: afib rate controlled Echo 10/03: nl LV/RV. mild-mod TR echo 11/2019: tds; lvef 40-45, rv tds, mild-mod mr, mild tr shortness of breath, copd exac, acute bronchitis, PNA - trop indeterminate range, flat trend with EKG no ischemic changes - unlikely ACS - new infiltrate on CXR - manage per pulm, primary elevated trop - likely demand in setting of PNA, COPD exac. EKG no ischemic changes. paroxysmal afib, h/o remote AFL ablation - incidental modestly rapid AF noted at PMD early 10/03--CCB added, sotalol continued at that time - RVR likely sec to hyperthyroid/copd sx's/steroids - recent holter 11/2019 showed rate controlled - per Dr. Becker: observe HR once euthyroid--will consider EP eval for ?PVI ablation if remains with rapid AF - cont xarelto, cardizem, sotalol - echo here shows lvef 40-45%, however echo was TDS. Pt is scheduled for outpt echo in our office next week for better lvef assessment. If lvef is reduced then may need to reconsider sotalol and dilt. HTN -cont current meds HLD - cont statin CAD s/p CABG - cont plavix, statin hyperthyroidism -manage per primary
[2019-12-06] MEDS: RIVAROXABAN 20 MG TABLET PO SCH (18:40)
--- NOTE | 2019-12-06 21:20 | CONSULT ---
Consult Consult Specialty:: Endocrine Referred by:: Archie Shelton MD Reason for Consultation:: Hyperthyroidism - History of Present Illness Chief Complaint: difficulty breathing anxious History of Present Illness: 79 year old male with a significant past medical history of Hyperthyrodism, atril fibrillation (on xarelto), hypertension, hyperlipidemia, CAD (s/pCABG), COPD (on home oxygen admitted with dyspnea,and palpitations,anxious,difficulty with weakness in legs denies fever, nausea or vomiting had recently seen endocrine and advised thyroid levels were stable yet recent respiratory difficulty has worsened. - Past Medical History Cardio/Vascular: Yes: AFIB, CAD, HTN, Hyperlipdemia Pulmonary: Yes: COPD, O2 Dependent (2L at home) - Past Surgical History Past Surgical History: Yes: CABG (2004) - Alcohol/Substance Use Hx Alcohol Use: Yes Number of Drinks Daily: 3 (daily wine (several glasses)) History of Substance Use: reports: None Date of Last Use: 12/04/19 - Smoking History Smoking history: Former smoker Have you smoked in the past 12 months: No If you are a former smoker, when did you quit?: 25 yr s ago - Social History ADL: Independent Occupation: retired History of Recent Travel: No Home Medications - Allergies Allergies/Adverse Reactions: Allergies Allergy/AdvReac Type Severity Reaction Status Date / Time No Known Allergies Allergy Verified 11/13/19 16:36 - Home Medications Home Medications: Ambulatory Orders Atorvastatin Ca [Lipitor] 80 mg PO HS 11/07/11 Multivitamin [Multivitamins] 1 each PO DAILY 08/26/13 Sotalol HCl [Sotalol] 40 mg PO BID 08/26/13 Rivaroxaban [Xarelto -] 20 mg PO HS 10/12/19 Diltiazem Cd [Cardizem Cd -] 360 mg PO DAILY #30 cap.cd.24h 11/02/19 Furosemide [Lasix -] 40 mg PO DAILY #30 tablet 11/02/19 Methimazole [Tapazole -] 5 mg PO DAILY tablet 11/02/19 Pantoprazole Sodium [Protonix -] 40 mg PO DAILY #30 tablet.ec 11/02/19 Amlodipine Besylate 10 mg PO DAILY 12/05/19 Docusate Sodium [Colace -] 100 mg PO DAILY 12/05/19 Fluticasone/Umeclidin/Vilanter [Trelegy Ellipta 100-62.5-25] 1 each IH DAILY Review of Systems - Review of Systems Constitutional: reports: Weakness Eyes: reports: No Symptoms HENT: reports: No Symptoms Neck: reports: No Symptoms Cardiovascular: reports: Palpitations, Shortness of Breath Respiratory: reports: Exercise Intolerance Gastrointestinal: reports: Bloating Genitourinary: reports: No Symptoms Musculoskeletal: reports: Muscle Cramps, Muscle Weakness Integumentary: reports: No Symptoms Neurological: reports: Tremors, Unsteady Gait, Weakness Physical Exam Vital Signs: Vital Signs Temperature 97.6 F 12/06/19 19:00 Pulse Rate 98 H 12/06/19 19:00 Respiratory Rate 16 12/06/19 19:00 Blood Pressure 114/57 L 12/06/19 19:00 O2 Sat by Pulse Oximetry (%) 97 12/06/19 19:00 Constitutional: Yes: Anxious Eyes: Yes: EOM Intact HENT: Yes: Normocephalic Neck: Yes: Trachea Midline Cardiovascular: Yes: Tachycardia Respiratory: Yes: On Nasal O2, SOB, Tachypnea Gastrointestinal: Yes: Normal Bowel Sounds ...Rectal Exam: Yes: Deferred Musculoskeletal: Yes: WNL Labs: CBC, BMP 12/06/19 06:55 12/06/19 06:55 Problem List - Problems (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 Problems reviewed: Yes Code(s): E05.40 - THYROTOXICOSIS FACTITIA WITHOUT THYROTOXIC CRISIS OR STORM (2) A-fib Problems reviewed: Yes Code(s): I48.91 - UNSPECIFIED ATRIAL FIBRILLATION Qualifiers: Atrial fibrillation type: unspecified Qualified Code(s): I48.91 - Unspecified atrial fibrillation (3) COPD (chronic obstructive pulmonary disease) Problems reviewed: Yes Code(s): J44.9 - CHRONIC OBSTRUCTIVE PULMONARY DISEASE, UNSPECIFIED (4) Pneumonia Code(s): J18.9 - PNEUMONIA, UNSPECIFIED ORGANISM Qualifiers: Pneumonia type: due to unspecified organism Laterality: right Lung location: upper lobe of lung Qualified Code(s): J18.9 - Pneumonia, unspecified organism (5) S/P CABG x 4 Code(s): Z95.1 - PRESENCE OF AORTOCORONARY BYPASS GRAFT (6) Troponin I above reference range Code(s): R79.89 - OTHER SPECIFIED ABNORMAL FINDINGS OF BLOOD CHEMISTRY (7) Acute bronchitis Code(s): J20.9 - ACUTE BRONCHITIS, UNSPECIFIED (8) Atrial fibrillation with RVR Code(s): I48.91 - UNSPECIFIED ATRIAL FIBRILLATION (9) COPD exacerbation Code(s): J44.1 - CHRONIC OBSTRUCTIVE PULMONARY DISEASE W (ACUTE) EXACERBATION Assessment/Plan Current Active Problems hyperthyroidism improved A-fib (Acute) COPD (chronic obstructive pulmonary disease) (Acute) Pneumonia (Acute) S/P CABG x 4 (Acute) Troponin I above reference range (Acute) Abnormal Lab Results 12/06/19 12/06/19 06:55 06:55 Monocytes % 1.7 L D Potassium 5.5 H Chloride 97 L Random Glucose 161 H Albumin 3.0 L Laboratory Results - last 24 hr 12/05/19 12/05/19 12/06/19 09:30 22:30 04:00 WBC RBC Hgb Hct MCV MCH MCHC RDW Plt Count MPV Absolute Neuts (auto) Neutrophils % Lymphocytes % Monocytes % Eosinophils % Basophils % Sodium Potassium Chloride Carbon Dioxide Anion Gap BUN Creatinine Est GFR (CKD-EPI)AfAm Est GFR (CKD-EPI)NonAf Random Glucose Calcium Magnesium Total Bilirubin AST ALT Alkaline Phosphatase Troponin I < 0.03 < 0.02 Total Protein Albumin Free T3 2.8 12/06/19 12/06/19 06:55 06:55 WBC 4.5 RBC 4.27 Hgb 13.6 Hct 39.9 MCV 93.5 MCH 31.9 MCHC 34.1 RDW 13.1 Plt Count 325 MPV 7.9 Absolute Neuts (auto) 3.7 Neutrophils % 82.5 Lymphocytes % 15.7 D Monocytes % 1.7 L D Eosinophils % 0.0 D Basophils % 0.1 Sodium 137 Potassium 5.5 H Chloride 97 L Carbon Dioxide 30 Anion Gap 10 BUN 13.0 Creatinine 1.0 Est GFR (CKD-EPI)AfAm 83.18 Est GFR (CKD-EPI)NonAf 71.77 Random Glucose 161 H Calcium 8.9 Magnesium 2.0 Total Bilirubin 0.9 AST 19 ALT 16 Alkaline Phosphatase 74 Troponin I Total Protein 6.7 Albumin 3.0 L Free T3 Laboratory Tests 12/05/19 12/05/19 09:30 09:30 TSH 0.60 D Free T4 1.36 H Free T3 2.8 plan:\continue tapazole 5g daily repeat tsh free t4 outpatient follow up with endo as outpatient has apt next week
[2019-12-06] MEDS: ATORVASTATIN CA 40 MG TABLET (FP) PO SCH (22:11)
[2019-12-07] MEDS: methylPREDNISolone NA SUCC 40 MG/1 ML VIAL IVPUSH SCH ×3 (02:27→17:32)
[2019-12-07] MEDS: ALBUTEROL SO4 0.042% IH SOL 1.25 MG/3 ML VIAL.NEB NEB SCH ×2 (07:45→14:09)
[2019-12-07] MEDS: IPRATROPIUM BR 0.02% 0.5 MG/2.5 ML VIAL.NEB. NEB SCH ×2 (07:46→14:06)
[2019-12-07 08:44] LABS: BASO % 0.3 % (0-2.0); HEMATOCRIT 35.8 % (35.4-49); HEMOGLOBIN 12.1 GM/dl (11.7-16.9); LYMPH % 5.3 % (8-40); MCH 31.6 pg (25.7-33.7); MCHC 33.8 g/dl (32.0-35.9); MEAN CELL VOLUME 93.5 fl (80-96); MEAN PLT VOLUME 8.3 fl (7.5-11.1); MONO % 1.4 % (3.8-10.2); PLATELET COUNT 372 K/MM3 (134-434); RBC 3.82 M/mm3 (4.00-5.60); RDW 13.4 % (11.9-15.9); WHITE BLOOD COUNT 10.7 K/mm3 (4.0-10.8)
[2019-12-07 08:51] LABS: BILIRUBIN,TOTAL 0.6 mg/dl (0.2-1); CALCIUM 9.2 mg/dl (8.5-10); CREATININE 0.8 mg/dl (0.55-1.3); POTASSIUM 4.5 mmol/L (3.5-5.1); TOT PROT 6.5 g/dl (6.4-8.2)
--- NOTE | 2019-12-07 08:58 | PN ---
Progress Note, Physician History of Present Illness: 79yo male with h/o HTN, hyperlipidemia, CAD s/p CABG, atrial fibrillation, COPD , recent admissions for COPD exacerbation and rapid atrial fibrillation who was admitted after waking up with shortness of breath. He had just completed his prednisone taper last week, CXr shows pneumonia - Current Medication List Current Medications: Active Medications Albuterol Sulfate (Ventolin 0.042trength) -) 1 amp NEB RTID LEMUEL Last Admin: 12/07/19 07:45 Dose: 1 amp Atorvastatin Calcium (Lipitor -) 80 mg PO HS [facility] Last Admin: 12/06/19 22:11 Dose: 80 mg Diltiazem HCl (Cardizem Cd -) 360 mg PO DAILY [facility] Last Admin: 12/06/19 10:10 Dose: 360 mg Diltiazem HCl (Cardizem Injection -) 10 mg IVPUSH Q4H PRN PRN Reason: TACHYCARDIA Last Admin: 12/05/19 17:22 Dose: 10 mg Docusate Sodium (Colace -) 100 mg PO DAILY [facility] Last Admin: 12/06/19 10:21 Dose: 100 mg Furosemide (Lasix -) 40 mg PO DAILY [facility] Last Admin: 12/06/19 10:21 Dose: 40 mg Azithromycin (Zithromax 500mg Ivpb (Pre-Docked)) 500 mg in 250 mls @ 250 mls/ hr IVPB DAILY [facility] Last Admin: 12/06/19 10:15 Dose: 250 mls/hr Ceftriaxone Sodium (Ceftriaxone 1 Gm-D5w Bag) 50 mls @ 100 mls/hr IVPB DAILY L[facility]UEL; Protocol Last Admin: 12/06/19 09:05 Dose: 100 mls/hr Ipratropium [place] (Atrovent 0.02% Nebulizer -) 1 amp NEB RTID LEMUEL Last Admin: 12/07/19 07:46 Dose: 1 amp Methimazole (Tapazole -) 5 mg PO DAILY [facility] Last Admin: 12/06/19 10:22 Dose: 5 mg Methylprednisolone Sodium Succinate (Solu-Medrol -) 40 mg IVPUSH Q8H-IV [facility] Last Admin: 12/07/19 02:27 Dose: 40 mg Multivitamins/Minerals/Vitamin C (Tab-A-Vit -) 1 tab PO DAILY [facility] Last Admin: 12/06/19 10:21 Dose: 1 tab Non-Formulary Medication (Fluticasone/Umeclidin/Vilanter [Trelegy Ellipta 100- 62.5-25]) 1 each IH DAILY [facility] Pantoprazole Sodium (Protonix -) 40 mg PO DAILY [facility] Last Admin: 12/06/19 10:21 Dose: 40 mg Rivaroxaban (Xarelto) 20 mg PO DAILY@1800 [facility] Last Admin: 12/06/19 18:40 Dose: 20 mg Sotalol HCl (Betapace -) 40 mg PO BID [facility] Last Admin: 12/06/19 22:13 Dose: 40 mg - Objective Vital Signs: Vital Signs Temperature 97.5 F L 12/07/19 07:00 Pulse Rate 66 12/07/19 07:50 Respiratory Rate 18 12/07/19 07:50 Blood Pressure 122/64 12/07/19 07:00 O2 Sat by Pulse Oximetry (%) 100 12/07/19 07:51 General: Elderly man, comfortable, not in distress HEENT; mucous membranes moist, no anemia, no jaundice, PERRLA, no nystagmus Neck: No JVD, supple, no bruit, thyroid palpably normal, normal carotid pulsations. Chest: Nontender, bilateral wheezing CVS: S1-S2 regular/irregular no murmur/gallop/rub Abdomen: Nondistended, soft, bowel sounds present. Extremities: Trace edema., No cough tenderness, pulses present EMERGENCY PHYSICIAN: AO X3 , no gross motor sensory deficit Labs: CBC, BMP 12/07/19 07:43 12/07/19 07:43 INR, PTT INR 2.45 (0.82-1.09) H 12/05/19 09:30 Problem List - Problems (1) Pneumonia Assessment/Plan: Improving on ceftriaxone and azithromycin, follow-up pulmonary recommendations. Problems reviewed: Yes Code(s): J18.9 - PNEUMONIA, UNSPECIFIED ORGANISM Qualifiers: Pneumonia type: due to unspecified organism Laterality: right Lung location: upper lobe of lung Qualified Code(s): J18.9 - Pneumonia, unspecified organism (2) A-fib Assessment/Plan: Rate controlled continue anticoagulation and home medications, continue Xarelto and sotalol and diltiazem Problems reviewed: Yes Code(s): I48.91 - UNSPECIFIED ATRIAL FIBRILLATION Qualifiers: Atrial fibrillation type: unspecified Qualified Code(s): I48.91 - Unspecified atrial fibrillation (3) COPD (chronic obstructive pulmonary disease) Assessment/Plan: Continue DuoNeb, continue IV Solu-Medrol follow-up pulmonary recommendations. Problems reviewed: Yes Code(s): J44.9 - CHRONIC OBSTRUCTIVE PULMONARY DISEASE, UNSPECIFIED (4) S/P CABG x 4 Assessment/Plan: COPD no acute ST-T changes denies any chest pain, continue aspirin, statin and beta-mick Problems reviewed: Yes Code(s): Z95.1 - PRESENCE OF AORTOCORONARY BYPASS GRAFT (5) HLD (hyperlipidemia) Assessment/Plan: Continue statin Problems reviewed: Yes Code(s): E78.5 - HYPERLIPIDEMIA, UNSPECIFIED (6) Hypertension Assessment/Plan: Controlled on current regimen Problems reviewed: Yes Code(s): I10 - ESSENTIAL (PRIMARY) HYPERTENSION (7) Hyperthyroidism Assessment/Plan: On methimazole evaluated by memory care program resident. Problems reviewed: Yes Code(s): E05.90 - THYROTOXICOSIS, UNSP WITHOUT THYROTOXIC CRISIS OR STORM
[2019-12-07] MEDS: AZITHROMYCIN IVPB 500 MG/250 ML BAG IVPB SCH (10:14)
[2019-12-07] MEDS: CEFTRIAXONE 1 G/50 ML PREMIX 50 ML IVPB SCH (10:15)
[2019-12-07] MEDS: DOCUSATE SODIUM 100 MG CAPSULE (FP) PO SCH (10:16)
[2019-12-07] MEDS: SOTALOL HCL 80 MG TABLET (FP) PO SCH ×2 (10:16→22:05)
[2019-12-07] MEDS: PANTOPRAZOLE 40 MG TABLET PO SCH (10:17)
[2019-12-07] MEDS: MULTIVITAMINS (DAILY MVI) TABLET (FP) PO SCH (10:17)
[2019-12-07] MEDS: FUROSEMIDE 40 MG TABLET (FP) PO SCH (10:17)
[2019-12-07] MEDS: METHIMAZOLE 5 MG TABLET (FP) PO SCH (10:18)
--- NOTE | 2019-12-07 12:56 | PN ---
Progress Note, Physician History of Present Illness: pulmonary alert,sitting up in bed,comfortable,-c/o sob,-cp - Current Medication List Current Medications: Active Medications Albuterol Sulfate (Ventolin 0.042trength) -) 1 amp NEB RTID [facility] Last Admin: 12/07/19 07:45 Dose: 1 amp Atorvastatin Calcium (Lipitor -) 80 mg PO HS [facility] Last Admin: 12/06/19 22:11 Dose: 80 mg Diltiazem HCl (Cardizem Cd -) 360 mg PO DAILY [facility] Last Admin: 12/07/19 10:16 Dose: 360 mg Diltiazem HCl (Cardizem Injection -) 10 mg IVPUSH Q4H PRN PRN Reason: TACHYCARDIA Last Admin: 12/05/19 17:22 Dose: 10 mg Docusate Sodium (Colace -) 100 mg PO DAILY [facility] Last Admin: 12/07/19 10:16 Dose: 100 mg Furosemide (Lasix -) 40 mg PO DAILY [facility] Last Admin: 12/07/19 10:17 Dose: 40 mg Azithromycin (Zithromax 500mg Ivpb (Pre-Docked)) 500 mg in 250 mls @ 250 mls/ hr IVPB DAILY [facility] Last Admin: 12/07/19 10:14 Dose: 250 mls/hr Ceftriaxone Sodium (Ceftriaxone 1 Gm-D5w Bag) 50 mls @ 100 mls/hr IVPB DAILY [facility]; Protocol Last Admin: 12/07/19 10:15 Dose: 100 mls/hr Ipratropium [place] (Atrovent 0.02% Nebulizer -) 1 amp NEB RTID [facility] Last Admin: 12/07/19 07:46 Dose: 1 amp Methimazole (Tapazole -) 5 mg PO DAILY [facility] Last Admin: 12/07/19 10:18 Dose: 5 mg Methylprednisolone Sodium Succinate (Solu-Medrol -) 40 mg IVPUSH Q8H-IV [facility] Last Admin: 12/07/19 10:17 Dose: 40 mg Multivitamins/Minerals/Vitamin C (Tab-A-Vit -) 1 tab PO DAILY [facility] Last Admin: 12/07/19 10:17 Dose: 1 tab Non-Formulary Medication (Fluticasone/Umeclidin/Vilanter [Trelegy Ellipta 100- 62.5-25]) 1 each IH DAILY [facility] Pantoprazole Sodium (Protonix -) 40 mg PO DAILY [facility] Last Admin: 12/07/19 10:17 Dose: 40 mg Rivaroxaban (Xarelto) 20 mg PO DAILY@1800 [facility] Last Admin: 12/06/19 18:40 Dose: 20 mg Sotalol HCl (Betapace -) 40 mg PO BID [facility] Last Admin: 12/07/19 10:16 Dose: 40 mg - Objective Vital Signs: Vital Signs Temperature 97.8 F 12/07/19 10:22 Pulse Rate 71 12/07/19 10:22 Respiratory Rate 18 12/07/19 10:22 Blood Pressure 129/57 L 12/07/19 10:22 O2 Sat by Pulse Oximetry (%) 100 12/07/19 09:00 Constitutional: Yes: Well Nourished, Calm Eyes: Yes: WNL HENT: Yes: WNL Neck: Yes: WNL Cardiovascular: Yes: Pulse Irregular, S1 Respiratory: Yes: CTA Bilaterally Gastrointestinal: Yes: Normal Bowel Sounds, Soft Extremities: Yes: WNL Edema: No Labs: CBC, BMP 12/07/19 07:43 12/07/19 07:43 INR, PTT INR 2.45 (0.82-1.09) H 12/05/19 09:30 Problem List - Problems (1) Pneumonia Code(s): J18.9 - PNEUMONIA, UNSPECIFIED ORGANISM Qualifiers: Pneumonia type: due to unspecified organism Laterality: right Lung location: upper lobe of lung Qualified Code(s): J18.9 - Pneumonia, unspecified organism (2) S/P CABG x 4 Code(s): Z95.1 - PRESENCE OF AORTOCORONARY BYPASS GRAFT (3) Troponin I above reference range Code(s): R79.89 - OTHER SPECIFIED ABNORMAL FINDINGS OF BLOOD CHEMISTRY (4) COPD exacerbation Code(s): J44.1 - CHRONIC OBSTRUCTIVE PULMONARY DISEASE W (ACUTE) EXACERBATION (5) Hypertension Code(s): I10 - ESSENTIAL (PRIMARY) HYPERTENSION (6) Shortness of breath Code(s): R06.02 - SHORTNESS OF BREATH Assessment/Plan Problem List - Problems (1) COPD exacerbation Code(s): J44.1 - CHRONIC OBSTRUCTIVE PULMONARY DISEASE W (ACUTE) EXACERBATION (2) Atrial fibrillation with RVR Code(s): I48.91 - UNSPECIFIED ATRIAL FIBRILLATION Assessment/Plan Acute COPD Exacerbation Atrial Fibrillation with RVR Acute Diastolic Heart Failure CAD s/p CABG +Troponins likely Demand Ischemia HTN Hyperlipidemia - shortness of breath likely multifactorial, unclear if this is an acute COPD exacerbation which precipitated rapid atrial fibrillation or if this is acute diastolic heart failure from rapid afib in a patient with advanced COPD and poor pulmonary reserve - antibiotics - rate control - continue anticoagulation - medrol TAPER - inhaled bronchodilators - F/U chest x-rays DR BLAS
[2019-12-07] MEDS: RIVAROXABAN 20 MG TABLET PO SCH (17:32)
[2019-12-07] MEDS: ALBUTEROL SO4 2.5/IPRATROPIUM 0.5 INH SOL 3 ML VIAL.NEB. NEB SCH (20:44)
[2019-12-07] MEDS: ATORVASTATIN CA 40 MG TABLET (FP) PO SCH (22:05)
[2019-12-07] MEDS: BUDESONIDE/FORMETEROL FUMARATE 80/4.5 mcg INHALER IH SCH ×2 (22:06→22:12)
[2019-12-08] MEDS: methylPREDNISolone NA SUCC 40 MG/1 ML VIAL IVPUSH SCH ×3 (02:00→17:16)
[2019-12-08] MEDS: ALBUTEROL SO4 2.5/IPRATROPIUM 0.5 INH SOL 3 ML VIAL.NEB. NEB SCH ×3 (08:02→20:58)
--- NOTE | 2019-12-08 08:59 | PN ---
Progress Note, Physician Chief Complaint: Patient feels improved denies any shortness of breath History of Present Illness: 79yo male with h/o HTN, hyperlipidemia, CAD s/p CABG, atrial fibrillation, COPD , recent admissions for COPD exacerbation and rapid atrial fibrillation who was admitted after waking up with shortness of breath. He had just completed his prednisone taper last week, CXr shows pneumonia - Current Medication List Current Medications: Active Medications Albuterol/Ipratropium (Duoneb -) 1 amp NEB RTID [facility] Last Admin: 12/08/19 08:02 Dose: 1 amp Atorvastatin Calcium (Lipitor -) 80 mg PO HS [facility] Last Admin: 12/07/19 22:05 Dose: 80 mg Budesonide/Formoterol Fumarate (Symbicort 80/4.5mcg -) 2 puff IH BID [facility] Last Admin: 12/07/19 22:12 Dose: Not Given Diltiazem HCl (Cardizem Cd -) 360 mg PO DAILY [facility] Last Admin: 12/07/19 10:16 Dose: 360 mg Diltiazem HCl (Cardizem Injection -) 10 mg IVPUSH Q4H PRN PRN Reason: TACHYCARDIA Last Admin: 12/05/19 17:22 Dose: 10 mg Docusate Sodium (Colace -) 100 mg PO DAILY [facility] Last Admin: 12/07/19 10:16 Dose: 100 mg Furosemide (Lasix -) 40 mg PO DAILY [facility] Last Admin: 12/07/19 10:17 Dose: 40 mg Azithromycin (Zithromax 500mg Ivpb (Pre-Docked)) 500 mg in 250 mls @ 250 mls/ hr IVPB DAILY [facility] Last Admin: 12/07/19 10:14 Dose: 250 mls/hr Ceftriaxone Sodium (Ceftriaxone 1 Gm-D5w Bag) 50 mls @ 100 mls/hr IVPB DAILY [facility]; Protocol Last Admin: 12/07/19 10:15 Dose: 100 mls/hr Methimazole (Tapazole -) 5 mg PO DAILY [facility] Last Admin: 12/07/19 10:18 Dose: 5 mg Methylprednisolone Sodium Succinate (Solu-Medrol -) 40 mg IVPUSH Q8H-IV [facility] Last Admin: 12/08/19 02:00 Dose: 40 mg Multivitamins/Minerals/Vitamin C (Tab-A-Vit -) 1 tab PO DAILY [facility] Last Admin: 12/07/19 10:17 Dose: 1 tab Pantoprazole Sodium (Protonix -) 40 mg PO DAILY [facility] Last Admin: 12/07/19 10:17 Dose: 40 mg Rivaroxaban (Xarelto) 20 mg PO DAILY@1800 [facility] Last Admin: 12/07/19 17:32 Dose: 20 mg Sotalol HCl (Betapace -) 40 mg PO BID [facility] Last Admin: 12/07/19 22:05 Dose: 40 mg Tiotropium [place] (Spiriva Respimat) 2 puff IH DAILY [facility] - Objective Vital Signs: Vital Signs Temperature 97.6 F 12/08/19 06:00 Pulse Rate 66 12/08/19 06:00 Respiratory Rate 17 12/08/19 06:00 Blood Pressure 114/46 L 12/08/19 06:00 O2 Sat by Pulse Oximetry (%) 95 12/07/19 22:00 General: Elderly man, comfortable, not in distress HEENT; mucous membranes moist, no anemia, no jaundice, PERRLA, no nystagmus Neck: No JVD, supple, no bruit, thyroid palpably normal, normal carotid pulsations. Chest: Nontender, bilateral wheezing CVS: S1-S2 irregular no murmur/gallop/rub Abdomen: Nondistended, soft, bowel sounds present. Extremities: Trace edema., No calf tenderness, pulses present FINAL TOUCH UP PAINTER: AO X3 , no gross motor sensory deficit Labs: CBC, BMP 12/07/19 07:43 12/07/19 07:43 INR, PTT INR 2.45 (0.82-1.09) H 12/05/19 09:30 Problem List - Problems (1) Pneumonia Assessment/Plan: Improving on ceftriaxone and azithromycin, follow-up pulmonary recommendations. Follow-up cultures Problems reviewed: Yes Code(s): J18.9 - PNEUMONIA, UNSPECIFIED ORGANISM Qualifiers: Pneumonia type: due to unspecified organism Laterality: right Lung location: upper lobe of lung Qualified Code(s): J18.9 - Pneumonia, unspecified organism (2) A-fib Assessment/Plan: Rate controlled continue anticoagulation and home medications, continue Xarelto and sotalol and diltiazem Problems reviewed: Yes Code(s): I48.91 - UNSPECIFIED ATRIAL FIBRILLATION Qualifiers: Atrial fibrillation type: unspecified Qualified Code(s): I48.91 - Unspecified atrial fibrillation (3) COPD (chronic obstructive pulmonary disease) Assessment/Plan: Continue DuoNeb, continue IV Solu-Medrol follow-up pulmonary recommendations. Code(s): J44.9 - CHRONIC OBSTRUCTIVE PULMONARY DISEASE, UNSPECIFIED (4) S/P CABG x 4 Assessment/Plan: COPD no acute ST-T changes denies any chest pain, continue aspirin, statin and beta-mick Code(s): Z95.1 - PRESENCE OF AORTOCORONARY BYPASS GRAFT (5) HLD (hyperlipidemia) Assessment/Plan: Continue statin Code(s): E78.5 - HYPERLIPIDEMIA, UNSPECIFIED (6) Hypertension Assessment/Plan: Controlled on current regimen Code(s): I10 - ESSENTIAL (PRIMARY) HYPERTENSION (7) Hyperthyroidism Assessment/Plan: On methimazole evaluated by launch check out. Code(s): E05.90 - THYROTOXICOSIS, UNSP WITHOUT THYROTOXIC CRISIS OR STORM
[2019-12-08] MEDS: BUDESONIDE/FORMETEROL FUMARATE 80/4.5 mcg INHALER IH SCH ×3 (09:15→21:03)
[2019-12-08] MEDS: AZITHROMYCIN IVPB 500 MG/250 ML BAG IVPB SCH (09:15)
[2019-12-08] MEDS: PANTOPRAZOLE 40 MG TABLET PO SCH (09:16)
[2019-12-08] MEDS: CEFTRIAXONE 1 G/50 ML PREMIX 50 ML IVPB SCH (09:16)
[2019-12-08] MEDS: DOCUSATE SODIUM 100 MG CAPSULE (FP) PO SCH (09:16)
[2019-12-08] MEDS: FUROSEMIDE 40 MG TABLET (FP) PO SCH (09:17)
[2019-12-08] MEDS: MULTIVITAMINS (DAILY MVI) TABLET (FP) PO SCH (09:17)
[2019-12-08] MEDS: SOTALOL HCL 80 MG TABLET (FP) PO SCH ×2 (09:17→22:04)
[2019-12-08] MEDS: METHIMAZOLE 5 MG TABLET (FP) PO SCH (09:18)
[2019-12-08] MEDS: TIOTROPIUM BROMIDE 2.5 MCG (SPIRIVA) RESPIMAT INHALER IH SCH ×2 (09:18→09:22)
[2019-12-08 09:28] LABS: BASO % 0.1 % (0-2.0); HEMATOCRIT 32.3 % (35.4-49); HEMOGLOBIN 10.9 GM/dl (11.7-16.9); LYMPH % 4.3 % (8-40); MCHC 33.8 g/dl (32.0-35.9); MEAN CELL VOLUME 94.8 fl (80-96); MEAN PLT VOLUME 8.4 fl (7.5-11.1); MONO % 2.8 % (3.8-10.2); NEUT % 92.8 % (42.8-82.8); PLATELET COUNT 336 K/MM3 (134-434); RBC 3.41 M/mm3 (4.00-5.60); RDW 13.4 % (11.9-15.9); WHITE BLOOD COUNT 10.8 K/mm3 (4.0-10.8)
[2019-12-08 09:35] LABS: ALBUMIN 2.7 g/dl (3.4-5.0); BILIRUBIN,TOTAL 0.5 mg/dl (0.2-1); CALCIUM 8.6 mg/dl (8.5-10); CREATININE 0.7 mg/dl (0.55-1.3); POTASSIUM 4.4 mmol/L (3.5-5.1); TOT PROT 5.7 g/dl (6.4-8.2)
[2019-12-08] MEDS: RIVAROXABAN 20 MG TABLET PO SCH (17:16)
[2019-12-08] MEDS: ATORVASTATIN CA 40 MG TABLET (FP) PO SCH (21:02)
[2019-12-09] MEDS: methylPREDNISolone NA SUCC 40 MG/1 ML VIAL IVPUSH SCH ×2 (02:08→09:34)
[2019-12-09 07:50] LABS: BASO % 0.1 % (0-2.0); HEMATOCRIT 33.3 % (35.4-49); HEMOGLOBIN 11.4 GM/dl (11.7-16.9); LYMPH % 4.7 % (8-40); MCH 32.5 pg (25.7-33.7); MCHC 34.1 g/dl (32.0-35.9); MEAN CELL VOLUME 95.3 fl (80-96); MEAN PLT VOLUME 8.1 fl (7.5-11.1); MONO % 1.9 % (3.8-10.2); NEUT % 93.3 % (42.8-82.8); PLATELET COUNT 387 K/MM3 (134-434); RBC 3.49 M/mm3 (4.00-5.60); RDW 13.6 % (11.9-15.9); WHITE BLOOD COUNT 9.8 K/mm3 (4.0-10.8)
[2019-12-09 08:02] LABS: ALBUMIN 2.8 g/dl (3.4-5.0); BILIRUBIN,TOTAL 0.5 mg/dl (0.2-1); CALCIUM 8.9 mg/dl (8.5-10); CREATININE 0.7 mg/dl (0.55-1.3); POTASSIUM 4.1 mmol/L (3.5-5.1); TOT PROT 5.8 g/dl (6.4-8.2)
[2019-12-09] MEDS ORDERED: PT OWN MED DRAWER 7, Y5N ONE (09:27)
[2019-12-09] MEDS: CEFTRIAXONE 1 G/50 ML PREMIX 50 ML IVPB SCH (09:34)
[2019-12-09] MEDS: AZITHROMYCIN IVPB 500 MG/250 ML BAG IVPB SCH (09:34)
[2019-12-09] MEDS: BUDESONIDE/FORMETEROL FUMARATE 80/4.5 mcg INHALER IH SCH (09:37)
[2019-12-09] MEDS: TIOTROPIUM BROMIDE 2.5 MCG (SPIRIVA) RESPIMAT INHALER IH SCH (09:37)
[2019-12-09] MEDS: FUROSEMIDE 40 MG TABLET (FP) PO SCH (09:38)
[2019-12-09] MEDS: DOCUSATE SODIUM 100 MG CAPSULE (FP) PO SCH (09:38)
[2019-12-09] MEDS: MULTIVITAMINS (DAILY MVI) TABLET (FP) PO SCH (09:38)
[2019-12-09] MEDS: PANTOPRAZOLE 40 MG TABLET PO SCH (09:38)
[2019-12-09] MEDS: SOTALOL HCL 80 MG TABLET (FP) PO SCH (09:39)
[2019-12-09] MEDS: METHIMAZOLE 5 MG TABLET (FP) PO SCH (09:39)
[2019-12-09] MEDS: ALBUTEROL SO4 2.5/IPRATROPIUM 0.5 INH SOL 3 ML VIAL.NEB. NEB SCH ×2 (09:40→14:33)
--- NOTE | 2019-12-09 12:57 | PN ---
Progress Note (short form) - Note Progress Note: PULMONARY AWAITING DISCHARGE OFFERS NO COMPLAINTS VSS Constitutional: Yes: Well Nourished, Calm Eyes: Yes: WNL HENT: Yes: WNL Neck: Yes: WNL Cardiovascular: Yes: Pulse Irregular, S1 Respiratory: Yes: CTA Bilaterally Gastrointestinal: Yes: Normal Bowel Sounds, Soft Extremities: Yes: WNL Edema: No Labs: REVIEWED Acute COPD Exacerbation resolved Atrial Fibrillation with RVR now improved Acute Diastolic Heart Failure resolved CAD s/p CABG +Troponins likely Demand Ischemia HTN Hyperlipidemia Agree with continuing treatment as an outpatient f/u in office Gerson KIDD MD
--- NOTE | 2019-12-09 14:03 | DS ---
Physical Exam: SUBJECTIVE: Patient seen and examined OBJECTIVE: Vital Signs Period Temp Pulse Resp BP Sys/Michael Pulse Ox Last 24 Hr 97.4 F-98.1 F 64-76 16-20 126-146/52-70 94-98 PHYSICAL EXAM GENERAL: The patient is awake, alert, and fully oriented, in no acute distress. HEAD: Normal with no signs of trauma. EYES: PERRL, extraocular movements intact, sclera anicteric, conjunctiva clear. ENT: Ears normal, nares patent, oropharynx clear without exudates, moist mucous membranes. NECK: Trachea midline, full range of motion, supple. LUNGS: Breath sounds equal, clear to auscultation bilaterally, no wheezes, no crackles, no accessory muscle use. HEART: Regular rate and rhythm, S1, S2 without murmur, rub or gallop. ABDOMEN: Soft, nontender, nondistended, normoactive bowel sounds, no guarding, no rebound, no hepatosplenomegaly, no masses. EXTREMITIES: 2+ pulses, warm, well-perfused, no edema. NEUROLOGICAL: Cranial nerves II through XII grossly intact. Normal speech, gait not observed. PSYCH: Normal mood, normal affect. SKIN: Warm, dry, normal turgor, no rashes or lesions noted. LABS Laboratory Results - last 24 hr 12/09/19 12/09/19 06:42 06:42 WBC 9.8 RBC 3.49 L Hgb 11.4 L Hct 33.3 L MCV 95.3 MCH 32.5 MCHC 34.1 RDW 13.6 Plt Count 387 MPV 8.1 Absolute Neuts (auto) 9.1 Neutrophils % 93.3 H Lymphocytes % 4.7 L Monocytes % 1.9 L Eosinophils % 0.0 Basophils % 0.1 Sodium 139 Potassium 4.1 Chloride 99 Carbon Dioxide 32 Anion Gap 8 BUN 20.0 H Creatinine 0.7 Est GFR (CKD-EPI)AfAm 104.76 Est GFR (CKD-EPI)NonAf 90.39 Random Glucose 118 H Calcium 8.9 Magnesium 2.0 Total Bilirubin 0.5 AST 22 ALT 22 Alkaline Phosphatase 57 Total Protein 5.8 L Albumin 2.8 L HOSPITAL COURSE: Date of Admission:12/05/19 Date of Discharge: 12/09/19 Minutes to complete discharge: 35 Discharge Summary Problems reviewed: Yes Reason For Visit: AFIB W/RAPID VENTRIC RESPONSE,PNEUMONIA,ELEV TROPO Current Active Problems A-fib (Acute) COPD (chronic obstructive pulmonary disease) (Acute) Pneumonia (Acute) S/P CABG x 4 (Acute) 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 Becker, for an echocardiagram. Return to the emergency department for any new or worsening symptoms. Referrals: David Garcia MD [Staff Physician] - Miguel A Becker MD [Staff Physician] - Disposition: HOME - Home Medications Comprehensive Discharge Medication List: Ambulatory Orders Atorvastatin Ca [Lipitor] 80 mg PO HS 11/07/11 Multivitamin [Multivitamins] 1 each PO DAILY 08/26/13 Sotalol HCl [Sotalol] 40 mg PO BID 08/26/13 Rivaroxaban [Xarelto -] 20 mg PO HS 10/12/19 Diltiazem Cd [Cardizem Cd -] 360 mg PO DAILY #30 cap.cd.24h 11/02/19 Furosemide [Lasix -] 40 mg PO DAILY #30 tablet 11/02/19 Methimazole [Tapazole -] 5 mg PO DAILY tablet 11/02/19 Pantoprazole Sodium [Protonix -] 40 mg PO DAILY #30 tablet.ec 11/02/19 Amlodipine Besylate 10 mg PO DAILY 12/05/19 Docusate Sodium [Colace -] 100 mg PO DAILY 12/05/19 Fluticasone/Umeclidin/Vilanter [Trelegy Ellipta 100-62.5-25] 1 each IH DAILY This patient is new to me today: Yes Date on this admission: 12/09/19 Emergency Visit: Yes ED Registration Date: 12/05/19 Care time: The patient presented to the Emergency Department on the above date and was hospitalized for further evaluation of their emergent condition. Critical Care patient: No - Discharge Referral Referred to [facility] No
[2019-12-09 14:25] VITALS: BP 120/51; PULSE 61; TEMP 97.5
--- NOTE | 2019-12-09 14:25 | PN ---
Progress Note (short form) - Note Progress Note: s: no cp sob palps dizzy Current Medications Albuterol/Ipratropium (Duoneb -) 1 amp NEB RTID REPLACED BY [facility] Last Admin: 12/09/19 09:40 Dose: 1 amp Atorvastatin Calcium (Lipitor -) 80 mg PO HS REPLACED BY [facility] Last Admin: 12/08/19 21:02 Dose: 80 mg Budesonide/Formoterol Fumarate (Symbicort 80/4.5mcg -) 2 puff IH BID REPLACED BY [facility] Last Admin: 12/09/19 09:37 Dose: 2 inh Diltiazem HCl (Cardizem Cd -) 360 mg PO DAILY REPLACED BY [facility] Last Admin: 12/09/19 09:38 Dose: 360 mg Diltiazem HCl (Cardizem Injection -) 10 mg IVPUSH Q4H PRN PRN Reason: TACHYCARDIA Last Admin: 12/05/19 17:22 Dose: 10 mg Docusate Sodium (Colace -) 100 mg PO DAILY REPLACED BY [facility] Last Admin: 12/09/19 09:38 Dose: 100 mg Furosemide (Lasix -) 40 mg PO DAILY REPLACED BY [facility] Last Admin: 12/09/19 09:38 Dose: 40 mg Azithromycin (Zithromax 500mg Ivpb (Pre-Docked)) 500 mg in 250 mls @ 250 mls/ hr IVPB DAILY REPLACED BY [facility] Last Admin: 12/09/19 09:34 Dose: 250 mls/hr Ceftriaxone Sodium (Ceftriaxone 1 Gm-D5w Bag) 50 mls @ 100 mls/hr IVPB DAILY REPLACED BY [facility]; Protocol Last Admin: 12/09/19 09:34 Dose: 100 mls/hr Methimazole (Tapazole -) 5 mg PO DAILY REPLACED BY [facility] Last Admin: 12/09/19 09:39 Dose: 5 mg Methylprednisolone Sodium Succinate (Solu-Medrol -) 40 mg IVPUSH Q8H-IV REPLACED BY [facility] Last Admin: 12/09/19 09:34 Dose: 40 mg Multivitamins/Minerals/Vitamin C (Tab-A-Vit -) 1 tab PO DAILY REPLACED BY [facility] Last Admin: 12/09/19 09:38 Dose: 1 tab Pantoprazole Sodium (Protonix -) 40 mg PO DAILY REPLACED BY [facility] Last Admin: 12/09/19 09:38 Dose: 40 mg Rivaroxaban (Xarelto) 20 mg PO DAILY@1800 REPLACED BY [facility] Last Admin: 12/08/19 17:16 Dose: 20 mg Sotalol HCl (Betapace -) 40 mg PO BID REPLACED BY [facility] Last Admin: 12/09/19 09:39 Dose: 40 mg Tiotropium [place] (Spiriva Respimat) 2 puff IH DAILY REPLACED BY [facility] Last Admin: 12/09/19 09:37 Dose: 2 puff Vital Signs Period Temp Pulse Resp BP Sys/Michael Pulse Ox Last 24 Hr 97.4 F-98.1 F 64-76 16-19 126-146/52-70 95-98 Constitutional: Yes: No Distress, Calm Eyes: Yes: Conjunctiva Clear Neck: Yes: Supple, Trachea Midline Respiratory: Yes: difffuse expiratory wheezes Gastrointestinal: Yes: Normal Bowel Sounds, Soft Cardiovascular: Yes: Pulse Irregular JVD: No Heart Sounds: Yes: S1, S2 Extremities: No: Cold Edema: no Integumentary: No: Jaundice Neurological: Yes: Alert, Oriented Psychiatric: No: Agitated Assessment/Plan EKG: aflutter 2:1, no ischemic changes CXR: new RUL infiltrate tele: afib rate controlled Echo 10/03: nl LV/RV. mild-mod TR echo 11/2019: tds; lvef 40-45, rv tds, mild-mod mr, mild tr shortness of breath, copd exac, acute bronchitis, PNA - trop indeterminate range, flat trend with EKG no ischemic changes - unlikely ACS - new infiltrate on CXR - manage per pulm, primary - sob improved elevated trop - likely demand in setting of PNA, COPD exac. EKG no ischemic changes. paroxysmal afib, h/o remote AFL ablation - incidental modestly rapid AF noted at PMD early 10/03--CCB added, sotalol continued at that time - RVR likely sec to hyperthyroid/copd sx's/steroids - recent holter 11/2019 showed rate controlled - per Dr. Becker: observe HR once euthyroid--will consider EP eval for ?PVI ablation if remains with rapid AF - cont xarelto, cardizem, sotalol - echo here shows lvef 40-45%, however echo was TDS. Pt is scheduled for outpt echo in our office tomorrow for better lvef assessment. If lvef is reduced then may need to reconsider sotalol and dilt. HTN -cont current meds HLD - cont statin CAD s/p CABG - cont plavix, statin hyperthyroidism -manage per primary
== END 2019-12-09 15:01 | disposition home or self-care (01) | DRG 308 ==
LOC: FER 08:59 → FM/S 09:46
PROVIDERS: ADMIT Internal Medicine; ATTEND Nurse Practitioner Acute Care
DX: I48.0 Paroxysmal atrial fibrillation (principal); J18.9 Pneumonia, unspecified organism; J44.1 Chronic obstructive pulmonary disease with (acute) exacerbation; I24.8 Other forms of acute ischemic heart disease; J44.0 Chronic obstructive pulmonary disease with (acute) lower respiratory infection; I25.10 Atherosclerotic heart disease of native coronary artery without angina pectoris; J44.9 Chronic obstructive pulmonary disease, unspecified; E78.5 Hyperlipidemia, unspecified; I10 Essential (primary) hypertension; E05.10 Thyrotoxicosis with toxic single thyroid nodule without thyrotoxic crisis or storm; I48.92 Unspecified atrial flutter; Z95.1 Presence of aortocoronary bypass graft; J20.9 Acute bronchitis, unspecified
CPT/HCPCS: 36415; 71045-TC-FY; 80048; 80053; 81003; 82550; 83605; 83735; 84439; 84443; 84481; 84484; 85025; 85610; 87040; 87086; 87804; 87899; 93005; 93306-TC; 94640; 99285-25

== ENCOUNTER 2020-05-03 02:59 | Emergency (ER) | payer OTHER, BC ==
--- NOTE | 2020-05-03 03:02 | PDOC ---
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 Pt was in his usual state of health, he had eaten leftover [place] food that was c atered (sausage and peppers, macaroni) and mint cookies for dinner. 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 Denies fever, chills, chest pain, SOB, palpitation, weakness, vomiting or diarrhea, bladder and bowel problems, focal weakness/paresthesias, leg swelling/pain, rash. No travel history. No other sick contacts - had GI sx over the last few days and improving, ?viral syndrome. No new changes in medications. + suspicious food intake Allergies: None Past Medical History: Afib, CAD, HTN, HLD, COPD PSH: CABG, bowel resection Social history: Lives with family. No tobacco, or drug use. former tobacco user. +occ /social ETOH use Meds: as documented in EMR Family history: noncontributory PMD: Dr Garcia Review of systems Constitutional: no fevers or chills. No weakness HEENT: no headache. No congestion. No visual/hearing disturbances. +dizziness CVS: no cp or syncope. Resp: no sob. No cough. Gastrointestinal: +abdominal pain, nausea, No vomiting, No diarrhea. Genitourinary: no urinary sx, hematuria. MUSCULOSKELETAL: No joint pain and swelling. No neck or back pain. SKIN: no redness or skin changes, no discharge, no rash. No wounds. Hematologic: no easy bruising/bleeding. NEUROLOGIC: No headache, LOC or altered mental status. No weakness, numbness or tingling. Psych: no anxiety or depression Allergic/Immunologic: no allergies All other systems reviewed and negative, or as documented in HPI. Physical exam General: Well appearing, awake and alert, NAD. HEENT: NCAT, PERRL, EOMI, clear conjunctiva, anicteric, moist mucus membranes, clear oropharynx, no oral lesions.. Neck: neck supple, FROM Resp: CTAB, normal and even respirations, no respiratory distress CVS: irregularly irregular, no murmurs, 2+ peripheral pulses throughout, no peripheral edema Abdomen: soft, protuberant abdomen, no rebound or guarding. +Suprapubic and periumbilical TTP. +soft reducible umbilical hernia, nontender, no skin discoloration. Neg Carreno's sign. Neg mcburney's point tenderness. : no hernia palpated, normal external genitalia, normal testicular lie, no scrotal tenderness or swelling. Back: nontender, normal inspection and ROM MSK: no edema, BRAVO x4, ROM intact. No clubbing or cyanosis. normal bulk and tone. Extremities: no calf tenderness Neuro: alert, oriented appropriately; no focal neurologic deficits Psych: Calm and cooperative Skin: warm and well perfused, cap refill <2 sec, normal color, no rash or skin discoloration. 05/03/20 03:15 Past History - Medical History Allergies/Adverse Reactions: Allergies Allergy/AdvReac Type Severity Reaction Status Date / Time No Known Allergies Allergy Verified 11/13/19 16:36 Home Medications: Ambulatory Orders Atorvastatin Ca [Lipitor] 80 mg PO HS 11/07/11 Multivitamin [Multivitamins] 1 each PO DAILY 08/26/13 Sotalol HCl [Sotalol] 40 mg PO BID 08/26/13 Rivaroxaban [Xarelto -] 20 mg PO HS 10/12/19 Diltiazem Cd [Cardizem Cd -] 360 mg PO DAILY #30 cap.cd.24h 11/02/19 Furosemide [Lasix -] 40 mg PO DAILY #30 tablet 11/02/19 Methimazole [Tapazole -] 5 mg PO DAILY tablet 11/02/19 Docusate Sodium [Colace -] 100 mg PO DAILY 12/05/19 Fluticasone/Umeclidin/Vilanter [Trelegy Ellipta 100-62.5-25] 1 each IH DAILY 12/05/19 Roflumilast [Daliresp] 250 mcg PO DAILY 05/03/20 Anemia: No Asthma: No Cancer: No Cardiac Disorders: Yes (cabg 06/2005) CVA: No COPD: Yes (EMPHYSEMA) CHF: Yes Dementia: No Diabetes: No GI Disorders: No Disorders: No HTN: Yes Hypercholesterolemia: Yes Liver Disease: No Seizures: No Thyroid Disease: No - Surgical History Abdominal Surgery: Yes Appendectomy: No Cardiac Surgery: Yes (cabg X 2004) Cholecystectomy: No Lung Surgery: No Neurologic Surgery: No Orthopedic Surgery: No - Psycho-Social/Smoking History Smoking History: Former smoker Have you smoked in the past 12 months: No If you are a former smoker, when did you quit?: 25 yr s ago ED Treatment Course - LABORATORY CBC & Chemistry Diagram: 05/03/20 03:20 05/03/20 03:20 Medical Decision Making - Medical Decision Making 05/03/20 03:20 Vital Signs Temp Pulse Resp BP Pulse Ox 97.3 F L 66 18 140/60 96 05/03/20 03:03 05/03/20 03:03 05/03/20 03:03 05/03/20 03:03 05/03/20 03:03 vitals reviewed, wnl, no fever no systemic sx. nontoxic. abdomen is soft, +mid to suprapubic Tenderness; not rigid or peritoneal DDx abdominal pain: Renal colic, biliary colic, metabolic/electrolyte derangements. GERD, PUD, esophageal spasm, pancreatitis, hepatitis, constipation, colitis, gastroenteritis, cholecystitis, UTI, pyelonephritis, ileus, SBO, medication side effect, hernia, appendicitis, diverticulitis, mesenteric ischemia. msk strain, mesenteric adenitis, psoas abscess. labs and lytes wnl, reassuring neg trop ekg is sinus rhythm. lactic normal, reassuring. UA neg for pathology/infection/proteins CT with no acute pathology, stool burden diffusely; no diverticulitis or appy. No evidence of pancreatitis, AAA, cholecystitis, choledocholithiasis, cholangitis, mesenteric ischemia, small bowel obstruction, diverticulitis, colitis, appendicitis, or pelvic etiolology, On repeat examination prior to discharge, the patient has a soft abdomen with no peritoneal findings. The patient appears comfortable and states that pain is improved. Given medications pepcid, IVF (no analgesia required) with clinical improvement. The patient was able to tolerate oral intake. The patient was advised that even though there is no evidence of a surgical emergency at this time, sometimes this is not visible on CT or in the labs early in a disease course and that if there is additional pain they are to return for repeat evaluation. The patient stated understanding of this, has decision making capacity and is discharged in stable condition. The patient was instructed to return to the emergency department for re-evaluation in 8-12 hours and sooner if they feel worse in any way. 05/03/20 06:52 05/03/20 06:54 Discharge - Discharge Information Problems reviewed: Yes Clinical Impression/Diagnosis: Abdominal pain Condition: Stable Disposition: HOME - Admission No - Follow up/Referral Referrals: David Garcia MD [Primary Care Provider] - - Patient Discharge Instructions Patient Printed Discharge Instructions: DI for Abdominal Pain-Adult Additional Instructions: Please return to the emergency department immediately should you feel worse in any way or have any of the following symptoms: increasing or different abdominal pain, persistent vomiting, fevers or shaking chills. Please return to the emergency department for a recheck in 8-12 hours if the pain is persistent or worse so we can re-evaluate you and ensure that you are not developing a problem that would require surgery or hospitalization. - Post Discharge Activity
[2020-05-03 03:07] VITALS: TEMP 97.3; BMI 29.5
[2020-05-03] MEDS ORDERED: ONDANSETRON 4 MG/2 ML VIAL IVPUSH ONE (03:13)
[2020-05-03] MEDS ORDERED: FAMOTIDINE 20 MG/50 ML IVPB 20 MG/50 ML MG IVPB ONE (03:13)
[2020-05-03] MEDS ORDERED: SODIUM CHLORIDE 1,000 ML IV STA (03:13)
[2020-05-03] MEDS ORDERED: ACETAMINOPHEN 1000 MG/100 ML VIAL (NON FORMULARY) IVPB ONE (03:13)
[2020-05-03] MEDS ORDERED: ACETAMINOPHEN INJECTION 100 ML IVPB ONE (03:20)
[2020-05-03] MEDS ORDERED: ONDANSETRON 4 MG/2 ML VIAL ONE (03:21)
[2020-05-03 04:26] LABS: BASO % 0.7 % (0-2.0); EOS % 1.4 % (0-4.5); HEMATOCRIT 44.2 % (35.4-49); HEMOGLOBIN 14.7 GM/dL (11.7-16.9); LYMPH % 15.6 % (8-40); MCH 30.9 pg (25.7-33.7); MCHC 33.3 g/dl (32.0-35.9); MEAN CELL VOLUME 92.9 fl (80-96); MEAN PLT VOLUME 8.4 fl (7.5-11.1); MONO % 8.1 % (3.8-10.2); NEUT % 74.2 % (42.8-82.8); PLATELET COUNT 234 K/MM3 (134-434); RBC 4.76 M/mm3 (4.00-5.60); RDW 14.1 % (11.9-15.9); WHITE BLOOD COUNT 7.9 K/mm3 (4.0-10.0)
[2020-05-03 04:46] LABS: INR 2.36 (0.83-1.09); PROTHROMBIN TIME (PATIENT) 28.1 SEC (9.7-13.0)
[2020-05-03 04:48] LABS: ACTIVATED PTT 41.3 SECONDS (25.2-36.5)
[2020-05-03 04:48] LABS: PH,URINE 5.5 (5.0-8.0); URINE APPEARANCE CLOUDY; URINE BILIRUBIN NEGATIVE (NEGATIVE); URINE COLOR YELLOW; URINE GLUCOSE (UA) NEGATIVE (NEGATIVE); URINE KETONE TRACE (NEGATIVE); URINE LEUK ESTERASE NEGATIVE (NEGATIVE); URINE NITRITE NEGATIVE (NEGATIVE); URINE PROTEIN TRACE (NEGATIVE)
[2020-05-03 04:52] LABS: ALBUMIN 3.8 g/dl (3.4-5.0); ALK PHOS 127 U/L (45-117); ANION GAP 6 MMOL/L (8-16); BILIRUBIN,TOTAL 0.6 mg/dL (0.2-1); BLOOD UREA NITROGEN 13.2 mg/dL (7-18); CHLORIDE 101 mmol/L (98-107); CO2 32 mmol/L (21-32); CREATININE 1.2 mg/dL (0.55-1.3); GLUCOSE,RANDOM 137 mg/dL (74-106); LIPASE 139 U/L (73-393); POTASSIUM 4.6 mmol/L (3.5-5.1); SGOT/AST 27 U/L (15-37); SGPT/ALT 17 U/L (13-61); SODIUM 139 mmol/L (136-145); TOT PROT 7.6 g/dl (6.4-8.2)
[2020-05-03 05:54] VITALS: BP 146/64; PULSE 58
--- NOTE | 2020-05-04 09:17 | EKG ---
Test Reason : Blood Pressure : / mmHG Vent. Rate : 052 BPM Atrial Rate : 052 BPM P-R Int : 202 ms QRS Dur : 128 ms QT Int : 476 ms P-R-T Axes : 065 056 030 degrees QTc Int : 442 ms SINUS BRADYCARDIA NON-SPECIFIC INTRA-VENTRICULAR CONDUCTION BLOCK INFERIOR INFARCT (CITED ON OR BEFORE 11-OCT-2019) ABNORMAL ECG WHEN COMPARED WITH ECG OF 05-DEC-2019 08:53, SINUS RHYTHM HAS REPLACED ATRIAL FLUTTER VENT. RATE HAS DECREASED BY [address] NO LONGER ELEVATED IN INFERIOR LEADS NONSPECIFIC T WAVE ABNORMALITY NOW EVIDENT IN ANTEROLATERAL LEADS Confirmed by Arlin Lindsay ([id number]) on 05/04/2020 9:17:08 AM Referred By: DR MORALES Confirmed By:Arlin Lindsay
== END 2020-05-03 07:08 | disposition home or self-care (01) ==
LOC: FER 02:59
PROC: 3E033GC Introduction of Other Therapeutic Substance into Peripheral Vein, Percutaneous Approach (ICD-10-PCS; principal; 2020-05-03)
DX: R10.84 Generalized abdominal pain (principal)
CPT/HCPCS: 36415; 74177-TC; 80053; 81003; 82550; 83605; 83690; 84484; 85025; 85610; 85730; 87086; 93005; 99285-25; J0131; Q9967

== ENCOUNTER 2021-11-16 11:21 | Emergency (ER) | payer OTHER, BC ==
[2021-11-16 11:32] VITALS: BP 137/81; PULSE 97; TEMP 97.8; BMI 28.3
== END 2021-11-16 12:45 | disposition home or self-care (01) ==
LOC: FER 11:21
DX: S60.423A Blister (nonthermal) of left middle finger, initial encounter (principal); W22.8XXA Striking against or struck by other objects, initial encounter
CPT/HCPCS: 73140-TC-LT-FY; 99283-25

== ENCOUNTER 2022-07-23 16:23 | Inpatient (IN) | payer OTHER, BC ==
[2022-07-23] MEDS ORDERED: ALBUTEROL SO4 2.5/IPRATROPIUM 0.5 INH SOL 3 ML VIAL.NEB. NEB ONE ×3 (16:33→16:34)
[2022-07-23] MEDS ORDERED: methylPREDNISolone NA SUCC 125 MG/2 ML VIAL IVPUSH ONE (16:33)
[2022-07-23] MEDS ORDERED: methylPREDNISolone NA SUCC 125 MG/2 ML VIAL ONE (17:33)
[2022-07-23 17:58] LABS: ALBUMIN 3.3 g/dl (3.4-5.0); BILIRUBIN,TOTAL 1.2 mg/dl (0.2-1); CALCIUM 9.3 mg/dl (8.5-10); CREATININE 0.9 mg/dl (0.55-1.3); TOT PROT 7.5 g/dl (6.4-8.2)
[2022-07-23 18:05] LABS: HEMATOCRIT 37.4 % (35.4-49); HEMOGLOBIN 13.2 G/dL (11.7-16.9); MCH 32.5 pg (25.7-33.7); MCHC 35.3 g/dl (32.0-35.9); MEAN CELL VOLUME 92.2 fl (80-96); MEAN PLT VOLUME 7.4 fl (7.5-11.1); PLATELET COUNT 298.8 10^3/uL (134-434); RBC 4.06 10^6/uL (4.00-5.60); RDW 13.6 % (11.9-15.9); WHITE BLOOD COUNT 10.2 10^3/uL (4.0-10.8)
[2022-07-23 18:07] LABS: PLATELET ESTIMATE ADEQUATE
[2022-07-23 19:18] LABS: N-TERMINAL BNP 951.5 pg/ml (5-450)
[2022-07-23] MEDS ORDERED: ALBUTEROL SO4 2.5/IPRATROPIUM 0.5 INH SOL 3 ML VIAL.NEB. NEB PRN (19:57)
[2022-07-23] MEDS: ATORVASTATIN CA 80 MG TABLET (FP) PO SCH (22:06)
[2022-07-23] MEDS: SOTALOL HCL 80 MG TABLET (FP) PO SCH (22:06)
[2022-07-23] MEDS ORDERED: RIVAROXABAN 20 MG TABLET PO SCH (22:15)
[2022-07-23 22:44] VITALS: BMI 25.3
[2022-07-24] MEDS: methylPREDNISolone NA SUCC 40 MG/1 ML VIAL IVPUSH SCH ×3 (01:13→18:23)
[2022-07-24 08:54] LABS: CALCIUM 9.3 mg/dl (8.5-10); CREATININE 0.9 mg/dl (0.55-1.3)
[2022-07-24] MEDS ORDERED: RIVAROXABAN 20 MG TABLET PO SCH ×2 (09:24→18:00)
[2022-07-24] MEDS: SOTALOL HCL 80 MG TABLET (FP) PO SCH ×2 (09:51→21:35)
[2022-07-24] MEDS: METHIMAZOLE 5 MG TABLET PO SCH (09:52)
[2022-07-24] MEDS: MULTIVITAMINS (DAILY MVI) TABLET (FP) PO SCH (09:52)
[2022-07-24 09:58] LABS: HEMATOCRIT 37.7 % (35.4-49); HEMOGLOBIN 12.9 G/dL (11.7-16.9); MCHC 34.2 g/dl (32.0-35.9); MEAN CELL VOLUME 93.6 fl (80-96); MEAN PLT VOLUME 7.5 fl (7.5-11.1); PLATELET COUNT 293.4 10^3/uL (134-434); RBC 4.03 10^6/uL (4.00-5.60); RDW 13.7 % (11.9-15.9); WHITE BLOOD COUNT 4.1 10^3/uL (4.0-10.8)
[2022-07-24 10:36] LABS: PLATELET ESTIMATE ADEQUATE
[2022-07-24 15:07] LABS: BILIRUBIN,TOTAL 0.8 mg/dl (0.2-1); CALCIUM 9.7 mg/dl (8.5-10); CREATININE 0.9 mg/dl (0.55-1.3); TOT PROT 6.8 g/dl (6.4-8.2)
[2022-07-24] MEDS: ATORVASTATIN CA 80 MG TABLET (FP) PO SCH (21:33)
[2022-07-24 21:52] VITALS: RESP 18
[2022-07-25] MEDS: methylPREDNISolone NA SUCC 40 MG/1 ML VIAL IVPUSH SCH ×2 (01:20→10:14)
[2022-07-25 06:29] VITALS: BP 120/59; PULSE 56; TEMP 97.6
[2022-07-25] MEDS ORDERED: FLUTICASONE/UMECLIDIN/VILANTER(100-62.5-25 TRELEGY ELLIPTA) INAHLER IH SCH (10:00)
[2022-07-25] MEDS: MULTIVITAMINS (DAILY MVI) TABLET (FP) PO SCH (10:13)
[2022-07-25] MEDS: METHIMAZOLE 5 MG TABLET PO SCH (10:13)
[2022-07-25] MEDS: SOTALOL HCL 80 MG TABLET (FP) PO SCH (10:14)
== END 2022-07-25 10:25 | disposition home or self-care (01) | DRG 192 ==
LOC: FER 16:23 → FM/S 18:27
PROVIDERS: ADMIT Internal Medicine
DX: J44.1 Chronic obstructive pulmonary disease with (acute) exacerbation (principal); I25.10 Atherosclerotic heart disease of native coronary artery without angina pectoris; Z95.1 Presence of aortocoronary bypass graft; Z99.81 Dependence on supplemental oxygen; E78.5 Hyperlipidemia, unspecified; I48.91 Unspecified atrial fibrillation; I12.9 Hypertensive chronic kidney disease with stage 1 through stage 4 chronic kidney disease, or unspecified chronic kidney disease; N18.9 Chronic kidney disease, unspecified; E05.90 Thyrotoxicosis, unspecified without thyrotoxic crisis or storm; R63.4 Abnormal weight loss
CPT/HCPCS: 36415; 71046-TC-FY; 74176-TC; 76700-TC; 80048; 80053; 83880; 84132; 84484; 85027; 93005; 99285-25; C9803-CS; U0003; U0005

== ENCOUNTER 2022-08-07 04:40 | Emergency (ER) | payer OTHER, BC ==
[2022-08-07 04:54] VITALS: BP 119/81; TEMP 98.9; BMI 25.4
[2022-08-07] MEDS ORDERED: DEXAMETHASONE SOD PHOSPHATE 10 MG/1 ML VIAL IVPUSH ONE (05:01)
[2022-08-07] MEDS ORDERED: AZITHROMYCIN IVPB 500 MG in DEXTROSE 5%-WATER - 250 ML IVPB ONE (05:02)
[2022-08-07] MEDS ORDERED: CEFTRIAXONE 1 GM in DEXTROSE 5%-WATER - 50 ML IVPB ONE (05:02)
[2022-08-07] MEDS ORDERED: MAGNESIUM SULF 50% (8.12 MEQ/2 ML-1 GM VIAL) IVPB ONE (05:02)
[2022-08-07] MEDS ORDERED: ALBUTEROL SO4 2.5/IPRATROPIUM 0.5 INH SOL 3 ML VIAL.NEB. NEB ONE (05:04)
[2022-08-07] MEDS ORDERED: cefTRIAXone SODIUM 1 GM VIAL ONE (05:09)
[2022-08-07] MEDS ORDERED: DEXAMETHASONE SOD PHOSPHATE 10 MG/1 ML VIAL ONE (05:09)
[2022-08-07] MEDS ORDERED: AZITHROMYCIN 500 MG VIAL IVPB ONE (05:09)
[2022-08-07] MEDS ORDERED: MAGNESIUM SULFATE IN WATER 2 GM/50 ML IVPB IVPB ONE (05:09)
[2022-08-07] MEDS ORDERED: SODIUM CHLORIDE 0.9% 500 ML INFUS.BAG IV ONE (05:38)
[2022-08-07 07:28] VITALS: PULSE 83; RESP 18
[2022-08-07 07:53] LABS: BASO % 0.1 % (0-2.0); EOS % 0.3 % (0-4.5); HEMOGLOBIN 12.2 GM/dL (11.7-16.9); LYMPH % 5.2 % (8-40); MCH 30.9 pg (25.7-33.7); MCHC 32.9 g/dl (32.0-35.9); MEAN CELL VOLUME 93.7 fl (80-96); MEAN PLT VOLUME 7.1 fl (7.5-11.1); MONO % 5.1 % (3.8-10.2); NEUT % 89.3 % (42.8-82.8); PLATELET COUNT 315 10^3/uL (134-434); RBC 3.94 M/mm3 (4.00-5.60); RDW 13.7 % (11.9-15.9); WHITE BLOOD COUNT 16.6 K/mm3 (4.0-10.0)
[2022-08-07 07:59] LABS: CALCIUM 8.1 mg/dL (8.5-10.1)
[2022-08-07 08:00] LABS: ALBUMIN 2.6 g/dl (3.4-5.0)
[2022-08-07 08:03] LABS: CREATININE 0.8 mg/dL (0.55-1.3)
[2022-08-07 08:04] LABS: BILIRUBIN,TOTAL 0.5 mg/dL (0.2-1); TOT PROT 6.2 g/dl (6.4-8.2)
[2022-08-07 08:46] LABS: INR 1.76 (0.83-1.09); PROTHROMBIN TIME (PATIENT) 20.3 SEC (9.7-13.0)
== END 2022-08-07 09:36 | disposition home or self-care (01) ==
LOC: SUPCPDRO 04:40 → FER 04:40
PROC: 3E033GC Introduction of Other Therapeutic Substance into Peripheral Vein, Percutaneous Approach (ICD-10-PCS; principal; 2022-08-07)
PROC: 3E0F7GC Introduction of Other Therapeutic Substance into Respiratory Tract, Via Natural or Artificial Opening (ICD-10-PCS; 2022-08-07)
DX: J44.1 Chronic obstructive pulmonary disease with (acute) exacerbation (principal)
CPT/HCPCS: 0241U-QW; 36415; 71045-TC-FY; 80053; 84484; 85025; 85610; 87040; 93005; 99285-25; J1100

== ENCOUNTER 2022-08-17 09:36 | Day surgery (SDC) | payer OTHER, BC ==
[2022-08-15 14:32] VITALS: BMI 26.6
[2022-08-17 10:43] VITALS: RESP 18; TEMP 98
[2022-08-17 12:33] VITALS: BP 112/69; PULSE 61
== END 2022-08-17 12:30 | disposition home or self-care (01) ==
LOC: FASU-ENDO 09:36
PROVIDERS: ATTEND Internal Medicine Gastroenterology
PROC: 0DB98ZX Excision of Duodenum, Via Natural or Artificial Opening Endoscopic, Diagnostic (ICD-10-PCS; 2022-08-17)
PROC: 0DB68ZX Excision of Stomach, Via Natural or Artificial Opening Endoscopic, Diagnostic (ICD-10-PCS; 2022-08-17)
PROC: 0DB48ZX Excision of Esophagogastric Junction, Via Natural or Artificial Opening Endoscopic, Diagnostic (ICD-10-PCS; 2022-08-17)
PROC: 0DBL8ZX Excision of Transverse Colon, Via Natural or Artificial Opening Endoscopic, Diagnostic (ICD-10-PCS; principal; 2022-08-17 11:20)
DX: D12.3 Benign neoplasm of transverse colon (principal); K57.30 Diverticulosis of large intestine without perforation or abscess without bleeding; K64.1 Second degree hemorrhoids; K29.50 Unspecified chronic gastritis without bleeding; K20.90 Esophagitis, unspecified without bleeding; Z98.0 Intestinal bypass and anastomosis status; R10.9 Unspecified abdominal pain; R10.13 Epigastric pain
CPT/HCPCS: 88305-TC; 88342-TC

== ENCOUNTER 2024-09-11 02:40 | Inpatient (IN) | payer OTHER, BC ==
[2024-09-11] MEDS ORDERED: methylPREDNISolone NA SUCC 125 MG/2 ML VIAL ONE (03:09)
[2024-09-11] MEDS ORDERED: ALBUTEROL SO4 2.5/IPRATROPIUM 0.5 INH SOL 3 ML VIAL.NEB. NEB ONE (03:09)
[2024-09-11] MEDS: ALBUTEROL SO4 2.5/IPRATROPIUM 0.5 INH SOL 3 ML VIAL.NEB. NEB ONE (03:35)
[2024-09-11] MEDS: methylPREDNISolone NA SUCC 125 MG/2 ML VIAL IVPB ONE (03:35)
[2024-09-11 05:30] LABS: BASO % 0.3 % (0-2.0); EOS % 0.2 % (0-4.5); HEMATOCRIT 37.2 % (35.4-49); HEMOGLOBIN 12.3 GM/dL (11.7-16.9); LYMPH % 7.2 % (8-40); MCH 30.9 pg (25.7-33.7); MCHC 33.1 g/dl (32.0-35.9); MEAN CELL VOLUME 93.3 fl (80-96); MEAN PLT VOLUME 7.9 fl (7.5-11.1); NEUT % 85.3 % (42.8-82.8); PLATELET COUNT 164 10^3/uL (134-434); RBC 3.99 M/mm3 (4.00-5.60); RDW 13.5 % (11.9-15.9)
[2024-09-11 05:32] LABS: INR 2.12 (0.83-1.09); PROTHROMBIN TIME (PATIENT) 23.9 SEC (9.7-13.0)
[2024-09-11 05:41] LABS: VENOUS BASE EXCESS -1.4 mmol/L (-2-2); VENOUS O2 SATURATION 19.5 % (70-80); VENOUS PCO2 54.5 mmHg (38-52); VENOUS PH 7.303 (7.310-7.410)
[2024-09-11 05:45] LABS: POTASSIUM 5.2 mmol/L (3.5-5.1)
[2024-09-11 05:47] LABS: ALBUMIN 3.4 g/dl (3.4-5.0); BLOOD UREA NITROGEN 23.3 mg/dL (7-18); CALCIUM 9.2 mg/dL (8.5-10.1)
[2024-09-11 05:51] LABS: CREATININE 1.4 mg/dL (0.55-1.3)
[2024-09-11 05:52] LABS: TOT PROT 7.1 g/dl (6.4-8.2)
[2024-09-11 05:55] LABS: N-TERMINAL BNP 833.9 pg/ml (5-450)
[2024-09-11 08:55] VITALS: RESP 18; BMI 28.8
[2024-09-11] MEDS: FLUTICASONE/UMECLIDIN/VILANTER(100-62.5-25 TRELEGY ELLIPTA) INAHLER IH SCH (09:37)
[2024-09-11] MEDS: PANTOPRAZOLE 40 MG TABLET PO SCH (09:37)
[2024-09-11] MEDS: METHIMAZOLE 5 MG TABLET PO SCH (09:37)
[2024-09-11] MEDS: ROFLUMILAST 500 MCG TABLET PO SCH (11:19)
[2024-09-11] MEDS: IPRATROPIUM BR 0.02% 0.5 MG/2.5 ML VIAL.NEB. NEB PRN (13:47)
[2024-09-11] MEDS: LEVALBUTEROL HCL 0.63 MG/3 ML VIAL.NEB. IH SCH (13:47)
[2024-09-11] MEDS: AZITHROMYCIN IVPB 500 MG/250 ML BAG IVPB SCH (15:32)
[2024-09-11] MEDS: CEFTRIAXONE 1 GM in DEXTROSE 5%-WATER - 50 ML IVPB SCH (15:32)
[2024-09-11] MEDS: methylPREDNISolone NA SUCC 40 MG/1 ML VIAL IVPUSH SCH ×2 (15:32→23:38)
[2024-09-11] MEDS ORDERED: methylPREDNISolone NA SUCC 40 MG/1 ML VIAL IVPUSH SCH (17:41)
[2024-09-11] MEDS: ROSUVASTATIN CA 20 MG TABLET PO SCH (21:12)
[2024-09-11] MEDS: RIVAROXABAN 20 MG TABLET PO SCH (21:12)
[2024-09-11] MEDS: POLYETHYLENE GLYCOL (HEALTHYLAX) 3350 17 GM PACKET PO PRN (21:12)
[2024-09-11] MEDS ORDERED: ATORVASTATIN CA 80 MG TABLET (FP) PO SCH (22:00)
[2024-09-12 08:32] LABS: INR 1.81 (0.83-1.09); PROTHROMBIN TIME (PATIENT) 20.3 SEC (9.7-13.0)
[2024-09-12 08:55] LABS: BILIRUBIN,TOTAL 0.5 mg/dl (0.2-1); CALCIUM 9.1 mg/dl (8.5-10.1); CREATININE 1.2 mg/dl (0.6-1.3); MAGNESIUM 2.1 mg/dL (1.8-2.4); PHOSPHOROUS 3.2 (2.5-4.9); POTASSIUM 4.5 mmol/L (3.5-5.1); TOT PROT 7.1 g/dl (6.4-8.2)
[2024-09-12 09:26] LABS: BASO % 0.3 % (0-2.0); HEMATOCRIT 38.1 % (35.4-49); HEMOGLOBIN 12.7 GM/dL (11.7-16.9); LYMPH % 5.9 % (8-40); MCH 30.9 pg (25.7-33.7); MCHC 33.4 g/dl (32.0-35.9); MEAN CELL VOLUME 92.5 fl (80-96); MEAN PLT VOLUME 8.3 fl (7.5-11.1); MONO % 3.1 % (3.8-10.2); NEUT % 90.7 % (42.8-82.8); PLATELET COUNT 187 10^3/uL (134-434); RBC 4.12 M/mm3 (4.00-5.60); RDW 13.6 % (11.9-15.9); WHITE BLOOD COUNT 13.6 K/mm3 (4.0-10.0)
[2024-09-12] MEDS ORDERED: predniSONE 20 MG TABLET (UD) PO SCH (10:00)
[2024-09-13 06:16] VITALS: TEMP 97.5
[2024-09-13 07:50] LABS: ALBUMIN 3.8 g/dl (3.4-5.0); BILIRUBIN,TOTAL 0.4 mg/dl (0.2-1); CALCIUM 9.2 mg/dl (8.5-10.1); CREATININE 1.2 mg/dl (0.6-1.3); POTASSIUM 4.9 mmol/L (3.5-5.1); TOT PROT 6.7 g/dl (6.4-8.2)
[2024-09-13 09:14] VITALS: BP 150/70; PULSE 98
[2024-09-13 09:46] LABS: HEMATOCRIT 39.4 % (35.4-49); MCH 30.9 pg (25.7-33.7); MCHC 33.1 g/dl (32.0-35.9); MEAN CELL VOLUME 93.4 fl (80-96); MEAN PLT VOLUME 8.4 fl (7.5-11.1); PLATELET COUNT 202 10^3/uL (134-434); RBC 4.22 M/mm3 (4.00-5.60)
[2024-09-13 10:26] LABS: ANISOCYTOSIS 0; MACROCYTOSIS 0
== END 2024-09-13 13:02 | disposition home or self-care (01) | DRG 192 ==
LOC: FER 02:40 → FM/S 06:27 → OBSVTOIN 07:04
PROVIDERS: ADMIT Internal Medicine
DX: J44.1 Chronic obstructive pulmonary disease with (acute) exacerbation (principal); I12.9 Hypertensive chronic kidney disease with stage 1 through stage 4 chronic kidney disease, or unspecified chronic kidney disease; N18.9 Chronic kidney disease, unspecified; E78.5 Hyperlipidemia, unspecified; I25.10 Atherosclerotic heart disease of native coronary artery without angina pectoris; I48.91 Unspecified atrial fibrillation; Z95.1 Presence of aortocoronary bypass graft
CPT/HCPCS: 0241U-QW; 36415; 71045-TC-FY; 80053; 82550; 82803; 83735; 83880; 84100; 84439; 84443; 84484; 85025; 85610; 87899; 93005; 93306-TC; 94640; 97116-GP; 97162-GP; 99285-25; G0378